=== PATIENT | female | born 2000 | race Caucasian/White ===

== ENCOUNTER 2023-06-09 21:09 | Emergency (ER) | payer BC, SELFPAY ==
[2023-06-09 21:28] VITALS: BP 153/84; PULSE 101; RESP 18; TEMP 36.6; O2SAT 96; BMI 38.4
--- NOTE | 2023-06-09 21:36 | ED_ITS ---
HPI - Psych General Time Seen by Provider: 21:21 Date Seen: 06/09/23 Chief Complaint: Psychiatric Problem/Disorder Stated Complaint: self harm, lacerations on arms and legs Time Seen by Provider: 06/09/23 21:21 Source: patient and RN notes reviewed Mode of arrival: ambulatory Limitations: no limitations History of Present Illness HPI Narrative: This 23-year-old female is coming in voluntarily to the ER with self inflicted cuts which are superficial to her left arm and right thigh. She states she has a long-term history of anxiety and depression, has done some self cutting before but never this bad. She is a bit unsure as to why the cutting happen tonight. She states it is a bit out of the blue. She has a [employer] student, her parents are driving up from [place] where home is. She admits to drinking a couple shots of alcohol tonight. Denies other drug use. She states she has never been hospitalized for her mental health before, no prior suicide attempts. She states there is a lot of stress, she is feeling numb, depressed, worthless and anxious. She does not have an identifiable plan for suicide nor any definite ideation tonight. She has a history of ADHD, PTSD, depression and anxiety. She has a psychiatrist that she sees monthly at [facility]. She does [address] dynamic therapy weekly. She does tell me that she did take an extra sertraline today, took 150 mg instead of 100 mg. Denies other ingestion. complaint: feels depressed Related Data Home Medications Medication Instructions Recorded Confirmed sertraline 50 mg tablet 50 mg PO DAILY 06/09/23 06/09/23 Allergies Allergy/AdvReac Type Severity Reaction Status Date / Time Penicillins AdvReac Verified 06/09/23 21:33 Review of Systems Status of ROS: Reports: 6 or more systems reviewed and unremarkable except as noted in History and below [facility] Medical History PTSD (post-traumatic stress disorder) ?F43.10 - Post-traumatic stress disorder, unspecified (ICD-10) Depression ?F32.A - Depression, unspecified (ICD-10) Anxiety ?F41.9 - Anxiety disorder, unspecified (ICD-10) Social History Smoking Status: Never smoker Do you use any of these nicotine containing products: None How often do you have a drink containing alcohol: never AUDIT-C Alcohol total score: 0 Non-prescribed substance use: denies use Exam Const: Vital Signs, click to edit/add: Vital Signs - 24 hr 06/09/23 21:28 06/09/23 21:39 Temperature 97.9 F Pulse Rate [Pulse Oximeter] 101 H Respiratory Rate 18 Blood Pressure [Ri ght Upper Arm] 153/84 H Pulse Oximetry 96 98 Oxygen Delivery Me thod Room Air This 23-year-old female is alert, interactive, no apparent distress. She is cooperative with me. She does have good eye contact. Speech is normal, not pressured, seems to have good insight EM on and normal thought content. I would say she does seem slightly flat in mood is depressed. Sclera clear, conjugate gaze, no nystagmus. Symmetrical atraumatic facial function. Neck supple, no masses, no thyromegaly masses or nodules. Lungs are clear, good air entry, no wheezing or crackles. CV regular rate and rhythm, no murmur, normal S1-S2. She has superficial cut steele on her left arm and her right thigh. None require any suturing. These are all very superficial but she has multiple sites. Will have nursing staff clean them, apply little bacitracin. These are over larger areas in it will be difficult to bandage. Documenting provider has reviewed patient's vital signs: yes Course Course ED Course: Will obtain EKG and do the full laboratory evaluation. Patient does agree to telehealth. Nursing staff will clean her wounds. Will ensure her tetanus is up-to-date. Consultations Consultation #1: Have given Heidi from [employer] back on information as I have learned it. She will consult with this patient shortly. She will contact me back when she is ready with her opinion. 11:30 p.m.: Heidi called back. She does not feel that this patient is holdable. She has far too much insight in no active plan. She cut to feel something, overall this patient is quite oriented to her feelings and symptoms. She did talk to Heidi about having vivid images of dying, taking pills to harm herself but that she would not do it. She just has no intent to end her life or harm herself. She has increased her therapy to twice a week on account of some of these feelings. Heidi spoke with patient's parents as well. They have come up with plans that the parents are going to come to the ER when they arrive here, they will take care of her. They will not leave her unattended in certainly not leave her with anything that could potentially be harmful. They will follow-up with further care. It is likely that they will go back down to [place]. Time: 21:48 Vital Signs Vital signs: Initial Vital Signs Temperature 97.9 F 06/09/23 21:28 Temperature Source Temporal Artery Scan 06/09/23 21:28 Pulse Rate 101 H 06/09/23 21:28 Pulse Rhythm Regular 06/09/23 21:28 Respiratory Rate 18 06/09/23 21:28 Blood Pressure 153/84 H 06/09/23 21:28 Blood Pressure Mean 107 H 06/09/23 21:28 Blood Pressure Position Sitting 06/09/23 21:28 Pulse Oximetry 96 06/09/23 21:28 Oxygen Delivery Method Room Air 06/09/23 21:28 Vital Signs Temperature 97.9 F 06/09/23 21:28 Pulse Rate 101 H 06/09/23 21:28 Respiratory Rate 18 06/09/23 21:28 Blood Pressure 153/84 H 06/09/23 21:28 Pulse Oximetry 96 06/09/23 21:28 Oxygen Delivery Method Room Air 06/09/23 21:28 Temperature 98.4 F 06/10/23 03:00 Pulse Rate 68 06/10/23 03:00 Respiratory Rate 16 06/10/23 03:00 Blood Pressure 136/74 06/10/23 03:00 Pulse Oximetry 98 06/10/23 03:00 Oxygen Delivery Method Room Air 06/10/23 03:00 MDM - Psych Lab Data Attestation: I reviewed the patient's lab results. Labs: Lab Results 06/09/23 06/09/23 06/09/23 Range/Units 21:43 21:51 21:55 WBC 9.25 (4.50-11.00) K/uL RBC 4.71 (4.00-5.20) m/uL Hgb 13.5 (12.0-16.0) gm/dL Hct 40.8 (33.0-51.0) % MCV 87 (80-100) fL MCH 29 (26-34) pg MCHC 33 (32-36) gm/dL RDW Coeff of [place] 12.9 (11.5-15.5) % Plt Count 374 (140-440) K/uL Neut % (Auto) 71.4 (42.0-72.0) % Lymph % (Auto) 21.5 (20-44) % [place]ois % (Auto) 5.2 (0.0-11.0) % Eos % (Auto) 1.6 (0.0-7.0) % Baso % (Auto) 0.2 (0.0-3.0) % Neut # (Auto) 6.60 (1.7-7.0) K/uL Lymph # (Auto) 1.99 (0.90-2.90) K/uL [place]ois # (Auto) 0.50 (0.00-0.90) K/UL Eos # (Auto) 0.15 (0.00-0.50) K/uL Baso # (Auto) 0.02 (0.00-0.30) K/uL Abs Immat Gran (auto) 0.01 (0.00-0.30) K/uL Imm/Tot Granulo (auto) 0.1 % Sodium 140 (135-149) mmol/L Potassium 3.5 L (3.6-5.1) mmol/L Chloride 109 (96-114) mmol/L Carbon Dioxide 19 L (20-32) mmol/L Anion Gap 12 (7-15) mEq/L BUN 8 (5-24) mg/dL Creatinine 0.8 (0.5-1.5) mg/dL Estimated Creat Clear 87.98 Estimated GFR 107 ml/min Glucose 126 H (60-115) mg/dL Calcium 9.3 (8.4-10.6) mg/dL Total Bilirubin 0.3 (0.1-1.5) mg/dL AST 30 (12-35) U/L ALT 32 (4-35) U/L Alkaline Phosphatase 72 (40-150) U/L Total Protein 7.8 (6.0-8.3) g/dL Albumin 4.6 (3.3-5.0) g/dL TSH 2.970 (0.270-4.200) uIU/mL Urine HCG, Qual Negative (Negative) Salicylates < 1.0 L (1.0-10) mg/dL Urine Opiates Screen Negative (Negative) Ur Oxycodone Screen Negative (Negative) Urine Methadone Screen Negative (Negative) Acetaminophen < 10.0 L (10.0-30.0) ug/mL Ur Barbiturates Screen Negative (Negative) U Tricyclic Antidepress Negative (Negative) Ur Phencyclidine Scrn Negative (Negative) Ur Amphetamines Screen Negative (Negative) U Methamphetamines Scrn Negative (Negative) U Benzodiazepines Scrn Negative (Negative) Urine Cocaine Screen Negative (Negative) U Marijuana (THC) Screen Negative (Negative) Ur Drug Screen Comment See Note Ethyl Alcohol 0.01 (0.01-0.03) % SARS-CoV-2 (PCR) Negative SARS-CoV-2 (Negative) ECG Data Attestation: I personally reviewed and interpreted this ECG as follows: (Normal sinus rhythm with sinus arrhythmia, 85 beats per minute. QT corrected 440 milliseconds. No concerning change.) ECG interpretation date: 06/09/23 ECG interpretation time: 22:56 Discharge Plan Discharge Clinical Impression: Deliberate self-cutting Depression Qualifiers: Depression Type: unspecified Qualified Code(s): F32.A - Depression, unspecified Patient Disposition: Home w/ Parent or Adult Condition: Stable Instructions: Depression (ED), Suicide Prevention (ED) Additional Instructions: Your to follow the safety plan that you agreed upon with Heidi from telehealth. If at any point you have increasing worry about her depression or underlying mood, are becoming suicidal, please seek emergent psychiatric care. Activity Level: Activity as Tolerated Discharge Diet: Regular Prescriptions: No Action sertraline 50 mg tablet 50 mg PO DAILY Stand Alone Forms: [employer] Info Instructions
[2023-06-09 21:39] VITALS: O2SAT 98
[2023-06-09 21:51] LABS: Basophils Absolute Auto 0.02 K/uL (0.00-0.30); Basophils Percent Auto 0.2 % (0.0-3.0); Eosinophils Absolute Auto 0.15 K/uL (0.00-0.50); Eosinophils Percent Auto 1.6 % (0.0-7.0); Hematocrit 40.8 % (33.0-51.0); Hemoglobin* 13.5 gm/dL (12.0-16.0); Immature Granulocytes Abs Auto 0.01 K/uL (0.00-0.30); Immature Granulocytes Pct Auto 0.1 %; Lymphocytes Absolute Auto 1.99 K/uL (0.90-2.90); Lymphocytes Percent Auto 21.5 % (20-44); Mean Corpuscular HGB Conc 33 gm/dL (32-36); Mean Corpuscular Hemoglobin 29 pg (26-34); Mean Corpuscular Volume 87 fL (80-100); Monocytes Percent Auto 5.2 % (0.0-11.0); Neutrophils Percent Auto 71.4 % (42.0-72.0); Platelet Count* 374 K/uL (140-440); RDW Coefficient of Variation % 12.9 % (11.5-15.5); Red Blood Count 4.71 m/uL (4.00-5.20); White Blood Count* 9.25 K/uL (4.50-11.00)
[2023-06-09 21:53] LABS: Slide Review Reflex No
[2023-06-09 22:04] LABS: Ur HCG Qualitative* Negative (Negative)
[2023-06-09 22:07] LABS: Albumin* 4.6 g/dL (3.3-5.0); Chloride* 109 mmol/L (96-114)
[2023-06-09 22:08] LABS: Potassium* 3.5 mmol/L (3.6-5.1); Sodium* 140 mmol/L (135-149)
[2023-06-09 22:10] LABS: Amphetamine Screen Urine Negative (Negative); Barbiturate Screen Urine Negative (Negative); Benzodiazepines Screen Urine Negative (Negative); Cannabinoid Screen Urine Negative (Negative); Cocaine Screen Urine Negative (Negative); Methadone Screen Urine Negative (Negative); Methamphetamines Screen Urine Negative (Negative); Opiate Screen Urine Negative (Negative); Oxycodone Screen Urine Negative (Negative); Phencyclidine Screen Urine Negative (Negative); Tricyclic Antidepressant Urine Negative (Negative)
[2023-06-09 22:10] LABS: Alanine Aminotransferase* 32 U/L (4-35); Alkaline Phosphatase* 72 U/L (40-150); Anion Gap 12 mEq/L (7-15); Aspartate Amino Transferase* 30 U/L (12-35); Bilirubin Total* 0.3 mg/dL (0.1-1.5); Blood Urea Nitrogen* 8 mg/dL (5-24); Carbon Dioxide* 19 mmol/L (20-32); Creatinine* 0.8 mg/dL (0.5-1.5); Est. Creatinine Clearance* 87.98; Estimated Glomerular Filt Rate 107 ml/min; Glucose* 126 mg/dL (60-115); Total Protein* 7.8 g/dL (6.0-8.3)
[2023-06-09 22:11] LABS: Calcium* 9.3 mg/dL (8.4-10.6); Ethanol* 0.01 % (0.01-0.03)
[2023-06-09 22:12] LABS: Acetaminophen* < 10.0 ug/mL (10.0-30.0)
[2023-06-09 22:13] LABS: Salicylate* < 1.0 mg/dL (1.0-10)
[2023-06-09 23:16] LABS: SARS PCR* Negative SARS-CoV-2 (Negative)
[2023-06-10 03:00] VITALS: BP 136/74; PULSE 68; RESP 16; TEMP 36.9; O2SAT 98
== END 2023-06-10 03:05 | disposition home or self-care (01) ==
PROVIDERS: Family Medicine; Emergency Provider Student in an Organized Health Care Education/Training Program
DX: R45.88 Nonsuicidal self-harm (principal); F32.A Depression, unspecified
CPT/HCPCS: 36415; 80053; 80143; 80179; 80306; 81025; 82077; 84443; 85025; 87426; 87631; 87635; 93005; 94761; 99284; 99285

== ENCOUNTER 2023-09-24 19:01 | Outpatient (CLI) | payer BC, SELFPAY ==
--- OUTSIDE RECORDS SUMMARY | 2023-09-26 11:41 | XMS_ITS | Clinical Summary ---
Author Organization [facility] Address [place], [place] [address] Care Team Providers Care Air Tester Name Role Phone Pcp, No Primary Care Provider Unavailabl e Allergies Active Allergy Reactions Criticality Noted Date Comments Alpha-Gal (Srxgndnzv-Jjlcf-4,3-Galactose) Anaphylaxis High 11/08/2022 Gluten GI Upset 11/08/2022 Sulfamethoxazole Rash 04/12/2022 Medications No known medications Active Problems Problem Noted Date Diagnosed Date Allergic rhinitis due to pollen 04/10/2022 Immunizations Name Administration Dates Next Due COVID-19 vaccine (Moderna 50 mcg/0.5mL) 12YO+ BIVALENT PFFIDENCIO 02/20/2022 Social History Tobacco Use Types Packs/Day Years Used Date Smoking Tobacco: Never Smokeless Tobacco: Never Tobacco Cessation:Counseling Given: Yes Alcohol Use Standard Drinks/Week Comments Never 0 (1 standard drink = 0.6 oz pur e alcohol) PHQ-2 Answer Date Recorded PHQ-2 TOTAL SCORE 1 04/10/2022 Social Connections Answer Date Recorded Frequency of Communication with Friends and Fami ly Not on file 07/09/2023 Financial Resource Strain Answer Date R ecorded Difficulty of Paying Living Expenses 3 06/26/2022 Difficulty of Paying Living Expenses Not on file 06/26/2022 Food Insecurity Answer Date Recorded Worried About Running Out of Food in the Last Ye ar 1 06/26/2022 Transportation Needs Answer Date Record ed Lack of Transportation (Medical) 1 06/26/2022 Housing Stability Answer Date Recorded Unable to Pay for Housing in the Last Year 1 06/26/2022 Sex and Gender Information Value Date Recorded Sex Assigned at Not on file Gender Identity Not on file Sexual Orientation Not on file Obstetrics History Last Filed Vital Signs Vital Sign Reading Time Taken Comments Blood Pressure 107/73 01/25/2023 1:37 PM CDT Pulse 88 01/25/2023 1:37 PM CDT Temperature 36.9 ??C (98.4 ??F) 06/26/2022 1:26 PM CD T Respiratory Rate - - Oxygen Saturation 97% 01/25/2023 1:37 PM CDT Inhaled Oxygen Concentration - - Weight 100.3 kg (221 lb 3.2 oz) 01/25/2023 1:37 PM CDT Height 158.3 cm (5' 2.32) 04/10/2022 7:40 AM CS T Body Mass Index - - Plan of Treatment Health Maintenance Due Date Last Done Comments Tdap 2013 HIV for age 15-65 2017 HPV series for age 9-26 (1 - 3-dose series) 2017 Chlamydia for age 16-24 2018 Hepatitis C screening for age 18-79 2020 Tetanus booster 2022 COVID-19 vaccine series (2022- season) 2022 02/20/2022 BMI (ht and wt on same day) for age 18+ 04/10/2023 04/10/2022 Depression screening for age 12+ 04/13/2023 04/13/2022, 04/12/2022, 04/12/2022, Additional history exists Pap test for age 21-65 06/03/2023 Influenza for age 9-49 11/24/2023 Meningococcal series for age 11-21 Aged Out No longer eligible based on patient's age to complete this topic Pneumococcal series for age 6-64 Aged Out No longer eligible based on patient's age to complete this topic Care Teams Air Tester Relationship Specialty Start Date End Date Pcp, No . PCP - General 04/10/22
--- OUTSIDE RECORDS SUMMARY | 2023-09-26 11:41 | XMS_ITS | Continuity of Care Document ---
[facility] Name [facility] Address [address] [place] [address] Organization [facility] hospital Care Team Providers Care Senior Systems Programmer Name Role Phone [facility] Unavailable Problems Problem Status Onset Date Problem Type Date of Resolution Comme nts Source Problem Condition
--- OUTSIDE RECORDS SUMMARY | 2023-09-26 11:42 | XMS_ITS ---
Care Plan - [facility] Created on: September 26, 2023 Betty Cha : 2000 Sex: Female Author Organization [facility] Address [address] [place] [address] Phone Care Team Providers Care Gasket Former Name Role Phone Jeanie Trevino Primary Care Provider [phone] Goals Includes: Active Goals The patient will continue to perform her usual exercise routine including yoga, stretching and walking. She was shown new stretching exercises for her upper thoracic region and was given a handout illustrating these stretches. She was shown a pelvic rocking isometric exercise that uses upward pelvic motion, lower abdominal contraction, and lumbar flattening to help with her chronic low back pain. She will continue to hydrate well. She will continue with her cognitive behavior therapist, and will return to the [facility] clinic as needed. Initiated on 03/15/2023 by provider Alexis Ko ; [facility]
--- OUTSIDE RECORDS SUMMARY | 2023-09-26 11:42 | XMS_ITS | Clinical Summary ---
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 Osteopathic manipulative treatment was recommended to be performed to address those somatic dysfunctions found today. Patient would like to proceed with OMT today - Last Documented On 04/23/2023 7:56AM ; [facility] - Follow-up visit in 2-3 weeks for reevaluation or as needed - Last Documented On 04/23/2023 7:56AM ; [facility] Assessments Includes: Assessments from this encounter Findings - Spinal enthesopathy of sacral and sacrococcygeal region [M46.08 - Spinal enthesopathy, sacral and sacrococcygeal region] - Last Documented On 04/23/2023 7:56AM ; [facility] - Myofascial pain syndrome of neck [M79.18 - Myalgia, other site] - Last Documented On 04/23/2023 7:56AM ; [facility] - Moderate depression [F32.1 - Major depressive disorder, single episode, moderate] - Last Documented On 04/23/2023 7:56AM ; [facility] - Somatic dysfunction of the head region [M99.00 - Segmental and somatic dysfunction of head region] - Last Documented On 04/23/2023 7:56AM ; [facility] - Somatic dysfunction of rib cage [M99.08 - Segmental and somatic dysfunction of rib cage] - Last Documented On 04/23/2023 7:56AM ; [facility] - Somatic dysfunction of cervical region [M99.01 - Segmental and somatic dysfunction of cervical region] - Last Documented On 04/23/2023 7:56AM ; [facility] - Somatic dysfunction of thoracic region [M99.02 - Segmental and somatic dysfunction of thoracic region] - Last Documented On 04/23/2023 7:56AM ; [facility] - Somatic dysfunction of lumbar region [M99.03 - Segmental and somatic dysfunction of lumbar region] - Last Documented On 04/23/2023 7:56AM ; [facility] - Somatic dysfunction of sacrum [M99.04 - Segmental and somatic dysfunction of sacral region] - Last Documented On 04/23/2023 7:56AM ; [facility] - Somatic dysfunction of pelvic region [M99.05 - Segmental and somatic dysfunction of pelvic region] - Last Documented On 04/23/2023 7:56AM ; [facility] Medical Equipment - Implanted Devices Includes: Current Devices No Medical Equipment Recorded Medications Includes: Medications discussed during this encounter and other current Medications Current Medications (continue as prescribed) Methylphenidate HCl ER 18 MG Oral Tablet Extended Release 24 Hour 06/20/2023 Provider: Diagnosis: Last Documented On 4 3:42PM By Betty Isid[facility] Mima-D Allergy & Congesti on 60-120 MG Oral Tablet Extended Release 12 Hour 06/20/2023 Provider: Diagnosis: Last Documented On 4 3:43PM By Betty Is[facility] FLUoxetine HCl 20 MG Oral Capsule 03/31/2021 Provide r: Diagnosis: Last Documented On 3 2:06PM By Barb Lee CCS ; [facility] Medications Administered Includes: Administered Medications from this encounter No Administered Medications Recorded Vital Signs Includes: Vital Signs from this encounter Vital Name 04/17/2023 08:07A Blood Pressure Sitting L 120/60 BP Cuff Size Large Pulse Rate-Sitting (bpm) 96 Pulse Rhythm Regular Respiration Rate (breaths/min) 16 Oxygen Saturation (%) 97 Flow Rate (l/min) (None (Room Air)) FiO2 (%) 21 Last Documented: On 04/17/2023 8:08AM ; Dwaine Colón [facility] Results Includes: Results discussed during this encounter No Results Recorded For Specified Dates History of Present Illness Includes: History of Present Illness from this encounter JIMENEZ Cha is a 22 year old female. 1) Low back pain - This pain is chronic. It has gotten much better after the last two treatments but still continues. It occurs in the low back bilaterally and radiates into the left hip. There is no new associated symptom or injury. She has been performing the stretches we prescribed regularly. 2) Depression - This problem has been aggrevated in the last few weeks. She returned home from school in hopes that it would help alleviate her symptoms. It seems to have continued. She has difficulty finding quinton in activities she typically enjoys, has low energy, and overall sad mood. - Stabbing pain - Feels like tightness or stiffness - Pain is constant (100% of the time) - Pain is dull, aching - Pain is shooting - Pain is sharp - Pain is relieved by movement and stretching - Pain is worse with sitting/standing, laying for long periods - Current pain level 3 (0-10) Social History Description Last Updated Right Handed 03/31/2021 Last Documented On 4 8:07AM ; Dwaine Colón [facility] 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/2021 Last Documented On 4 8:07AM ; Dwaine oClón [facility] Daily coffee consumption was one cups pe r day 03/31/2021 Last Documented On 4 8:07AM ; Dwaine Colón [facility] Never drank alcohol 03/31/2021 Last Documented On 4 8:07AM ; Dwaine Colón [facility] Non-smoker 03/31/2021 Last Documented On 4 8:07AM ; Dwaine Colón [facility] Not using drugs 03/31/2021 Last Documented On 4 8:07AM ; [facility] Single 03/31/2021 Last Documented On 4 8:07AM ; [facility] Smoking Status Unknown Procedures and Surgical History Includes: Procedures from this encounter Procedures Code Diagnosis Performing Provider Service Location Service Date OSTEOPATHIC MANIP 7-8 AREAS 12813 Segmental and somatic dysfunction of cervical region, Segmental and somatic dysfunction of sacral region, Segmental and somatic dysfunction of lumbar region, Segmental and somatic dysfunction of head region Ananda Sinan DO OMM 04/17/2023 Last Documented On 4 7:09PM ; [facility] osteopathic manipulative jarvis atment (OMT) involving seven to eight body regions [id number] Last Documented On 4 9:50AM ; [facility] general outcomes - OMT was well tolerate d Last Documented On 4 9:50AM ; [facility] general outcomes - Symptoms improved aft er OMT Last Documented On 4 9:50AM ; [facility] Articular Technique head region Last Documented On 4 9:50AM ; [facility] Osteopathic cranial manipulative medicin e head region Last Documented On 4 9:55AM ; [facility] Indirect balanced ligamentous tension he ad region Last Documented On 4 9:50AM ; [facility] Myofascial release head region Last Documented On 4 9:50AM ; [facility] OMT response head region: somatic dysfun ction was improved Last Documented On 4 9:50AM ; [facility] Articular technique cervical region Last Documented On 4 9:50AM ; [facility] Indirect balanced ligamentous tension ce rvical region Last Documented On 4 9:50AM ; [facility] Myofascial release cervical region Last Documented On 4 9:50AM ; [facility] Soft tissue technique cervical region Last Documented On 4 9:50AM ; [facility] OMT response cervical region: somatic dy sfunction was improved Last Documented On 4 9:50AM ; [facility] Articular Technique lumbar region Last Documented On 4 9:50AM ; [facility] Muscle energy lumbar region Last Documented On 4 9:50AM ; [facility] Myofascial release lumbar region Last Documented On 4 9:50AM ; [facility] Soft tissue technique lumbar region Last Documented On 4 9:50AM ; [facility] OMT response lumbar region: somatic dysf unction was improved Last Documented On 4 9:50AM ; [facility] Articular technique thoracic region Last Documented On 4 9:50AM ; [facility] Myofascial release thoracic region Last Documented On 4 9:50AM ; [facility] Soft tissue technique thoracic region Last Documented On 4 9:50AM ; [facility] OMT response thoracic region: somatic dy sfunction was improved Last Documented On 4 9:50AM ; [facility] OMT response pelvic region: somatic dysf unction was improved Last Documented On 4 9:50AM ; [facility] Articular Technique pelvic region Last Documented On 4 9:50AM ; [facility] Muscle energy pelvic region Last Documented On 4 9:50AM ; [facility] OMT response sacral region: somatic dysf unction was improved Last Documented On 4 9:50AM ; [facility] Muscle energy rib chest region Last Documented On 4 9:55AM ; [facility] Myofascial release rib chest region Last Documented On 4 9:50AM ; [facility] Soft tissue technique rib chest region Last Documented On 4 9:50AM ; [facility] OMT response rib/chest region: somatic d ysfunction was improved Last Documented On 4 9:50AM ; [facility] OMT was performed based on jeromy granger's physical examination - Regions treated include those listed in the assessment portion of today's Evaluation & Management note Last Documented On 4 9:50AM ; [facility] Low velocity, moderate amplitude techniq ue sacral region Last Documented On 4 9:50AM ; [facility] Surgical History Last Updated No prior surgery or no significant histo ry 03/31/2021 Last Documented On 4 8:07AM ; [facility] History of treatment of foot fracture - Boot (2016) 03/31/2021 Last Documented On 4 8:07AM ; [facility] Medical History Includes: Medical History addressed during this encounter Description Last Updated Past medical history reviewed - Previous encounter reviewed 03/31/2021 Last Documented On 4 8:07AM ; [facility] Dissociative Disorder ~ Environmental Al lergies 03/31/2021 Last Documented On 4 8:07AM ; [facility] Allergy symptoms occur seasonally 2021 Last Documented On 4 8:07AM ; [facility] An allergy to certain foods 03/31/2021 Last Documented On 4 8:07AM ; [facility] History of anxiety disorder NOS 03/31/19 22 Last Documented On 4 8:07AM ; [facility] History of depression 03/31/2021 Last Documented On 4 8:07AM ; [facility] Family History Includes: Family History addressed during this encounter Description Last Updated ADHD (dad) 03/31/2021 Last Documented On 4 8:07AM ; [facility] Family history of type 1 diabetes mellit us (sister) 03/31/2021 Last Documented On 4 8:07AM ; [facility] Review of Systems Includes: Review of Systems from this encounter Systemic: No fever, no chills, and no night sweats. Head: No headache. Sinus pain. Neck: Neck pain. Cardiovascular: No cardiovascular symptoms - ankle edema and no chest pain or discomfort. Gastrointestinal: Gastrointestinal pain. No diarrhea and no constipation. Musculoskeletal: Back symptoms. Neurological: No tingling and no numbness. Psychological: Anxiety and depression. Mental Status Includes: Mental Status from this encounter Description Oriented to time, place, and person Anxiety Moderate depression Functional Status Includes: Functional Status from this encounter No Functional Status Recorded Physical Exam Includes: Physical Exam from this encounter Allergies Includes: Active Allergies Substance Type Reaction Onset Date Resolved Date Statu s Penicillins Allergy Skin Rashes / Eruption of skin 022 Active Last Documented On 4 2:00PM ; [facility] Encounters Encounter Provider Location Date Check-In Time Check-Out Time Diagnosis [facility] Established patient Ananda Menon DO [facility] 04/17/19 24 8:00AM 9:02AM Somatic Dysfunction of Head,Somatic Dysfunction of Rib Cage,Somatic Dysfunction of Cervical Region,Somatic Dysfunction of Thoracic Region,Somatic Dysfunction of Lumbar Region,Somatic Dysfunction of Sacrum,Somatic Dysfunction of Pelvic Region,Myofascial Pain Syndrome Neck,Spinal Enthesopathy of Sacral and Sacrococcygeal Region,Depression Moderate Insurance Includes: Active Insurance Policies Plan Name Member ID Group # Subscriber Relationship Effect mica Dates 1 - Clever [place] Access Payer [id number] Starla II, Girma A Child Clinical Notes Includes: Clinical Notes from this encounter * Progress note Date Encounter Last Documented by 04/17/2023 [facility] Established patient Last doc umented on 04/23/2023; 7:56 AM, Ananda Sinan ; [facility] Chief Complaint - Back symptoms - Psychological symptoms History of Present Illness Betty Cha is a 22 year old female. 1) Low back pain - This pain is chronic. It has gotten much better after the last two treatments but still continues. It occurs in the low back bilaterally and radiates into the left hip. There is no new associated symptom or injury. She has been performing the stretches we prescribed regularly. 2) Depression - This problem has been aggrevated in the last few weeks. She returned home from school in hopes that it would help alleviate her symptoms. It seems to have continued. She has difficulty finding quinton in activities she typically enjoys, has low energy, and overall sad mood. - Stabbing pain - Feels like tightness or stiffness - Pain is constant (100% of the time) - Pain is dull, aching - Pain is shooting - Pain is sharp - Pain is relieved by movement and stretching - Pain is worse with sitting/standing, laying for long periods - Current pain level 3 (0-10) Review Of Systems Systemic: No fever, no chills, and no night sweats. Head: No headache. Sinus pain. Neck: Neck pain. Cardiovascular: No cardiovascular symptoms - ankle edema and no chest pain or discomfort. Gastrointestinal: Gastrointestinal pain. No diarrhea and no constipation. Musculoskeletal: Back symptoms. Neurological: No tingling and no numbness. Psychological: Anxiety and depression. Past Medical/Surgical History Other: Past medical history reviewed - Previous encounter reviewed Reported: Medical: An allergy to certain foods and allergy symptoms occur seasonally. Surgical / Procedural: No prior surgery or no significant history. Diagnoses: Depression Anxiety disorder NOS Dissociative Disorder Environmental Allergies. Procedural: - Treatment of foot fracture - Boot (2016) Allergies - Penicillins Reaction: Skin Rashes / Eruption of skin (Mild to Moderate) Social History Caffeine use: Daily coffee consumption was one cups per day. Tobacco use: Non-smoker. Alcohol: Never drank alcohol. Drug Use: Not using drugs. Education: 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 school [employer]. Marital: Single. Right Handed. Family History ADHD (dad) Type 1 diabetes mellitus (sister) Current Medication - FLUoxetine HCl 20 MG Oral Capsule 1 tab or cap daily 0 days, 0 refills - ZyrTEC Allergy 10 MG Oral Tablet as needed 0 days, 0 refills Physical Findings - Vitals taken 04/17/2023 08:07 am BP-Sitting L 120/60 mmHg BP Cuff Size Large Pulse Rate-Sitting 96 bpm Pulse Rhythm Regular Respiration Rate 16 per min Oxygen Saturation 97 % O2 Device None (Room Air) FiO2 21 % General Appearance: - General appearance: normally developed, no deformities. Musculoskeletal System: Cervical Spine (Motion): General/bilateral: - Cervical spine motion was abnormal - impaired or altered range of motion present in the cervical spine. - Cervical spine showed no instability. - Spurlings test negative for numbness and tingling. Thoracic Spine: General/bilateral: - Thoracic spine exhibited abnormal rib motion. Thoracolumbar Spine (Motion): General/bilateral: - Thoracolumbar spine motion was abnormal - Impaired or altered range of motion in the thoracic or thoracolumbar spinal regions. Lumbar / Lumbosacral Spine (Motion): General/bilateral: - Lumbosacral spine motion was abnormal - Impaired or altered range of motion in the lumbar or lumbosacral spinal regions. - Sacroiliac joint motion was abnormal. - A straight-leg raising test was negative. - A contralateral straight-leg raising test was negative. Neurological: - Level of consciousness was normal. - Oriented to time, place, and person. Motor (Strength): - Strength of flexion of the right hip 5/5. - Strength of flexion of the left hip 5/5. - Strength of abduction of the right hip 5/5. - Strength of abduction of the left hip 5/5. - Strength of adduction of the right hip 5/5. - Strength of adduction of the left hip 5/5. - Strength of flexion of the right knee 5/5. - Strength of flexion of the left knee 5/5. - Strength of extension of the right knee 5/5. - Strength of extension of the left knee 5/5. - Dorsiflexion strength of the right ankle 5/5. - Dorsiflexion strength of the left ankle 5/5. - Plantar flexion strength of the right ankle 5/5. - Plantar flexion strength of the left ankle 5/5. - Inversion strength of the right ankle 5/5. - Inversion strength of the left ankle 5/5. - Eversion strength of the right ankle 5/5. - Eversion strength of the left ankle 5/5. - Flexion strength of the right first toe 5/5. - Flexion strength of the left first toe 5/5. Reflexes: - Right knee jerk reflex 2/4. - Left knee jerk reflex 2/4. - Right ankle jerk reflex 2/4. - Left ankle jerk reflex 2/4. Psychiatric: Appearance: - Grooming was normal. Mood: - Euthymic. Affect: - Normal. User Defined 4 Occipitoatlantal joint extended, sidebent right and rotated left, Right frontal bone internally rotated, and Overall severity of the head region is moderate. User Defined 6 C3 flexed, sidebent right and rotated right, C5 flexed, sidebent left and rotated left, C6 flexed, sidebent left and rotated left, and Overall severity of the cervical region is moderate. User Defined 7 T7 neutral, sidebent right and rotated left, T8 neutral, sidebent right and rotated left, T9 neutral, sidebent right and rotated left, T10 neutral, sidebent right and rotated left, and Overall severity of the thoracic region is moderate. User Defined 9 Left rib 9 anterior, Left rib 10 exhaled, Left rib 10 anterior, Left rib 11 exhaled, Left rib 11 anterior, Left rib 12 exhaled, Left rib 12 anterior, and Left rib 12 stiffness. User Defined 10 L1 neutral, sidebent left and rotated right, L2 neutral, sidebent left and rotated right, L3 neutral, sidebent left and rotated right, L4 extended, sidebent left and rotated left, L5 extended, sidebent left and rotated left, and Overall severity of the lumbar region is moderate. User Defined 11 Left anteriorly rotated innominate and Overall severity of the pelvic region is moderate. User Defined 12 Right unilateral sacral flexion, Right midpole sacroiliac tender point, and Overall severity of the sacral region is moderate. Assessment - Spinal enthesopathy of sacral and sacrococcygeal region [M46.08 - Spinal enthesopathy, sacral and sacrococcygeal region] - Myofascial pain syndrome of neck [M79.18 - Myalgia, other site] - Moderate depression [F32.1 - Major depressive disorder, single episode, moderate] - Somatic dysfunction of the head region [M99.00 - Segmental and somatic dysfunction of head region] - Somatic dysfunction of rib cage [M99.08 - Segmental and somatic dysfunction of rib cage] - Somatic dysfunction of cervical region [M99.01 - Segmental and somatic dysfunction of cervical region] - Somatic dysfunction of thoracic region [M99.02 - Segmental and somatic dysfunction of thoracic region] - Somatic dysfunction of lumbar region [M99.03 - Segmental and somatic dysfunction of lumbar region] - Somatic dysfunction of sacrum [M99.04 - Segmental and somatic dysfunction of sacral region] - Somatic dysfunction of pelvic region [M99.05 - Segmental and somatic dysfunction of pelvic region] Plan - Osteopathic manipulative treatment (OMT) - Somatic dysfunction was found on today's physical examination which was likely contributing to the patient's complaints. Osteopathic manipulative treatment was recommended to be performed to address those somatic dysfunctions found today. Patient would like to proceed with OMT today - Follow-up visit in 2-3 weeks for reevaluation or as needed Discussed The patient admitted to feeling much more depressed the last few weeks. She returned to [place] in hopes of alleviating her depression but this has been unsuccessful. She is currently seeing a provider on her campus for this issue and has plans to restart antidepressants. We suggested that a short course of anti depressants could be very useful for her situation. It was suggested that she attempt to find things that bring her quinton and where she has fun and engage in those activities. It was also suggested that she spend more time outdoors and generally take care of her own well being and stability. For stretches it was suggested that she find the specific muscle groups that feel tight and spend her limited time focusing on those areas. Counseling/Education - Education: activity/exercise education prescribed - Continue current home stretching and exercise program - Education: patient education about a proper diet - Anti-inflammatory diet discussed and handout given User Defined 5 OMT was performed based on today's physical examination - Regions treated include those listed in the assessment portion of today's Evaluation & Management note. Articular Technique head region; Osteopathic cranial manipulative medicine head region; Indirect balanced ligamentous tension head region; Myofascial release head region. OMT response head region: somatic dysfunction was improved. Articular technique cervical region; Indirect balanced ligamentous tension cervical region; Myofascial release cervical region; Soft tissue technique cervical region. OMT response cervical region: somatic dysfunction was improved. Articular technique thoracic region; Myofascial release thoracic region; Soft tissue technique thoracic region. OMT response thoracic region: somatic dysfunction was improved. Muscle energy rib chest region; Myofascial release rib chest region; Soft tissue technique rib chest region. OMT response rib/chest region: somatic dysfunction was improved. Articular Technique lumbar region; Muscle energy lumbar region; Myofascial release lumbar region; Soft tissue technique lumbar region. OMT response lumbar region: somatic dysfunction was improved. Articular Technique pelvic region; Muscle energy pelvic region. OMT response pelvic region: somatic dysfunction was improved. Low velocity, moderate amplitude technique sacral region. OMT response sacral region: somatic dysfunction was improved. Osteopathic manipulative treatment (OMT) involving seven to eight body regions. General outcomes - OMT was well tolerated. General outcomes - Symptoms improved after OMT. Care Team - Jeanie Trevino Practice Management Estab outpatient expanded h&p - low complexity decisions [id number] - The E&M code was based on Medical Decision Making associated with at least 2 of the following 3 elements 1) 2 minor or self-limiting problems or 1 stable chronic problem or 1 acute uncomplicated injury; 2) limited record/data reviewed or ordered; 3) Low management risk such as OMT.
--- OUTSIDE RECORDS SUMMARY | 2023-09-26 11:42 | XMS_ITS | Clinical Summary ---
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 Osteopathic manipulative treatment was recommended to be performed to address those somatic dysfunctions found today. Patient would like to proceed with OMT today - Last Documented On 07/19/2023 5:27PM ; [facility] - Follow-up visit in 4-6 weeks for reevaluation or as needed - Last Documented On 07/19/2023 5:27PM ; [facility] Assessments Includes: Assessments from this encounter Findings - Vertebrogenic low back pain [M54.51 - Vertebrogenic low back pain] - Last Documented On 07/19/2023 5:27PM ; [facility] - Cervicalgia [M54.2 - Cervicalgia] - Last Documented On 07/19/2023 5:27PM ; [facility] - Somatic dysfunction of the head region [M99.00 - Segmental and somatic dysfunction of head region] - Last Documented On 07/19/2023 5:27PM ; [facility] - Somatic dysfunction of rib cage [M99.08 - Segmental and somatic dysfunction of rib cage] - Last Documented On 07/19/2023 5:27PM ; [facility] - Somatic dysfunction of cervical region [M99.01 - Segmental and somatic dysfunction of cervical region] - Last Documented On 07/19/2023 5:27PM ; [facility] - Somatic dysfunction of thoracic region [M99.02 - Segmental and somatic dysfunction of thoracic region] - Last Documented On 07/19/2023 5:27PM ; [facility] - Somatic dysfunction of lumbar region [M99.03 - Segmental and somatic dysfunction of lumbar region] - Last Documented On 07/19/2023 5:27PM ; [facility] Medical Equipment - Implanted Devices Includes: Current Devices No Medical Equipment Recorded Medications Includes: Medications discussed during this encounter and other current Medications Current Medications (continue as prescribed) Methylphenidate HCl ER 18 MG Oral Tablet Extended Release 24 Hour 06/20/2023 Provider: Diagnosis: Last Documented On 4 3:42PM By Betty Mahan ; [facility] Mima-D Allergy & Congesti on 60-120 MG Oral Tablet Extended Release 12 Hour 06/20/2023 Provider: Diagnosis: Last Documented On 4 3:43PM By Betty Mahan ; [facility] FLUoxetine HCl 20 MG Oral Capsule 03/31/2021 Provide r: Diagnosis: Last Documented On 3 2:06PM By Barb Lee CCS ; [facility] Medications Administered Includes: Administered Medications from this encounter No Administered Medications Recorded Vital Signs Includes: Vital Signs from this encounter Vital Name 07/19/2023 04:01P Blood Pressure Sitting L 120/70 BP Cuff Size Large Pulse Rate-Sitting (bpm) 106 Pulse Rhythm Regular Respiration Rate (breaths/min) 18 Oxygen Saturation (%) 98 Flow Rate (l/min) (None (Room Air)) FiO2 (%) 21 Last Documented: On 07/19/2023 4:02PM ; [facility] Results Includes: Results discussed during this encounter No Results Recorded For Specified Dates History of Present Illness Includes: History of Present Illness from this encounter JIMENEZ Cha is a 23 year old female. 1) Neck pain - This has been going on since her accident last month. The treatment immediately following the accident helped a lot but she still struggles with neck stiffness and pain. There is no new associated injury or symptom. 2) Back pain - This pain is chronic. It occurs in the low back bilaterally and radiates into the hips. There is no new associated injury. Notably, the patient explained that she had an episode of self harm during this last semester and had to be hospitalized for a day. She then decided to move back to her parents house. She is working with a psychiatrist and therapist. She expressed that she has not had any more thoughts of self harm. - Stabbing pain - Feels like tightness or stiffness - Pain is constant (100% of the time) - Pain is dull, aching - Pain is relieved by walking and stretching - Pain is worse with sitting, standing, laying down - Current pain level 3 (0-10) Social History Description Last Updated Right Handed 03/31/2021 Last Documented On 4 4:01PM ; [facility] 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/2021 Last Documented On 4 4:01PM ; [facility] Daily coffee consumption was one cups pe r day 03/31/2021 Last Documented On 4 4:01PM ; [facility] Never drank alcohol 03/31/2021 Last Documented On 4 4:01PM ; [facility] Non-smoker 03/31/2021 Last Documented On 4 4:01PM ; [facility] Not using drugs 03/31/2021 Last Documented On 4 4:01PM ; [facility] Single 03/31/2021 Last Documented On 4 4:01PM ; [facility] Smoking Status Unknown Procedures and Surgical History Includes: Procedures from this encounter Procedures Code Diagnosis Performing Provider Service Location Service Date OSTEOPATHIC MANIP 5-6 AREAS 08441 Segmental and somatic dysfunction of cervical region, Segmental and somatic dysfunction of rib cage, Segmental and somatic dysfunction of thoracic region, Segmental and somatic dysfunction of lumbar region Ananda Menon DO, OMM 07/19/2023 Last Documented On 4 7:02AM ; [facility] osteopathic manipulative treatment (OMT) involving five to six body regions [id number] Last Documented On 4 5:23PM ; [facility] general outcomes - OMT was well tolerate d Last Documented On 4 5:23PM ; [facility] general outcomes - Symptoms improved aft er OMT Last Documented On 4 5:23PM ; [facility]omy. [facility] Muscle energy head region Last Documented On 4 5:23PM ; [facility] Myofascial release head region Last Documented On 4 5:23PM ; [facility] Soft tissue technique head region Last Documented On 4 5:23PM ; [facility] OMT response head region: somatic dysfun ction was improved Last Documented On 4 5:23PM ; [facility] Articular technique cervical region Last Documented On 4 5:23PM ; [facility] Facilitated positional release cervical region Last Documented On 4 5:23PM ; [facility] Indirect balanced ligamentous tension ce rvical region Last Documented On 4 5:23PM ; [facility] Muscle energy cervical region Last Documented On 4 5:23PM ; [facility] Myofascial release cervical region Last Documented On 4 5:23PM ; [facility] OMT response cervical region: somatic dy sfunction was improved Last Documented On 4 5:23PM ; [facility] Articular Technique lumbar region Last Documented On 4 5:24PM ; [facility] Muscle energy lumbar region Last Documented On 4 5:24PM ; [facility] OMT response lumbar region: somatic dysf unction was improved Last Documented On 4 5:24PM ; [facility] Articular technique thoracic region Last Documented On 4 5:24PM ; [facility] Muscle energy thoracic region Last Documented On 4 5:24PM ; [facility] Myofascial release thoracic region Last Documented On 4 5:24PM ; [facility] OMT response thoracic region: somatic dy sfunction was improved Last Documented On 4 5:24PM ; [facility] Still technique rib chest region Last Documented On 4 5:24PM ; [facility] OMT response rib/chest region: somatic d ysfunction was improved Last Documented On 4 5:24PM ; [facility] OMT was performed based on jeromy granger's physical examination - Regions treated include those listed in the assessment portion of today's Evaluation & Management note Last Documented On 4 5:23PM ; [facility] Surgical History Last Updated No prior surgery or no significant histo ry 03/31/2021 Last Documented On 4 4:01PM ; [facility] History of treatment of foot fracture - Boot (2016) 03/31/2021 Last Documented On 4 4:01PM ; [facility] Medical History Includes: Medical History addressed during this encounter Description Last Updated Past medical history reviewed - Previous encounter reviewed 03/31/2021 Last Documented On 4 4:01PM ; [facility] Dissociative Disorder ~ Environmental Al lergies 03/31/2021 Last Documented On 4 4:01PM ; [facility] Allergy symptoms occur seasonally 2021 Last Documented On 4 4:01PM ; [facility] An allergy to certain foods 03/31/2021 Last Documented On 4 4:01PM ; [facility] History of anxiety disorder NOS 03/31/19 Last Documented On 4 4:01PM ; [facility] History of depression 03/31/2021 Last Documented On 4 4:01PM ; [facility] Family History Includes: Family History addressed during this encounter Description Last Updated ADHD (dad) 03/31/2021 Last Documented On 4 4:01PM ; [facility] Family history of type 1 diabetes jeovanny redd (sister) 03/31/2021 Last Documented On 4 4:01PM ; [facility] Review of Systems Includes: Review of Systems from this encounter Head: Headache. Neck: Neck pain. Gastrointestinal: Gastrointestinal pain. Musculoskeletal: Back symptoms and localized joint stiffness worse in the morning. Mental Status Includes: Mental Status from this encounter Description Oriented to time, place, and person Functional Status Includes: Functional Status from this encounter No Functional Status Recorded Physical Exam Includes: Physical Exam from this encounter Allergies Includes: Active Allergies Substance Type Reaction Onset Date Resolved Date Statu s Penicillins Allergy Skin Rashes / Eruption of skin 022 Active Last Documented On 4 2:00PM ; [facility] Encounters Encounter Provider Location Date Check-In Time Check-Out Time Diagnosis OM Established patient Ananda Sinan [facility] 07/19/19 24 3:58PM 4:53PM Dorsopathy Low Back Pain Vertebrogenic,S omatic Dysfunction of Head,Somatic Dysfunction of Rib Cage,Somatic Dysfunction of Cervical Region,Somatic Dysfunction of Thoracic Region,Somatic Dysfunction of Lumbar Region,Cervical maxime Insurance Includes: Active Insurance Policies Plan Name Member ID Group # Subscriber Relationship Effect mica Dates 1 - [place] [employer] Payer [id number] Starla II, Girma A Child Clinical Notes Includes: Clinical Notes from this encounter * Progress note Date Encounter Last Documented by 07/19/2023 [facility] Established patient Last doc umented on 07/19/2023; 5:27 PM, Ananda Menon DO; [facility] Chief Complaint - Neck symptoms - Back symptoms History of Present Illness Betty Cha is a 23 year old female. 1) Neck pain - This has been going on since her accident last month. The treatment immediately following the accident helped a lot but she still struggles with neck stiffness and pain. There is no new associated injury or symptom. 2) Back pain - This pain is chronic. It occurs in the low back bilaterally and radiates into the hips. There is no new associated injury. Notably, the patient explained that she had an episode of self harm during this last semester and had to be hospitalized for a day. She then decided to move back to her parents house. She is working with a psychiatrist and therapist. She expressed that she has not had any more thoughts of self harm. - Stabbing pain - Feels like tightness or stiffness - Pain is constant (100% of the time) - Pain is dull, aching - Pain is relieved by walking and stretching - Pain is worse with sitting, standing, laying down - Current pain level 3 (0-10) Review Of Systems Head: Headache. Neck: Neck pain. Gastrointestinal: Gastrointestinal pain. Musculoskeletal: Back symptoms and localized joint stiffness worse in the morning. Past Medical/Surgical History Other: Past medical history reviewed - Previous encounter reviewed Reported: Medical: An allergy to certain foods and allergy symptoms occur seasonally. Surgical / Procedural: No prior surgery or no significant history. Diagnoses: Depression Anxiety disorder NOS Dissociative Disorder Environmental Allergies. Procedural: - Treatment of foot fracture - Jessica (2016) Allergies - Penicillins Reaction: Skin Rashes / Eruption of skin (Mild to Moderate) Social History Caffeine use: Daily coffee consumption was one cups per day. Tobacco use: Non-smoker. Alcohol: Never drank alcohol. Drug Use: Not using drugs. Education: 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 school [employer]. Marital: Single. Right Handed. Family History ADHD (dad) Type 1 diabetes mellitus (sister) Current Medication - Mima-D Allergy & Congestion 60-120 MG Oral Tablet Extended Release 12 Hour as needed 0 days, 0 refills - FLUoxetine HCl 20 MG Oral Capsule 1 tab or cap daily 0 days, 0 refills - Methylphenidate HCl ER 18 MG Oral Tablet Extended Release 24 Hour 1 tab or cap daily 0 days, 0 refills Physical Findings - Vitals taken 07/19/2023 04:01 pm BP-Sitting L 120/70 mmHg BP Cuff Size Large Pulse Rate-Sitting 106 bpm Pulse Rhythm Regular Respiration Rate 18 per min Oxygen Saturation 98 % O2 Device None (Room Air) FiO2 21 % General Appearance: - General appearance: normally developed, no deformities. Musculoskeletal System: Cervical Spine (Motion): General/bilateral: - Cervical spine motion was abnormal - impaired or altered range of motion present in the cervical spine. - Cervical spine showed no instability. - Spurlings test negative for numbness and tingling. Thoracolumbar Spine (Motion): General/bilateral: - Thoracolumbar spine motion was abnormal - Impaired or altered range of motion in the thoracic or thoracolumbar spinal regions. Lumbar / Lumbosacral Spine (Motion): General/bilateral: - Lumbosacral spine motion was abnormal - Impaired or altered range of motion in the lumbar or lumbosacral spinal regions. Neurological: - Level of consciousness was normal. - Oriented to time, place, and person. Psychiatric: Appearance: - Grooming was normal. Mood: - Dysthymic. Affect: - Abnormal. - Sad. User Defined 4 Occipitoatlantal joint flexed, sidebent left and rotated right, Right suboccipital muscular tension, and Overall severity of the head region is moderate. User Defined 6 C3 flexed, sidebent left and rotated left, C6 flexed, sidebent left and rotated left, and Overall severity of the cervical region is moderate. User Defined 7 T2 neutral, sidebent right and rotated left, T3 neutral, sidebent right and rotated left, T4 neutral, sidebent right and rotated left, and Overall severity of the thoracic region is moderate. User Defined 9 Left rib1 inhaled and Overall severity of the rib/chest region is moderate. User Defined 10 L2 neutral, sidebent right and rotated left, L3 neutral, sidebent right and rotated left, L4 neutral, sidebent right and rotated left, and Overall severity of the lumbar region is moderate. Assessment - Vertebrogenic low back pain [M54.51 - Vertebrogenic low back pain] - Cervicalgia [M54.2 - Cervicalgia] - Somatic dysfunction of the head region [...] Segmental and somatic dysfunction of lumbar region] Plan - Osteopathic manipulative treatment (OMT) - Somatic dysfunction was found on today's physical examination which was likely contributing to the patient's complaints. Osteopathic manipulative treatment was recommended to be performed to address those somatic dysfunctions found today. Patient would like to proceed with OMT today - Follow-up visit in 4-6 weeks for reevaluation or as needed Discussed It was discussed that if she has any more thoughts of self harm she needs to seek help immediately. It was also recommended to keep spending time in nature with her dog (which she enjoys) and to continue making decisions to support her mental health. Counseling/Education - Education: activity/exercise education prescribed - Continue current home stretching and exercise program User Defined 5 OMT was performed based on today's physical examination - Regions treated include those listed in the assessment portion of today's Evaluation & Management note. Muscle energy head region; Myofascial release head region; Soft tissue technique head region. OMT response head region: somatic dysfunction was improved. Articular technique cervical region; Facilitated positional release cervical region; Indirect balanced ligamentous tension cervical region; Muscle energy cervical region; Myofascial release cervical region. OMT response cervical region: somatic dysfunction was improved. Articular technique thoracic region; Muscle energy thoracic region; Myofascial release thoracic region. OMT response thoracic region: somatic dysfunction was improved. Still technique rib chest region. OMT response rib/chest region: somatic dysfunction was improved. Articular Technique lumbar region; Muscle energy lumbar region. OMT response lumbar region: somatic dysfunction was improved. Osteopathic manipulative treatment (OMT) involving five to six body regions. General outcomes - OMT was well tolerated. General outcomes - Symptoms improved after OMT. Care Team - Jeanie Trevino Practice Management Estab outpatient expanded h&p - low complexity decisions [id number] - The E&M code was based on Medical Decision Making associated with at least 2 of the following 3 elements 1) 2 minor or self-limiting problems or 1 stable chronic problem or 1 acute uncomplicated injury; 2) limited record/data reviewed or ordered; 3) Low management risk such as OMT.
--- OUTSIDE RECORDS SUMMARY | 2023-09-26 11:42 | XMS_ITS ---
Author Organization [facility]ly [facility] Address [address] [place] [address] Phone Care Team Providers Care Anesthesia Technician Name Role Phone Jeanie Trevino Primary Care Provider [phone] Plan of Treatment Findings Encounter Date Ordered follow-up visit in 4 -6 weeks for reevaluation or as needed OM Established patient with Ananda Menon DO 07/19/2023 Last Documented On 4 5:27PM ; [facility] Requested osteopathic manipu lative treatment (OMT) - Somatic dysfunction was found on today's physical examination which was likely contributing to the patient's complaints. Osteopathic manipulative treatment was recommended to be performed to address those somatic dysfunctions found today. Patient would like to proceed with OMT today OM Established patient with Ananda Menon DO 07/19/2023 Last Documented On 4 5:27PM ; [facility] Ordered follow-up visit in 1 -2 weeks for reevaluation or as needed OMM Established patient with Uvaldo Jauregui DO 06/20/2023 Last Documented On 4 2:45PM ; [facility] Requested osteopathic manipu lative treatment (OMT) - Somatic dysfunction was found on today's physical examination which was likely contributing to the patient's complaints. Osteopathic manipulative treatment was recommended to be performed to address those somatic dysfunctions found today. Patient would like to proceed with OMT today OM Established patient with Uvaldo Jauregui DO 06/20/2023 Last Documented On 4 2:45PM ; [facility] Ordered follow-up visit in 2 -3 weeks for reevaluation or as needed OM Established patient with Ananda Sinan DO 04/17/2023 Last Documented On 4 7:56AM ; [facility] Requested osteopathic manipu lative treatment (OMT) - Somatic dysfunction was found on today's physical examination which was likely contributing to the patient's complaints. Osteopathic manipulative treatment was recommended to be performed to address those somatic dysfunctions found today. Patient would like to proceed with OMT today OM Established patient with Ananda Sinan DO 04/17/2023 Last Documented On 4 7:56AM ; [facility] Ordered follow-up visit in 2 -3 weeks for reevaluation or as needed OM Established patient with Ananda Sinan DO 04/04/2023 Last Documented On 4 12:48PM ; [facility] Requested osteopathic manipu lative treatment (OMT) - Somatic dysfunction was found on today's physical examination which was likely contributing to the patient's complaints. Osteopathic manipulative treatment was recommended to be performed to address those somatic dysfunctions found today. Patient would like to proceed with OMT today OM Established patient with Ananda Sinan DO 04/04/2023 Last Documented On 4 12:48PM ; [facility] Ordered follow-up visit in 2 -3 weeks for reevaluation or as needed OM Established patient with Ananda Sinan DO 03/22/2023 Last Documented On 3 4:00PM ; [facility] Requested osteopathic manipu lative treatment (OMT) - Somatic dysfunction was found on today's physical examination which was likely contributing to the patient's complaints. Osteopathic manipulative treatment was recommended to be performed to address those somatic dysfunctions found today. Patient would like to proceed with OMT today OM Established patient with Ananda Sinan DO 03/22/2023 Last Documented On 3 4:00PM ; [facility] The patient was educated on using a pelvic rocking technique that she will perform supine, rolling her hips upward as she contracts her lower abdominal muscles and flattens her lumbar spine; this will help her with her posture and strengthen core muscles. She was given an exercise handout that illustrated stretches for her upper thoracic and shoulder regions; these will help her with her posture OMM Established patient with Alexis Ko DO 03/14/2023 Last Documented On 3 11:27AM ; Dwaine [facility] Ordered follow-up visit in 3 -4 weeks for reevaluation or as needed OMM Established patient with Alexis Ko DO 03/14/2023 Last Documented On 3 11:27AM ; [facility] Ordered return to the clinic if condition worsens or new symptoms arise OMM Established patient with Alexis Ko DO 03/14/2023 Last Documented On 3 11:27AM ; [facility] Requested counter strain therapy OMM Est ablished patient with Alexis Ko DO 03/14/2023 Last Documented On 3 11:27AM ; [facility] Requested muscle energy therapy OMM Esta blished patient with Alexis Ko DO 03/14/2023 Last Documented On 3 11:27AM ; Dwaine [facility] Requested osteopathic manipu lative treatment (OMT) - Somatic dysfunction was found on today's physical examination which was likely contributing to the patient's complaints. Osteopathic manipulative treatment was recommended to be performed to address those somatic dysfunctions found today. Patient would like to proceed with OMT today OMM Established patient with Alexis Ko DO 03/14/2023 Last Documented On 3 11:27AM ; Dw[facility] Requested osteopathic manipu lative treatment (OMT) involving three to four body regions OMM Established patient with Alexis Ko DO 03/14/2023 Last Documented On 3 11:27AM ; [facility] Ordered return to the clinic if condition worsens or new symptoms arise OMM Established patient with Ananda Menon DO 11/12/2022 Last Documented On 3 5:01PM ; [facility] Requested osteopathic manipu lative treatment (OMT) - Somatic dysfunction was found on today's physical examination which was likely contributing to the patient's complaints. Osteopathic manipulative treatment was recommended to be performed to address those somatic dysfunctions found today. Patient would like to proceed with OMT today OMM Established patient with Ananda Menon DO 11/12/2022 Last Documented On 3 5:01PM ; Rigoberto.TSolomon [facility] Ordered follow-up visit in 3 -4 weeks for reevaluation or as needed OMM Established patient with Ananda Menon DO 10/29/2022 Last Documented On 3 5:10PM ; A[facility]omon [facility] Requested osteopathic manipu lative treatment (OMT) - Somatic dysfunction was found on today's physical examination which was likely contributing to the patient's complaints. Osteopathic manipulative treatment was recommended to be performed to address those somatic dysfunctions found today. Patient would like to proceed with OMT today OM Established patient with Ananda Menon DO 10/29/2022 Last Documented On 3 5:10PM ; Rigoberto.TSolomon [facility] Ordered follow-up visit in 3 -4 weeks for reevaluation or as needed OM Established patient with Ananda Menon DO 08/30/2022 Last Documented On 3 4:50PM ; Rigoberto.TSolomon [facility] Requested osteopathic manipu lative treatment (OMT) - Somatic dysfunction was found on today's physical examination which was likely contributing to the patient's complaints. Osteopathic manipulative treatment was recommended to be performed to address those somatic dysfunctions found today. Patient would like to proceed with OMT today OM Established patient with Ananda Menon DO 08/30/2022 Last Documented On 3 4:50PM ; [facility] General outcomes - Symptoms improved after OMT OM Established patient with Yu Michelle DO 04/14/2021 Last Documented On 2 12:05PM ; Rigoberto.TSolomon [facility] Ordered follow-up visit in 4 -6 weeks or as needed OM Established patient with Yu Michelle DO 04/14/2021 Last Documented On 2 12:05PM ; Rigoberto.Suhail [facility] Requested osteopathic manipu lative treatment (OMT) - Somatic dysfunction was found on today's physical examination which was likely contributing to the patient's complaints. Osteopathic manipulative treatment was performed to address those somatic dysfunctions found today OMM Established patient with Yu Michelle DO 04/14/2021 Last Documented On 2 12:05PM ; Dwanie [facility] General outcomes - Symptoms improved after OMT OMM Established patient with Yu Michelle DO 03/31/2021 Last Documented On 2 3:20PM ; [facility] Ordered follow-up visit in 2 -3 weeks or as needed OMM Established patient with Yu Michelle DO 03/31/2021 Last Documented On 2 3:20PM ; Dw[facility] Requested osteopathic manipu lative treatment (OMT) - Somatic dysfunction was found on today's physical examination which was likely contributing to the patient's complaints. Osteopathic manipulative treatment was performed to address those somatic dysfunctions found today [facility] Established patient with Yu Michelle DO 03/31/2021 Last Documented On 2 3:20PM ; Dw[facility] Education and Decision Aids were provided during visit for: Hot showers and rest. No hea vy lifting or excercize for 24-48 hours. Discussed that this type of trauma takes a toll on the whole body and musckuloskeletal system Last Documented On 4 2:42PM ; Dwaine [facility] Assessments Includes: Assessments for all patient encounters Findings Encounter Date Cervicalgia OMM Established patient with Tri vicky Sinan DO 07/19/2023 Last Documented On 4 5:27PM ; [facility] Somatic dysfunction of cervi nixon region OMM Established patient with Ananda Sinan DO 07/19/2023 Last Documented On 4 5:27PM ; [facility] Somatic dysfunction of lumbar region OMM Established patient with Ananda Sinan DO 07/19/2023 Last Documented On 4 5:27PM ; [facility] Somatic dysfunction of rib cage OMM Esta blished patient with Ananda Sinan DO 07/19/2023 Last Documented On 4 5:27PM ; [facility] Somatic dysfunction of the h ead region OMM Established patient with Ananda Sinan DO 07/19/2023 Last Documented On 4 5:27PM ; [facility] Somatic dysfunction of thora cic region OMM Established patient with Ananda Sinan DO 07/19/2023 Last Documented On 4 5:27PM ; Rigoberto.Lucio. [facility] Vertebrogenic low back pain OMM Established pushpa ent with Ananda Isnan DO 07/19/2023 Last Documented On 4 5:27PM ; A[facility]TS[facility]omon [facility] Cervicalgia OMM Established patient with Leo rene Shania DO 06/20/2023 Last Documented On 4 2:45PM ; Rigoberto.Suhail [facility] Pain in thoracic spine OMM Established patient w ith Uvaldo Shania DO 06/20/2023 Last Documented On 4 2:45PM ; A.TS[facility]omon [facility] Somatic dysfunction of cervi nixon region OMM Established patient with Uvaldo Shania DO 06/20/2023 Last Documented On 4 2:45PM ; A[facility]omon [facility] Somatic dysfunction of lumbar region OMM Established patient with Uvaldo Shania DO 06/20/2023 Last Documented On 4 2:45PM ; A.TS[facility]omon [facility] Somatic dysfunction of pelvic region OMM Established patient with Uvaldo Shania DO 06/20/2023 Last Documented On 4 2:45PM ; A.TS[facility]omon [facility] Somatic dysfunction of rib cage OMM Esta blished patient with Uvaldo Shania DO 06/20/2023 Last Documented On 4 2:45PM ; [facility] Somatic dysfunction of the h ead region OMM Established patient with Uvaldo Shania DO 06/20/2023 Last Documented On 4 2:45PM ; A.TS[facility]omon [facility] Somatic dysfunction of thora cic region OMM Established patient with Uvaldo Shania DO 06/20/2023 Last Documented On 4 2:45PM ; [facility] Somatic dysfunction of upper extremities OMM Established patient with Uvaldo Shania DO 06/20/2023 Last Documented On 4 2:45PM ; Dwaine [facility] Vertebrogenic low back pain OMM Establis hed patient with Uvaldo Shania DO 06/20/2023 Last Documented On 4 2:45PM ; Dwaine [facility] Moderate depression OMM Established patient with Ananda Sinan DO 04/17/2023 Last Documented On 4 7:56AM ; Dwaine [facility] Myofascial pain syndrome of neck OMM Est ablished patient with Ananda Sinan DO 04/17/2023 Last Documented On 4 7:56AM ; [facility] Somatic dysfunction of cervi nixon region OMM Established patient with Ananda Sinan DO 04/17/2023 Last Documented On 4 7:56AM ; Rigoberto.Suhail [facility] Somatic dysfunction of lumbar region OMM Established patient with Ananda Sinan DO 04/17/2023 Last Documented On 4 7:56AM ; Rigoberto.Suhail [facility] Somatic dysfunction of pelvic region OMM Established patient with Ananda Sinan DO 04/17/2023 Last Documented On 4 7:56AM ; Rigoberto.TSolomon [facility] Somatic dysfunction of rib cage OMM Esta blished patient with Ananda Sinan DO 04/17/2023 Last Documented On 4 7:56AM ; Rigoberto.Suhail [facility] Somatic dysfunction of sacrum OMM Establ ished patient with Ananda Sinan DO 04/17/2023 Last Documented On 4 7:56AM ; A[facility]T. [facility] Somatic dysfunction of the h ead region OMM Established patient with Ananda Sinan DO 04/17/2023 Last Documented On 4 7:56AM ; A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 Established patient with Ananda Sinan DO 04/17/2023 Last Documented On 4 7:56AM ; Dwaine [facility] Arthralgia of the right pelvis/hip/femur OMM Established patient with Ananda Sinan DO 04/04/2023 Last Documented On 4 12:48PM ; Dwaine [facility] Myofascial pain syndrome of neck OMM Est ablished patient with Ananda Sinan DO 04/04/2023 Last Documented On 4 12:48PM ; Dw[facility] Somatic dysfunction of cervi nixon region OMM Established patient with Ananda Sinan DO 04/04/2023 Last Documented On 4 12:48PM ; Dw[facility] Somatic dysfunction of lumbar region OMM Established patient with Ananda Sinan DO 04/04/2023 Last Documented On 4 12:48PM ; Dw[facility] Somatic dysfunction of pelvic region OMM Established patient with Ananda Sinan DO 04/04/2023 Last Documented On 4 12:48PM ; [facility] Somatic dysfunction of rib cage OMM Esta blished patient with Ananda Sinan DO 04/04/2023 Last Documented On 4 12:48PM ; Rigoberto.Suhail [facility] Somatic dysfunction of sacrum OMM Establ ished patient with Ananda Sinan DO 04/04/2023 Last Documented On 4 12:48PM ; [facility] Somatic dysfunction of the h ead region OMM Established patient with Ananda Sinan DO 04/04/2023 Last Documented On 4 12:48PM ; Rigoberto.Suhail [facility] Somatic dysfunction of thora cic region OMM Established patient with Ananda Sinan DO 04/04/2023 Last Documented On 4 12:48PM ; Dw[facility] Vertebrogenic low back pain OMM Established pushpa ent with Ananda Sinan DO 04/04/2023 Last Documented On 4 12:48PM ; [facility] Arthralgia of the right pelvis/hip/femur OMM Established patient with Ananda Sinan DO 03/22/2023 Last Documented On 3 4:00PM ; Rigoberto.Lucio. [facility] Myofascial pain syndrome of lower back OMM Established patient with Ananda Sinan DO 03/22/2023 Last Documented On 3 4:00PM ; Rigoberto.Lucio. [facility] Somatic dysfunction of cervi nixon region OMM Established patient with Ananda Sinan DO 03/22/2023 Last Documented On 3 4:00PM ; A[facility]T. [facility] Somatic dysfunction of lumbar region OMM Established patient with Ananda Sinan DO 03/22/2023 Last Documented On 3 4:00PM ; Rigoberto.Lucio. [facility] Somatic dysfunction of pelvic region OMM Established patient with Ananda Sinan DO 03/22/2023 Last Documented On 3 4:00PM ; Rigoberto.Lucio. [facility] Somatic dysfunction of rib cage OMM Esta blished patient with Ananda Sinan DO 03/22/2023 Last Documented On 3 4:00PM ; Rigoberto.Lucio. [facility] Somatic dysfunction of sacrum OMM Establ ished patient with Ananda Sinan DO 03/22/2023 Last Documented On 3 4:00PM ; Rigoberto.T. [facility] Somatic dysfunction of the h ead region OMM Established patient with Ananda Sinan DO 03/22/2023 Last Documented On 3 4:00PM ; Rigoberto.T. [facility] Somatic dysfunction of thora cic region OMM Established patient with Ananda Sinan DO 03/22/2023 Last Documented On 3 4:00PM ; Rigoberto.Lucio. [facility] Arthralgia of right sacroiliac joint OMM Established patient with Alexis Boruch DO 03/14/2023 Last Documented On 3 11:27AM ; Rigoberto.Suhail [facility] Pain in thoracic spine OMM Established patient w ith Alexis Boruch DO 03/14/2023 Last Documented On 3 11:27AM ; Rigoberto.Suhail [facility] Somatic dysfunction of lumbar region OMM Established patient with Alexis Boruch DO 03/14/2023 Last Documented On 3 11:27AM ; Dwaine [facility] Somatic dysfunction of pelvic region OMM Established patient with Alexis Boruch DO 03/14/2023 Last Documented On 3 11:27AM ; Dwaine [facility] Somatic dysfunction of sacrum OMM Established pa tient with Alexis Boruch DO 03/14/2023 Last Documented On 3 11:27AM ; Dwaine [facility] Somatic dysfunction of thora cic region OMM Established patient with Alexis Boruch DO 03/14/2023 Last Documented On 3 11:27AM ; Dw[facility] Vertebrogenic low back pain OMM Established pushpa ent with Alexis Boruch DO 03/14/2023 Last Documented On 3 11:27AM ; Dwaine [facility] Arthralgia of both sacroiliac joints OMM Established patient with Ananda Sinan DO 11/12/2022 Last Documented On 3 5:01PM ; [facility] Lumbar strain OMM Established patient with Tri vicky Sinan DO 11/12/2022 Last Documented On 3 5:01PM ; Dw[facility] Myofascial pain syndrome of lower back OMM Established patient with Ananda Sinan DO 11/12/2022 Last Documented On 3 5:01PM ; Rigoberto.Suhail [facility] Somatic dysfunction of cervi nixon region OMM Established patient with Ananda Sinan DO 11/12/2022 Last Documented On 3 5:01PM ; Rigoberto.TSolomon [facility] Somatic dysfunction of lumbar region OMM Established patient with Ananda Sinan DO 11/12/2022 Last Documented On 3 5:01PM ; Rigoberto.TSolomon [facility] Somatic dysfunction of pelvic region OMM Established patient with Ananda Sinan DO 11/12/2022 Last Documented On 3 5:01PM ; Rigoberto.TSolomon [facility] Somatic dysfunction of rib cage OMM Esta blished patient with Ananda Sinan DO 11/12/2022 Last Documented On 3 5:01PM ; Rigoberto.TSolomon [facility] Somatic dysfunction of sacrum OMM Establ ished patient with Ananda Sinan DO 11/12/2022 Last Documented On 3 5:01PM ; Dwaine [facility] Somatic dysfunction of the h ead region OMM Established patient with Ananda Sinan DO 11/12/2022 Last Documented On 3 5:01PM ; [facility] Somatic dysfunction of thora cic region OMM Established patient with Ananda Sinan DO 11/12/2022 Last Documented On 3 5:01PM ; [facility] Vertebrogenic low back pain OMM Established pushpa ent with Ananda Sinan DO 11/12/2022 Last Documented On 3 5:01PM ; [facility] Arthralgia of the left pelvis/hip/femur OMM Established patient with Ananda Sinan DO 10/29/2022 Last Documented On 3 5:10PM ; [facility] Arthralgia of the right pelvis/hip/femur OMM Established patient with Ananda Sinan DO 10/29/2022 Last Documented On 3 5:10PM ; Dw[facility] Intercostal pain OMM Established patient with Tr istan Sinan DO 10/29/2022 Last Documented On 3 5:10PM ; [facility] Myofascial pain syndrome of lumbar spine OMM Established patient with Ananda Sinan DO 10/29/2022 Last Documented On 3 5:10PM ; Dw[facility] Somatic dysfunction of cervi nixon region OMM Established patient with Ananda Sinan DO 10/29/2022 Last Documented On 3 5:10PM ; [facility] Somatic dysfunction of lumbar region OMM Established patient with Ananda Sinan DO 10/29/2022 Last Documented On 3 5:10PM ; Dw[facility] Somatic dysfunction of pelvic region OMM Established patient with Ananda Sinan DO 10/29/2022 Last Documented On 3 5:10PM ; Dw[facility] Somatic dysfunction of rib cage OMM Esta blished patient with Ananda Sinan DO 10/29/2022 Last Documented On 3 5:10PM ; Dw[facility] Somatic dysfunction of sacrum OMM Establ ished patient with Ananda Sinan DO 10/29/2022 Last Documented On 3 5:10PM ; Rigoberto.Lucio. [facility] Somatic dysfunction of the h ead region OMM Established patient with Ananda Sinan DO 10/29/2022 Last Documented On 3 5:10PM ; Dwaine [facility] Somatic dysfunction of thora cic region OMM Established patient with Ananda Sinan DO 10/29/2022 Last Documented On 3 5:10PM ; Dw[facility] Vertebrogenic low back pain OMM Established pushpa ent with Ananda Sinan DO 10/29/2022 Last Documented On 3 5:10PM ; Dw[facility] Arthralgia of the left pelvis/hip/femur OMM Established patient with Ananda Sinan DO 10/10/2022 Last Documented On 3 9:28AM ; Rigoberto.Lucio. [facility] Arthralgia of the right pelvis/hip/femur OMM Established patient with Ananda Sinan DO 10/10/2022 Last Documented On 3 9:28AM ; Rigoberto.Suhail [facility] Myofascial pain syndrome of lower back OMM Established patient with Ananda Sinan DO 10/10/2022 Last Documented On 3 9:28AM ; Rigoberto.Suhail [facility] Somatic dysfunction of cervi nixon region OMM Established patient with Ananda Sinan DO 10/10/2022 Last Documented On 3 9:28AM ; Rigoberto.Lucio. [facility] Somatic dysfunction of lumbar region OMM Established patient with Ananda Sinan DO 10/10/2022 Last Documented On 3 9:28AM ; Rigoberto.T. [facility] Somatic dysfunction of pelvic region OMM Established patient with Ananda Sinan DO 10/10/2022 Last Documented On 3 9:28AM ; Rigoberto.Lucio. [facility] Somatic dysfunction of rib cage OMM Esta blished patient with Ananda Sinan DO 10/10/2022 Last Documented On 3 9:28AM ; Rigoberto.T. [facility] Somatic dysfunction of rib cage OMM Esta blished patient with Ananda Sinan DO 10/10/2022 Last Documented On 3 9:28AM ; A.T. [facility] Somatic dysfunction of sacrum OMM Establ ished patient with Ananda Sinan DO 10/10/2022 Last Documented On 3 9:28AM ; A.T. [facility] Somatic dysfunction of the h ead region OMM Established patient with Ananda Sinan DO 10/10/2022 Last Documented On 3 9:28AM ; A.T. [facility] Somatic dysfunction of thora cic region OMM Established patient with Ananda Sinan DO 10/10/2022 Last Documented On 3 9:28AM ; Rigoberto.Suhail [facility] Vertebrogenic low back pain OMM Established puspha ent with Ananda Sinan DO 10/10/2022 Last Documented On 3 9:28AM ; A.T. [facility] Cervicalgia OMM Established patient with Tri vicky Sinan DO 08/30/2022 Last Documented On 3 4:50PM ; A.T. [facility] Somatic dysfunction of cervi nixon region OMM Established patient with Ananda Sinan DO 08/30/2022 Last Documented On 3 4:50PM ; A.T. [facility] Somatic dysfunction of lumbar region OMM Established patient with Ananda Sinan DO 08/30/2022 Last Documented On 3 4:50PM ; A.T. [facility] Somatic dysfunction of pelvic region OMM Established patient with Ananda Sinan DO 08/30/2022 Last Documented On 3 4:50PM ; A.T. [facility] Somatic dysfunction of rib cage OMM Esta blished patient with Ananda Sinan DO 08/30/2022 Last Documented On 3 4:50PM ; A.T. [facility] Somatic dysfunction of sacrum OMM Establ ished patient with Ananda Sinan DO 08/30/2022 Last Documented On 3 4:50PM ; A.T. [facility] Somatic dysfunction of the h ead region OMM Established patient with Ananda Sinan DO 08/30/2022 Last Documented On 3 4:50PM ; Dwaine [facility] Somatic dysfunction of thora cic region OMM Established patient with Ananda Sinan DO 08/30/2022 Last Documented On 3 4:50PM ; Dwaine Colón [facility] Vertebrogenic low back pain OMM Established pushpa ent with Ananda Sinan DO 08/30/2022 Last Documented On 3 4:50PM ; Dwaine [facility] Cervicalgia OMM Established patient with Farhana crystal DiNizio DO 04/14/2021 Last Documented On 2 12:05PM ; Dwaine Colón [facility] Congenital shortening of lower limb OMM Established patient with Yu DiNizio DO 04/14/2021 Last Documented On 2 12:05PM ; Dwaine Colón [facility] Low back pain OMM Established patient with Farhana crystal DiNizio DO 04/14/2021 Last Documented On 2 12:05PM ; Dwaine [facility] Somatic dysfunction of cervi nixon region OMM Established patient with Yu DiNizio DO 04/14/2021 Last Documented On 2 12:05PM ; Dwaine [facility] Somatic dysfunction of lower extremities OMM Established patient with Yu DiNizio DO 04/14/2021 Last Documented On 2 12:05PM ; Dwaine [facility] Somatic dysfunction of lumbar region OMM Established patient with Yu DiNizio DO 04/14/2021 Last Documented On 2 12:05PM ; Dwaine [facility] Somatic dysfunction of pelvic region OMM Established patient with Yu DiNizio DO 04/14/2021 Last Documented On 2 12:05PM ; Dwaine [facility] Somatic dysfunction of sacrum OMM Establ ished patient with Yu DiNizio DO 04/14/2021 Last Documented On 2 12:05PM ; Dwaine [facility] Somatic dysfunction of the h ead region OMM Established patient with Yu DiNizio DO 04/14/2021 Last Documented On 2 12:05PM ; Dwaine [facility] Somatic dysfunction of thora cic region OMM Established patient with Yu DiNizio DO 04/14/2021 Last Documented On 2 12:05PM ; Dwaine [facility] Somatic dysfunction of upper extremities OMM Established patient with Yu DiNnatalieio DO 04/14/2021 Last Documented On 2 12:05PM ; Dwaine [facility] Congenital shortening of lower limb OMM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 tolerated. Discussed that the patient may experience soreness after the OMT. Increased hydration recommended for today. They may take oral analgesics if desired. Avoid heavy lifting today. . The OMT provided during this encounter was a separately identifiable procedure prompted by the identification of somatic dysfunction during the physical examination portion of the evaluation and management procedure. Somatic dysfunction is defined by the presence of one or more of the following: tenderness, structural asymmetry, tissue texture abnormalities such as muscular hypertonicity, or localized joint or regional restricted range of motion. One or more of these findings was identified today. The OMT provided today was specific to the physical findings of today's physical examination. The OMT provided during this encounter was a separately identifiable procedure prompted by the identification of somatic dysfunction during the physical examination portion of the evaluation and management procedure. Somatic dysfunction is defined by the presence of one or more of the following: tenderness, structural asymmetry, tissue texture abnormalities such as muscular hypertonicity, or localized joint or regional restricted range of motion. One or more of these findings was identified today. The OMT provided today was specific to the physical findings of today's physical examination. Care Team - Jeanie Trevino Practice Management Estab outpatient expanded h&p - low complexity decisions [id number] - The E&M code was based on Medical Decision Making associated with at least 2 of the following 3 elements 1) 2 minor or self-limiting problems or 1 stable chronic problem or 1 acute uncomplicated injury; 2) limited record/data reviewed or ordered; 3) Low management risk such as OMT. * Progress note Date Encounter Last Documented by 04/17/2023 OMM Established patient Last doc umented on 04/23/2023; 7:56 AM, Ananda Sinan DO; [facility] Chief Complaint - Back symptoms - Psychological [...] the last few weeks. She returned to [place] in hopes of alleviating her depression but [...] outpatient expanded h&p - low complexity decisions [id number] - The E&M code was based on Medical Decision Making associated with at least 2 of the following 3 elements 1) 2 minor or self-limiting problems or 1 stable chronic problem or 1 acute uncomplicated injury; 2) limited record/data reviewed or ordered; 3) Low management risk such as OMT. * Progress note Date Encounter Last Documented by 04/04/2023 [facility] Established patient Last doc umented on 04/25/2023; 12:48 PM, [facility]; [facility] Chief Complaint - Back symptoms History of Present Illness Betty Cha is a 22 year old female. 1) Low back pain - This pain got better with the last treatment but still remains. It occurs in the low back bilaterally and sometimes radiates down the left leg. There is no new associated injury or symptoms. 2) Neck pain - This has been going on for approximately 2 weeks. She attributes it to stress. It occurs at the base of her neck and radiates into the head. It is worse at the end of the day. There are no associated symptoms or injury. - Allergy list reviewed - Medication list reviewed - Stabbing pain - Feels like tightness or stiffness - Pain is constant (100% of the time) - Pain is dull, aching - Pain is shooting - Pain is cramping - Pain is relieved by ibuprofin - Pain is worse with movement - Current pain level 4 (0-10) Review Of Systems Systemic: No fever, [...] 0 refills Physical Findings - Vitals taken 04/04/2023 01:59 pm BP-Sitting L 134/88 mmHg BP Cuff Size Large Pulse Rate-Sitting 87 bpm Pulse Rhythm Regular Respiration Rate 14 per min Oxygen Saturation 98 % O2 [...] Occipitoatlantal joint extended, sidebent right and rotated left and Overall severity of the head region is moderate. User Defined 6 C3 flexed, sidebent right and rotated right, C6 flexed, sidebent left and rotated left, C7 flexed, sidebent left and rotated left, and Overall severity of the cervical region is moderate. User Defined 7 T5 neutral, sidebent right and rotated left, T6 neutral, sidebent right and rotated left, T7 neutral, sidebent right and rotated left, T8 neutral, sidebent right and rotated left, and Overall severity of the thoracic region is moderate. User Defined 9 Left rib 12 stiffness. User Defined 10 L1 neutral, sidebent left and rotated right, L2 neutral, sidebent left and rotated right, L3 neutral, sidebent left and rotated right, L4 extended, sidebent left and rotated left, L5 extended, sidebent left and rotated left, and Overall severity of the lumbar region is moderate. User Defined 11 Right anteriorly rotated innominate and Left and right piriformis tender points. User Defined 12 Left sacral rotation on a left oblique axis, Right midpole sacroiliac tender point, and Overall severity of the sacral region is moderate. Assessment - Arthralgia of the right pelvis/hip/femur [M25.551 - Pain in right hip] - Vertebrogenic low back pain [M54.51 - Vertebrogenic low back pain] - Myofascial pain syndrome of neck [M79.18 - Myalgia, other site] - Somatic dysfunction of the head region [...] and somatic dysfunction of pelvic region] Plan StartCited - Vertebrogenic low back pain RAD/X-Ray: Postural Study B EndCited - Osteopathic manipulative treatment (OMT) - Somatic dysfunction was found on today's physical examination which was likely contributing to the patient's complaints. Osteopathic manipulative treatment was recommended to be performed to address those somatic dysfunctions found today. Patient would like to proceed with OMT today - Follow-up visit in 2-3 weeks for reevaluation or as needed Counseling/Education - Education: activity/exercise education prescribed - Continue current home stretching and exercise program User Defined 5 OMT was performed based on today's physical examination - Regions treated include those listed in the assessment portion of today's Evaluation & Management note. Articular Technique head region; Indirect balanced ligamentous tension head [...] response thoracic region: somatic dysfunction was improved. Myofascial release rib chest region; Soft tissue technique rib chest region. OMT response rib/chest region: somatic dysfunction was improved. Articular Technique lumbar region; Muscle energy lumbar region; Myofascial release lumbar region; Soft tissue technique lumbar region. OMT response lumbar region: somatic dysfunction was improved. Articular Technique pelvic region; Counterstrain pelvic region; Muscle energy pelvic region. OMT response pelvic region: somatic dysfunction was improved. Counterstrain sacral region; Functional technique sacral region; Low velocity, moderate amplitude technique sacral region. OMT response sacral region: somatic dysfunction was improved. Osteopathic manipulative treatment (OMT) involving seven to eight body regions. General outcomes - OMT was well tolerated. General outcomes - Symptoms improved after OMT. Care Team - Jeanie Trevino Practice Management Estab outpatient expanded h&p - low complexity decisions [id number] - The E&M code was based on Medical Decision Making associated with at least 2 of the following 3 elements 1) 2 minor or self-limiting problems or 1 stable chronic problem or 1 acute uncomplicated injury; 2) limited record/data reviewed or ordered; 3) Low management risk such as OMT. * Progress note Date Encounter Last Documented by 03/22/2023 OMM Established patient Last doc umented on 03/22/2023; 4:00 PM, [facility]; [facility] Chief Complaint - Back symptoms History of Present Illness Betty Cha is a 22 year old female. 1) Low back pain - The patient stated that in the last two days she has had debilitating low back pain. She could not identify any particular injury associated with this pain. It occurs in the low back bilaterally but mostly on the right and radiates down her right hip. There is some associated numbness with the pain. - Allergy list reviewed - Medication list reviewed - Stabbing pain - Feels like tightness or stiffness - Pain is constant (100% of the time) - Pain is dull, aching - Pain is shooting - Pain is cramping - Pain is relieved by ibuprofin - Pain is worse with movement - Current pain level 7 (0-10) Review Of Systems Systemic: No fever, [...] Procedural: - Treatment of foot fracture - [facility] (2016) Allergies - Penicillins Reaction: Skin Rashes [...] 0 refills Physical Findings - Vitals taken 03/22/2023 10:14 am BP-Sitting L 98/62 mmHg BP Cuff Size Large Pulse Rate-Sitting 60 bpm Pulse Rhythm Regular Respiration Rate 16 per min Pain Level 7 General Appearance: - General appearance: normally developed, [...] Occipitoatlantal joint extended, sidebent right and rotated left and Overall severity of the head region is moderate. User Defined 6 C3 flexed, sidebent right and rotated right, C6 flexed, sidebent left and rotated left, C7 flexed, sidebent left and rotated left, and Overall severity of the cervical region is moderate. User Defined 7 T7 neutral, sidebent left and rotated right, T8 neutral, sidebent left and rotated right, T9 neutral, sidebent left and rotated right, T10 neutral, sidebent left and rotated right, and Overall severity of the thoracic region is moderate. User Defined 9 Right rib 8 inhaled, Right rib 9 inhaled, Right rib 10 inhaled, Right rib 11 inhaled, and Right rib 12 inhaled. User Defined 10 L1 neutral, sidebent left and rotated right, L2 neutral, sidebent left and rotated right, L3 neutral, sidebent left and rotated right, L4 extended, sidebent left and rotated left, L5 extended, sidebent left and rotated left, and Overall severity of the lumbar region is moderate. User Defined 11 Right anteriorly rotated innominate and Left and right piriformis tender points. User Defined 12 Left sacral rotation on a right oblique axis, Right midpole sacroiliac tender point, and Overall severity of the sacral region is moderate. Assessment - Arthralgia of the right pelvis/hip/femur [M25.551 - Pain in right hip] - Myofascial pain syndrome of lower back [M79.18 - Myalgia, other site] - Somatic dysfunction of the head region [...] 2-3 weeks for reevaluation or as needed Counseling/Education - Education: activity/exercise education prescribed - Continue current home stretching and exercise program User Defined 5 OMT was performed based on today's physical examination - Regions treated include those listed in the assessment portion of today's Evaluation & Management note. Articular Technique head region; Indirect balanced ligamentous tension head region; Myofascial release head region. OMT response head region: somatic dysfunction was improved. Articular technique cervical region; Indirect balanced ligamentous tension cervical region; Muscle energy cervical region; Myofascial release cervical region; Soft [...] dysfunction was improved. Articular Technique lumbar region; HVLA lumbar region; Muscle energy lumbar region; Myofascial release lumbar region; Soft tissue technique lumbar region. OMT response lumbar region: somatic dysfunction was improved. Articular Technique pelvic region; Counterstrain pelvic region; Muscle energy pelvic region. OMT response pelvic region: somatic dysfunction was improved. Counterstrain sacral region; Functional technique sacral region. OMT response sacral region: somatic dysfunction was improved. Osteopathic manipulative treatment (OMT) involving seven to eight body regions. General outcomes - OMT was well tolerated. General outcomes - Symptoms improved after OMT. Care Team - Jeanie Trevino Practice Management Estab outpatient expanded h&p - low complexity decisions [id number] - The E&M code was based on Medical Decision Making associated with at least 2 of the following 3 elements 1) 2 minor or self-limiting problems or 1 stable chronic problem or 1 acute uncomplicated injury; 2) limited record/data reviewed or ordered; 3) Low management risk such as OMT. * Progress note Date Encounter Last Documented by 03/14/2023 OMM Established patient Last doc umented on 04/18/2023; 8:34 AM, Alexis Ko DO; [facility] Chief Complaint - Back symptoms History of Present Illness Betty Cha is a 22 year old female. The patient's chief complaint is back pain in the thoracic and lumbar spine that she has had for 3 years. She has continuous pain including morning stiffness, fatigue, difficulty sitting and lying down. She denies paresthesia into her UE or LE bilaterally. She states that yoga, stretching, walking and OMT (with Dr. Menon) make her pain better while extended sitting and lying down make her pain worse. 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 - Patient has new or worsening medical problems over the last month. - Chronic pain - Stabbing - Feels like tightness or stiffness - Pain is constant (100% of the time) - Pain is dull, aching - Pain is shooting - Pain is sharp - Musculoskeletal symptoms - Exercise Patient compliant with recommended exercises - Current pain level 4 (0-10) Review Of Systems Musculoskeletal: Back symptoms, muscle aches, and localized joint stiffness worse in the morning. Psychological: Anxiety and depression. Past Medical/Surgical History [...] 0 refills Physical Findings - Vitals taken 03/14/2023 03:11 pm BP-Sitting L 140/70 mmHg BP Cuff Size Large Pulse Rate-Sitting 94 bpm Pulse Rhythm Regular Respiration Rate 16 per min Oxygen Saturation 98 % O2 Device None (Room Air) FiO2 21 % Standard Measurements: - Patient was not observed to be obese. General Appearance: - General appearance: normally developed, no deformities. Musculoskeletal System: Thoracic Spine: General/bilateral: - Thoracic spine exhibited tenderness on palpation. - Thoracic spine exhibited tenderness on palpation. - Thoracic spine exhibited a spasm of the paraspinal muscles. - Right side of the thoracic spine exhibited a spasm of the paraspinal muscles. - Left side of the thoracic spine exhibited a spasm of the paraspinal muscles. Thoracolumbar Spine (Motion): General/bilateral: - Thoracolumbar spine motion was abnormal - Impaired or altered range of motion in the thoracic or thoracolumbar spinal regions. - Thoracolumbar spine motion was abnormal. - Thoracolumbar spine pain was elicited by motion. Lumbar / Lumbosacral Spine: General/bilateral: - Lumbosacral spine exhibited tenderness on palpation. - Lumbosacral spine exhibited tenderness on palpation. Pelvis: General/bilateral: - Tenderness on palpation of the pelvic girdle. - Right sacroiliac joint showed tenderness on palpation. Neurological: - Level of consciousness was normal. - Oriented to time, place, and person. Psychiatric: Appearance: - Grooming was normal. Mood: - Euthymic. Affect: - Normal. User Defined 7 T2 flexed, sidebent left and rotated left, T3 flexed, sidebent left and rotated left, T9 flexed, sidebent left and rotated left, T2 right posterior tender point, T2 right acute tissue texture abnormalities, T3 right posterior tender point, T3 right chronic tissue texture abnormalities, T9 right posterior tender point, T9 right acute tissue texture abnormalities, Right thoracic paraspinal muscle tension and/or spasm, Left thoracic paraspinal muscle tension and/or spasm, Decreased right sidebending thoracic gross range of motion, Decreased right rotation thoracic gross range of motion, Decreased extension thoracic gross range of motion, Increased thoracic kyphosis, and Overall severity of the thoracic region is moderate. User Defined 10 L4 flexed, sidebent left and rotated left, L5 flexed, sidebent left and rotated left, Bilateral paraspinal muscle tension and/or spasm, Decreased right sidebending lumbar gross range of motion, Decreased right rotation lumbar gross range of motion, and Overall severity of the lumbar region is moderate. User Defined 11 Right anteriorly rotated innominate and Left iliopsoas tender point. User Defined 12 Right sacral rotation on a left oblique axis, Right upper pole sacroiliac joint restriction, Chronic tissue texture abnormalities found over the sacrum, and Overall severity of the sacral region is moderate. Assessment - Arthralgia of right sacroiliac joint [M25.50 - Pain in unspecified joint] - Pain in thoracic spine [M54.6 - Pain in thoracic spine] - Vertebrogenic low back pain [M54.51 - Vertebrogenic low back pain] - Somatic dysfunction of thoracic region [M99.02 - Segmental and somatic dysfunction of thoracic region] - Somatic dysfunction of lumbar region [M99.03 - Segmental and somatic dysfunction of lumbar region] - Somatic dysfunction of sacrum [M99.04 - Segmental and somatic dysfunction of sacral region] - Somatic dysfunction of pelvic region [M99.05 - Segmental and somatic dysfunction of pelvic region] Plan - Return to the clinic if condition worsens or new symptoms arise - Osteopathic manipulative treatment (OMT) - Somatic dysfunction was found on today's physical examination which was likely contributing to the patient's complaints. Osteopathic manipulative treatment was recommended to be performed to address those somatic dysfunctions found today. Patient would like to proceed with OMT today - Osteopathic manipulative treatment (OMT) involving three to four body regions - Muscle energy therapy - Counter strain therapy - Follow-up visit in 3-4 weeks for reevaluation or as needed The patient was educated on using a pelvic rocking technique that she will perform supine, rolling her hips upward as she contracts her lower abdominal muscles and flattens her lumbar spine; this will help her with her posture and strengthen core muscles. She was given an exercise handout that illustrated stretches for her upper thoracic and shoulder regions; these will help her with her posture. Counseling/Education - Education: activity/exercise education prescribed - Encouraged patient to begin a home exercise program appropriate for their current fitness level - Education: activity/exercise education prescribed - Continue current home stretching and exercise program - Education: pain management by thermal techniques - Apply Ice or heat to painful area as needed User Defined 5 OMT was performed based on today's physical examination - Regions treated include those listed in the assessment portion of today's Evaluation & Management note. Counterstrain thoracic region; Muscle energy thoracic region; Percussion hammer thoracic region. OMT response thoracic region: somatic dysfunction was improved. Muscle energy lumbar region. OMT response lumbar region: somatic dysfunction was improved. Counterstrain pelvic region; Muscle energy pelvic region. OMT response pelvic region: somatic dysfunction was improved. Muscle energy sacral region. OMT response sacral region: somatic dysfunction was improved. Osteopathic manipulative treatment (OMT) involving three to four body regions. General outcomes - OMT was well tolerated. General outcomes - Symptoms improved after OMT. . The OMT provided during this encounter was a separately identifiable procedure prompted by the identification of somatic dysfunction during the physical examination portion of the evaluation and management procedure. Somatic dysfunction is defined by the presence of one or more of the following: tenderness, structural asymmetry, tissue texture abnormalities such as muscular hypertonicity, or localized joint or regional restricted range of motion. One or more of these findings was identified today. The OMT provided today was specific to the physical findings of today's physical examination. Care Team - Jeanie Trevino Practice Management Estab outpatient focused h&p - straightforward decisions [id number] - The E&M code was based on Medical Decision Making associated with at least 2 of the following 3 elements 1) 1 minor or self-limiting problem; 2) minimal record/data reviewed; 3) minimal management risk such as x-rays. * Progress note Date Encounter Last Documented by 11/12/2022 OMM Established patient Last doc umented on 11/23/2022; 2:06 PM, [facility]; [facility] History of Present Illness Betty Cha is a 22 year old female. 1) Low back pain - This pain is chronic. It was exacerbated in the last two weeks because she has started running 2 miles a day. The pain is bilateral and does not radiate. There are no associated symptoms. 2) Hip pain - This pain is also chronic. It got better with tretament but has returned. It occurs in both hips on the posterior region. There are no associated symptoms or radiation. The pain is worse with running. - Allergy list reviewed. - Stabbing pain - Feels like tightness or stiffness - Pain is constant (100% of the time) - Pain is throbbing - Pain is dull, aching - Pain is shooting - Pain is sharp - Pain is relieved by movement - Pain is worse with stillness - Current pain level 7 (0-10) Review Of Systems Systemic: Not feeling tired. No fever. Chills. No night sweats. Cardiovascular: No cardiovascular symptoms - ankle edema and no chest pain or discomfort. Pulmonary: No dyspnea and no cough. Gastrointestinal: No gastrointestinal pain, no diarrhea, and no constipation. Genitourinary: No urinary loss of control and no dysuria. Musculoskeletal: Back symptoms and hip symptoms. Neurological: No limb weakness, no tingling, and no numbness. Past Medical/Surgical History Other: Past medical history reviewed - Previous encounter reviewed Reported: Medical: An allergy to certain foods and allergy symptoms occur seasonally. Surgical / Procedural: No prior surgery or no significant history. Diagnoses: Depression Anxiety disorder NOS Dissociative Disorder Environmental Allergies. Procedural: - Treatment of foot fracture - [place]ot (2016) Allergies - Penicillins Reaction: Skin Rashes [...] 0 refills Physical Findings - Vitals taken 11/12/2022 04:15 pm BP-Sitting L 112/62 mmHg BP Cuff Size Large Pulse Rate-Sitting 76 bpm Pulse Rhythm Regular Respiration Rate 16 per min Pain Level 7 General Appearance: - General appearance: normally developed, [...] A contralateral straight-leg raising test was negative. - A Burke-Fabere test was negative. Neurological: - Level of consciousness was normal. - Oriented to time, place, and person. Psychiatric: Appearance: - Grooming was normal. Mood: - Euthymic. Affect: - Normal. User Defined 4 Occipitoatlantal joint extended, sidebent right and rotated left, Right suboccipital muscular tension, and Overall severity of the head region is moderate. User Defined 6 C4 extended, sidebent left and rotated left, C5 extended, sidebent right and rotated right, Bilateral paraspinal muscle tension and/or spasm, and Overall severity of the cervical region is moderate. User Defined 7 T12 extended, sidebent right and rotated right and Overall severity of the thoracic region is moderate. User Defined 9 Left and right rib 12 stiffness and Overall severity of the rib/chest region is moderate. User Defined 11 Right posteriorly rotated innominate and Overall severity of the pelvic region is moderate. User Defined 12 Left and right upper pole sacroiliac joint restrictions and Overall severity of the sacral region is moderate. Assessment - Arthralgia of both sacroiliac joints [M25.50 - Pain in unspecified joint] - Lumbar strain [S39.012A - Strain of muscle, fascia and tendon of lower back, initial encounter] - Vertebrogenic low back pain [M54.51 - Vertebrogenic low back pain] - Myofascial pain syndrome of lower back [M79.18 - Myalgia, other site] - Somatic dysfunction of the head region [...] somatic dysfunction of pelvic region] Plan - Return to the clinic if condition worsens or new symptoms arise - Osteopathic manipulative treatment (OMT) - Somatic dysfunction was found on today's physical examination which was likely contributing to the patient's complaints. Osteopathic manipulative treatment was recommended to be performed to address those somatic dysfunctions found today. Patient would like to proceed with OMT today Counseling/Education - Education: activity/exercise education prescribed - Computer Stretches handout given - Education: activity/exercise education prescribed - Continue current home

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
--- OUTSIDE RECORDS SUMMARY | 2023-09-26 11:43 | XMS_ITS | Clinical Summary ---
Author Organization [facility] Address [address] [place] [address] Phone Care Team Providers Care Student Development Advisor Name Role Phone WagnerFrieda domínguezana Primary Care Provider [phone] Reason for Visit and Chief Complaint OMM Established patient Plan of Treatment - Osteopathic manipulative treatment (OMT) - Somatic dysfunction was found on today's physical examination which was likely contributing to the patient's complaints. Osteopathic manipulative treatment was recommended to be performed to address those somatic dysfunctions found today. Patient would like to proceed with OMT today - Last Documented On 03/22/2023 4:00PM ; [facility]Sol[facility] - Follow-up visit in 2-3 weeks for reevaluation or as needed - Last Documented On 03/22/2023 4:00PM ; [facility] Assessments Includes: Assessments from this encounter Findings - Arthralgia of the right pelvis/hip/femur [M25.551 - Pain in right hip] - Last Documented On 03/22/2023 4:00PM ; [facility]Solomon [facility] - Myofascial pain syndrome of lower back [M79.18 - Myalgia, other site] - Last Documented On 03/22/2023 4:00PM ; SolomonSolomon [facility] - Somatic dysfunction of the head region [M99.00 - Segmental and somatic dysfunction of head region] - Last Documented On 03/22/2023 4:00PM ; [facility] - Somatic dysfunction of rib cage [M99.08 - Segmental and somatic dysfunction of rib cage] - Last Documented On 03/22/2023 4:00PM ; [facility] - Somatic dysfunction of cervical region [M99.01 - Segmental and somatic dysfunction of cervical region] - Last Documented On 03/22/2023 4:00PM ; [facility] - Somatic dysfunction of thoracic region [M99.02 - Segmental and somatic dysfunction of thoracic region] - Last Documented On 03/22/2023 4:00PM ; [facility] - Somatic dysfunction of lumbar region [M99.03 - Segmental and somatic dysfunction of lumbar region] - Last Documented On 03/22/2023 4:00PM ; [facility] - Somatic dysfunction of sacrum [M99.04 - Segmental and somatic dysfunction of sacral region] - Last Documented On 03/22/2023 4:00PM ; [facility] - Somatic dysfunction of pelvic region [M99.05 - Segmental and somatic dysfunction of pelvic region] - Last Documented On 03/22/2023 4:00PM ; [facility] Medical Equipment - Implanted Devices Includes: Current Devices No Medical Equipment Recorded Medications Includes: Medications discussed during this encounter and other current Medications Current Medications (continue as prescribed) Methylphenidate HCl ER 18 MG Oral Tablet Extended Release 24 Hour 06/20/2023 Provider: Diagnosis: Last Documented On 4 3:42PM By Betty KeeSolomon [facility] Mima-D Allergy & Congesti on 60-120 MG Oral Tablet Extended Release 12 Hour 06/20/2023 Provider: Diagnosis: Last Documented On 4 3:43PM By Betty KeeSolomon [facility] FLUoxetine HCl 20 MG Oral Capsule 03/31/2021 Provide r: Diagnosis: Last Documented On 3 2:06PM By Barb Lee CCS ; [facility] Medications Administered Includes: Administered Medications from this encounter No Administered Medications Recorded Vital Signs Includes: Vital Signs from this encounter Vital Name 03/22/2023 10:14A Blood Pressure Sitting L 98/62 BP Cuff Size Large Pulse Rate-Sitting (bpm) 60 Pulse Rhythm Regular Respiration Rate (breaths/min) 16 Pain Level 7 Last Documented: On 03/22/2023 10:15A M ; [facility] Results Includes: Results discussed during this encounter No Results Recorded For Specified Dates History of Present Illness Includes: History of Present Illness from this encounter HPI Betty Cha is a 22 year old [...] movement - Current pain level 7 (0-10) Social History Description Last Updated Right Handed 03/31/2021 Last Documented On 3 10:14AM ; [facility] 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/2021 Last Documented On 3 10:14AM ; [facility] Daily coffee consumption was one cups pe r day 03/31/2021 Last Documented On 3 10:14AM ; [facility] Never drank alcohol 03/31/2021 Last Documented On 3 10:14AM ; [facility] Non-smoker 03/31/2021 Last Documented On 3 10:14AM ; [facility] Not using drugs 03/31/2021 Last Documented On 3 10:14AM ; [facility] Single 03/31/2021 Last Documented On 3 10:14AM ; [facility] Smoking Status Unknown Procedures and Surgical History Includes: Procedures from this encounter Procedures Code Diagnosis Performing Provider Service Location Service Date OSTEOPATHIC MANIP 7-8 AREAS [id number] Segmental and somatic dysfunction of sacral region, Segmental and somatic dysfunction of lumbar region, Segmental and somatic dysfunction of pelvic region, Segmental and somatic dysfunction of thoracic region Ananda Menon DO OMM 03/22/2023 Last Documented On 3 8:33AM ; Rigoberto.Jeromy. [facility] osteopathic manipulative jarvis atment (OMT) involving seven to eight body regions [id number] Last Documented On 3 11:05AM ; Rigoberto.Jeromy. [facility] general outcomes - OMT was well tolerate d Last Documented On 3 11:05AM ; Rigoberto.Jeromy. [facility] general outcomes - Symptoms improved aft er OMT Last Documented On 3 11:05AM ; Rigoberto.Jeromy. [facility] Articular Technique head region Last Documented On 3 11:07AM ; Rigoberto.T. [facility] Indirect balanced ligamentous tension he ad region Last Documented On 3 11:07AM ; Rigoberto.Jeromy. [facility] Myofascial release head region Last Documented On 3 11:07AM ; Rigoberto.T. [facility] OMT response head region: somatic dysfun ction was improved Last Documented On 3 11:07AM ; Rigoberto.Jeormy. [facility] Articular technique cervical region Last Documented On 3 11:07AM ; Rigoberto.T. [facility] Indirect balanced ligamentous tension ce rvical region Last Documented On 3 11:07AM ; Rigoberto.T. [facility] Muscle energy cervical region Last Documented On 3 11:07AM ; Rigoberto.T. [facility] Myofascial release cervical region Last Documented On 3 11:07AM ; Rigoberto.T. [facility] Soft tissue technique cervical region Last Documented On 3 11:07AM ; A.T. [facility] OMT response cervical region: somatic dy sfunction was improved Last Documented On 3 11:07AM ; Rigoberto.T. [facility] Articular Technique lumbar region Last Documented On 3 11:08AM ; Rigoberto.T. [facility] HVLA lumbar region Last Documented On 3 11:13AM ; Rigoberto.T. [facility] Muscle energy lumbar region Last Documented On 3 11:08AM ; A.T. [facility] Myofascial release lumbar region Last Documented On 3 11:08AM ; [facility] Soft tissue technique lumbar region Last Documented On 3 11:08AM ; [facility] OMT response lumbar region: somatic dysf unction was improved Last Documented On 3 11:08AM ; A.T. [facility] Articular technique thoracic region Last Documented On 3 11:07AM ; A.T. [facility] Myofascial release thoracic region Last Documented On 3 11:07AM ; A.T. [facility] Soft tissue technique thoracic region Last Documented On 3 11:07AM ; [facility] OMT response thoracic region: somatic dy sfunction was improved Last Documented On 3 11:07AM ; A.T. [facility] OMT response pelvic region: somatic dysf unction was improved Last Documented On 3 11:09AM ; A.T. [facility] Articular Technique pelvic region Last Documented On 3 11:09AM ; A.T. [facility] Counterstrain pelvic region Last Documented On 3 11:09AM ; A.T. [facility] Muscle energy pelvic region Last Documented On 3 11:09AM ; A.T. [facility] Counterstrain sacral region Last Documented On 3 11:09AM ; A.T. [facility] Functional technique sacral region Last Documented On 3 11:09AM ; [facility] OMT response sacral region: somatic dysf unction was improved Last Documented On 3 11:09AM ; A.T. [facility] Muscle energy rib chest region Last Documented On 3 11:08AM ; A.T. [facility] Myofascial release rib chest region Last Documented On 3 11:08AM ; A.T. [facility] Soft tissue technique rib chest region Last Documented On 3 11:08AM ; A.T. [facility] OMT response rib/chest region: somatic d ysfunction was improved Last Documented On 3 11:08AM ; A.T. [facility] OMT was performed based on jeromy granger's physical examination - Regions treated include those listed in the assessment portion of today's Evaluation & Management note Last Documented On 3 11:05AM ; [facility] Surgical History Last Updated No prior surgery or no significant histo ry 03/31/2021 Last Documented On 3 10:14AM ; Dwaine [facility] History of treatment of foot fracture - Boot (2016) 03/31/2021 Last Documented On 3 10:14AM ; Dwaine [facility] Medical History Includes: Medical History addressed during this encounter Description Last Updated Past medical history reviewed - Previous encounter reviewed 03/31/2021 Last Documented On 3 10:14AM ; Dwaine [facility] Dissociative Disorder ~ Environmental Al lergies 03/31/2021 Last Documented On 3 10:14AM ; Dwaine [facility] Allergy symptoms occur seasonally 2021 Last Documented On 3 10:14AM ; [facility] An allergy to certain foods 03/31/2021 Last Documented On 3 10:14AM ; [facility] History of anxiety disorder NOS 03/31/19 22 Last Documented On 3 10:14AM ; [facility] History of depression 03/31/2021 Last Documented On 3 10:14AM ; Dw[facility] Family History Includes: Family History addressed during this encounter Description Last Updated ADHD (dad) 03/31/2021 Last Documented On 3 10:14AM ; [facility] Family history of type 1 diabetes mellit us (sister) 03/31/2021 Last Documented On 3 10:14AM ; [facility] Review of Systems Includes: Review of Systems [...] Last Documented On 4 2:00PM ; A.T. [facility] Encounters Encounter Provider Location Date Check-In Time Check-Out Time Diagnosis [facility] Established patient Ananda Menon DO [facility] 03/22/20 23 10:00AM 11:02AM Myofascial Pain Syndrome Lower Back,Somatic Dysfunction of Head,Somatic Dysfunction of Rib Cage,Somatic Dysfunction of Cervical Region,Somatic Dysfunction of Thoracic Region,Somatic Dysfunction of Lumbar Region,Somatic Dysfunction of Sacrum,Somatic Dysfunction of Pelvic Region,Arthralg ia - Pelvis / Hip / Femur Right Insurance Includes: Active Insurance Policies Plan Name Member ID Group # Subscriber Relationship Effect mica Dates 1 - [place] Access Payer [id number] Starla II, Girma Franklin Child Clinical Notes Includes: Clinical Notes from this encounter * Progress note Date Encounter Last Documented by 03/22/2023 [facility] Established patient Last doc umented on 03/22/2023; [facility] Chief Complaint - Back symptoms History of [...] outpatient expanded h&p - low complexity decisions [id number] - The E&M code was based on Medical Decision Making associated with at least 2 of the following 3 elements 1) 2 minor or self-limiting problems or 1 stable chronic problem or 1 acute uncomplicated injury; 2) limited record/data reviewed or ordered; 3) Low management risk such as OMT.
--- OUTSIDE RECORDS SUMMARY | 2023-09-26 11:43 | XMS_ITS | Clinical Summary ---
Author Organization [facility] Address [address] [place] [address] Phone Care Team Providers Care Remote Sensing Surveyor Name Role Phone WagnerFrieda domínguezana Primary Care Provider [phone] Reason for Visit and Chief Complaint OM Established patient Plan of Treatment - Osteopathic manipulative treatment (OMT) - Somatic dysfunction was found on today's physical examination which was likely contributing to the patient's complaints. Osteopathic manipulative treatment was recommended to be performed to address those somatic dysfunctions found today. Patient would like to proceed with OMT today - Last Documented On 04/25/2023 12:48PM ; SolomonSolomon [facility] - Follow-up visit in 2-3 weeks for reevaluation or as needed - Last Documented On 04/25/2023 12:48PM ; ChilangoSolomon [facility] Pending Tests Order Diagnosis Results Due Ordering P darrius RAD - X-Ray Postural Study B Vertebrogenic l ow back pain 04/18/23 Ananda Menon DO Last Documented On 3:10PM ; ChilangoSolomon [facility] Assessments Includes: Assessments from this encounter Findings - Arthralgia of the right pelvis/hip/femur [M25.551 - Pain in right hip] - Last Documented On 04/25/2023 12:48PM ; ChilangoSolomon [facility] - Vertebrogenic low back pain [M54.51 - Vertebrogenic low back pain] - Last Documented On 04/25/2023 12:48PM ; Dwaine [facility] - Myofascial pain syndrome of neck [M79.18 - Myalgia, other site] - Last Documented On 04/25/2023 12:48PM ; Dwaine [facility] - Somatic dysfunction of the head region [M99.00 - Segmental and somatic dysfunction of head region] - Last Documented On 04/25/2023 12:48PM ; Dwaine [facility] - Somatic dysfunction of rib cage [M99.08 - Segmental and somatic dysfunction of rib cage] - Last Documented On 04/25/2023 12:48PM ; Dwaine [facility] - Somatic dysfunction of cervical region [M99.01 - Segmental and somatic dysfunction of cervical region] - Last Documented On 04/25/2023 12:48PM ; ChilangoSolomon [facility] - Somatic dysfunction of thoracic region [M99.02 - Segmental and somatic dysfunction of thoracic region] - Last Documented On 04/25/2023 12:48PM ; Dwaine [facility] - Somatic dysfunction of lumbar region [M99.03 - Segmental and somatic dysfunction of lumbar region] - Last Documented On 04/25/2023 12:48PM ; Dwaine [facility] - Somatic dysfunction of sacrum [M99.04 - Segmental and somatic dysfunction of sacral region] - Last Documented On 04/25/2023 12:48PM ; ChilangoSolomon [facility] - Somatic dysfunction of pelvic region [M99.05 - Segmental and somatic dysfunction of pelvic region] - Last Documented On 04/25/2023 12:48PM ; ChilangoSolomon [facility] Medical Equipment - Implanted Devices Includes: Current Devices No Medical Equipment Recorded Medications Includes: Medications discussed during this encounter and other current Medications Current Medications (continue as prescribed) Methylphenidate HCl ER 18 MG Oral Tablet Extended Release 24 Hour 06/20/2023 Provider: Diagnosis: Last Documented On 4 3:42PM By Betty Isidro [facility] Mima-D Allergy & Congesti on 60-120 MG Oral Tablet Extended Release 12 Hour 06/20/2023 Provider: Diagnosis: Last Documented On 4 3:43PM By Betty Isidro [facility] FLUoxetine HCl 20 MG Oral Capsule 03/31/2021 Provide r: Diagnosis: Last Documented On 3 2:06PM By Barb Lee [facility] ; Dwaine [facility] Medications Administered Includes: Administered Medications from this encounter No Administered Medications Recorded Vital Signs Includes: Vital Signs from this encounter Vital Name 04/04/2023 01:59P Blood Pressure Sitting L 134/88 BP Cuff Size Large Pulse Rate-Sitting (bpm) 87 Pulse Rhythm Regular Respiration Rate (breaths/min) 14 Oxygen Saturation (%) 98 Flow Rate (l/min) (None (Room Air)) FiO2 (%) 21 Last Documented: On 04/04/2023 2:02PM ; Dwaine [facility] Results Includes: Results discussed during this encounter [...] movement - Current pain level 4 (0-10) Social History Description Last Updated Right Handed 03/31/2021 Last Documented On 4 1:59PM ; Dwaine Colón 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 Daily coffee consumption was one cups pe r day 03/31/2021 Last Documented On 4 1:59PM ; Dwaine [facility] Never drank alcohol 03/31/2021 Last Documented On 4 1:59PM ; Dwaine [facility] Non-smoker 03/31/2021 Last Documented On 4 1:59PM ; Dwaine [facility] Not using drugs 03/31/2021 Last Documented On 4 1:59PM ; Dwaine [facility] Single 03/31/2021 Last Documented On 4 1:59PM ; ChilangoSolomon [facility] Smoking Status Unknown Procedures and Surgical History Includes: Procedures from this encounter Procedures Code Diagnosis Performing Provider Service Location Service Date OSTEOPATHIC MANIP 7-8 AREAS [address] Segmental and somatic dysfunction of head region, Segmental and somatic dysfunction of lumbar region, Segmental and somatic dysfunction of sacral region, Segmental and somatic dysfunction of pelvic region Ananda Sinan DO OMM 04/04/2023 Last Documented On 4 6:21AM ; Dw[facility] osteopathic manipulative jarvis atment (OMT) involving seven to eight body regions [id number] Last Documented On 4 2:50PM ; Dwaine [facility] general outcomes - OMT was well tolerate d Last Documented On 4 2:50PM ; Dwaine [facility] general outcomes - Symptoms improved aft er OMT Last Documented On 4 2:50PM ; Rigoberto.TSolomon [facility] Articular Technique head region Last Documented On 4 2:50PM ; Rigoberto.TSolomon [facility] Indirect balanced ligamentous tension he ad region Last Documented On 4 2:50PM ; Rigoberto.Suhail [facility] Myofascial release head region Last Documented On 4 2:50PM ; Rigoberto.Suhail [facility] OMT response head region: somatic dysfun ction was improved Last Documented On 4 2:50PM ; Rigoberto.TSolomon [facility] Articular technique cervical region Last Documented On 4 2:50PM ; Rigoberto.TSolomon [facility] Indirect balanced ligamentous tension ce rvical region Last Documented On 4 2:50PM ; A.TSolomon [facility] Myofascial release cervical region Last Documented On 4 2:50PM ; Rigoberto.TSolomon [facility] Soft tissue technique cervical region Last Documented On 4 2:50PM ; Rigoberto.Suhail [facility] OMT response cervical region: somatic dy sfunction was improved Last Documented On 4 2:50PM ; A.T. Still [facility] Articular Technique lumbar region Last Documented On 4 2:50PM ; A[facility]. Still [facility] Muscle energy lumbar region Last Documented On 4 2:50PM ; [facility] Myofascial release lumbar region Last Documented On 4 2:50PM ; [facility] Soft tissue technique lumbar region Last Documented On 4 2:50PM ; A[facility]. [facility] OMT response lumbar region: somatic dysf unction was improved Last Documented On 4 2:50PM ; [facility] Articular technique thoracic region Last Documented On 4 2:50PM ; [facility] Myofascial release thoracic region Last Documented On 4 2:50PM ; [facility] Soft tissue technique thoracic region Last Documented On 4 2:50PM ; A[facility] OMT response thoracic region: somatic dy sfunction was improved Last Documented On 4 2:50PM ; A[facility] Still [facility] OMT response pelvic region: somatic dysf unction was improved Last Documented On 4 2:50PM ; [facility] Articular Technique pelvic region Last Documented On 4 2:50PM ; [facility] Counterstrain pelvic region Last Documented On 4 2:50PM ; [facility] Muscle energy pelvic region Last Documented On 4 2:50PM ; [facility] Counterstrain sacral region Last Documented On 4 2:50PM ; [facility] Functional technique sacral region Last Documented On 4 2:50PM ; [facility] OMT response sacral region: somatic dysf unction was improved Last Documented On 4 2:50PM ; [facility] Myofascial release rib chest region Last Documented On 4 2:50PM ; [facility] Soft tissue technique rib chest region Last Documented On 4 2:50PM ; Dwaine [facility] OMT response rib/chest region: somatic d ysfunction was improved Last Documented On 4 2:50PM ; wDaine [facility] OMT was performed based on jeromy granger's physical examination - Regions treated include those listed in the assessment portion of today's Evaluation & Management note Last Documented On 4 2:50PM ; Dwaine [facility] Low velocity, moderate amplitude techniq ue sacral region Last Documented On 4 4:04PM ; Dwaine [facility] Surgical History Last Updated No prior surgery or no significant histo ry 03/31/2021 Last Documented On 4 1:59PM ; Dwaine [facility] History of treatment of foot fracture - Boot (2016) 03/31/2021 Last Documented On 4 1:59PM ; Dwaine [facility] Medical History Includes: Medical History addressed during this encounter Description Last Updated Past medical history reviewed - Previous encounter reviewed 03/31/2021 Last Documented On 4 1:59PM ; Dwaine [facility] Dissociative Disorder ~ Environmental Al lergies 03/31/2021 Last Documented On 4 1:59PM ; Dwaine [facility] Allergy symptoms occur seasonally 2021 Last Documented On 4 1:59PM ; Dwaine [facility] An allergy to certain foods 03/31/2021 Last Documented On 4 1:59PM ; Dwaine [facility] History of anxiety disorder NOS 03/31/19 22 Last Documented On 4 1:59PM ; Dwaine [facility] History of depression 03/31/2021 Last Documented On 4 1:59PM ; Dwaine [facility] Family History Includes: Family History addressed during this encounter Description Last Updated ADHD (dad) 03/31/2021 Last Documented On 4 1:59PM ; Dwaine [facility] Family history of type 1 diabetes mellit us (sister) 03/31/2021 Last Documented On 4 1:59PM ; [facility] Review of Systems Includes: Review of Systems [...] Last Documented On 4 2:00PM ; [facility] Encounters Encounter Provider Location Date Check-In Time Check-Out Time Diagnosis [facility] Established patient Ananda Menon [facility] 04/04/19 24 1:56PM 3:03PM Somatic Dysfunction of Head,Somatic Dysfunction of Rib Cage,Somatic Dysfunction of Cervical Region,Somatic Dysfunction of Thoracic Region,Somatic Dysfunction of Lumbar Region,Somatic Dysfunction of Sacrum,Somatic Dysfunction of Pelvic Region,Arthralg ia - Pelvis / Hip / Femur Right,Dorsopath y Low Back Pain Vertebrogenic,M yofascial Pain Syndrome Neck Insurance Includes: Active Insurance Policies Plan Name Member ID Group # Subscriber Relationship Effect mica Dates 1 - [place] [employer] Payer [id number] Starla Girma IZAGUIRRE Child Clinical Notes Includes: Clinical Notes from this encounter * Progress note Date Encounter Last Documented by 04/04/2023 [facility] Established patient Last doc umented on 04/25/2023; 12:48 PM, Anandaazam Menon DO; [facility] Chief Complaint - Back symptoms History of [...] outpatient expanded h&p - low complexity decisions 53829 - The E&M code was based on Medical Decision Making associated with at least 2 of the following 3 elements 1) 2 minor or self-limiting problems or 1 stable chronic problem or 1 acute uncomplicated injury; 2) limited record/data reviewed or ordered; 3) Low management risk such as OMT.
--- OUTSIDE RECORDS SUMMARY | 2023-09-26 11:43 | XMS_ITS | Continuity of Care Document ---
Author Organization [facility] Address [address] [place] [address] Phone Care Team Providers Care Announcer Name Role Phone Lana Cruz Unavailable Unavailable Allergies, Adverse Reactions, Alerts Substance Reaction Status Criticality trimethoprim Active No Information sulfamethoxazole Active No Informat ion Penicillins Active No Information Problems Condition Type Effective Dates (start - stop) Clini nixon Status Comments No Known Problems Procedures Procedure Date OFFICE/OUTPATIENT VISIT, EST STREP A ASSAY W/OPTIC OFFICE/OUTPATIENT VISIT, EST No Charge OFFICE/OUTPATIENT VISIT, EST MED SERV, URGENT CARE OFFICE/OUTPATIENT VISIT, EST URINALYSIS, AUTO, W/O SCOPE URINE CULTURE/COLONY COUNT OFFICE/OUTPATIENT VISIT, NEW MED SERV, URGENT CARE MARI/WKEND/HOLIDAY Results Test Name Date and Time Measure Units Reference Range Abnormal Flag Status Comments Panel Description: Strep A Screen Final Strep A Screen 15:37:00 negative negative Final Panel Description: Molecular COVID-19 Final Molecular COVID-19 21 17:19:00 Negative Negative Final COV2=ID NOW us es isothermal nucleic acid amplification of SARS-CoV-2 RNA. Negative results should be treated as presumptive and, if inconsistent with clinical signs/symptoms or necessary for patient management, re-tested by another authorized COVID-19 assay Molecular COVID-19 Procedural Control 17:19:00 Valid Valid Final Advance Directives Directive Yes / No Effective Date File Name No Information Encounters Encounter Description Practice Location Reason(s) For Visit Diagnoses Date Provider Providers Copied on Encounter OFFICE/OUTPA TIENT VISIT, EST [facility], [address] [place] [address], [id number], [place] tel:[phone] [facility] testing (chief complaint) Contact w and exposure to oth viral communicable diseasesSore throat Mehreen Schwartz. [address] [place] [address], [id number], [place]. tel:[phone] Referring Provider: Lana Verde, [address] [place] [address], [id number] . tel:[phone] OFFICE/OUTPA TIENT VISIT, EST [facility], [address] [place] [address], [id number], [place] tel:[phone] [facility] Concerns (chief complaint) Contact w and exposure to oth viral communicable diseases 0 Juan Lugo. [address] [place] [address], [id number], [place]. tel:[phone] Referring Provider: Brittney Adams, [address] [place] [address], [id number]. tel:[phone] [facility], [address] [place] [address], [id number], [place] tel:[phone] [facility] injury (chief complaint) Pain in left footPain in left wrist 6 An Espino. [address] [place] [address], [id number], [place]. tel:[phone] Referring Provider: Srinivas Pederson, [address] [place] [address], [id number] . tel:[phone] OFFICE/OUTPA TIENT VISIT, EST [facility], [address] [place] [address], [id number], [place] tel:[phone] [facility] rash (chief complaint) Rash 4 Phi Aldridge. [address] [place] [address], [id number], [place]. tel:[phone] Referring Provider: Srinivas Pederson, [address] [place] [address], [id number] . tel:[phone] OFFICE/OUTPA TIENT VISIT, EST [facility], [address] [place] [address], [id number], [place] tel:[phone] [facility] dysuria (chief complaint) DysuriaUrinary tract infection 4 No Information Referring Provider: Srinivas Pederson, [address] [place] [address], [id number] . tel:[phone] [facility], [address] [place] [address], [id number], [place] tel:[phone] [facility] No Information 3 Lamdebbi Emmanuella. [address] [place] [address], [id number], [place]. tel:[phone] OFFICE/OUTPA TIENT VISIT, NEW [facility], [address] [place] [address], [id number], [place] tel:[phone] [facility] injury, cut and facial pain (chief complaint) Open wound of face, unspecified site, uncomplicated 3 No Information Referring Provider: Srinivas Pederson, [address] [place] [address], [id number] . tel:[phone] Family History Family Member Type Diagnosis Age At Onset Sister Problem (finding) diabetes mellitus type 1 Immunizations Vaccine Date Status Comments Influenza virus vaccine, intranasal admin istered Source: Public Agency Influenza virus vaccine, intranasal admin istered Source: Public Agency Influenza virus vaccine, intranasal admin istered Source: Public Agency flu (split) (3 yrs or older) administered Source: Public Agency MMRV administered Source: Public Agency MMR administered Source: Public Agency polio, inactivated (IPV) administered Dulce rce: Public Agency DTaP administered Source: Public Agency flu (split) (3 yrs or older) administered Source: Public Agency flu (split) (6-35 mos) administered Sourc e: Public Agency hep A (ped/adol, 2 dose) administered Dulce rce: Public Agency hep A (ped/adol, 2 dose) administered Dulce rce: Public Agency DTaP administered Source: Public Agency varicella administered Source: Public Agency MMR administered Source: Public Agency Hib-Hep B administered Source: Public Agency pneumo (under 5) (PCV7) administered Sour ce: Public Agency polio, inactivated (IPV) administered Dulec rce: Public Agency DTaP administered Source: Public Agency pneumo (under 5) (PCV7) administered Sour ce: Public Agency Hib-Hep B administered Source: Public Agency polio, inactivated (IPV) administered Dulce rce: Public Agency DTaP administered Source: Public Agency pneumo (under 5) (PCV7) administered Sour ce: Public Agency Hib-Hep B administered Source: Public Agency polio, inactivated (IPV) administered Dulce rce: Public Agency DTaP administered Source: Public Agency Payers Payer name Insurance type Covered republican ID Authoriza tion(s) [facility] [id number] Social History Type Description Quantity Date Captured Comments Alcohol Use Details No Caffeine Use Details Tobacco Use Status No Information Smoking Status Never smoker Sex Female Vital Signs Date / Time: Height Weight BMI Pulse Rate Blood Pressure Temperature Respiratory Rate Body Surface Area Head Circumference Head Circ. Percentile Wt./Mitchell. Percentile BMI percentile Pulse Ox Inhaled Ox 2:05 PM 62.00 in 86.183 kg (190.00 lbs) 34.7 5 kg/m eter (2) 97 Chief Complaint And Reason For Visit From encounter dated '11/23/2020 13:15'. COVID testing (chief complaint). Description: The symptoms began 1 day ago and generally lasts 1 Day. 20yo female c/o ST, GALVAN, myalgias, and abd discomfort for 2 days, also has chronic NC. Pt reports direct exposure to +COVID on 11/21 but has had the COVID vaccine. Reason For Referral Reason For Referral No Information Plan Of Treatment Date Type Action Status Referral Ordered: X-RAY EXAM OF LOWER LEG 2 VIEWS Left ankle ordered Future Order: Lab Order [facility] aka [facility] SARS-CoV-2, RT-PCR ([id number]), Sent on: Sent History Of Present Illness Encounter Date Complaint History Of Prese nt Illness COVID testing The symptoms beg an 1 day ago and generally lasts 1 Day. 20yo female c/o ST, GALVAN, myalgias, and abd discomfort for 2 days, also has chronic NC. Pt reports direct exposure to +COVID on 11/21 but has had the COVID vaccine. Covid Concerns The symptoms beg an 2 days ago and generally lasts 2 Days. The symptoms are reported as being moderate. The symptoms occur constantly. She states the symptoms are acute. Mother calls to have telephone visit with concerns of her daughter having covid symptoms of sore throat, body aches and congestion. She was in direct contact with her best friend that tested positive. injury The injury occur red 2 hours ago. Symptoms related to the injury have worsened. The injury is aggravated by local pressure, movement, standing and walking. Interventions the patient has tried have not provided any relief. The patient's mother denies any associated symptoms. rash The patient pres ents for rash. This episode began 1 day ago. The symptom(s) are described as mild, improving and occurs only with exposure to irritating agent. Affected area(s) are scattered on the body. The patient describes the affected area(s) as itchy and red. The symptoms are associated with recent medicines. Denies aggravating factors. Denies relieving factors. Associated symptoms include erythema (skin) and pruritus. Additional information: Pt was prescribed bactrim DS last night for a UTI, pt broke out in a rash today. Father states that they stopped administering the bactrim after one dose and the rash has improved. dysuria Onset: 1 day ago . Date of initial symptoms: 11/21/2013. The patient describes it as burning and cloudy. It occurs constantly. The problem is with no change. Denies aggravating factors. Denies relieving factors. Additional information: Pts mother states that pt had a UTI in August and pt states symptoms feel the same as they did in August.. injury, cut and facial pain The symptoms began 2 hours ago and generally lasts 2 Hours. The symptoms are reported as being see HPI. The symptoms occur see HPI. The location is face. Aggravating factors include see HPI. Relieving factors include see HPI. She states the symptoms are unchanged. Patient was playing tennis, was hit in the face with a tennis racket at 7 pm tonight which caused a small cut on the bridge of her nose. She has had some pain around the right eye and bridge of the nose. She has been applying ice to the area which has helped with pain and swelling. Mother is concerned about scarring. She denies any difficulty seeing or moving her eyes. She did not take anything for pain and doesn't feel she needs it. She is accompanied by mother and father. Functional Status Date Functional Assessmen t No Information Instructions Date Instruction Additional Infor tania --Strep POC, will call with resu lts Related to Sore throat --Molecular COVID te sting SatNov 23 2020 @1500. Pt educated on quarantine until test results have returned. --Motrin/tylenol PRN--Increase fluids/rest--RTC or go to ER if symptoms persist or worsen Related to Contact w and exposure to oth viral communicable diseases Self treatment discu ssed including Tylenol or Ibuprofen for fever, pain or myalgia. Cough and cold medication for symptoms. Patient to check temperature daily. Monitor for s/s of respiratory distress and if worsens and patient needs emergent care to notify EMS or ED or our office that he may have COVID to allow for proper PPE.1. Patient to come at 11 am Saturday for Rapid and PCR Related to Contact w and exposure to oth viral communicable diseases Pt presented with le ft foot pain after inverting her foot/ankle and landing on it with her body weight. Pt's vitals were taken and are stable. Pt examined and referred to hospital for X-rays of her lower left leg (distal tib/fib, ankle, and foot). Pt also recommended to get x-ray of wrist but family refused and said it wasn't as bad as her ankle and they didn't want any unnecessary radiation exposure. Pt instructed to follow up after the x-ray results are back with the hospital if it is broken or come back here if not. Pt understands and asked that the visit today be cancelled due to being referred to ER where they were originally going to go. Related to Pain in left wrist Pt presented with le ft foot pain after inverting her foot/ankle and landing on it with her body weight. Pt's vitals were taken and are stable. Pt examined and referred to hospital for X-rays of her lower left leg (distal tib/fib, ankle, and foot). Pt also recommended to get x-ray of wrist but family refused and said it wasn't as bad as her ankle and they didn't want any unnecessary radiation exposure. Pt instructed to follow up after the x-ray results are back with the hospital if it is broken or come back here if not. Pt understands and asked that the visit today be cancelled due to being referred to ER where they were originally going to go. Related to Pain in left foot After physical exam pt and father were informed that pt likely has an allergy to the Bactrim that she was put on last night for her UTI. Bactrim was added to pts medication list along with penicillin. Pt was instructed to stop taking the Bactrim and was prescribed cefdinir 300mg to take BID x 7 days. Script was erx'd to pharmacy. Pt is to take this medication as prescribed and follow up if symptoms persist or worsen. Father and pt stated understanding and had no further questions at this time. Related to Rash UA was performed and was positive for blood and leukocytes. Culture was ordered and pts mother will be notified after results are available. Pt was prescribed Bactrim DS to take 1 tablet by oral route daily x 10 days. #20 tablets were dispensed from [facility] inventory. Pt is to take this medication as prescribed and follow up if symptoms worsen or persist despite treatment. Related to Urinary tract infection UA was performed and was positive for blood and leukocytes. Culture was ordered and pts mother will be notified after results are available. Pt was prescribed Bactrim DS to take 1 tablet by oral route daily x 10 days. #20 tablets were dispensed from [facility] inventory. Pt is to take this medication as prescribed and follow up if symptoms worsen or persist despite treatment. Related to Dysuria Assessments Type Assessment Date assessment Contact w and exposure to oth vi ral communicable diseases impression This visit was compl eted via telephone due to the restrictions of the COVID-19 pandemic. All issues as below were discussed and addressed but no physical exam was performed. The patient verbally consented to visit.Visit began at 1345 and ended at 1349. 20yo female c/o ST, GALVAN, myalgias, and abd discomfort for 2 days, also has chronic NC. Pt reports direct exposure to +COVID on 11/21 but has had the COVID vaccine. assessment Sore throat Mental Status Date Cognitive Assessment Orientation - [place]sh[place] ed to time, place, person, situation. Patient Care Teams Name Effective Dates (start - stop) Status Members No Information
--- OUTSIDE RECORDS SUMMARY | 2023-09-26 11:43 | XMS_ITS | Patient Health Record ---
Author Organization [facility] Address [address] [place] [address] [place] [id number] Care Team Providers Care Kiln Placer Name Role Phone Indio Salinas DO Unavailable Allergies Allergen (clinical drug ingredient) Drug/Non Drug Allergy documented on EMR Reaction Allergy Type Onset Date Status PCN (mom states it i s just a sensitivity) (uncoded) rash Allergy Active sulfa (uncoded) rash Allergy Acti ve Results Component Value Reference Range Notes IgE-QUEST Reviewed date:03/15/2023 08:32:47 AM Interpretation: Performing Lab:[place], [facility], [address] [place], [address] Tiffany Montoya MD Notes/Report: IMMUNOGLOBULIN E 863 <ZA=229 kU/L HLA TYPING FOR CELIAC DISEAS E-QUEST Reviewed date:10/22/2022 09:59:23 AM Interpretation: Performing Lab:[facility], [address], [place], [address] Burke Jacinto M.D.,PhD Notes/Report: INTERPRETATION see note The patient does not have the HLA-DQ variants associated with celiac disease. More than 97% of celiac patients carry either HLA-DQ2(DQA1*05/DQB1*02) or HLA-DQ8(DQA1*03/DQB1*0302) or both. Genetic counseling as needed. HLA DQ2 Negative HLA DQ8 Negative HLA VARIANTS DETECTED: HLA DQA1* 01 HLA DQA1* 01 HLA DQB1* 0503 HLA DQB1* 0603 RESULTS REVIEWED BY: see note Mehrdad Dejesus M.D. # Ph.D., [facility] Director Game, Cytogenetics and Genomics Typing performed by PCR and hybridization with sequence specific oligonucleotide probes (SSO) using the FDA-cleared LABType(R) SSO Kit. Tryptase Reviewed date:10/08/2022 08:47:25 AM Interpretation: Performing Lab:[facility], [address], [place], [address] Burke Jacinto M.D.,PhD Notes/Report: TRYPTASE 4.7 <11.0 mcg/L The Tryptase test, fluorescent enzyme immunoassay (FEIA), measures both the Alpha and Beta forms of Tryptase. Measuring both forms of Tryptase increases sensitivity for the diagnosis of mastocytosis, and mast cell degranulation as a cause of anaphylaxis. COMPLEMENT COMPONENT Y2M-ORJ ST Reviewed date:10/08/2022 08:47:25 AM Interpretation: Performing Lab:[facility], [facility], [address] [place], [address] Tiffany Montoya MD Notes/Report: COMPLEMENT COMPONENT C4C 35 15-57 mg/dL MICHELLE WITH REFLEXES-QUEST Reviewed date:10/22/2022 09:59:23 AM Interpretation: Performing Lab:[facility] [facility],, [address] [place], [address] Judie Richards MD,PhD,ADIEL Notes/Report: ANACHOICE(R) SCREEN NEGATIVE NEGATIVE A negative ANAchoice(TM) indicates the absence of detectable antibodies to component analytes consisting of dsDNA, Chromatin, IMPORT EXPORT MANAGER, Sm/IMPORT EXPORT MANAGER, Sm, SSA, SSB, Zainab-1, Centromere B, Scl-70 and Ribosomal P. A negative ANAchoice(TM) should be interpreted in the context of the clinical and laboratory findings, and does not rule out autoimmune disease characterized by other autoantibody specificities including autoimmune hepatitis and primary biliary cirrhosis. For additional information, please refer to [email or web address] (This link is being provided for information/educational purposes only.) RHEUMATOID FACTOR <14 <14 IU/mL DNA AB (DS) CRITHIDIA,IFA NEGATIVE NEGATIVE SM ANTIBODY <1.0 NEG <1.0 NEGATIVE AI SM/IMPORT EXPORT MANAGER ANTIBODY <1.0 NEG <1.0 NEGATIVE AI SJOGREN'S ANTIBODY (SS-A) <1.0 NEG <1.0 NEGATIVE A I SJOGREN'S ANTIBODY (SS-B) <1.0 NEG <1.0 NEGATIVE A I SCL-70 ANTIBODY <1.0 NEG <1.0 NEGATIVE AI QT. SERUM IMMUNOGLOBULIN-[facility] Reviewed date:10/08/2022 08:47:25 AM Interpretation: Performing Lab:[facility] [address], [place], [address] Tiffany Montoya MD Notes/Report: IMMUNOGLOBULIN A 127 47-310 mg/dL IMMUNOGLOBULIN G 5496 531-4482 mg/dL IMMUNOGLOBULIN M 171 50-300 mg/dL C-REACTIVE PROTEIN Reviewed date:10/08/2022 08:47:25 AM Interpretation: Performing Lab:[facility] [address], [place], [address] Tiffany Montoya MD Notes/Report: C-REACTIVE PROTEIN 19.4 <8.0 mg/L IgE-DANNY Reviewed date:10/08/2022 08:47:25 AM Interpretation: Performing Lab:[facility] [address], [place], [address] Tiffany Montoya MD Notes/Report: IMMUNOGLOBULIN E 795 <CR=557 kU/L CBC (INCLUDES DIFF/PLT) Reviewed date:10/08/2022 08:47:25 AM Interpretation: Performing Lab:[facility] [address], [place], [address] Tiffany Montoya MD Notes/Report: WHITE BLOOD CELL COUNT 9.5 3.8-10.8 Thousand/ uL RED BLOOD CELL COUNT 4.91 3.80-5.10 Million/uL HEMOGLOBIN 14.0 11.7-15.5 g/dL HEMATOCRIT 42.4 35.0-45.0 % MCV 86.4 80.0-100.0 fL MCH 28.5 27.0-33.0 pg MCHC 33.0 32.0-36.0 g/dL RDW 14.0 11.0-15.0 % PLATELET COUNT 393 140-400 Thousand/uL MPV 9.3 7.5-12.5 fL ABSOLUTE NEUTROPHILS 6783 2406-3686 cells/uL ABSOLUTE LYMPHOCYTES 5704 197-1299 cells/uL ABSOLUTE MONOCYTES 637 200-950 cells/uL ABSOLUTE EOSINOPHILS 276 15-500 cells/uL ABSOLUTE BASOPHILS 38 0-200 cells/uL NEUTROPHILS 71.4 LYMPHOCYTES 18.6 MONOCYTES 6.7 EOSINOPHILS 2.9 BASOPHILS 0.4 ENDOMYSIAL ANTIBODY SCR (IGA ) W/REFL TO TITER Reviewed date:10/08/2022 08:47:25 AM Interpretation: Performing Lab:[place], [facility], [facility] [place], [address] Sukhi Campos Notes/Report: ENDOMYSIAL ANTIBODY SCR (IGA) W/REFL TO TITER NEGATIVE NEGATIVE TISSUE TRANSGLUTAMINASE ANTI BODY, IGG,IGA Reviewed date:10/08/2022 08:47:25 AM Interpretation: Performing Lab:[facility] [place], [facility] [place], [address] Sukhi Campos Notes/Report: TISSUE TRANSGLUTAMINASE AB, IGG <1.0 Value Interpretation ----- <15.0 Antibody not detected > or = 15.0 Antibody detected TISSUE TRANSGLUTAMINASE AB, IGA <1.0 Value Interpretation ----- <15.0 Antibody not detected > or = 15.0 Antibody detected GLIADIN (DEAMIDATED) AB (IGG ) Reviewed date:10/08/2022 08:47:25 AM Interpretation: Performing Lab:[place], [facility], [address] [place], [address] Sukhi Campos Notes/Report: GLIADIN (DEAMIDATED) AB (IGG) <1.0 Value Interpretation ----- <15.0 Antibody not detected > or = 15.0 Antibody detected GLIADIN (DEAMIDATED) AB (IGA ) Reviewed date:10/08/2022 08:47:25 AM Interpretation: Performing Lab:[facility], [facility], [address] [place], [address] Sukhi Campos Notes/Report: GLIADIN (DEAMIDATED) AB (IGA) <1.0 Value Interpretation ----- <15.0 Antibody not detected > or = 15.0 Antibody detected GALACTOSE ALPHA 1,3 GALACTOS E IGE Reviewed date:10/22/2022 09:59:23 AM Interpretation: Performing Lab:[facility] [place], [address] [place], [address] Andres Giang M.D. Notes/Report: GALACTOSE ALPHA 1,3 GALACTOSE IGE 15.3 <0.10 kU/L Results above 0.1 kU/L indicate an allergen-specific IgE sensitization to glikwgdhx-p-0,3-galactose, and such patients are at risk for delayed allergic reactions following beef, pork, or marcelino consumption. Circulating IgE antibodies may remain undetectable despite a convincing clinical history because these antibodies may be directed towards allergens revealed or altered during industrial processing, cooking, or digestion and therefore do not exist in the original food for which the patient is tested. Sometimes individuals diagnosed with chronic urticaria may develop IgE antibodies directed against human thyroglobulin. Such antibodies may cross-react with the bovine thyroglobulin used in ImmunoCAP(R) Allergen o215, alpha-Gal, leading to a false-positive test result. A definitive diagnosis should be based on the evaluation of both clinical and laboratory findings and not on any single diagnostic method. Additional information can be found at [email or web address] GALACTOSE ALPHA 1,3 GALACTOS E IGE Reviewed date:03/20/2023 02:20:28 PM Interpretation: Performing Lab:[facility], [facility] [place], [address] [place], [address] Andres Giang M.D. Notes/Report: GALACTOSE ALPHA 1,3 GALACTOSE IGE 34.1 <0.10 kU/L Results above 0.1 kU/L indicate an allergen-specific IgE sensitization to eotgcrwqq-g-8,3-galactose, and such patients are at risk for delayed allergic reactions following beef, pork, or marcelino consumption. Circulating IgE antibodies may remain undetectable despite a convincing clinical history because these antibodies may be directed towards allergens revealed or altered during industrial processing, cooking, or digestion and therefore do not exist in the original food for which the patient is tested. Sometimes individuals diagnosed with chronic urticaria may develop IgE antibodies directed against human thyroglobulin. Such antibodies may cross-react with the bovine thyroglobulin used in ImmunoCAP(R) Allergen o215, alpha-Gal, leading to a false-positive test result. A definitive diagnosis should be based on the evaluation of both clinical and laboratory findings and not on any single diagnostic method. Additional information can be found at [email or web address] Reason For Referral No Information Medications Medication SIG (Take, Route, Frequency, Duration) Notes Start Date End Date Status Mima-D 12 Hour 60 mg-120 mg 1 tab(s) orally prn Active Hydroxyzine hydrochloride 25 mg 1 tab(s) orally 4 times a day prn Active Singulair 10 mg 1 tab(s) orally QPM for 30 day(s) 03/28/2020 Not-Taking Multivitamin daily Not-Fabian ing sertraline 50 mg 1 tab(s) orally once a day Not-Taking Immunotherapy as prescribed No t-Taking EpiPen 2-Miles 0.3 mg as directed intramuscularly once 10/31/2022 Active FLUoxetine 20 mg 1 cap(s) orally once a day 50mg Active ZyrTEC 10 mg 1 tab(s) orally once a day PRN prn Active Immunizations Vaccine Route Administration Date Status Comme nts Influenza IM Intramuscular 10/03/2022 Administered Pneumococcal Unknown 10/03/2022 Refused Social History Tobacco Use: Social History Observation Description Date Details (start date - stop date) Never Smoker NA - NA Smoking: Question Answer Notes Are you a: never smoker Problems Problem Type SNOMED Code ICD Code Onset Dates Problem Status W/U Status Risk Notes Problem Allergic rhinitis due to pollen (56214725) Allergic rhinitis due to pollen (J30.1) Active confirmed Problem Seasonal allergic rhinitis (485988020) Other seasonal allergic rhinitis (J30.2) Active confirmed Problem Allergic rhinitis caused by animal hair and dander (065664577964757 ) Allergic rhinitis due to animal (cat) (dog) hair and dander (J30.81) Active confirmed Problem Allergic rhinitis (98433240) Other allergic rhinitis (J30.89) Active confirmed Problem Eruption of skin (593654492) Rash and other nonspecific skin eruption (R21) Active confirmed Problem Allergy to penicillin (85870156) Allergy status to penicillin (Z88.0) Active confirmed Problem Allergy to sulfonamides (75625477) Allergy status to sulfonamides status (Z88.2) Active confirmed Problem Cough (finding) (00100715) Cough, unspecified (R05.9) Active confirmed Problem 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) Active confirmed Vital Signs Heart Rate 79 /min 04/10/2023 Respiratory Rate 18 /min 04/10/2023 Blood pressure diastolic 78 mm Hg 04/10/2023 Height 62.0 in 04/10/2023 Blood pressure systolic 108 mm Hg 04/10/2023 Weight 225.0 lbs 04/10/2023 BMI 41.15 kg/m2 04/10/2023 Encounters Encounter Location Date Provider Diagnosis [facility] Salinas [address] [place] [id number] 03/13/2023 [facility] Salinas Allergic rhinitis due to pollen J30.1 ; Other seasonal allergic rhinitis J30.2 ; Allergic rhinitis due to animal (cat) (dog) hair and dander J30.81 ; Allergy status to penicillin Z88.0 ; Allergy status to sulfonamides status Z88.2 ; Rash and other nonspecific skin eruption R21 ; Other allergic rhinitis J30.89 ; Cough, unspecified R05.9 and Allergy to mammalian meats Z91.014 [facility] [address] [place] [address] [id number] 04/10/2023 Indio Salinas Allergic rhinitis due to pollen J30.1 ; Other seasonal allergic rhinitis J30.2 ; Allergic rhinitis due to animal (cat) (dog) hair and dander J30.81 ; Allergy status to penicillin Z88.0 ; Allergy status to sulfonamides status Z88.2 ; Rash and other nonspecific skin eruption R21 ; Other allergic rhinitis J30.89 ; Cough, unspecified R05.9 and Allergy to mammalian meats Z91.014 [facility] [address] [place] [address] [id number] 10/03/2022 Indio Salinas Allergic rhinitis due to pollen J30.1 ; Other seasonal allergic rhinitis J30.2 ; Allergic rhinitis due to animal (cat) (dog) hair and dander J30.81 ; Allergy status to penicillin Z88.0 ; Allergy status to sulfonamides status Z88.2 ; Rash and other nonspecific skin eruption R21 ; Other allergic rhinitis J30.89 ; Cough, unspecified R05.9 and Other allergic and dietetic gastroenteritis and colitis K52.[address] [facility]io Salinas [address] [place] [address] [id number] 10/31/2022 Indio Salinas Allergic rhinitis due to pollen J30.1 ; Other seasonal allergic rhinitis J30.2 ; Allergic rhinitis due to animal (cat) (dog) hair and dander J30.81 ; Allergy status to penicillin Z88.0 ; Allergy status to sulfonamides status Z88.2 ; Rash and other nonspecific skin eruption R21 ; Other allergic rhinitis J30.89 ; Cough, unspecified R05.9 and Allergy to mammalian meats Z91.[address] [facility] Salians [address] [place] [address] [id number] 11/01/2022 Indio Salinas [address] [place] [address] [id number] 04/01/[address]23 Indio Salinas [address] [place] [address] [id number] 04/12/2023 [facility] [address] [place] [address] [id number] 06/14/2023 Indio Salinas Assessments Encounter Date Diagnosis (ICD Code) Assessment Notes Treatment Notes Treatment Clinical Notes 03/13/2023 Allergic rhinitis due to pollen (ICD-10 - J30.1) 03/13/2023 Other seasonal allergic rhinitis (ICD-10 - J30.2) 04/10/2023 Allergic rhinitis due to pollen (ICD-10 - J30.1) 04/10/2023 Other seasonal allergic rhinitis (ICD-10 - J30.2) 10/03/2022 Allergic rhinitis due to pollen (ICD-10 - J30.1) 10/03/2022 Other seasonal allergic rhinitis (ICD-10 - J30.2) 10/31/2022 Allergic rhinitis due to pollen (ICD-10 - J30.1) 10/31/2022 Other seasonal allergic rhinitis (ICD-10 - J30.2) 03/13/2023 Allergic rhinitis due to animal (cat) (dog) hair and dander (ICD-10 - J30.81) 04/10/2023 Allergic rhinitis due to animal (cat) (dog) hair and dander (ICD-10 - J30.81) 10/03/2022 Allergic rhinitis due to animal (cat) (dog) hair and dander (ICD-10 - J30.81) 10/31/2022 Allergic rhinitis due to animal (cat) (dog) hair and dander (ICD-10 - J30.81) 03/13/2023 Allergy status to penicillin (ICD-10 - Z88.0) 04/10/2023 Allergy status to penicillin (ICD-10 - Z88.0) 10/03/2022 Allergy status to penicillin (ICD-10 - Z88.0) 10/31/2022 Allergy status to penicillin (ICD-10 - Z88.0) 03/13/2023 Allergy status to sulfonamides status (ICD-10 - Z88.2) 04/10/2023 Allergy status to sulfonamides status (ICD-10 - Z88.2) 10/03/2022 Allergy status to sulfonamides status (ICD-10 - Z88.2) 10/31/2022 Allergy status to sulfonamides status (ICD-10 - Z88.2) 03/13/2023 Rash and other nonspecific skin eruption (ICD-10 - R21) 04/10/2023 Rash and other nonspecific skin eruption (ICD-10 - R21) 10/03/2022 Rash and other nonspecific skin eruption (ICD-10 - R21) She does have occasional rashes and is avoiding the chemicals that seem to cause this. 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 Some of her symptoms mimic acid reflux. Skin testing was done to foods per her request as she considers there may be a food allergy. She did have 3 positive reactions and I recommend avoiding wheat, milk and hops. I will also do some lab work looking for alpha gal and other causes of her discomfort. I will review these with her at the next visit. 10/31/2022 Allergy to mammalian meats (ICD-10 - Z91.014) I reviewed her lab with her which shows she has a positive alpha gal. We had a lengthy discussion regarding avoidance of red meat. She has been avoiding wheat and milk since the last visit and states that she feels much better avoiding these. Plan Of Treatment Pending Test Test Name Order Date TTG(IgA)-QUEST 10/03/2022 ENDOMYSIAL ANTIBODY SCR-QUEST 10/03/2022 IGA SERUM-QUEST 10/03/2022 GALACTOSE ALPHA 1,3 GALACTOSE IGE 2022 GALACTOSE ALPHA 1,3 GALACTOSE IGE 2022 Insurance Providers Payer Name Payer Address Payer Phone Subscriber Number Group Number Insured Name Patient Relationship to Insured Coverage Start Date Coverage End Date [facility] [address] [address] [place] [address] [id number] ChaTana Child - Insured has Financial Responsibility 1 Medical (General) History Medical History History ICD Code Allergic Rhinitis due to pollen 477.0 Cough (resolved 10/2014) 786.2 insulin resistance Surgical History Surgery Date(Month/Year) wisdom teeth removed
--- OUTSIDE RECORDS SUMMARY | 2023-09-26 11:43 | XMS_ITS | Continuity of Care Document ---
Author Organization [facility] Address [address] [place] [address] Phone Care Team Providers Care [place] Polisher Name Role Phone Kasandra Bartholomew Unavailable Unavailable Allergies, Adverse Reactions, Alerts Substance Reaction Status Criticality wheat Active No Information Alpha-Gal (Ubfnktckq-Vfjnm-5,3-Galactose) Active No Information hops Active No Information gluten Active No Information Sulfa (Sulfonamide Antibiotics) rash Active No Information Penicillins Active No Information WARNIN allergy(ies) could not be collected because the type is not supported. Please contact the source practice for further details. Medications Medication Instructions Dosage Effective Dates (start - stop) Status Comments FLUOXETINE 20MG CAPSULES TAKE 1 CAPSULE BY MOUTH EVERY DAY IN THE MORNING - Active ATOMOXETINE 40MG CAPSULES TAKE 1 CAPSULE BY MOUTH EVERY DAY IN THE MORNING - Active Mima-D 24 Hour 180 mg-240 mg tablet,extended release take 1 tablet by oral route every day on an empty stomach with glass of water as needed 1.00 tablet - Active FLUOXETINE 20MG CAPSULES TAKE 1 CAPSULE BY MOUTH EVERY DAY IN THE MORNING - No Longer Active Problems Condition Type Effective Dates (start - stop) Clini nixon Status Comments No Known Problems Procedures Procedure Date OFFICE O/P EST LOW OFFICE O/P EST LOW Alcohol/drug service 15 min OFFICE O/P EST LOW No Charge Nurse Visit PSYTX W PT 30 MINUTES Alcohol/drug service 15 min OFFICE O/P EST MOD 30-39 MIN OFFICE O/P EST LOW 20-29 MIN OFFICE O/P EST LOW 20-29 MIN MED NUTRITION INDIV SUBSEQ VV-OFFICE/OUTPATIENT VISIT EST MED NUTRITION INDIV SUBSEQ MED NUTRITION INDIV SUBSEQ PSYTX W PT 30 MINUTES MEDICAL NUTRITION INDIV IN OFFICE O/P EST MOD 30-39 MIN PSYCH DIAGNOSTIC EVALUATION OFFICE O/P EST LOW 20-29 MIN PSYTX PT&/FAMILY 30 MINUTES PSYCH DIAGNOSTIC EVALUATION VV-PSYTX PT&/FAMILY 30 MINUTES FAMILY PSYTX W/PATIENT PSYTX PT&/FAMILY 45 MINUTES PSYTX PT&/FAMILY 30 MINUTES VV-PSYTX PT&/FAMILY 30 MINUTES VV-PSYTX PT&/FAMILY 30 MINUTES VV-PSYTX PT&/FAMILY 45 MINUTES PREV VISIT, EST, AGE 18-39 VV-PSYTX PT&/FAMILY 30 MINUTES 21 VV-PSYCH DIAGNOSTIC EVALUATION OFFICE/OUTPATIENT VISIT, EST VV-PSYTX PT&/FAMILY 30 MINUTES VV-PSYTX PT&/FAMILY 30 MINUTES 21 VV-PSYTX PT&/FAMILY 45 MINUTES 21 VV-PSYTX PT&/FAMILY 30 MINUTES 21 VV-PSYTX PT&/FAMILY 30 MINUTES 21 VV-PSYTX PT&/FAMILY 30 MINUTES 20 VV-PSYTX PT&/FAMILY 30 MINUTES 20 VV-PSYTX PT&/FAMILY 30 MINUTES 20 VV-PSYTX PT&/FAMILY 30 MINUTES 20 VV-PSYTX PT&/FAMILY 30 MINUTES 20 OFFICE/OUTPATIENT VISIT, EST VV-PSYTX PT&/FAMILY 30 MINUTES 20 IMMUNIZATION ADMIN MENB RP W/OMV VACCINE IM No Charge Nurse Visit VV-PSYTX PT&/FAMILY 30 MINUTES 20 VV-PSYTX PT&/FAMILY 30 MINUTES 20 OFFICE/OUTPATIENT VISIT, EST Alcohol/drug service 15 min IMMUNIZATION ADMIN MENINGOCOCCAL VACCINE, IM IMMUNIZATION ADMIN, EACH ADD MENB RP W/OMV VACCINE IM PREV VISIT, EST, AGE 12-17 VV-PSYTX PT&/FAMILY 30 MINUTES 20 VV-PSYTX PT&/FAMILY 30 MINUTES 20 VV-PSYTX PT&/FAMILY 45 MINUTES 20 VV-PSYTX PT&/FAMILY 45 MINUTES 20 VV-PSYTX PT&/FAMILY 30 MINUTES 20 VV-PSYCH DIAGNOSTIC EVALUATION 20 OFFICE/OUTPATIENT VISIT, EST PREV VISIT, EST, AGE 12-17 PREV VISIT, EST, AGE 12-17 STREP A DNA AMP PROBE INFLUENZA ASSAY W/OPTIC OFFICE/OUTPATIENT VISIT, EST OFFICE/OUTPATIENT VISIT, EST STREP A ASSAY W/OPTIC OFFICE/OUTPATIENT VISIT, EST PREV VISIT, EST, AGE 12-17 OFFICE/OUTPATIENT VISIT, EST STREP A ASSAY W/OPTIC INFLUENZA ASSAY W/OPTIC IMMUNIZATION ADMIN H PAPILLOMA VACC 3 DOSE IM No Charge Nurse Visit No Charge Nurse Visit URINALYSIS, AUTO, W/O SCOPE OFFICE/OUTPATIENT VISIT, EST URINALYSIS, AUTO, W/O SCOPE No Charge Nurse Visit URINALYSIS, AUTO, W/O SCOPE No Charge Nurse Visit OFFICE/OUTPATIENT VISIT, EST INFLUENZA ASSAY W/OPTIC URINALYSIS, AUTO, W/O SCOPE URINALYSIS, AUTO, W/O SCOPE No Charge Nurse Visit URINALYSIS, AUTO, W/O SCOPE OFFICE/OUTPATIENT VISIT, EST H PAPILLOMA VACC 3 DOSE IM IMMUNIZATION ADMIN No Charge Nurse Visit H PAPILLOMA VACC 3 DOSE IM IMMUNIZATION ADMIN TDAP VACCINE >7 IM MENINGOCOCCAL VACCINE, IM PREV VISIT, EST, AGE 5-11 PREV VISIT, EST, AGE 5-11 OFFICE/OUTPATIENT VISIT, EST STREP A ASSAY W/OPTIC OFFICE/OUTPATIENT VISIT, EST OFFICE/OUTPATIENT VISIT, EST MEDICAL SERVICES AFTER HRS INFLUENZA ASSAY W/OPTIC STREP A ASSAY W/OPTIC FLU VACCINE NO PRESERV 6-35M IMMUNIZATION ADMIN OFFICE/OUTPATIENT VISIT, EST STREP A ASSAY W/OPTIC OFFICE/OUTPATIENT VISIT, EST VISUAL ACUITY SCREEN PREV VISIT, EST, AGE 5-11 STREP A ASSAY W/OPTIC OFFICE/OUTPATIENT VISIT, EST STREP A ASSAY W/OPTIC PREV VISIT, EST, AGE 5-11 OFFICE/OUTPATIENT VISIT, EST PREV VISIT, EST, AGE 5-11 Voided Encounter OFFICE/OUTPATIENT VISIT, EST OFFICE/OUTPATIENT VISIT, EST URINALYSIS, AUTO, W/O SCOPE Advance Directives Directive Yes / No Effective Date File Name No Information Encounters Encounter Description Practice Location Reason(s) For Visit Diagnoses Date Provider Providers Copied on Encounter [facility], [address] [place] [address], [id number], tel:[phone] [facility] No Information 4 Aiden Slaughter. [address], [place], [place], [id number], [place]. tel:[phone] [facility], [address] [place] [address], [id number], [place] tel:[phone] [facility] No Information 4 Aiden Slaughter. [address], [place], [place], [id number], [place]. tel:[phone] [facility], [address] [place] [address], [id number], tel:[phone] [facility] No Information 4 Aiden Slaughter. [address], [place], [place], [id number], [place]. tel:[phone] OFFICE O/P EST LOW [facility], [address] [place] [address], [id number], [place] tel:[phone] [facility] PMDD follow up (chief complaint)u rinary symptoms (chief complaint) Body mass index (BMI) 40.0-44.9, adultDysuriaIns ulin resistance 4 Benny Emmanuella. [address], [place], [place], [id number], [place]. tel:[phone] Referring Provider: Bambi Jefferson, [address], [place], [address] . tel:[phone] OFFICE O/P EST [facility], [address] [place] [address], [id number], [place] tel:[phone] [facility] chronic conditions (chief complaint) Attention deficit disorder w/ hyperactivity predominantly inattentive typeBody mass index (BMI) 40.0-44.9, adult May- 0-202 4 Aiden Slaughter. [address], [place], [place], [id number], [place]. tel:[phone] Referring Provider: Kasandra Danielle, [address], [place], [address] . tel:[phone] OFFICE O/P EST [facility], [address] [place] [address], [id number], [place] tel:[phone] [facility] chronic conditions (chief complaint) Generalized Anxiety DisorderMDD (major depressive disorder), severeAttention deficit disorder w/ hyperactivity predominantly inattentive typeBody mass index (BMI) 40.0-44.9, adult Apr-2 4-202 4 Aiden Slaughter. [address], [place], [place], [id number], [place]. tel:[phone] Referring Provider: Kasandra Danielle, [address], [place], [address] . tel:[phone] No Charge Nurse Visit [facility], [address] [place] [address], [id number], [place] tel:[phone] [facility] No Information Apr-0 8-202 4 Aiden Slaughter. [address], [place], [place], [id number], [place]. tel:[phone] Referring Provider: Kasandra Danielle, [address], [place], [address] . tel:[phone] PSYTX W PT 30 MINUTES [facility], [address] [place] [address], [id number], [place] tel:[phone] [facility] [place] Generalized Anxiety DisorderMajor depressive disorder, recurrent, mildAttention deficit disorder w/ hyperactivity predominantly inattentive type May- 4 Ron Agosto. [address] [place], [address], [place]. tel:[phone] OFFICE O/P EST MOD 30-39 MIN [facility], [address] [place] [address], [id number], [place] tel:[phone] [facility] depression (chief complaint)e stablish care (chief complaint) BMI pediatric, greater than or equal to 95% for ageGeneralized Anxiety DisorderMDD (major depressive disorder), severeAttention deficit disorder w/ hyperactivity predominantly inattentive typeEncounter to establish care 4 Aiden Slaughter. [facility] , [place], [place], [id number], [place]. tel:[phone] Referring Provider: Kasandra Danielle, [address] , [place], [address] . tel:[phone] OFFICE O/P EST LOW 20-29 MIN [facility], [address] [place] [address], [id number], [place] tel:[phone] [facility] Discuss meds (chief complaint) Body mass index (BMI) 40.0-44.9, adultDisassocia tion disorderThought s of self-harmAttent ion deficit disorder w/ hyperactivity predominantly inattentive typeGeneralized Anxiety DisorderPMDD (premenstrual dysphoric disorder) 4 Benny Lacy. [address], [place], [id number], [place]. tel:[phone] Referring Provider: Bambi Jefferson, [address] [place], [address] . tel:[phone] OFFICE O/P EST LOW 20-29 MIN [facility], [address] [place] [address], [id number], [place] tel:[phone] [facility] Medication follow up (chief complaint) Body mass index (BMI) 40.0-44.9, adultInsulin resistancePMDD (premenstrual dysphoric disorder)[place] enorrhea, unspecified type 4 Benny Lacy. [address], [place], [id number], [place]. tel:[phone] Referring Provider: Bambi Jefferson, [address] [place], [address] . tel:[phone] [facility], [address] [place] [address], [id number], [place] tel:[phone] [facility] Dietary counseling and surveillanceBod y mass index (BMI) 40.0-44.9, adult 4 Kike Dinh. [address] [place] [address], [id number], [place]. Referring Provider: Allegra Alvarez, [address] [place] [address], [id number] . [facility], [address] [place] [address], [id number], [place] tel:[phone] [facility] PMDD (chief complaint)P eriod follow up (chief complaint) PMDD (premenstrual dysphoric disorder)[place]ligom enorrhea, unspecified type 3 Benny Lacy. [address], [place], [id number], [place]. tel:[phone] [facility], [address] [place] [address], [id number], [place] tel:[phone] [facility] Dietary counseling and surveillanceBod y mass index (BMI) 40.0-44.9, adult 3 Kike Dinh. [address] [place] [address], [id number], [place]. Referring Provider: Allegra Alvarez, [address] [place] [address], [id number] . [facility], [address] [place] [address], [id number], [place] tel:[phone] [facility] Dietary counseling and surveillanceBod y mass index (BMI) 40.0-44.9, adult Aug- 3 Kike Dinh. [address] [place] [address], [id number], [place]. Referring Provider: Allegra Alvarez, [address] [place] [address], [id number] . PSYTX W PT 30 MINUTES [facility], [address] [place] [address], [id number], [place] tel:[phone] [facility] [place] Generalized Anxiety DisorderMajor depressive disorder, recurrent, mildAttention deficit disorder w/ hyperactivity predominantly inattentive type Oct- 3 Ron Agosto. [address] [place], [address], [place]. tel:[phone] [facility], [address] [place] [address], [id number], [place] tel:[phone] [facility] Dietary counseling and surveillanceBod y mass index (BMI) 40.0-44.9, adult Aug- 3 Kike Dinh. [address] [place] [address], [id number], [place]. Referring Provider: Allegra Alvarez, [address] [place] [address], [id number] . [facility], [address] [place] [address], [id number], [place] tel:[phone] [facility] Body mass index (BMI) 40.0-44.9, adult Aug-0 3 Benny Lacy. [address], [place], [id number], [place]. tel:[phone] OFFICE O/P EST MOD 30-39 MIN [facility], [address] [place] [address], [id number], [place] tel:[phone] [facility] Discuss results (chief complaint) Body mass index (BMI) 40.0-44.9, adultInsulin resistancePMDD (premenstrual dysphoric disorder) 3 Benny Lacy. [address], [place], [id number], [place]. tel:[phone] Referring Provider: Bambi Jefferson, [address] [place], [address] . tel:[phone] PSYCH DIAGNOSTIC EVALUATION [facility], [address] [place] [address], [id number], [place] tel:[phone] [facility] [place] Generalized Anxiety DisorderMajor depressive disorder, recurrent, mildAttention deficit disorder w/ hyperactivity predominantly inattentive type 3 Ron Agosto. [address] [place], [address], [place]. tel:[phone] OFFICE O/P EST LOW 20-29 MIN [facility], [address] [place] [address], [id number], [place] tel:[phone] [facility] Irregular periods (chief complaint) Body mass index (BMI) 40.0-44.9, adultOligomenor kentrell, unspecified type 3 Benny Lacy. [address], [place], [id number], [place]. tel:[phone] Referring Provider: Bambi Jefferson, [address] [place], [address] . tel:[phone] PSYTX PT&/FAMILY 30 MINUTES [facility], [address] [place] [address], [id number], [place] tel:[phone] [facility] [place] Generalized Anxiety DisorderMajor depressive disorder, recurrent, mildAttention deficit disorder w/ hyperactivity predominantly inattentive type 2 Ron Agosto. [address] [place], [address], [place]. tel:[phone] PSYCH DIAGNOSTIC EVALUATION [facility], [address] [place] [address], [id number], [place] tel:[phone] [facility] [place] Generalized Anxiety DisorderMajor depressive disorder, recurrent, mildAttention deficit disorder w/ hyperactivity predominantly inattentive type Sep- 3- 2 Elviramitjacoby RolonTriny. [address] [place], [address], [place]. tel:[phone] [facility], [address] [place] [address], [id number], [place] tel:[phone] [facility] [place] Generalized Anxiety DisorderPanic attackMajor depressive disorder, recurrent, mild Aug- 2 Ron Agosto. [address] [place], [address], [place]. tel:[phone] FAMILY PSYTX W/PATIENT [facility], [address] [place] [address], [id number], [place] tel:[phone] [facility] [place] Generalized Anxiety DisorderPanic attackMajor depressive disorder, recurrent, mild Ellis-0 8-202 2 Ron Agosto. [address] [place], [address], [place]. tel:[phone] PSYTX PT&/FAMILY 45 MINUTES [facility], [address] [place] [address], [id number], [place] tel:[phone] [facility] [place] Generalized Anxiety DisorderPanic attackMajor depressive disorder, recurrent, mild July- 2 Ron Agosto. [address] [place], [address], [place]. tel:[phone] PSYTX PT&/FAMILY 30 MINUTES [facility], [address] [place] [address], [id number], [place] tel:[phone] [facility] [place] Generalized Anxiety DisorderPanic attackMajor depressive disorder, recurrent, mild May-3 0-202 2 Blacksmitjacoby RolonTriny. [address] [place], [address], [place]. tel:[phone] [facility], [address] [place] [address], [id number], [place] tel:[phone] [facility] [place] Generalized Anxiety DisorderPanic attackMajor depressive disorder, recurrent, mild Jan- 1 Ron Agotso. [address] [place], [address], [place]. tel:[phone] [facility], [address] [place] [address], [id number], [place] tel:[phone] [facility] [place] Generalized Anxiety DisorderPanic attackMajor depressive disorder, recurrent, mild Oct-2 1 Ron Agosto. [address] [place], [address], [place]. tel:[phone] [facility], [address] [place] [address], [id number], [place] tel:[phone] [facility] [place] Generalized Anxiety DisorderPanic attackMajor depressive disorder, recurrent, mild Oct-2 0 1 Ron Agosto. [address] [place], [address], [place]. tel:[phone] PREV VISIT, EST, AGE 18-39 [facility], [address] [place] [address], [id number], [place] tel:[phone] Pediatrics Well child (chief complaint) Encounter for general adult medical examination without abnormal findingsGeneral ized Anxiety DisorderBody mass index (BMI) 36.0-36.9, adult Oct-0 1 Uriel Jeanie. [address], [place], [id number]. tel:[phone] [facility], [address] [place] [address], [id number], [place] tel:[phone] [facility] [place] Generalized Anxiety DisorderPanic attackMajor depressive disorder, recurrent, mild Sep-0 1 Ron Agosto. [address] [place], [address], [place]. tel:[phone] [facility], [address] [place] [address], [id number], [place] tel:[phone] [facility] [place] Generalized Anxiety DisorderPanic attackMajor depressive disorder, recurrent, mild Ellis-2 5-202 1 Ron Agosto. [address] [place], [address], [place]. tel:[phone] OFFICE/OUTPA TIENT VISIT, EST [facility], [address] [place] [address], [id number], [place] tel:[phone] Pediatrics Follow Up of anxiety (chief complaint)F ollow Up of depression (chief complaint) Generalized Anxiety DisorderMajor depressive disorder, recurrent, mildBody mass index (BMI) 37.0-37.9, adult Ellis-03 25- 1 Uriel Ware. [address] [place], [place], [id number]. tel:[phone] [facility], [address] [place] [address], [id number], [place] tel:[phone] [facility] Generalized Anxiety DisorderPanic attackMajor depressive disorder, recurrent, mild May-1 0-202 1 Ron Agosto. [address] [place], [address], [place]. tel:[phone] [facility], [address] [place] [address], [id number], [place] tel:[phone] [facility] [place] Generalized Anxiety DisorderPanic attackMajor depressive disorder, recurrent, mild Apr-2 1-202 1 Ron Agosto. [address] [place], [address], [place]. tel:[phone] [facility], [address] [place] [address], [id number], [place] tel:[phone] [facility] [place] Generalized Anxiety DisorderPanic attackMajor depressive disorder, recurrent, mild Mar-2 4-202 1 Ron Agosto. [address] [place], [address], [place]. tel:[phone] [facility], [address] [place] [address], [id number], [place] tel:[phone] [facility] Generalized Anxiety DisorderPanic attackMajor depressive disorder, recurrent, mild Boom-1 8-202 1 Blacksmith Triny. [address] [place], [address], [place]. tel:[phone] [facility], [address] [place] [address], [id number], [place] tel:[phone] [facility] [place] Generalized Anxiety DisorderPanic attackMajor depressive disorder, recurrent, mild Boom-0 8-202 1 Blacksmith Triny. [address] [place], [address], [place]. tel:[phone] [facility], [address] [place] [address], [id number], [place] tel:[phone] [facility] Generalized Anxiety DisorderPanic attackMajor depressive disorder, recurrent, mild Dec-1 4-202 0 Blacksmith Triny. [address] [place], [address], [place]. tel:[phone] [facility], [address] [place] [address], [id number], [place] tel:[phone] [facility] [place] Generalized Anxiety DisorderPanic attackMajor depressive disorder, recurrent, mild Nov-2 4-202 0 Blacksmith Triny. [address] [place], [address], [place]. tel:[phone] [facility], [address] [place] [address], [id number], [place] tel:[phone] [facility] Generalized Anxiety DisorderPanic attackMajor depressive disorder, recurrent, mild Nov-1 0-202 0 Blacksmith Triny. [address] [place], [address], [place]. tel:[phone] [facility], [address] [place] [address], [id number], [place] tel:[phone] [facility] BMI pediatric, greater than or equal to 95% for age Oct-0 6-202 0 Ionas Jeanie. [address], [place], [id number]. tel:[phone] [facility], [address] [place] [address], [id number], [place] tel:[phone] [facility] [place] Generalized Anxiety DisorderPanic attackMajor depressive disorder, recurrent, mild Sep-2 0 Ron Agosto. [address] [place], [address], [place]. tel:[phone] [facility], [address] [place] [address], [id number], [place] tel:[phone] [facility] Generalized Anxiety DisorderPanic attackMajor depressive disorder, recurrent, mild Sep-2 0 Ron Agosto. [address] [place], [address], [place]. tel:[phone] OFFICE/OUTPA TIENT VISIT, EST [facility], [address] [place] [address], [id number], [place] tel:[phone] Pediatrics Anxiety (chief complaint) Generalized Anxiety DisorderMajor depressive disorder, recurrent, mildBMI pediatric, greater than or equal to 95% for age Sep-1 1-202 0 Ionas Jeanie. [address], [place], [id number]. tel:[phone] [facility], [address] [place] [address], [id number], [place] tel:[phone] [facility] Generalized Anxiety DisorderPanic attackMajor depressive disorder, recurrent, mild Aug-3 0 Ron Agosto. [address] [place], [address], [place]. tel:[phone] No Charge Nurse Visit [facility], [address] [place] [address], [id number], [place] tel:[phone] Pediatrics Encounter for immunization Aug-2 0 Ionas Jeanie. [address], [place], [id number]. tel:[phone] [facility], [address] [place] [address], [id number], [place] tel:[phone] [facility] [place] Generalized Anxiety DisorderPanic attackMajor depressive disorder, recurrent, mild 0 Ron Agosto. [address] [place], [address], [place]. tel:[phone] [facility], [address] [place] [address], [id number], [place] tel:[phone] [facility] [place] Generalized Anxiety DisorderPanic attackMajor depressive disorder, recurrent, mild 0 Ron Agosto. [address] [place], [address], [place]. tel:[phone] OFFICE/OUTPA TIENT VISIT, EST [facility], [address] [place] [address], [id number], [place] tel:[phone] Pediatrics Anxiety (chief complaint) Generalized Anxiety DisorderMajor depressive disorder, recurrent, mildBMI pediatric, greater than or equal to 95% for age 0 Ionas Jeanie. [address], [place], [id number]. tel:[phone] PREV VISIT, EST, AGE 12-17 [facility], [address] [place] [address], [id number], [place] tel:[phone] Pediatrics Well child (chief complaint) Encounter for WCC (well child check) with abnormal findingsGeneral ized Anxiety DisorderMajor depressive disorder, recurrent, mildBMI pediatric, greater than or equal to 95% for age 0 Ionas Jeanie. [address], [place], [id number]. tel:[phone] [facility], [address] [place] [address], [id number], [place] tel:[phone] [facility] [place] Generalized Anxiety DisorderPanic attackMajor depressive disorder, recurrent, mild Ashwin-2 4-202 0 Blacksmith Triny. [address] [place], [address], [place]. tel:[phone] [facility], [address] [place] [address], [id number], [place] tel:[phone] [facility] [place] Generalized Anxiety DisorderPanic attackMajor depressive disorder, recurrent, mild Ashwin-1 7-202 0 Blacksmith Triny. [address] [place], [address], [place]. tel:[phone] [facility], [address] [place] [address], [id number], [place] tel:[phone] [facility] [place] Generalized Anxiety DisorderPanic attackMajor depressive disorder, recurrent, mild Ashwin-0 7-202 0 Blacksmith Triny. [address] [place], [address], [place]. tel:[phone] [facility], [address] [place] [address], [id number], [place] tel:[phone] [facility] [place] Generalized Anxiety DisorderPanic attackMajor depressive disorder, recurrent, mild Ellis-3 0-202 0 Blacksmith Triny. [address] [place], [address], [place]. tel:[phone] [facility], [address] [place] [address], [id number], [place] tel:[phone] [facility] Generalized Anxiety DisorderPanic attackMajor depressive disorder, recurrent, mild Ellis-2 6-202 0 Blacksmith Triny. [address] [place], [address], [place]. tel:[phone] [facility], [address] [place] [address], [id number], [place] tel:[phone] [facility] Generalized Anxiety DisorderPanic attack Ellis-1 9-202 0 Blacksmith Triny. [address] [place], [address], [place]. tel:[phone] OFFICE/OUTPA TIENT VISIT, EST [facility], [address] [place] [address], [id number], [place] tel:[phone] [facility] irregular bleeding (chief complaint)v aginal discharge/i tching (chief complaint) Body mass index (BMI) 35.0-35.9, adultAmenorrhea Vulvar itchingVaginal odorScreening for thyroid disorderScreeni ng for diabetes mellitus 0 Stocks Cherri. [address], [place], [id number], [place]. tel:[phone] PREV VISIT, EST, AGE 12-17 [facility], [address] [place] [address], [id number], [place] tel:[phone] Pediatrics Well child (chief complaint) Encntr for routine child health exam w/o abnormal findingsAllergi c rhinitis, unspecifiedBMI pediatric, 5th percentile to less than 85% for age Ellis-1 9-201 9 Ionas Jeanie. [address], [place], [id number]. tel:[phone] PREV VISIT, EST, AGE 12-17 [facility], [address] [place] [address], [id number], [place] tel:[phone] Pediatrics Well child (chief complaint) Encntr for routine child health exam w/o abnormal findingsBMI pediatric, greater than or equal to 95% for age Ellis-0 4-201 8 Ionas Jeanie. [address], [place], [id number]. tel:[phone] OFFICE/OUTPA TIENT VISIT, EST [facility], [address] [place] [address], [id number], [place] tel:[phone] Pediatrics sore throat (chief complaint)f ever (chief complaint) Acute pharyngitis, unspecifiedInfl uenza A 3-201 8 Faye June. [address], [place], [id number], [place]. tel:[phone] OFFICE/OUTPA TIENT VISIT, EST [facility], [address] [place] [address], [id number], [place] tel:[phone] Pediatrics abdominal pain (chief complaint) Generalized abdominal painDiarrhea in pediatric patient Nov-0 3-201 7 Uriel Jeanie. [address], [place], [id number]. tel:[phone] OFFICE/OUTPA TIENT VISIT, EST [facility], [address] [place] [address], [id number], [place] tel:[phone] Pediatrics sore throat (chief complaint) Pain in throatDietary counseling and surveillance Jun- 7 Jer Iglesias. [address], [place], [id number], [place]. tel:[phone] PREV VISIT, EST, AGE 12-17 [facility], [address] [place] [address], [id number], [place] tel:[phone] Pediatrics Well Child (chief complaint) Encntr for routine child health exam w/o abnormal findingsAbdomin al painDietary counseling and surveillance May- 7 Jer Iglesias. [address], [place], [id number], [place]. tel:[phone] OFFICE/OUTPA TIENT VISIT, EST [facility], [address] [place] [address], [id number], [place] tel:[phone] Pediatrics fever (chief complaint) FeverAcute upper respiratory infection, unspecified Jan-2 9-201 6 Enrique Bright. [address], [place], [id number], [place]. tel:[phone] [facility], [address] [place] [address], [id number], [place] tel:[phone] Pediatrics Dietary counseling and surveillance Jun-0 5-201 6 Jer Iglesias. [address], [place], [id number], [place]. tel:[phone] No Charge Nurse Visit [facility], [address] [place] [address], [id number], [place] tel:[phone] Pediatrics Other Vaccines For Viral Diseses Aug-0 5-201 5 Randle Harris. [address], [place], [id number], [place]. tel:[phone] No Charge Nurse Visit [facility], [address] [place] [address], [id number], [place] tel:[phone] Pediatrics UTI Ellis-0 9-201 5 Randle Harris. [address], [place], [id number], [place]. tel:[phone] OFFICE/OUTPA TIENT VISIT, [facility], [address] [place] [address], [id number], [place] tel:[phone] Pediatrics Follow Up of UTI (chief complaint) Dietary surveillance and counselingUTI Ellis-0 8-201 5 Randle Harris. [address], [place], [id number], [place]. tel:[phone] No Charge Nurse Visit [facility], [address] [place] [address], [id number], [place] tel:[phone] Pediatrics Painful Urination May-2 2-201 5 Enrique Bright. [address], [place], [id number], [place]. tel:[phone] No Charge Nurse Visit [facility], [address] [place] [address], [id number], [place] tel:[phone] Pediatrics Painful Urination Apr-0 8-201 5 Enrique Bright. [address], [place], [id number], [place]. tel:[phone] OFFICE/OUTPA TIENT VISIT, [facility], [address] [place] [address], [id number], [place] tel:[phone] Pediatrics uti (chief complaint) Painful Urination Apr-0 2-201 5 Enrique Bright. [address], [place], [id number], [place]. tel:[phone] No Charge Nurse Visit [facility], [address] [place] [address], [id number], [place] tel:[phone] Pediatrics repeat UA (chief complaint) Painful Urination Feb- 4 Enrique Bright. [address], [place], [id number], [place]. tel:[phone] [facility], [address] [place] [address], [id number], [place] tel:[phone] Pediatrics UTI 4 Enrique Bright. [address], [place], [id number], [place]. tel:[phone] OFFICE/OUTPA TIENT VISIT, EST [facility], [address] [place] [address], [id number], [place] tel:[phone] Pediatrics Urinary symptoms (peds) (chief complaint) Painful Urination 4 Enrique Bright. [address], [place], [id number], [place]. tel:[phone] No Charge Nurse Visit [facility], [address] [place] [address], [id number], [place] tel:[phone] Pediatrics nv injection (chief complaint) No Information 4 Jer Iglesias. [address], [place], [id number], [place]. tel:[phone] PREV VISIT, EST, AGE 5-11 [facility], [address] [place] [address], [id number], [place] tel:[phone] Pediatrics Well Child (chief complaint) Well ChildOther Vaccines For Viral DisesesDTP DTaP VacinneNeed for prophylactic vaccination and inoculation against other specified single bacterial diseaseWell Child 4 Jer Iglesias. [address], [place], [id number], [place]. tel:[phone] PREV VISIT, EST, AGE 5-11 [facility], [address] [place] [address], [id number], [place] tel:[phone] Pediatrics Well child - 10 Years (chief complaint) Well ChildAllergic rhinitis, cause unspecifiedWell Child Sep-1 1-201 3 Jer Iglesias. [address], [place], [id number], [place]. tel:[phone] OFFICE/OUTPA TIENT VISIT, [facility], [address] [place] [address], [id number], [place] tel:[phone] Pediatrics back pain (chief complaint) Low Back Pain Apr-0 2-201 3 Jer Iglesias. [address], [place], [id number], [place]. tel:[phone] OFFICE/OUTPA TIENT VISIT, [facility], [address] [place] [address], [id number], [place] tel:[phone] Pediatrics sore throat (chief complaint) Pharyngitis Dec-1 0-201 2 Enrique Bright. [address], [place], [id number], [place]. tel:[phone] OFFICE/OUTPA TIENT VISIT, [facility], [address] [place] [address], [id number], [place] tel:[phone] Pediatrics fever (chief complaint) Fever Apr-2 9201 2 Jer Iglesias. [address], [place], [id number], [place]. tel:[phone] OFFICE/OUTPA TIENT VISIT, [facility], [address] [place] [address], [id number], [place] tel:[phone] Pediatrics short of breath (chief complaint) Influenza VaccineOther symptoms involving respiratory system and chest Nov-0 3-201 1 Elvira Lara. [address], [place], [id number], [place]. tel:[phone] OFFICE/OUTPA TIENT VISIT, [facility], [address] [place] [address], [id number], [place] tel:[phone] Pediatrics sore throat (chief complaint) Strep ThroatFever 0-201 1 Alison Fajardo. [address], [place], [id number]. tel:[phone] PREV VISIT, EST, AGE 5-11 [facility], [address] [place] [address], [id number], [place] tel:[phone] Pediatrics HCY (chief complaint) PharyngitisWell Child Mar-3 0-201 1 Lobb Marco. [address], [place], [id number], [place]. tel:[phone] OFFICE/OUTPA TIENT VISIT, EST [facility], [address] [place] [address], [id number], [place] tel:[phone] Pediatrics sore throat (chief complaint) Otitis Media UnspecifiedSore Throat 1-201 1 Lobb Marco. [address], [place], [id number], [place]. tel:[phone] PREV VISIT, EST, AGE 5-11 [facility], [address] [place] [address], [id number], [place] tel:[phone] Pediatrics well visit (chief complaint) Routine infant or child health check July-0 3-201 0 Lobb Marco. [address], [place], [id number], [place]. tel:[phone] [facility], [address] [place] [address], [id number], [place] tel:[phone] Pediatrics No Information 9-201 0 Lobb Marco. [address], [place], [id number], [place]. tel:[phone] [facility], [address] [place] [address], [id number], [place] tel:[phone] Pediatrics vomiting (chief complaint)f ever (chief complaint)d iarrhea (chief complaint) No Information Feb-1 2-201 0 Alison Fajardo. [address], [place], [id number]. tel:[phone] OFFICE/OUTPA TIENT VISIT, [facility], [address] [place] [address], [id number], [place] tel:[phone] Pediatrics No Information Sep-0 8-200 9 Rosas Tana. [address], [place], [id number]. tel:[phone] PREV VISIT, [facility], AGE 5-11 [facility], [address] [place] [address], [id number], [place] tel:[phone] Pediatrics No Information Apr-2 4-200 9 Lobb Marco. [address], [place], [id number], [place]. tel:[phone] [facility], [address] [place] [address], [id number], [place] tel:[phone] Pediatrics No Information Apr-0 1-200 9 Ionas Jeanie. [address], [place], [id number]. tel:[phone] OFFICE/OUTPA TIENT VISIT, [facility], [address] [place] [address], [id number], [place] tel:[phone] Pediatrics No Information Mar-1 2-200 9 Lobb Marco. [address], [place], [id number], [place]. tel:[phone] OFFICE/OUTPA TIENT VISIT, [facility], [address] [place] [address], [id number], [place] tel:[phone] Pediatrics No Information Mar-0 2-200 9 Lobb Marco. [address], [place], [id number], [place]. tel:[phone] Family History Family Member Type Diagnosis Age At Onset Sister Problem Obsessive compulsive disorde rs Maternal grandmother Problem (finding) Grave's disease Cousin Problem (finding) Diabetes mellitus Problem (finding) Family history of Thyro id disease Problem (finding) Family history of Cance r, unknown Paternal uncle Problem (finding) Diabetes mellitus Grandmother Problem (finding) hypertension Problem (finding) Family history of Heart disease Father Problem (finding) Hearing loss Maternal grandfather Problem (finding) Diabetes mellit us Maternal grandmother Problem (finding) Diabetes mellit us Mother Problem anxiety state Maternal uncle Problem (finding) Ishaan's disease Mother Problem (finding) Gestational diabetes Sister Problem anxiety state Sister Problem (finding) Diabetes mellitus Mother Problem (finding) Endometriosis Problem (finding) Family history of Heari ng loss Immunizations Vaccine Date Status Comments COVID-19 mRNA (MOD) administered Source: Other Registry InfluenzaQuad Inj P 6+MOS administered So urce: Other Registry COVID-19 mRNA (MOD) administered Source: Other Registry COVID-19 mRNA (MOD) administered Source: Other Registry InfluenzaQuad Inj P 6+MOS administered So urce: Other Registry Meningococcal B, 2 dose administered Sour ce: New Immunization Record Menactra Meningococcal administered Sourc e: New Immunization Record Meningococcal B, 2 dose administered Sour ce: New Immunization Record HPV administered Source: New Imm unization Record HPV (quadrivalent) administered Source: N ew Immunization Record MCV4 (Menactra) administered Source: Othe r Registry HPV (quadrivalent) administered Source: N ew Immunization Record Tdap (Adacel r) administered Source: New Immunization Record Menactra MCV4 (11-55 yrs) administered So urce: New Immunization Record flu (split) preservative dennis e, 6-35 mos administered Source: New Immuniza tion Record Influenza-LAIV Nasal administered Source: Other Registry Influenza virus vaccine, intranasal administered Source: Source Unspe cified Influenza, UF administered Source: Other Registry MMRV administered Source: Source Unspecified polio, inactivated (IPV) administered Dulce rce: Source Unspecified DTaP administered Source: Source Unspecified flu (split) (6-35 mos) preservative free administered Source: Source Unspe cified flu (split) (6-35 mos) preservative free administered Source: Source Unspe cified flu (split) (6-35 mos) preservative free administered Source: Source Unspe cified hep A (ped/adol, 2 dose) administered Dulce rce: Source Unspecified hep A (ped/adol, 2 dose) administered Dulce rce: Source Unspecified DTaP administered Source: Source Unspecified varicella administered Source: Source Unspecified MMR administered Source: Source Unspecified Hib-Hep B administered Source: Source Unspecified pneumo (under 5) (PCV7) administered Sour ce: Source Unspecified polio, inactivated (IPV) administered Dulce rce: Source Unspecified DTaP administered Source: Source Unspecified pneumo (under 5) (PCV7) administered Sour ce: Source Unspecified polio, inactivated (IPV) administered Dulce rce: Source Unspecified DTaP administered Source: Source Unspecified Hib-Hep B administered Source: Source Unspecified Hib-Hep B administered Source: Source Unspecified Hib-Hep B (Comvax) administered Source: O ther Registry pneumo (under 5) (PCV7) administered Sour ce: Source Unspecified polio, inactivated (IPV) administered Dulce rce: Source Unspecified DTaP administered Source: Source Unspecified Payers Payer name Insurance type Covered republican ID Authoriza tion(s) [facility] BL [id number] Cigna CI [id number] Cigna CI [id number] [employer] PPO CI [id number] Social History Type Description Quantity Date Captured Comments Alcohol Use Details Unknown Caffeine Use Details Unknown Tobacco Use Status No Information Smoking Status No Information Sex Female Sexual Orientation Straight or heterosexual Gender Identity Female Chief Complaint And Reason For Visit No Information Reason For Referral Reason For Referral No Information Plan Of Treatment Date Type Action Status Goal Lifestyle education regardin g diet completed Goal Lifestyle education regardin g diet completed Goal Lifestyle education regardin g diet completed Goal Lifestyle education regardin g diet completed Goal Lifestyle education regardin g diet completed Goal Lifestyle education regardin g diet completed Goal Lifestyle education regardin g diet completed Goal Lifestyle education regardin g diet completed Goal Lifestyle education regardin g diet completed Goal Lifestyle education regardin g diet completed Goal Lifestyle education regardin g diet completed Goal Lifestyle education regardin g diet completed Goal Lifestyle education regardin g diet completed Referral Referred To: [facility] Ordered: Referrals: [facility]. Assume care Appointment date/timeframe: 06/17/2023 ordered Referral Referred To: Enrique Ybarra RD [address] [place] [address], [id number] Ordered: Referrals: [employer]. Enrique Ybarra RD. Evaluate and treat ordered Referral Ordered: US Kidney/Bladder Bilateral ordered Appointment Betty Cha BOOKED Future Order: Lab Order Influenz a A & B ([id number]), Appointment on: Ordered Future Order: Lab Order CULTURE, THROAT ([id number]), Appointment on: , Sent on: Sent Nutrition Recommendation Nutrition educat ion completed Nutrition Recommendation Nutrition educat ion completed Nutrition Recommendation Nutrition educat ion completed Nutrition Recommendation Nutrition educat ion completed Nutrition Recommendation Nutrition educat ion completed Nutrition Recommendation Nutrition educat ion completed History Of Present Illness Encounter Date Complaint History Of Prese nt Illness PMDD follow up Did not begin OC P as discussed. She desires to track her periods for a while longer. She does report improvement in PMDD with the change in medication for ADHD. Doing well with Kasandra managing meds and counseling with Ron. urinary symptoms For the past we ek has been having urination s/sx. Hx of frequent UTIs as a child. This feels like a UTI but not as intense. chronic conditions *See Chronic Conditions HPI chronic conditions *See Chronic Conditions HPI Chronic Conditions *See Chronic Conditions Template establish care Patient [facility] care with Kasandra today. Student at [employer] in [place]. History of anxiety/depression/ADHD. depression This is an initi al visit. Additional information: Pt. reports she has tried sertraline and Fluoxetine. Pt. reports the sertraline did not work well for her but the fluoxetine did and she would like to discuss restarting this medication. Discuss meds Betty is here t [place] seeking help with mental health medication management. She attends school out of state and sees a psychiatrist and counselor at school. They have recommended she see a PCP for med management at home. I have been helping with PMDD. Has not started the OCP yet because she was anxious/didn't feel comfortable doing it. Fluoxetine is managed at her school. Reports she had a dissociative episode with self harm activity and went to the ER (at school). Was not hospitalized. Has been out 4 days. Admits to intrusive thoughts but not acting on them. It's been an interesting 4 days. She has an appointment with Triny Velasquez next week. Discussed could not manage those medications here but will refer to [facility] as soon as possible. She returns to college next week. Medication follow up Picked up Y az OCP but did not start it d/t she didn't start a period in January. She did have periods in February and March. Still has PMDD with SI but is able to recognize it and deals with it. Seeing a Psychiatrist and counselor at school. Goes back early APR. They will be starting her on ADHD medication and she is not sure if she should start the OCP. Hasn't restarted Prozac. PMDD virtual visit af ter confirming consent. Pt is in college in [place] and provider in office. Follow up on PMDD. Has not been taking Prozac since the summer and she has started thinking she needs to possibly restart it. Been pretty low 3 days prior to bleeding the past couple of months. Has intrusive thoughts. Working with Psychiatrist and counselor on campus. We had discussed beginning oral contraception to see if it helps with PMDD. She would like to proceed. Period follow up Her periods hav e been regular the last several months. Her LMP was about a week late but had just been dx with Covid. Periods are regular lasting a few days. LMP 12/26-. Discuss results Here today to shirlene mosqueda recent lab results which are showing insulin resistance. She has been recently dx with lactose intolerance and glutin sensitivity. Been eating clean for the past 30 days and feels so much better. Exercising with walking and resistance training. She has had periods each month the past 3 months. Starting on different days but have improved. Irregular periods Frequency: wally gomenorrhea. The problem is chronic. Context: pre-menopausal. Denies aggravating factors. Relieving factors include Provera. Pertinent negatives include abdominal pain, back pain, bloating, bruising, constipation, cramps, diarrhea, dizziness, dyspnea, fatigue, headache, nausea, pallor, pelvic pain and swelling. Additional information: Periods have always been irregular. Usually skips a couple of months. Has had a period past 2 months. Previous workup was wnl. Been 3 yrs since blood work. No US. Well child doing well; no c oncerns; anxious about the college start; takes sertraline 25 mg po qday -it is helping; Follow Up of anxiety This is a f ollow up visit. There is improvement of initial symptoms. The patient reports functioning as somewhat difficult. The patient presents with anxious/fearful thoughts and excessive worry but denies decreased need for sleep, depressed mood, difficulty concentrating, difficulty falling asleep, fatigue, loss of appetite, paranoia, poor judgment, racing thoughts or restlessness. Additional information: takes 25 mg of sertraline daily; doing ok; stressed because college start; is in therapies with dr Velasquez and things are goign well; no concerns; sleeping well; is also active. Follow Up of depression The court rity of the problem is mild. The problem is improving. Associated symptoms include anxiety. Pertinent negatives include difficulty concentrating, fatigue or restlessness. Additional information: takes 25 mg of sertraline daily; doing well;. Anxiety This is a follow up visit. There is improvement of initial symptoms. The patient reports functioning as somewhat difficult. The patient presents with compulsive thoughts, diminished interest or pleasure and fatigue. Additional information: takes 50 mg sertraline po qday; anxiety is a little better; more depressed lately since school started; slight overwhelmed; sleeping well, good po intake; is physical active -tries to be daily; is in therapies with dr Velasquez. Anxiety This is a follow up visit. There is improvement of initial symptoms. The client reports functioning as somewhat difficult. The client presents with depressed mood and diminished interest or pleasure but denies decreased need for sleep, easily startled or excessive worry. Additional information: started 25 mg of sertraline -tolerating well; feels that anxiety is less; but had one week of not wanting to do anything, didn't even take a shower; doing better now; does c/o of heart palpitations- short and without any other symptoms; sleeping well; no abd pain; is in therapies with dr Velasquez. Well child here for well ch ild check and also to discuss treatment for anxiety/depression; is seen dr Velasquez -psychologist for therapies and there seem no improvements; might need medication; has a current diagnosis of GISSELLE and depressionfeels anxious and overwhelmed; does have panic attacks; is depressedacademically she is outstanding, will be senior in high school - applying for collegesleeping ok, good appetite- did start daily physical activity at the [facility] vaginal discharge/itching Her sy mptoms began 2 Months ago. She states the problem has worsened. The symptoms are reported as being moderate. Presently the patient is experiencing vaginal itching, vaginal odor and vaginal discharge. The patient is premenopausal. Last menstrual period was 03/08/2019. patient denies recent antibiotics. Her symptoms are not relieved by over the counter medication. Her symptoms are associated with vulvar itching but she denies dysuria, urinary frequency or genital rash. Additional information: Has a little urination with activities since middle school. Does not wake her up at night. Has scratched herself until she has bled. Shower and bath. Prefers pads. Not wearing liners. Not using bubble baths or scents. Only using water on vulva. irregular bleeding The symptoms began 3 months ago. Periods had been regular over the last 2 years. 5 day periods once a month. She lost weight in Mar and then gained 10 pounds back. Is in track. Marylin has hyperthyroidism. It was normal 3 years ago. No changes in hair growth. No acne. She has started track. Well child doing well overa ll; no concerns; had a free physical done at school and was not cleared for track until seen by PCP due to short of breath; denies cough at night or with physical activity;does feel a pressure at times, no trouble breathing -[place] Well child doing well; no c ocnerns; doing well in school; sleeping well; good output; abd pain improved; fever Onset: 2 days ag o. Maximum temperature is 102.70 F. Context includes concurrent URI symptoms and sick contacts at school. Context does not include recent changes in behavior, recent exposure to animals, recent foreign travel, recent immunizations, recent ingestion of raw or undercooked foods, recent introduction of new medicine, sick contacts at daycare or sick contacts at home. Relieving factors include acetaminophen and ibuprofen. Associated symptoms include cough (cough is loose and occurs occasionally) and otalgia. Pertinent negatives include abdominal pain, arthralgias, back pain, conjunctivitis, decreased appetite, decreased fluid intake, decreased urine output, diarrhea, dyspnea, dysuria, erythema of hands/feet, headache, lip irritation/cracking, lymphadenopathy, nasal drainage, nausea, neck stiffness, pharyngitis, rash, reddened tongue, seizures, sinus pressure, slow weight gain, vomiting and weight loss. sore throat Onset: 4 days ag o. The problem has worsened. The describes the pain as sharp. Symptoms are associated with current URI, exposure to strep, sick contacts at home and sick contacts at school. Symptoms are not associated with exposure to EBV, no sick contacts, seasonal allergies, sick contacts at daycare and throat trauma. Symptoms relieved by analgesics. Associated symptoms include chills, cough (cough is loose and occurs occasionally), fever (maximum temperature is 102.70 F), nasal congestion and otalgia. Pertinent negatives include abdominal pain, conjunctivitis, decreased appetite, decreased fluid intake, decreased urine output, diarrhea, difficulty breathing, difficulty swallowing saliva, halitosis, headache, hoarseness, joint pain, malaise, mouth ulcers, muffled voice, post-nasal drainage, rash, trismus and vomiting. Additional information: had tylenol and motrin at 0630 this morning. abdominal pain (comments) Betty is here with her father. She complaines of epigastric abdominal pain with diarrhea and nausea that occurs twice weekly. Symptoms have been going on for many months. Certain foods seem to cause issues such as grapes, milk, wheat, and sugery foods. She states that symptoms start about 20-30 minutes after eating and she then will have diarrhea with abdominal discomfort. Pain located below her umbilicus. She reports increased stress in her life being a freshman in high school. She complains of some nasal congestion. She states that she has periodic episodes of acid taste in her throat but this is rare. Patient states that acid reflux runs in her family. abdominal pain The severity of the problem is moderate. The location is hypogastric. Aggravating factors include anxiety. Symptoms are not aggravated by constipation. Associated symptoms include diarrhea and nausea. Pertinent negatives include bloating, blood in stool and vomiting. sore throat Onset: 2 Days ag o. The severity of the problem is mild and has not changed. Associated symptoms include cough, fever and nasal congestion. Additional information: Has become a little worse during the day. Having some body aches as well. Mild GALVAN. No belly pains. sore throat (comments) No sick c ontacts that Betty is aware of. Appetite is down, no stomach pains. Well Child Belly pain for a few months. Has been having some belly pain with certain foods (Sol[place] Islander, Kittitian, certain cereals). No straining with stooling, hard stools or pain. No sore throat in the am. No acid brash. Pain is around belly button. This happens once a week, lasts for an hour. Will wake her up at night. No vomiting. Having some loose stool with belly pain. Tried a digestive enzyme.In 8th grade, doing well.No hearing or vision concerns.Stooling and voiding well.Sleeping well. fever (comments) 13 1/2 year old previously healthy girl here for concerns about sore throat and fever. She has had cough, runny nose for the past 2-3 days. Fever, tmax of 100.8 today. No N/V/D. No ear pain. sore throat for the past few days. She had yellow drainage on both eyes and it resolved now. She has history of allergy and takes zyrtec and allergy shots. no sick contacts. eating well, normal uo and bm.unsure about amoxicillin allergy. Travelling to [place] tomorrow. fever Follow Up of UTI Additional info rmation: Had been having burning with urination. [place] the need to go a lot. Had a fever with previous UTI's and but not with this last one. Has had 4 UTI's in past year. US done before 2 UTI's and was normal. uti (comments) 14 year old prev iously healthy girl here for concerns about uti. She has had 1 day hx of urinary symptoms , pain with urination and increased urinary frequency. no fever. She also complains of abdominal pain. She also states that she has sore throat, body aches and headache. no fever. no cough, runny nose. Friend was recently diagnosed with flu. She tried pyridium for pain and it helped but turned her urine orange. Appetite down, but drinking fluids and normal uo (except for pain and frequency). BM normal and soft. She has had 3 UTI's in the past year. Last UTI was feb, 2014. Kidney/bladder US done in Mar was normal. States she wipes front to back. no constipation. no hx of anybody touching inappropriately. Has not had periods yet. uti repeat UA Urinary symptoms (peds) Urinary symptoms (pe ds) (comments) Betty is a 13 1/2 yr previously healthy girl here for concerns for UTI. She has had 2 UTI in the past 6 months. She has had watery stools and vomiting last week and it has resolved. However, she started getting increased urination frequency and pain with urination today. no fever. tmax of 99.9. No belly pain or back pain. no blood in urine. eating well, normal BM since her recent illness. Sick contacts at home. No bubble baths. She states that she wipes front to back. nv injection Well Child Functional Status Date Functional Assessmen t No Information Instructions Date Instruction Additional Infor tania Continue to track pe riods. May call and start OCP if she desires. Will follow up here as needed Related to Insulin resistance Sending urine for cu lture. She prefers to wait for culture results before starting treatment. 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 Lifestyle education regarding di et Related to Body mass index [BMI] 40.0-44.9, adult Continue fluoxetine 20mg dailyFollow up in 4 months once you have completed your internshipContact clinic with any concerns Related to MDD (major depressive disorder), severe Continue fluoxetine 20mg dailyFollow up in 4 months once you have completed your internshipContact clinic with any concerns Related to Generalized Anxiety Disorder Continue methylpheni date 18mg daily - will have sent to NessaFollow up in 4 months after you have 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 If nausea is consistent, notify the officeExercise, following a nutritious diet, and getting plenty of sleep is also encouraged and beneficial Continue counseling Follow up in 4 - 6 weeks Related to MDD (major depressive disorder), severe Lifestyle education regarding di et Related to Body mass index [BMI] pediatric, greater than or equal to 95th percentile for age Giving encouragement to exercise Related to Body mass index [BMI] pediatric, greater than or equal to 95th percentile for age No thoughts at prese nt but does have intrusive thoughts. Went to ER at school 4 days ago Related to Thoughts of self-harm May begin OCP when less overwhel med Related to PMDD (premenstrual dysphoric disorder) Has appointment with [facility] next week. Has psychiatrist and counselor at school. Needs referral to PCP DEONTE for mediation management. Did not do well on Sertraline. Has not been taking Fluoxetine. The Methyphenidate is working well. Will refer to [facility] for med management. Keep appointment with [facility] as scheduled. 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 Recommend beginning the Norma control for irregular periods and PMDD. Consider NuvaRing if any problems. Can skip periods with either control. 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 Related to Oligomenorrhea, unspecified type Begin Norma OCP today and take one pill every day at the same time. Continue counseling on Celina and recommend restarting Prozac. Will follow up in office on winter. Related to PMDD (premenstrual dysphoric disorder) Giving encouragement to exercise Related to Body mass index [BMI] 40.0-44.9, adult Lifestyle education regarding di et Related to Body mass index [BMI] 40.0-44.9, adult Drink a minimum of 6 4 oz of water and track in habit tracker. Complete a minimum of 30 minutes of moderate physical activity by doing something she enjoys.Follow-up in 2 weeks. Related to Dietary counseling and surveillance Prescribed activity/exercise edu cation Related to Body mass index [BMI] 40.0-44.9, adult Lifestyle education regarding di et Related to Body mass index [BMI] 40.0-44.9, adult Discussed options. S he prefers to begin with diet and exercise modifications. Will follow up in 3 months either in person or virtually. Recheck labs when she is home on break. Consider Metformin if needed. Related to Insulin resistance She may call and ask for control at any time and we can send it in for her. Related to PMDD (premenstrual dysphoric disorder) Lifestyle education regarding di et Related to Body mass index [BMI] 40.0-44.9, adult Giving encouragement to exercise Related to Body mass index [BMI] 40.0-44.9, adult Will begin with yani harris work and follow up in 2 weeks to discuss. She really doesn't want to start a control. Consider cyclic provera or use to ensure cycle at least every 3 months for uterine protection. Related to Oligomenorrhea, unspecified type Giving encouragement to exercise Related to Body mass index [BMI] 40.0-44.9, adult Lifestyle education regarding di et Related to Body mass index [BMI] 40.0-44.9, adult doing well; no concerns Related to Encounter for general adult medical examination without abnormal findings increase sertraline to 50 mg po qday -2x25mg tabs per day since the current stress with college start Related to Generalized Anxiety Disorder Giving encouragement to exercise Related to Body mass index [BMI] 36.0-36.9, adult Lifestyle education regarding di et Related to Body mass index [BMI] 36.0-36.9, adult Age appropriate anti cipatory guidance discussed (18 Years) Related to Encounter for general adult medical examination without abnormal findings see above Related to Major depressive disorder, recurrent, mild doing well continue 25 mg of sertraline dailycontinue therapeis with dr Velasquez and then transition to counselor on campusmight need to transfer to a local physicianwe will help from here a much as it is needed until comfortabel seeing local physician; call with any questions or concernscontinue daily physical activity, outdoor activities, good healthy nutrition, good night sleep Related to Generalized Anxiety Disorder Giving encouragement to exercise Related to Body mass index [BMI] 37.0-37.9, adult Lifestyle education regarding di et Related to Body mass index [BMI] 37.0-37.9, adult will increase sertra line to 75 mg po qdaycall us in 2 weeks with an updatewould like to see Betty back in the clinic in one monthcontinue therapies with dr Velasquez Related to Major depressive disorder, recurrent, mild Reassuring about exercise Relate d to Body mass index (BMI) pediatric, greater than or equal to 95th percentile for age will increase sertra line to 50 mg po qdaycall us in couple of weeks with an updateencourage daily physical activity, good healthy nutrition, good night sleep, outdoor activitiescontinue therapies with dr Kim f/u in 1-2 months or sooner if neededcall with any questions or concerns Related to Generalized Anxiety Disorder Reassuring about exercise Relate d to Body mass index (BMI) pediatric, greater than or equal to 95th percentile for age see above Related to Major depressive disorder, recurrent, mild will start sertralin e 25 mg po qdayrtc in 2 weeks for f/u or sooner if neededcall with any questions or concernscontinue therapies with dr Hartley physical activity, outdoor activities, good night sleep, good healthy nutrition Related to Generalized Anxiety Disorder developing well, no concernsrtc yearly for well child check and as needed Related to Encounter for WCC (well child check) with abnormal findings Age appropriate anti cipatory guidance discussed (- years) Related to Encntr for routine child health exam w/o abnormal findings Age appropriate diet discussed (- years) Related to Encntr for routine child health exam w/o abnormal findings Age appropriate safe ty discussed (- years) Related to Encntr for routine child health exam w/o abnormal findings Oral Health Discussed ( yea rs) Related to Encntr for routine child health exam w/o abnormal findings Reassuring about exercise Relate d to Body mass index (BMI) pediatric, greater than or equal to 95th percentile for age May have been the we ight change that caused the periods to stop. Will check labs. Will do provera to start cycle back. Will also check affirm for BV or yeast. Recommend hydrocortisone 1% three times a day on the itching area. Related to Amenorrhea Exercises education, guidance, and counseling Related to Body mass index (BMI) 35.0-35.9, adult oral antihistaminesa line nasal spray use it several times per dayplease let us know if breathing issue continue- let us know of any cough at night or with physical activitycall with any questions or concerns Related to Allergic rhinitis, unspecified developing well, no concerns; call with any questions or concernscleared for sportsrtc yearly for well child check and as needed Related to Encntr for routine child health exam w/o abnormal findings Age appropriate anti cipatory guidance discussed (15-21 years) Related to Encntr for routine child health exam w/o abnormal findings Age appropriate diet discussed (15-21 years) Related to Encntr for routine child health exam w/o abnormal findings Age appropriate safe ty discussed (- years) Related to Encntr for routine child health exam w/o abnormal findings Oral Health Discussed ( yea rs) Related to Encntr for routine child health exam w/o abnormal findings Reassuring about exercise Relate d to Body mass index (BMI) pediatric, 5th percentile to less than 85th percentile for age developing well, no concerns; call with any questions or concernsrtc yearly for well child check and as needed Related to Encntr for routine child health exam w/o abnormal findings Age appropriate anti cipatory guidance discussed (15-21 years) Related to Encntr for routine child health exam w/o abnormal findings Age appropriate diet discussed (15-21 years) Related to Encntr for routine child health exam w/o abnormal findings Age appropriate safe ty discussed (15-21 years) Related to Encntr for routine child health exam w/o abnormal findings Oral Health Discussed (15- yea rs) Related to Encntr for routine child health exam w/o abnormal findings Reassuring about exercise Relate d to Body mass index (BMI) pediatric, greater than or equal to 95th percentile for age May take tylenol and motrin as needed for fever and throat painGargle with salt waterUse throat lozengesNew toothbrush in 5 days Related to Acute pharyngitis, unspecified Take Tamiflu as pres cribedFollow up in 3-5 days if symptoms worsen or do not improve Related to Influenza A noninfectioussuspect lactose or fructose malabsorptionconsider to check reducing substances in stool sample Related to Diarrhea in pediatric patient keep track of food i ntake -might be able to see exactly the triggers;try to avoid the foods that so far are triggering the abd pain/loose stoolsstart probiotics dailyalso an antiacid +antigasrtc in one monthrtc sooner if symptoms worsen or don't improvecall with any questions or concerns Related to Generalized abdominal pain This looks viral. Co ntinue symptomatic treatment, pushing fluids. This should start to improve after a few days. Call if you feels that this becoms worse. Related to Pain in throat Physical activity assessment Rel ated to Dietary counseling and surveillance Nutrition surveillance Related t o Dietary counseling and surveillance Keep a food diary to see if there are any certain foods causing problems. Take Zantac 150mg morning and night for a month and I would like to see her back to see if how she is doing. Call if this becomes worse. Related to Abdominal pain I am glad that Neri alvarez is doing well in school. Her next checkup will be in 1 year. Call with any questions or concerns. Related to Encntr for routine child health exam w/o abnormal findings We will check labs t [place] for thyroid, cholesterol and liver function. Related to Dietary counseling and surveillance Nutrition surveillance Related t o Dietary counseling and surveillance Age appropriate diet discussed (11-14 years) Related to Encntr for routine child health exam w/o abnormal findings Age appropriate safe ty discussed (11-14 years) Related to Encntr for routine child health exam w/o abnormal findings Oral Health Discussed (11-14 yea rs) Related to Encntr for routine child health exam w/o abnormal findings Physical activity assessment Rel ated to Dietary counseling and surveillance Age appropriate anti cipatory guidance discussed (11-14 years) Related to Encntr for routine child health exam w/o abnormal findings Based on exam, proba radha viral URI. No signs of ear infection, or pneumonia.Continue symptomatic care. Enourage fluid intake. Keep head of bed elevated.If temp >100.4, decreased oral intake, decreased urine output, respiratory distress or any concerns please go to ER or Follow up earlier. Related to Acute upper respiratory infection, unspecified Soft diet for few da ys. Rapid strep faintly positive. Await culture results. since she is going to [place] , we will start keflex and if her cultures are negative we can stop antibiotic. Tylenol or motrin with food for fever of throat discomfort. For children > 8 yrs may gargle with warm salt water (1/4 tsp of salt per glass)Children > 4 yrs can suck on hard candy or lollipop as necessary.Children > 1 yr can sip on warm chicken borth or warm apple juice. Related to Fever Push fluids and if s he has another UTI, I would suggest that she get a VCUG to check for reflux. Call with any questions or concerns. Related to UTI Physical activity assessment Rel ated to Dietary surveillance and counseling Nutrition surveillance Related t o Dietary surveillance and counseling possible UTI. urine dipstcik showed glu, protein and nitrite. Will treat with cephalexin since allergic to bactrim and amoxicillin.Send for UA and culture. If results negative, will stop antibiotic. FU next week for repeat Urine check.FU earlier if fever, decreased appetite, back pain, or any concerns. Related to Painful Urination possible UTI. Will t reat with cephalexin since allergic to bactrim and amoxicillin.Send for UA and culture. If results negative, will stop antibiotic.If positive, will consider kidney/Bladder US since 3 UTI within the last 6 months. FU next week for repeat Urine check. Related to Painful Urination Age appropriate anti cipatory guidance discussed () Related to routine /child health checkup Age appropriate diet discussed (02-05 years) Related to routine /child health checkup Age appropriate safe ty discussed () Related to routine /child health checkup Oral Health Discussed (02-05 yea rs) Related to routine infant/child health checkup Age appropriate safety discussed Related to routine infant/child health checkup Age approriate antic ipatory guidance discussed Related to routine infant/child health checkup Encourage playing outside Assessments Type Assessment Date No Information Patient Care Teams Name Effective Dates (start - stop) Status Members No Information
== END 2023-09-24 19:02 | disposition home or self-care (01) ==
LOC: NFLDREF 09-26 11:40
PROVIDERS: Visit Provider Nurse Practitioner Family
DX: R35.0 Frequency of micturition (principal)
CPT/HCPCS: 87086

== ENCOUNTER 2024-06-29 03:22 | Emergency (ER) | payer BC, SELFPAY ==
--- OUTSIDE RECORDS SUMMARY | 2024-06-29 03:24 | XMS_ITS ---
Author Organization [facility] Address [address] [place] [address] [place], [place] [id number] Care Team Providers Care Motor Analyst Name Role Phone [facility] Salinas DO Unavailable Reenasony Teresa Unavailable [phone] Allergies Allergen (clinical drug ingredient) Drug/Non Drug Allergy documented on EMR Reaction Allergy Type Onset Date Status PCN (mom states it i s just a sensitivity) (uncoded) rash Allergy Active sulfa (uncoded) rash Allergy Acti ve Results Component Value Reference Range Notes IgE-QUEST Reviewed date:03/24/2024 10:50:42 AM Interpretation: Performing Lab:[place], [facility], [address] [address] [place], [phone] Tiffany Montoya MD Notes/Report: NON-FASTING IMMUNOGLOBULIN E 568 <II=555 kU/L GALACTOSE ALPHA 1,3 GALACTOS E IGE Reviewed date:03/24/2024 10:50:42 AM Interpretation: Performing Lab:[place] [facility],, [address] [place], [phone] Judie Richards MD,PhD,ADIEL Notes/Report: NON-FASTING GALACTOSE ALPHA 1,3 GALACTOS E IGE 2.92 <0.10 kU/L Results above 0.1 kU/L indicate an allergen-specific IgE sensitization to azlyhhage-x-1,3-galactose, and such patients are at risk for [...] method. Additional information can be found at [email or web address] REASON FOR VISIT AC- pt here for a 6 mo Follow up and a Alpha Gal Lab Draw. pt states a few days ago she had a bad flare up. pt states her face got really red, stomach hurt and felt hot. pt is avoiding red meat, pork, dairy, gelatin. pt states she was at her grandmothers house when this happened and she believes there was some cross contamination. Medications Medication SIG (Take, Route, Frequency, Duration) Notes Start Date End Date Status EpiPen 2-Miles 0.3 mg as directed intramus cularly once 10/31/2022 Active Mima-D 12 Hour 60 mg-120 mg 1 tab(s) orally prn Active atomoxetine 40 mg 1 cap(s) orally once a day (in the morning) Active hydrOXYzine hydrochloride 25 mg 1 tab(s) orally 4 times a day prn Active FLUoxetine 20 mg 1 cap(s) orally once a day 40mg Active Social History Tobacco Use: Social History Observation Description Date Details (start date - stop date) Never Smoker NA - NA Smoking: Question Answer Notes Are you a: never smoker Vital Signs Respiratory Rate 18 /min 03/20/2024 Heart Rate 103 /min 03/20/2024 Blood pressure systolic 120 mm Hg 03/20/20 24 Blood pressure diastolic 60 mm Hg 024 Height 62.0 in 03/20/2024 Weight 215.0 lbs 03/20/2024 BMI 39.32 kg/m2 03/20/2024 Encounters Encounter Location Date Provider Diagnosis [facility] [address] [place], [place] [id number] 03/20/2024 Gemadria Salinas Allergic rhinitis due to pollen J30.1 ; Allergy to mammalian meats Z91.014 ; Other seasonal allergic rhinitis J30.2 ; Allergic rhinitis due to animal (cat) (dog) hair and dander J30.81 and Other allergic rhinitis J30.89 Assessments Encounter Date Diagnosis (ICD Code) Assessment Notes Treatment Notes Treatment Clinical Notes Section Notes 03/20/2024 Allergic rhinitis due to pollen (ICD-10 - J30.1) 03/20/2024 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 Even though she has avoided meats and gelatin she had a crosscontamination reaction where she had swollen red face and felt like it was hard to breath and resolved on its own. Pt interested on starting Xolair, paperwork started, we discuss pros and cons, side effects and insert info. Pt will call if she has not heard of level in the next 3 weeks. She will also check on Xolair approval status. Pt has a significantly elevated IgE 03/20/2024 Other seasonal allergic rhinitis (ICD-10 - J30.2) 03/20/2024 Allergic rhinitis due to animal (cat) (dog) hair and dander (ICD-10 - J30.81) Pt having more sx due to temporary exposure to cats, but not ready for IT. Using AH. Avoidance and AH recommneded, if worsened or daily exposure consider IT. Pt will need retesting as she was last tested in [address]2003/20/2024 Other allergic rhinitis (ICD-10 - J30.89) Plan Of Treatment Treatment Notes Assessment Notes Allergy to mammalian meats Cont avoidance. Even though she has avoided meats and gelatin she had a crosscontamination reaction where she had swollen red face and felt like it was hard to breath and resolved on its own. Pt interested on starting Xolair, paperwork started, we discuss pros and cons, side effects and insert info. Pt will call if she has not heard of level in the next 3 weeks. She will also check on Xolair approval status. Pt has a significantly elevated IgE Allergic rhinitis due to ani mal (cat) (dog) hair and dander Pt having more sx due to temporary expos ure to cats, but not ready for IT. Using AH. Avoidance and AH recommneded, if worsened or daily exposure consider IT. Pt will need retesting as she was last tested in 2020 Next Appt Details Follow Up: 3 Months,prn, Lovell son: Discuss Xolair and meat intake Progress Notes * Betyt KAY LDOB: [birth year] (24 yo F)Acc No.[id number]:03/20/2024 Patient: Betty BURNHAM Provider: Laura Salinas DO :2000 A ge:23 Y S ex:Female Date:03/20/2024 Phone: Address:[address] [place] [address] [facility] Subjective: * Chief Complaints: * 1 . AC- pt here for a 6 mo Follow up and a Alpha Gal Lab Draw. pt states a few days ago she had a bad flare up. pt states her face got really red, stomach hurt and felt hot. pt is avoiding red meat, pork, dairy, gelatin. pt states she was at her grandmothers house when this happened and she believes there was some cross contamination.. * HPI: R hinitis: Denies : Immunotherapy. Rhinitis T he patient has allergic rhinitis., Complains of occasional, sneezing, runny nose. M edication T hey are using the antihistamine Mima D prn. It is helping., No changes in the environment since last visit.. N onallergic symptoms T here is a complaint of sneezing, headache, drainage and congestion. . E nvironmental T here are no new pets or other environmental changes since last visit. . O ther problems since last visit. H as had no changes in health status since last visit. . O ther allergic comorbidities?Has not had skin rashes, cough, wheeze, tight chest, food allergy concerns. . V accine status P atient has been vaccinated and is up-to-date with: influenza. Patient has NOT been vaccinated to: pneumococcal. Patient has been vaccinated and is up-to-date with:. COVID19. Moderna. Patient has had COVID19.. D ermatitis: Denies : Dermatitis T here is a history of rash., The rash is better than last visit.. C ough: Denies : Cough. D enies : fever. D enies : SOB. F ood allergy: Foods the patient is allergic to T he patient has a history of allergy to cows milk, wheat, hops. Has alpha-gal and is allergic to mammalian red meat. . S ramses last visit D ue to mcqad-fyh-vhq been avoiding mammalian red meat. ,, has been able to successfully avoid the foods they are allergic to. patient states she was at her grandmothers house a few days ago and came into contact with some red meat and had a red, hot face and her stomach hurt..?IgE gal-alpha-1,3 gal T his patient does have a positive result to kmcjxrkhc-tihet-8,3 galactose IgE., The ramifications of this positive result was explained in detail., The patient was told to completely avoid beef, pork and marcelino., Avoiding gelatin?, yes. e pi pen usage H as not used epi pen since last visit.. * ROS: A LLERGY: Post nasal drainage y es. I tchy eyes no. s neezing y es. r unny nose y es. n o s cratchy throat. n o i tchy eyes.?no e ar fullness. n o s inus congestion. E NT: no e pistaxis. n o c hange in voice. n o s ore throat. n o r inging in ears. n o s inus pain. R ESPIRATORY: no s hortness of breath. n o c hest congestion.?no c ough. w heezing no. c hest tightness no. C ARDIOLOGY: no c hest pain. n o l eg edema. n o d izziness. G ASTROENTEROLOGY: no h eartburn. a bdominal pain y es. n o d iarrhea. n o c onstipation. D ERMATOLOGY: rash y es. n o d ry or sensitive skin. n o h rory. N EUROLOGY: no h eadache. M USCULOSKELETAL: no j oint pain. P SYCHOLOGY: no h igh stress level. * Medical History: A llergic Rhinitis due to pollen, Cough (resolved 10/2014) , Insulin resistance. * Surgical History: w isdom teeth removed . * Hospitalization/Major Diagno stic Procedure: D enies Past Hospitalization. * Family History: F ather: alive, seasonal allergies. M other: alive, allergies. S iblings: alive, DM Type 1. 1 sister(s) - healthy. . 1 sis. * Social History: S moking A re you a: n ever smoker. M arital status: single. Dwelling: Home, laminate, carpeting. heat/AC: Gas Heat, Electric Heat. Basement: dry. Pets: 1 cat, 2 dogs-indoors. Pets and exposure: pets occasionally sleep in bed with pt. 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 * Medications: T aking atomoxetine 40 mg capsule 1 cap(s) orally once a day (in the morning) , Taking FLUoxetine 20 mg capsule 1 cap(s) orally once a day , Notes to Pharmacist: 40mg, Taking hydrOXYzine hydrochloride 25 mg tablet 1 tab(s) orally 4 times a day , Notes to Pharmacist: prn, Taking Mima-D 12 Hour 60 mg-120 mg tablet, extended release 1 tab(s) orally prn , Taking EpiPen 2-Miles 0.3 mg kit as directed intramuscularly once , Medication List reviewed and reconciled with the patient * Allergies: s ulfa: rash - Allergy, PCN (mom states it is just a sensitivity): rash - Allergy. Objective: * Vitals: R R: 18, HR: 103, BP:120/60, Ht: 62.0, Wt: 215.0, BMI:39.32. * Examination: G eneral examination: General appearance: w ell nourished and hydrated. Neck, thyroid : supple. Heart: R RR, no murmurs. Lungs: c lear to auscultation bilaterally, no wheezes or crackles. Abdomen: ND. Neurologic exam: n o focal signs. Skin: n ormal, no rash. Extremities: no edema. Assessment: * Assessment: 1. A llergy to mammalian meats - Z91.014 (Primary) 2 . A llergic rhinitis due to pollen - J30.1 3 . O ther seasonal allergic rhinitis - J30.2 ?4. A llergic rhinitis due to animal (cat) (dog) hair and dander - J30.81 5 . Other allergic rhinitis - J30.89 Plan: * Treatment: Value Reference Range I MMUNOGLOBULIN E 568 H <FE=728 - kU/L ?LAB: GALACTOSE ALPHA 1,3 GALACTOSE IGE (Collection Date & Time - 03/20/2024 11:17 AM)* Value Reference Range G ALACTOSE ALPHA 1,3 GALACTOSE IGE 2.92 H <0.10 - kU/L Notes: Cont avoidance. Even though she has avoided meats and gelatin she had a crosscontamination reaction where she had swollen red face and felt like it was hard to breath and resolved on its own. Pt interested on starting Xolair, paperwork started, we discuss pros and cons, side effects and insert info. Pt will call if she has not heard of level in the next 3 weeks. She will also check on Xolair approval status. Pt has a significantly elevated IgE??2.?Allergic rhinitis due to animal (cat) (dog) hair and dander? Notes: Pt having more sx due to temporary exposure to cats, but not ready for IT. Using AH. Avoidance and AH recommneded, if worsened or daily exposure consider IT. Pt will need retesting as she was last tested in 2020?? * Preventive Medicine: Patient was seen today in both pjwy-dw-hhju and nnd-wstr-zc-face time personally by me in the following activities: -preparation to see the patient, including review of lab, skin testing, lung studies and other tests -performing medically appropriate examination and/or evaluation -ordering and interpreting various allergy testing procedures and pulmonary testing -counseling and educating the patient/family/caregiver -ordering medication, tests or procudures -documenting clinical information in the electronic or other health records Note: /// Voice recognition software was used in the preparation of this report. Occasional wrong word or sound substitutions may occur due to the inherent limitations of voice recognition software. Please read chart carefully and recognize context where substitutions have occurred. * Follow Up: 3 Months,prn (Reason: Discuss Xolair and meat intake) * Billing Information: * Visit Code: 72890 Office Visit, Est Pt., Level 3. * Procedure Codes: * Electronic signature of Angel Salinas D.O. on 06/29/2024 at 03:24 AM CDT Sign off status: Pending * Provider: Laura Salinas, DO Date: 05/21/2023 Generated for Chris dumas/Jefferson/Christinaitting on: 0 06/29/2024 03:24 AM CDT History and Physical Notes * HPI (History of Present Illness) Category Sub-Category Detail Notes Category Not es Rhinitis Rhinitis The patient has allergic rhinitis., Complains of occasional, sneezing, runny nose Immunotherapy Medication They are using the a ntihistamine Mima D prn. It is helping., No changes in the environment since last visit. Nonallergic symptoms There is a complain t of sneezing, headache, drainage and congestion. Environmental There are no new pet s or other environmental changes since last visit. Other problems since last visit. Has had no changes in health status since last visit. Other allergic comorbidities Has not had skin rashes, cough, wheeze, tight chest, food allergy concerns. Vaccine status Patient has been vac cinated and is up-to-date with: influenza. Patient has NOT been vaccinated to: pneumococcal. Patient has been vaccinated and is up-to-date with:. COVID19. Moderna. Patient has had COVID19. Food allergy Foods the patient is allergic to The patient has a history of allergy to cows milk, wheat, hops. Has alpha-gal and is allergic to mammalian red meat. Since last visit Due to debpz-lkn-utv been avoiding mammalian red meat. ,, has been able to successfully avoid the foods they are allergic to. patient states she was at her grandmothers house a few days ago and came into contact with some red meat and had a red, hot face and her stomach hurt. IgE gal-alpha-1,3 gal This patient does have a positive result to osdhyahqm-uyjbi-7,3 galactose IgE., The ramifications of this positive result was explained in detail., The patient was told to completely avoid beef, pork and marcelino., Avoiding gelatin?, yes epi pen usage Has not used epi pen since last visit. Dermatitis Dermatitis There is a histo ry of rash., The rash is better than last visit. Cough Cough fever Examination Category Sub-Category Detail Notes Category Not es General examination Neck, thyroid : supple Heart: RRR, no murmurs Lungs: clear to auscultatio n bilaterally, no wheezes or crackles Abdomen: ND Extremities: no edema General appearance: well nourished and h ydrated Skin: normal, no rash Neurologic exam: no focal signs
--- OUTSIDE RECORDS SUMMARY | 2024-06-29 03:24 | XMS_ITS | Clinical Summary ---
Author Organization [facility] Address [address] [place] [address] Phone Care Team Providers Care Answering Service Telephone Operator Name Role Phone WagnerFrieda domínguezana Primary Care Provider [phone] Reason for Visit and Chief Complaint OMM [...] Last Documented On 03/22/2023 4:00PM ; [facility] - Follow-up visit in 2-3 weeks for reevaluation or as needed - Last Documented On 03/22/2023 4:00PM ; [facility] Assessments Includes: Assessments from this encounter Findings - Arthralgia of the right pelvis/hip/femur [M25.551 - Pain in right hip] - Last Documented On 03/22/2023 4:00PM ; SolomonSolomon [facility] - Myofascial pain syndrome of lower back [M79.18 - Myalgia, other site] - Last Documented On 03/22/2023 4:00PM ; SolomonSolomon [facility] - Somatic dysfunction of the head region [M99.00 - Segmental and somatic dysfunction of head region] - Last Documented On 03/22/2023 4:00PM ; [facility] - Somatic dysfunction of rib cage [M99.08 - Segmental and somatic dysfunction of rib cage] - Last Documented On 03/22/2023 4:00PM ; [facility] - Somatic dysfunction of cervical region [M99.01 - Segmental and somatic dysfunction of cervical region] - Last Documented On 03/22/2023 4:00PM ; [facility] - Somatic dysfunction of thoracic region [M99.02 - Segmental and somatic dysfunction of thoracic region] - Last Documented On 03/22/2023 4:00PM ; [facility] - Somatic dysfunction of lumbar region [M99.03 - Segmental and somatic dysfunction of lumbar region] - Last Documented On 03/22/2023 4:00PM ; [facility] - Somatic dysfunction of sacrum [M99.04 - Segmental and somatic dysfunction of sacral region] - Last Documented On 03/22/2023 4:00PM ; [facility] - Somatic dysfunction of pelvic region [M99.05 - Segmental and somatic dysfunction of pelvic region] - Last Documented On 03/22/2023 4:00PM ; [facility] Medical Equipment - Implanted Devices Includes: Current Devices No Medical Equipment Recorded Medications Includes: Medications discussed during this encounter and other current Medications Current Medications (continue as prescribed) Methylphenidate HCl ER 18 MG Oral Tablet Extended Release 24 Hour 06/20/2023 Provider: Diagnosis: Last Documented On 4 3:42PM By Betty KeeSolomon [facility] Mima-D Allergy & Congesti on 60-120 MG Oral Tablet Extended Release 12 Hour 06/20/2023 Provider: Diagnosis: Last Documented On 4 3:43PM By Betty KeeSolomon [facility] FLUoxetine HCl 20 MG Oral Capsule 03/31/2021 Provide r: Diagnosis: Last Documented On 3 2:06PM By Barb Lee CCS ; SolomonSolomon [facility] Medications Administered Includes: Administered Medications from this encounter No Administered Medications Recorded Vital Signs Includes: Vital Signs from this encounter Vital Name 03/22/2023 10:14A Blood Pressure Sitting L 98/62 BP Cuff Size Large Pulse Rate-Sitting (bpm) 60 Pulse Rhythm Regular Respiration Rate (breaths/min) 16 Pain Level 7 Last Documented: On 03/22/2023 10:15A M ; Dwaine [facility] Results Includes: Results discussed during this encounter [...] Last Documented On 3 10:14AM ; Dw[facility] 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/2021 Last Documented On 3 10:14AM ; Dw[facility] Daily coffee consumption was one cups pe r day 03/31/2021 Last Documented On 3 10:14AM ; ChilangoSolomon [facility] Never drank alcohol 03/31/2021 Last Documented On 3 10:14AM ; [facility] Non-smoker 03/31/2021 Last Documented On 3 10:14AM ; [facility] Not using drugs 03/31/2021 Last Documented On 3 10:14AM ; [facility]Sol[facility] Single 03/31/2021 Last Documented On 3 10:14AM ; [facility] Smoking Status Unknown Procedures and Surgical History Includes: Procedures from this encounter Procedures Code Diagnosis Performing Provider Service L ocation Service Date osteopathic manipulative treatment (OMT) involving seven to eight body regions 81874 Last Documented On 3 11:05AM ; Dwaine [facility] general outcomes - OMT was well tolerate d Last Documented On 3 11:05AM ; [facility] general outcomes - Symptoms improved aft er OMT Last Documented On 3 11:05AM ; [facility] Articular Technique head region Last Documented On 3 11:07AM ; [facility] Indirect balanced ligamentous tension he ad region Last Documented On 3 11:07AM ; [facility] Myofascial release head region Last Documented On 3 11:07AM ; [facility] OMT response head region: somatic dysfun ction was improved Last Documented On 3 11:07AM ; [facility] Articular technique cervical region Last Documented On 3 11:07AM ; [facility] Indirect balanced ligamentous tension ce rvical region Last Documented On 3 11:07AM ; [facility] Muscle energy cervical region Last Documented On 3 11:07AM ; [facility] Myofascial release cervical region Last Documented On 3 11:07AM ; [facility] Soft tissue technique cervical region Last Documented On 3 11:07AM ; [facility] OMT response cervical region: somatic dy sfunction was improved Last Documented On 3 11:07AM ; [facility] Articular Technique lumbar region Last Documented On 3 11:08AM ; [facility] HVLA lumbar region Last Documented On 3 11:13AM ; [facility] Muscle energy lumbar region Last Documented On 3 11:08AM ; [facility] Myofascial release lumbar region Last Documented On 3 11:08AM ; [facility] Soft tissue technique lumbar region Last Documented On 3 11:08AM ; [facility] OMT response lumbar region: somatic dysf unction was improved Last Documented On 3 11:08AM ; [facility] Articular technique thoracic region Last Documented On 3 11:07AM ; [facility] Myofascial release thoracic region Last Documented On 3 11:07AM ; [facility] Soft tissue technique thoracic region Last Documented On 3 11:07AM ; [facility] OMT response thoracic region: somatic dy sfunction was improved Last Documented On 3 11:07AM ; [facility] OMT response pelvic region: somatic dysf unction was improved Last Documented On 3 11:09AM ; [facility] Articular Technique pelvic region Last Documented On 3 11:09AM ; [facility] Counterstrain pelvic region Last Documented On 3 11:09AM ; [facility] Muscle energy pelvic region Last Documented On 3 11:09AM ; [facility] Counterstrain sacral region Last Documented On 3 11:09AM ; [facility] Functional technique sacral region Last Documented On 3 11:09AM ; [facility] OMT response sacral region: somatic dysf unction was improved Last Documented On 3 11:09AM ; [facility] Muscle energy rib chest region Last Documented On 3 11:08AM ; [facility] Myofascial release rib chest region Last Documented On 3 11:08AM ; [facility] Soft tissue technique rib chest region Last Documented On 3 11:08AM ; [facility] OMT response rib/chest region: somatic d ysfunction was improved Last Documented On 3 11:08AM ; [facility] OMT was performed based on jeromy granger's physical examination - Regions treated include those listed in the assessment portion of today's Evaluation & Management note Last Documented On 3 11:05AM ; [facility] Surgical History Last Updated No prior surgery or no significant histo ry 03/31/2021 Last Documented On 3 10:14AM ; Dw[facility] History of treatment of foot fracture - Boot (2016) 03/31/2021 Last Documented On 3 10:14AM ; Dwaine [facility] Medical History Includes: Medical History addressed during this encounter Description Last Updated Past medical history reviewed - Previous encounter reviewed 03/31/2021 Last Documented On 3 10:14AM ; Dw[facility] Dissociative Disorder ~ Environmental Al lergies 03/31/2021 Last Documented On 3 10:14AM ; Dw[facility] Allergy symptoms occur seasonally 2021 Last Documented On 3 10:14AM ; Dw[facility] An allergy to certain foods 03/31/2021 Last Documented On 3 10:14AM ; [facility] History of anxiety disorder NOS 03/31/19 22 Last Documented On 3 10:14AM ; Dw[facility] History of depression 03/31/2021 Last Documented On 3 10:14AM ; Dw[facility] Family History Includes: Family History addressed during this encounter Description Last Updated ADHD (dad) 03/31/2021 Last Documented On 3 10:14AM ; Dw[facility] Family history of type 1 diabetes mellit us (sister) 03/31/2021 Last Documented On 3 10:14AM ; Dwaine [facility] Review of Systems Includes: Review of Systems [...] Last Documented On 4 2:00PM ; [facility] Encounters Encounter Provider Location Date Check-In Time Check-Out Time Diagnosis [facility] Established patient Ananda Menon DO [facility] 03/22/20 23 10:00AM 11:02AM Myofascial Pain Syndrome Lower Back,Somatic Dysfunction of Head,Somatic Dysfunction of Rib Cage,Somatic Dysfunction of Cervical Region,Somatic Dysfunction of Thoracic Region,Somatic Dysfunction of Lumbar Region,Somatic Dysfunction of Sacrum,Somatic Dysfunction of Pelvic Region,Arthralg ia - Pelvis / Hip / Femur Right Insurance Includes: Active Insurance Policies Plan Name Member ID Group # Subscriber Relationship Effect mica Dates 1 - [place] Blue Access Payer [id number] Starla IZAGUIRRE, Girma Franklin Child Clinical Notes Includes: Clinical Notes from this encounter * Progress note Date Encounter Last Documented by 03/22/2023 [facility] Established patient Last doc umented on 03/22/2023; 4:00 PM, Ananda Menon DO; [facility] Chief Complaint - Back symptoms History of [...] outpatient expanded h&p - low complexity decisions 40514 - The E&M code was based on Medical Decision Making associated with at least 2 of the following 3 elements 1) 2 minor or self-limiting problems or 1 stable chronic problem or 1 acute uncomplicated injury; 2) limited record/data reviewed or ordered; 3) Low management risk such as OMT.
--- OUTSIDE RECORDS SUMMARY | 2024-06-29 03:25 | XMS_ITS ---
Care Plan - [facility] Created on: June 29, 2024 Betty Cha : 2000 Sex: Female Author Organization [facility] Address [address] [place] [address] Phone Care Team Providers Care Test Carrier Name Role Phone Jeanie Trevino Primary Care Provider [phone] Goals Includes: Active Goals The patient will [...] and will return to the [facility] clinic as needed. Initiated on 03/15/2023 by provider Alexis Ko ; SolomonSolomon [facility]
--- OUTSIDE RECORDS SUMMARY | 2024-06-29 03:25 | XMS_ITS | Clinical Summary ---
Author Organization [facility] Address [address] [place] [address] Care Team Providers Care Aircraft Metalsmith Name Role Phone Pcp, No Primary Care Provider Unavailabl e Allergies Active Allergy Reactions Criticality Noted Date Comments Alpha-Gal (Binlzosbv-Wdaqq-0,3-Galactose) Anaphylaxis High 11/08/2022 Gluten GI Upset 11/08/2022 Sulfamethoxazole Rash 04/12/2022 Medications FLUoxetine (PROZAC) 40 mg capsule Take 40 mg by mouth once daily. 01/08/2024 Active atomoxetine (STRATTERA) 40 mg capsule Take 40 mg by mouth once daily. 01/09/2024 Active fexofenadine-pse udoephedrine, 180-240 MG, (Mima-D 24 Hour) 180-240 mg per tablet Take 1 Tablet by mouth. As needed. Active Active Problems Problem Noted Date Diagnosed Date Allergic rhinitis due to pollen 04/10/2022 Immunizations Immunization Administration Dates Next Due COVID-19 vaccine (Moderna 50 mcg/0.5mL) 12YO+ BIVALENT PF, MDV 02/20/2022 Social History Tobacco Use Types Packs/Day Years Used Date Smoking Tobacco: Never Smokeless Tobacco: Never Tobacco Cessation:Counseling Given: No Alcohol Use Standard Drinks/Week Comments Yes 0 (1 standard drink = 0.6 oz pur e alcohol) rarely PHQ-2 Answer Date Recorded PHQ-2 TOTAL SCORE 1 04/10/2022 Social Connections Answer Date Recorded Do you often feel lonely or isolated from those around you? 0 01/15/2024 Financial Resource Strain Answer Date R ecorded Difficulty of Paying Living Expenses 3 01/15/2024 Difficulty of Paying Living Expenses Not on file 01/15/2024 Food Insecurity Answer Date Recorded Do you worry your food will run out before you are able to buy more? 1 01/15/2024 Transportation Needs Answer Date Record ed Does lack of transportation keep you from medica l appointments? 1 01/15/2024 Does lack of transportation keep you from work, meetings or getting things that you need? 1 01/15/2024 Housing Stability Answer Date Recorded What is your housing situation today? 1 01/15/2024 Utilities Answer Date Recorded Do you have trouble paying f or utilities (for example, heat, electricity, water, phone)? 1 01/15/2024 Comments No Sex and Gender Information Value Date Recorded Sex Assigned at Not on file Legal Sex Female 10:03 AM CDT Gender Identity Not on file Sexual Orientation Not on file Obstetrics History Last Filed Vital Signs Vital Sign Reading Time Taken Comments Blood Pressure 111/80 01/15/2024 1:28 PM CDT Pulse 91 01/15/2024 1:28 PM CDT Temperature 36.9 C (98.4 F) 06/26/2022 1:26 PM CDT Respiratory Rate - - Oxygen Saturation 97% 01/15/2024 1:28 PM CDT Inhaled Oxygen Concentration - - Weight 99.2 kg (218 lb 12.8 oz) 01/15/2024 1:28 PM CDT Height 158.3 cm (5' 2.32) 04/10/2022 7:40 AM CS T Body Mass Index - - Plan of Treatment Health Maintenance Due Date Last Done Comments Tdap 2013 HIV for age 15-65 2017 HPV series for age 9-26 (1 - 3-dose series) 2017 Chlamydia for age 16-24 2018 Hepatitis C screening for age 18-79 2020 Tetanus booster 2022 BMI (ht and wt on same day) for age 18+ 04/10/2023 04/10/2022 Depression screening for age 12+ 04/13/2023 04/13/2022, 04/12/2022, 04/12/2022, Additional history exists Pap test for age 21-65 06/03/2023 COVID-19 vaccine series ( season) 2023 02/20/2022, 03/14/2021 Influenza Vaccine (Season Ended) 2024 Pneumococcal series for age 6-49 Aged Out No longer eligible based on patient's age to complete this topic Insurance [facility] [place] [address] Care Teams Aircraft Metalsmith Relationship Specialty Start Date End Date Pcp, No . PCP - General 04/10/22
--- OUTSIDE RECORDS SUMMARY | 2024-06-29 03:25 | XMS_ITS ---
Author Organization [facility] Address [address] [place] [phone] Care Team Providers Care Machine Rough Rounder Name Role Phone [facility] DO Unavailable Medications Medication SIG (Take, Route, Frequency, Duration) Notes Start Date End Date Status Xolair Autoinjector 300 mg/2 mL as directed subcutaneously every 2 weeks for 30 days 600 mg 04/10/2024 04/05/2025 Active Encounters Encounter Location Date Provider Diagnosis [facility] [address] [place] [phone] 04/10/2024 [facility] Plan Of Treatment Medication Medication Name Sig Start Date Stop Date Notes Xolair Autoinjector 300 mg/2 mL as directed subcutaneously every 2 weeks for 30 days 04/10/2024 04/05/2025 Progress Notes * Betty KAY LDOB: [birth year] (23 yo F)Acc No.[id number]:04/10/2024 Patient: Lanny Betty GOMEZ :2000 A ge:23 Y S ex:Female Phone: Address:[address] [place] [address] [place], [address] * Refills Start Xolair Autoinjector solution, 300 mg/2 mL, subcutaneously, 4, as directed, every 2 weeks, 30 days, Refills=11 * true * Date: Generated for Printi ng/Faxing/eTransmitting on: 0 06/29/2024 03:25 AM CDT
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
--- OUTSIDE RECORDS SUMMARY | 2024-06-29 03:25 | XMS_ITS | Clinical Summary ---
Author Organization [facility] Address [address] [place] [address] Phone Care Team Providers Care Cleat Blanker Name Role Phone WagnerFrieda domínguezana Primary Care Provider [phone] Reason for Visit and Chief Complaint OMM [...] - Last Documented On 07/19/2023 5:27PM ; [facility] - Follow-up visit in 4-6 weeks for reevaluation or as needed - Last Documented On 07/19/2023 5:27PM ; [facility] Assessments Includes: Assessments from this encounter Findings - Vertebrogenic low back pain [M54.51 - Vertebrogenic low back pain] - Last Documented On 07/19/2023 5:27PM ; [facility] - Cervicalgia [M54.2 - Cervicalgia] - Last Documented On 07/19/2023 5:27PM ; [facility] - Somatic dysfunction of the head region [M99.00 - Segmental and somatic dysfunction of head region] - Last Documented On 07/19/2023 5:27PM ; [facility] - Somatic dysfunction of rib cage [M99.08 - Segmental and somatic dysfunction of rib cage] - Last Documented On 07/19/2023 5:27PM ; SolomonSolomon [facility] - Somatic dysfunction of cervical region [M99.01 - Segmental and somatic dysfunction of cervical region] - Last Documented On 07/19/2023 5:27PM ; [facility] - Somatic dysfunction of thoracic region [M99.02 - Segmental and somatic dysfunction of thoracic region] - Last Documented On 07/19/2023 5:27PM ; [facility] - Somatic dysfunction of lumbar region [M99.03 - Segmental and somatic dysfunction of lumbar region] - Last Documented On 07/19/2023 5:27PM ; [facility] Medical Equipment - Implanted Devices Includes: Current Devices No Medical Equipment Recorded Medications Includes: Medications discussed during this encounter and other current Medications Current Medications (continue as prescribed) Methylphenidate HCl ER 18 MG Oral Tablet Extended Release 24 Hour 06/20/2023 Provider: Diagnosis: Last Documented On 4 3:42PM By Betty Mahan ; [facility]angoSolomon [facility] Mima-D Allergy & Congesti on 60-120 MG Oral Tablet Extended Release 12 Hour 06/20/2023 Provider: Diagnosis: Last Documented On 4 3:43PM By Betty Mahan ; [facility]omon [facility] FLUoxetine HCl 20 MG Oral Capsule 03/31/2021 Provide r: Diagnosis: Last Documented On 3 2:06PM By Barb Lee CCS ; [facility] Medications Administered Includes: Administered Medications from [...] Documented: On 07/19/2023 4:02PM ; SolomonSolomon [facility] Results Includes: Results discussed during this [...] 03/31/2021 Last Documented On 4 4:01PM ; [facility] 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/2021 Last Documented On 4 4:01PM ; [facility] Daily coffee consumption was one cups pe r day 03/31/2021 Last Documented On 4 4:01PM ; [facility] Never drank alcohol 03/31/2021 Last Documented On 4 4:01PM ; [facility] Non-smoker 03/31/2021 Last Documented On 4 4:01PM ; [facility] Not using drugs 03/31/2021 Last Documented On 4 4:01PM ; [facility] Single 03/31/2021 Last Documented On 4 4:01PM ; [facility] Smoking Status Unknown Procedures and Surgical History Includes: Procedures from this encounter Procedures Code Diagnosis Performing Provider Service Location Service Date OSTEOPATHIC MANIP 5-6 AREAS 17214 Segmental and somatic dysfunction of cervical region, Segmental and somatic dysfunction of rib cage, Segmental and somatic dysfunction of thoracic region, Segmental and somatic dysfunction of lumbar region Ananda Menon DO, OMM 07/19/2023 Last Documented On 4 7:02AM ; SolomonSuhail [facility] osteopathic manipulative treatment (OMT) involving five to six body regions 07664 Last Documented On 4 5:23PM ; Rigoberto.Suhail [facility] general outcomes - OMT was well tolerate d Last Documented On 4 5:23PM ; Rigoberto.TSolomon [facility] general outcomes - Symptoms improved aft er OMT Last Documented On 4 5:23PM ; Rigoberto.Jeromy. [facility] Muscle energy head region Last Documented On 4 5:23PM ; A.T. [facility] Myofascial release head region Last Documented On 4 5:23PM ; Rigoberto.T. [facility] Soft tissue technique head region Last Documented On 4 5:23PM ; Rigoberto.TSolomon [facility] OMT response head region: somatic dysfun ction was improved Last Documented On 4 5:23PM ; Rigoberto.TSolomon [facility] Articular technique cervical region Last Documented On 4 5:23PM ; Rigoberto.TSolomon [facility] Facilitated positional release cervical region Last Documented On 4 5:23PM ; Rigoberto.TSolomon [facility] Indirect balanced ligamentous tension ce rvical region Last Documented On 4 5:23PM ; Rigoberto.T. [facility] Muscle energy cervical region Last Documented On 4 5:23PM ; A.T. [facility] Myofascial release cervical region Last Documented On 4 5:23PM ; Rigoberto.T. [facility] OMT response cervical region: somatic dy sfunction was improved Last Documented On 4 5:23PM ; Rigoberto.T. [facility] Articular Technique lumbar region Last Documented On 4 5:24PM ; A.T. [facility] Muscle energy lumbar region Last Documented On 4 5:24PM ; A.T. [facility] OMT response lumbar region: somatic dysf unction was improved Last Documented On 4 5:24PM ; Rigoberto.T. [facility] Articular technique thoracic region Last Documented On 4 5:24PM ; A.T. [facility] Muscle energy thoracic region Last Documented On 4 5:24PM ; Dwaine [facility] Myofascial release thoracic region Last Documented On 4 5:24PM ; Dwaine [facility] OMT response thoracic region: somatic dy sfunction was improved Last Documented On 4 5:24PM ; Dwaine [facility] Still technique rib chest region Last Documented On 4 5:24PM ; Dwaine [facility] OMT response rib/chest region: somatic d ysfunction was improved Last Documented On 4 5:24PM ; Dwaine [facility] OMT was performed based on jeromy granger's physical examination - Regions treated include those listed in the assessment portion of today's Evaluation & Management note Last Documented On 4 5:23PM ; Dwaine [facility] Surgical History Last Updated No prior surgery or no significant histo ry 03/31/2021 Last Documented On 4 4:01PM ; Dwaine [facility] History of treatment of foot fracture - Boot (2016) 03/31/2021 Last Documented On 4 4:01PM ; Dwaine [facility] Medical History Includes: Medical History addressed during this encounter Description Last Updated Past medical history reviewed - Previous encounter reviewed 03/31/2021 Last Documented On 4 4:01PM ; Ch[facility]angoSolomon [facility] Dissociative Disorder ~ Environmental Al lergies 03/31/2021 Last Documented On 4 4:01PM ; Dwaine [facility] Allergy symptoms occur seasonally 2021 Last Documented On 4 4:01PM ; Ch[facility]Solomon [facility] An allergy to certain foods 03/31/2021 Last Documented On 4 4:01PM ; Ch[facility]angoSolomon [facility] History of anxiety disorder NOS 03/31/19 Last Documented On 4 4:01PM ; [facility]Solomon [facility] History of depression 03/31/2021 Last Documented On 4 4:01PM ; Dwaine [facility] Family History Includes: Family History addressed during this encounter Description Last Updated ADHD (dad) 03/31/2021 Last Documented On 4 4:01PM ; SolomonSolomon [facility] Family history of type 1 diabetes jeovanny redd (sister) 03/31/2021 Last Documented On 4 4:01PM ; [facility] Review of Systems Includes: Review of [...] Documented On 4 2:00PM ; .Solomon [facility] Encounters Encounter Provider Location Date Check-In Time Check-Out Time Diagnosis OM Established patient Ananda Sinan [facility] 07/19/19 24 3:58PM 4:53PM Dorsopathy Low Back Pain Vertebrogenic,S omatic Dysfunction of Head,Somatic Dysfunction of Rib Cage,Somatic Dysfunction of Cervical Region,Somatic Dysfunction of Thoracic Region,Somatic Dysfunction of Lumbar Region,Cervical maxime Insurance Includes: Active Insurance Policies Plan Name Member ID Group # Subscriber Relationship Effect mica Dates 1 - [place] [employer] Access Payer [id number] Starla II, Girma A Child Clinical Notes Includes: Clinical Notes from this encounter * Progress note Date Encounter Last Documented by 07/19/2023 [facility] Established patient Last doc umented on 07/19/2023; 5:27 PM, Ananda Menon DO; A.Solomon [facility] Chief Complaint - Neck symptoms - [...] outpatient expanded h&p - low complexity decisions 26321 - The E&M code was based on Medical Decision Making associated with at least 2 of the following 3 elements 1) 2 minor or self-limiting problems or 1 stable chronic problem or 1 acute uncomplicated injury; 2) limited record/data reviewed or ordered; 3) Low management risk such as OMT.
--- OUTSIDE RECORDS SUMMARY | 2024-06-29 03:25 | XMS_ITS | Continuity of Care Document ---
Author Name [facility] Address [address] [place] [address] Organization [facility] Care Team Providers Care Banquet Bartender Name Role Phone [facility] Unavailable Unavailable Problems Problem Status Onset Date Problem Type Date of Resolution Comme nts Source Problem Condition
--- OUTSIDE RECORDS SUMMARY | 2024-06-29 03:25 | XMS_ITS ---
Author Organization [facility] Address [address], [place] [id number] Care Team Providers Care Networking Administrator Name Role Phone [facility] DO Unavailable REASON FOR VISIT 3 mo Follow up - [facility] Encounters Encounter Location Date Provider Diagnosis [facility] [address], [place] [id number] 06/24/2024 [facility] Plan Of Treatment No Information Progress Notes * Betty KAY LDOB: [birth year] (24 yo F)Acc No.[id number]:06/24/2024 Patient: Lanny GOMEZ Betty Alvarez Provider: Kim Salinas DO, FAAAAI, FACOI :2000 A ge:24 Y S ex:Female Date:06/24/2024 Phone: Address:[address] [place] [address] [id number] Subjective: * Chief Complaints: * 1 . 3 mo Follow up - [facility]. * Medical History: Objective: * Vitals: Assessment: Plan: * Treatment: * Billing Information: * Visit Code: * Procedure Codes: * Electronic signature of Tyrone Salinas DO, DO on 06/29/2024 at 03:25 AM CDT Sign off status: Pending * Provider: Kim Salinas DO, FAAAAI, FACOI Date: 06/24/2024 Generated for Printi ng/Faxing/eTransmitting on: 06/29/2024 03:25 AM CDT
--- OUTSIDE RECORDS SUMMARY | 2024-06-29 03:25 | XMS_ITS | Patient Health Record ---
Author Organization [facility] Address [address] [facility] [place] [id number] Care Team Providers Care Change Management Expert Name Role Phone [facility] DO Unavailable Brad Teresa Unavailable [phone] Allergies Allergen (clinical drug ingredient) Drug/Non Drug Allergy documented on EMR Reaction Allergy Type Onset Date Status PCN (mom states it i s just a sensitivity) (uncoded) rash Allergy Active sulfa (uncoded) rash Allergy Acti ve Results Component Value Reference Range Notes IgE-QUEST Reviewed date:03/24/2024 10:50:42 AM Interpretation: Performing Lab:[place], [facility], [address] [place], [address] Tiffany Montoya MD Notes/Report: NON-FASTING IMMUNOGLOBULIN E 568 <ZJ=431 kU/L GALACTOSE ALPHA 1,3 GALACTOS E IGE Reviewed date:03/24/2024 10:50:42 AM Interpretation: Performing Lab:[place] [facility],, [address] [place], [address] Judie Richards MD,PhD,ADIEL Notes/Report: NON-FASTING GALACTOSE ALPHA 1,3 GALACTOS E IGE 2.92 <0.10 kU/L Results above 0.1 kU/L indicate an allergen-specific IgE sensitization to bmcbnevlr-a-8,3-galactose, and such patients are at risk for [...] method. Additional information can be found at [email or web address] Reason For Referral No Information Medications Medication SIG (Take, Route, Frequency, Duration) Notes Start Date End Date Status Xolair Autoinjector 300 mg/2 mL as directed subcutaneously every 2 weeks for 30 days 600 mg 04/10/2024 04/05/2025 Active EpiPen 2-Miles 0.3 mg as directed intramuscularly once 10/31/2022 Active Mima-D 12 Hour 60 mg-120 mg 1 tab(s) orally prn Active atomoxetine 40 mg 1 cap(s) orally once a day (in the morning) Active hydrOXYzine hydrochloride 25 mg 1 tab(s) orally 4 times a day prn Active FLUoxetine 20 mg 1 cap(s) orally once a day 40mg Active Immunizations Vaccine Route Administration Date Status Comme nts Pneumococcal Unknown 10/03/2022 Refused Influenza IM Intramuscular 10/03/2022 Administered Social History Tobacco Use: Social History Observation Description Date Details (start date - stop date) Never Smoker NA - NA Smoking: Question Answer Notes Are you a: never smoker Problems Problem Type SNOMED Code ICD Code Onset Dates Problem Status W/U Status Risk Notes Problem Allergic rhinitis due to pollen (24795146) Allergic rhinitis due to pollen (J30.1) Active confirmed Problem Seasonal allergic rhinitis (163252243) Other seasonal allergic rhinitis (J30.2) Active confirmed Problem Allergic rhinitis caused by animal hair and dander (386012932828821 ) Allergic rhinitis due to animal (cat) (dog) hair and dander (J30.81) Active confirmed Problem Allergic rhinitis (43741059) Other allergic rhinitis (J30.89) Active confirmed Problem Eruption of skin (795191287) Rash and other nonspecific skin eruption (R21) Active confirmed Problem Allergy to penicillin (35317305) Allergy status to penicillin (Z88.0) Active confirmed Problem Allergy to sulfonamides (99927014) Allergy status to sulfonamides status (Z88.2) Active confirmed Problem Cough (finding) (60829201) Cough, unspecified (R05.9) Active confirmed Problem Allergy to meat (finding) (781934871) 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) Active confirmed Vital Signs Heart Rate 103 /min 03/20/2024 Respiratory Rate 18 /min 03/20/2024 Blood pressure diastolic 60 mm Hg 03/20/2024 Height 62.0 in 03/20/2024 Blood pressure systolic 120 mm Hg 03/20/2024 Weight 215.0 lbs 03/20/2024 BMI 39.32 kg/m2 03/20/2024 Encounters Encounter Location Date Provider Diagnosis [facility] [address] [place] [id number] 03/20/2024 Teresa Salinas Allergic rhinitis due to pollen J30.1 ; Allergy to mammalian meats Z91.014 ; Other seasonal allergic rhinitis J30.2 ; Allergic rhinitis due to animal (cat) (dog) hair and dander J30.81 and Other allergic rhinitis J30.89 [facility] [address] [place] [id number] 04/10/2024 [facility] Assessments Encounter Date Diagnosis (ICD [...] rhinitis (ICD-10 - J30.89) Plan Of Treatment Pending Test Test Name Order Date TTG(IgA)-QUEST 10/03/2022 ENDOMYSIAL ANTIBODY SCR-QUEST 10/03/2022 IGA SERUM-QUEST 10/03/2022 GALACTOSE ALPHA 1,3 GALACTOSE IGE 2022 GALACTOSE ALPHA 1,3 GALACTOSE IGE 2022 Insurance Providers Payer Name Payer Address Payer Phone Subscriber Number Group Number Insured Name Patient Relationship to Insured Coverage Start Date Coverage End Date [facility] [address] [address] [place] [address] [id number] [facility] Child - Insured has Financial Responsibility 1 Medical (General) History Medical History History ICD Code Allergic Rhinitis due to pollen 477.0 Cough (resolved 10/2014) 786.2 insulin resistance Surgical History Surgery Date(Month/Year) wisdom teeth removed
--- OUTSIDE RECORDS SUMMARY | 2024-06-29 03:25 | XMS_ITS | Continuity of Care Document ---
Author Organization [facility] Address [address] [place] [address] Phone Care Team Providers Care Kerfer Machine Operator Name Role Phone Lana Cruz Unavailable Unavailable [...] Encounter OFFICE/OUTPA TIENT VISIT, EST [facility], [address] [place] [address], [id number], [place] tel:[phone] [facility] testing (chief complaint) Contact w and exposure to oth viral communicable diseasesSore throat Mehreen Schwartz. [address] [place] [address], [id number], [place]. tel:[phone] Referring Provider: Lana Verde, [address] [place] [address], [id number] . tel:[phone] OFFICE/OUTPA TIENT VISIT, EST [facility], [address] [place] [address], [id number], [place] tel:[phone] [facility] Concerns (chief complaint) Contact w and exposure to oth viral communicable diseases 0 Juan Lugo. [address] [place] [address], [id number], [place]. tel:[phone] Referring Provider: Brittney Adams, [address] [place] [address], [id number]. tel:[phone] [facility], [address] [place] [address], [id number], [place] tel:[phone] [facility] [place] injury (chief complaint) Pain in left footPain in left wrist 6 An Espino. [address] [place] [address], [id number], [place]. tel:[phone] Referring Provider: Srinivas Pederson, [address] [place] [address], [address] . tel:[phone] OFFICE/OUTPA TIENT VISIT, EST [facility], [address] [place] [address], [id number], [place] tel:[phone] [facility] rash (chief complaint) Rash 4 Phi Aldridge. [address] [place] [address], [id number], [place]. tel:[phone] Referring Provider: Srinivas Pederson, [address] [place] [address], [address] . tel:[phone] OFFICE/OUTPA TIENT VISIT, EST [facility], [address] [place] [address], [id number], [place] tel:[phone] [facility] dysuria (chief complaint) DysuriaUrinary tract infection 4 No Information Referring Provider: Srinivas Pederson, [address] [place] [address], [id number] . tel:[phone] [facility], [address] [place] [address], [id number], [place] tel:[phone] [facility] No Information 3 Lamdebbi Emmanuella. [address] [place] [address], [id number], [place]. tel:[phone] OFFICE/OUTPA TIENT VISIT, NEW [facility], [address] [place] [address], [id number], [place] tel:[phone] [facility] injury, cut and facial pain (chief complaint) Open wound of face, unspecified site, uncomplicated 3 No Information Referring Provider: Srinivas Pederson, [address] [place] [address], [address] . tel:[phone] Family History Family Member Type Diagnosis Age [...] ce: Public Agency polio, inactivated (IPV) administered Dulce [...] Agency Payers Payer name Insurance type Covered alliance party ID Authoriza tion(s) [facility] [id number] Social History Type Description Quantity Date Captured [...] Left ankle ordered Future Order: Lab Order [facility] SARS-CoV-2, RT-PCR (77518), Sent on: Sent History Of Present Illness [...] go. Related to Pain in left foot Pt presented with le ft foot pain [...] go. Related to Pain in left wrist After physical exam pt and father were [...] Mental Status Date Cognitive Assessment Orientation - [place] ed to time, place, person, situation. Patient Care Teams Name Effective Dates (start - stop) Status Members No Information
--- OUTSIDE RECORDS SUMMARY | 2024-06-29 03:25 | XMS_ITS | Clinical Summary ---
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 [M46.08 - Spinal enthesopathy, sacral and sacrococcygeal region] - Last Documented On 04/23/2023 7:56AM ; Pending Sale To [facility] - Myofascial pain syndrome of neck [M79.18 - Myalgia, other site] - Last Documented On 04/23/2023 7:56AM ; Pending [facility] To [facility] - Moderate depression [F32.1 - Major depressive disorder, single episode, moderate] - Last Documented On 04/23/2023 7:56AM ; Pending Sale To [facility] - Somatic dysfunction of the head region [M99.00 - Segmental and somatic dysfunction of head region] - Last Documented On 04/23/2023 7:56AM ; [facility] - Somatic dysfunction of rib cage [M99.08 - Segmental and somatic dysfunction of rib cage] - Last Documented On 04/23/2023 7:56AM ; .Solomon [facility] - Somatic dysfunction of cervical region [M99.01 - Segmental and somatic dysfunction of cervical region] - Last Documented On 04/23/2023 7:56AM ; [facility] - Somatic dysfunction of thoracic region [M99.02 - Segmental and somatic dysfunction of thoracic region] - Last Documented On 04/23/2023 7:56AM ; [facility] - Somatic dysfunction of lumbar region [M99.03 - Segmental and somatic dysfunction of lumbar region] - Last Documented On 04/23/2023 7:56AM ; [facility] - Somatic dysfunction of sacrum [M99.04 - Segmental and somatic dysfunction of sacral region] - Last Documented On 04/23/2023 7:56AM ; [facility] - Somatic dysfunction of pelvic region [M99.05 - Segmental and somatic dysfunction of pelvic region] - Last Documented On 04/23/2023 7:56AM ; [facility] Medical Equipment - Implanted Devices Includes: Current Devices No Medical Equipment Recorded Medications Includes: Medications discussed during this encounter and other current Medications Current Medications (continue as prescribed) Methylphenidate HCl ER 18 MG Oral Tablet Extended Release 24 Hour 06/20/2023 Provider: Diagnosis: Last Documented On 4 3:42PM By Betty Isidro [facility] Mima-D Allergy & Congesti on 60-120 MG Oral Tablet Extended Release 12 Hour 06/20/2023 Provider: Diagnosis: Last Documented On 4 3:43PM By Betty Isidro [facility] FLUoxetine HCl 20 MG Oral Capsule 03/31/2021 Provide r: Diagnosis: Last Documented On 3 2:06PM By Barb Lee CCS ; [facility]Solomon [facility] Medications Administered Includes: Administered Medications from this [...] Documented: On 04/17/2023 8:08AM ; Dwaine Colón [facility] Results Includes: Results discussed during this encounter [...] Documented On 4 8:07AM ; Dwaine Colón [facility] 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/2021 Last Documented On 4 8:07AM ; Dwaine Colón [facility] Daily coffee consumption was one cups pe r day 03/31/2021 Last Documented On 4 8:07AM ; Dwaine Colón [facility] Never drank alcohol 03/31/2021 Last Documented On 4 8:07AM ; Dwaine Colón [facility] Non-smoker 03/31/2021 Last Documented On 4 8:07AM ; Dwaine Colón [facility] Not using drugs 03/31/2021 Last Documented On 4 8:07AM ; Dwaine [facility] Single 03/31/2021 Last Documented On 4 8:07AM ; Rigoberto.TSolomon [facility] Smoking Status Unknown Procedures and Surgical History Includes: Procedures from this encounter Procedures Code Diagnosis Performing Provider Service L ocation Service Date osteopathic manipulative treatment (OMT) involving seven to eight body regions 25666 Last Documented On 4 9:50AM ; Rigoberto.Suhail [facility] general outcomes - OMT was well tolerate d Last Documented On 4 9:50AM ; Rigoberto.T. [facility] general outcomes - Symptoms improved aft er OMT Last Documented On 4 9:50AM ; Rigoberto.T. [facility] Articular Technique head region Last Documented On 4 9:50AM ; Rigoberto.T. [facility] Osteopathic cranial manipulative medicin e head region Last Documented On 4 9:55AM ; Rigoberto.TSolomon [facility] Indirect balanced ligamentous tension he ad region Last Documented On 4 9:50AM ; A.T. [facility] Myofascial release head region Last Documented On 4 9:50AM ; A.T. [facility] OMT response head region: somatic dysfun ction was improved Last Documented On 4 9:50AM ; A.T. [facility] Articular technique cervical region Last Documented On 4 9:50AM ; A.T. [facility] Indirect balanced ligamentous tension ce rvical region Last Documented On 4 9:50AM ; A.T. [facility] Myofascial release cervical region Last Documented On 4 9:50AM ; A.T. [facility] Soft tissue technique cervical region Last Documented On 4 9:50AM ; A.T. [facility] OMT response cervical region: somatic dy sfunction was improved Last Documented On 4 9:50AM ; A.T. [facility] Articular Technique lumbar region Last Documented On 4 9:50AM ; A.T. [facility] Muscle energy lumbar region Last Documented On 4 9:50AM ; A.T. [facility] Myofascial release lumbar region Last Documented On 4 9:50AM ; A.T. [facility] Soft tissue technique lumbar region Last Documented On 4 9:50AM ; A.T. [facility] OMT response lumbar region: somatic dysf unction was improved Last Documented On 4 9:50AM ; A.T. [facility] Articular technique thoracic region Last Documented On 4 9:50AM ; A.T. [facility] Myofascial release thoracic region Last Documented On 4 9:50AM ; A.T. [facility] Soft tissue technique thoracic region Last Documented On 4 9:50AM ; A.T. [facility] OMT response thoracic region: somatic dy sfunction was improved Last Documented On 4 9:50AM ; A.T. [facility] OMT response pelvic region: somatic dysf unction was improved Last Documented On 4 9:50AM ; A.T. [facility] Articular Technique pelvic region Last Documented On 4 9:50AM ; A.T. [facility] Muscle energy pelvic region Last Documented On 4 9:50AM ; A.T. Still [facility] OMT response sacral region: somatic dysf unction was improved Last Documented On 4 9:50AM ; A.T. [facility] Muscle energy rib chest region Last Documented On 4 9:55AM ; A.T. [facility] Myofascial release rib chest region Last Documented On 4 9:50AM ; A.T. [facility] Soft tissue technique rib chest region Last Documented On 4 9:50AM ; A.T. [facility] OMT response rib/chest region: somatic d ysfunction was improved Last Documented On 4 9:50AM ; A.T. [facility] OMT was performed based on jeromy granger's physical examination - Regions treated include those listed in the assessment portion of today's Evaluation & Management note Last Documented On 4 9:50AM ; A.T. [facility] Low velocity, moderate amplitude techniq ue sacral region Last Documented On 4 9:50AM ; Dwaine [facility] Surgical History Last Updated No prior surgery or no significant histo ry 03/31/2021 Last Documented On 4 8:07AM ; Dwaine [facility] History of treatment of foot fracture - Boot (2016) 03/31/2021 Last Documented On 4 8:07AM ; Dwaine [facility] Medical History Includes: Medical History addressed during this encounter Description Last Updated Past medical history reviewed - Previous encounter reviewed 03/31/2021 Last Documented On 4 8:07AM ; Dwaine [facility] Dissociative Disorder ~ Environmental Al lergies 03/31/2021 Last Documented On 4 8:07AM ; ChilangoSolomon [facility] Allergy symptoms occur seasonally 2021 Last Documented On 4 8:07AM ; ChilangoSolomon [facility] An allergy to certain foods 03/31/2021 Last Documented On 4 8:07AM ; ChilangoSolomon [facility] History of anxiety disorder NOS 03/31/19 22 Last Documented On 4 8:07AM ; ChilangoSolomon [facility] History of depression 03/31/2021 Last Documented On 4 8:07AM ; ChilangoTSolomon [facility] Family History Includes: Family History addressed during this encounter Description Last Updated ADHD (dad) 03/31/2021 Last Documented On 4 8:07AM ; ChilangoSolomon [facility] Family history of type 1 diabetes mellit us (sister) 03/31/2021 Last Documented On 4 8:07AM ; Rigoberto.TSolomon [facility] Review of Systems Includes: Review of Systems [...] Last Documented On 4 2:00PM ; A.T. [facility] Encounters Encounter Provider Location Date Check-In Time Check-Out Time Diagnosis [facility] Established patient Ananda Menon DO [facility] 04/17/19 24 8:00AM 9:02AM Somatic Dysfunction of Head,Somatic Dysfunction of Rib Cage,Somatic Dysfunction of Cervical Region,Somatic Dysfunction of Thoracic Region,Somatic Dysfunction of Lumbar Region,Somatic Dysfunction of Sacrum,Somatic Dysfunction of Pelvic Region,Myofascial Pain Syndrome Neck,Spinal Enthesopathy of Sacral and Sacrococcygeal Region,Depression Moderate Insurance Includes: Active Insurance Policies Plan Name Member ID Group # Subscriber Relationship Effect mica Dates 1 - [employer] Access Payer [id number] Starla Girma IZAGUIRRE Clinical Notes Includes: Clinical Notes from this encounter * Progress note Date Encounter Last Documented by 04/17/2023 [facility] Established patient Last doc umented on 04/23/2023; 7:56 AM, [facility] ; A.. [facility] Chief Complaint - Back symptoms - Psychological [...] the last few weeks. She returned to [place] in hopes of alleviating her depression but [...] outpatient expanded h&p - low complexity decisions 37430 - The E&M code was based on Medical Decision Making associated with at least 2 of the following 3 elements 1) 2 minor or self-limiting problems or 1 stable chronic problem or 1 acute uncomplicated injury; 2) limited record/data reviewed or ordered; 3) Low management risk such as OMT.
--- OUTSIDE RECORDS SUMMARY | 2024-06-29 03:26 | XMS_ITS | Continuity of Care Document ---
Author Organization [facility] [employer] [facility] Address [address] [place] [address] Phone Care Team Providers Care Rn Ostomy Name Role Phone Kasandra Bartholomew Unavailable Unavailable Allergies, Adverse Reactions, Alerts Substance Reaction Status Criticality wheat Active No Information Alpha-Gal (Tmiukxvuu-Dmqul-9,3-Galactose) Active No Information hops Active No Information [...] water as needed 1.00 tablet - Active ATOMOXETINE 40MG CAPSULES TAKE 1 CAPSULE BY MOUTH EVERY DAY IN THE MORNING - No Longer Active FLUOXETINE 20MG CAPSULES TAKE 1 CAPSULE BY MOUTH EVERY DAY IN THE MORNING - No Longer Active Problems Condition Type Effective Dates (start - stop) Clini nixon Status Comments No Known Problems Procedures Procedure Date OFFICE O/P EST LOW OFFICE O/P EST LOW OFFICE O/P EST [...] EST, AGE 18-39 VV-PSYTX PT&/FAMILY 30 MINUTES Ashwin-09-20 21 VV-PSYCH DIAGNOSTIC EVALUATION 21 OFFICE/OUTPATIENT VISIT, EST VV-PSYTX PT&/FAMILY 30 MINUTES 21 VV-PSYTX PT&/FAMILY [...] EST OFFICE/OUTPATIENT VISIT, EST MEDICAL SERVICES AFTER [facility] INFLUENZA ASSAY W/OPTIC STREP A ASSAY W/OPTIC [...] Diagnoses Date Provider Providers Copied on Encounter [facility], [address] [place] [address], [id number], tel:[phone] [facility] No Information 5 Aiden Kasandra. [address], [place], [place], [id number], [place]. tel:[phone] [facility], [address] [place] [address], [id number], [place] tel:[phone] [facility] No Information 4 Aiden Kasandra. [address], [place], [place], [id number], [place]. tel:[phone] [facility], [address] [place] [address], [id number], [place] tel:[phone] [facility] No Information 4 Pl[place] Kasandra. [address], [place], [place], [id number], [place]. tel:[phone] OFFICE O/P EST LOW [facility], [address] [place] [address], [id number], tel:[phone] [facility] chronic conditions (chief complaint) Body mass index (BMI) 39.0-39.9, adultAttention deficit disorder w/ hyperactivity predominantly inattentive typeGeneralized Anxiety DisorderMDD (major depressive disorder), severe 4 Aiden Slaughter. [address], [place], [place], [id number], [place]. tel:[phone] Referring Provider: Kasandra Danielle, [address], [place], [address] . tel:[phone] OFFICE O/P EST [facility], [address] [place] [address], [id number], [place] tel:[phone] [facility] PMDD follow up (chief complaint)u rinary symptoms (chief complaint) Body mass index (BMI) 40.0-44.9, adultDysuriaIns ulin resistance 4 Benny Lacy. [address], [place], [id number], [place]. tel:[phone] Referring Provider: Bambi Jefferson, [address] [place], [address] . tel:[phone] OFFICE O/P EST [facility], [address] [place] [address], [id number], [place] tel:[phone] [facility] chronic conditions (chief complaint) Attention deficit disorder w/ hyperactivity predominantly inattentive typeBody mass index (BMI) 40.0-44.9, adult 4 Aiden Slaughter. [address] [place], [place], [id number], [place]. tel:[phone] Referring Provider: Kasandra Danielle, [place], [address] . tel:[phone] OFFICE O/P EST [facility], [address] [place] [address], [id number], [place] tel:[phone] [facility] chronic conditions (chief complaint) Generalized Anxiety DisorderMDD (major depressive disorder), severeAttention deficit disorder w/ hyperactivity predominantly inattentive typeBody mass index (BMI) 40.0-44.9, adult Apr-2 4 Aiden Slaughter. [address], [place], [place], [id number], [place]. tel:[phone] Referring Provider: Kasandra Danielle, [address], [place], [address] . tel:[phone] No Charge Nurse Visit [facility], [address] [place] [address], [id number], [place] tel:[phone] [facility] No Information Apr-0 4 Aiden Slaughter. [address], [place], [place], [id number], [place]. tel:[phone] Referring Provider: Kasandra Danielle, [address], [place], [address] . tel:[phone] PSYTX W PT 30 MINUTES [facility], [address] [place] [address], [id number], [place] tel:[phone] [facility] [place] Generalized Anxiety DisorderMajor depressive disorder, recurrent, mildAttention deficit disorder w/ hyperactivity predominantly inattentive type May-2 4 Ron Agosto. [address], [place], [address], [place]. tel:[phone] OFFICE O/P EST MOD 30-39 MIN [facility], [address] [place] [address], [id number], [place] tel:[phone] [facility] depression (chief complaint)e stablish care (chief complaint) BMI pediatric, greater than or equal to 95% for ageGeneralized Anxiety DisorderMDD (major depressive disorder), severeAttention deficit disorder w/ hyperactivity predominantly inattentive typeEncounter to establish care May- 4 Aiden Slaughter. [address], [place], [place], [id number], [place]. tel:[phone] Referring Provider: Kasandra Danielle, [address], [place], [address] . tel:[phone] OFFICE O/P EST LOW 20-29 MIN [facility], [address] [place] [address], [id number], [place] tel:[phone] [facility] Discuss meds (chief complaint) Body mass index (BMI) 40.0-44.9, adultDisassocia tion disorderThought s of self-harmAttent ion deficit disorder w/ hyperactivity predominantly inattentive typeGeneralized Anxiety DisorderPMDD (premenstrual dysphoric disorder) May- 4 Benny Lacy. [address] [place], [place], [id number], [place]. tel:[phone] Referring Provider: Bambi Jefferson, [address] [place], [address] . tel:[phone] OFFICE O/P EST LOW 20-29 MIN [facility], [address] [place] [address], [id number], [place] tel:[phone] [facility] Medication follow up (chief complaint) Body mass index (BMI) 40.0-44.9, adultInsulin resistancePMDD (premenstrual dysphoric disorder)Oligom enorrhea, unspecified type 4 Benny Lacy. [address] [place], [place], [id number], [place]. tel:[phone] Referring Provider: Bambi Jefferson, [address] [place], [address] . tel:[phone] [facility], [address] [place] [address], [id number], [place] tel:[phone] [facility] Dietary counseling and surveillanceBod y mass index (BMI) 40.0-44.9, adult 4 Kike Dinh. [address] [place] [address], [id number], [place]. Referring Provider: Allegra Alvarez, [address] [place] [address], [id number] . [facility], [address] [place] [address], [id number], [place] tel:[phone] [facility] PMDD (chief complaint)P eriod follow up (chief complaint) PMDD (premenstrual dysphoric disorder)Oligom enorrhea, unspecified type 3 Benny Lacy. [address], [place], [id number], [place]. tel:[phone] [facility], [address] [place] [address], [id number], [place] tel:[phone] [facility] Dietary counseling and surveillanceBod y mass index (BMI) 40.0-44.9, adult 3 Kike Dinh. [address] [place] [address], [id number], [place]. Referring Provider: Allegra Alvarez, [address] [place] [address], [id number] . [facility], [address] [place] [address], [id number], [place] tel:[phone] [facility] Dietary counseling and surveillanceBod y mass index (BMI) 40.0-44.9, adult 3 Kike Dinh. [address] [place] [address], [id number], [place]. Referring Provider: Allegra Alvarez, [address] [place] [address], [id number] . PSYTX W PT 30 MINUTES [facility], [address] [place] [address], [id number], [place] tel:[phone] [facility] [place] Generalized Anxiety DisorderMajor depressive disorder, recurrent, mildAttention deficit disorder w/ hyperactivity predominantly inattentive type 3 Ron Agosto. [address] [place], [address], [place]. tel:[phone] [facility], [address] [place] [address], [id number], [place] tel:[phone] [facility] Dietary counseling and surveillanceBod y mass index (BMI) 40.0-44.9, adult Oct- 3 Kike Dinh. [address] [place] [address], [id number], [place]. Referring Provider: Allegra Alvarez, [address] [place] [address], [address] . [facility], [address] [place] [address], [id number], [place] tel:[phone] [facility] Body mass index (BMI) 40.0-44.9, adult Oct- 3 Benny Lacy. [address], [place], [id number], [place]. tel:[phone] OFFICE O/P EST MOD 30-39 MIN [facility], [address] [place] [address], [id number], [place] tel:[phone] [facility] Discuss results (chief complaint) Body mass index (BMI) 40.0-44.9, adultInsulin resistancePMDD (premenstrual dysphoric disorder) 3 Benny Lacy. [address], [place], [id number], [place]. tel:[phone] Referring Provider: Bambi Jefferson, [address] [place], [address] . tel:[phone] PSYCH DIAGNOSTIC EVALUATION [facility], [address] [place] [address], [id number], [place] tel:[phone] [facility] [place] Generalized Anxiety DisorderMajor depressive disorder, recurrent, mildAttention deficit disorder w/ hyperactivity predominantly inattentive type 3 Ron Agosto. [address] [place], [address], [place]. tel:[phone] OFFICE O/P EST LOW 20-29 MIN [facility], [address] [place] [address], [id number], [place] tel:[phone] [facility] Irregular periods (chief complaint) Body mass index (BMI) 40.0-44.9, adultOligomenor kentrell, unspecified type 3 Benny Lacy. [address], [place], [id number], [place]. tel:[phone] Referring Provider: Bambi Jefferson, [address] [place], [address] . tel:[phone] PSYTX PT&/FAMILY 30 MINUTES [facility], [address] [place] [address], [id number], [place] tel:[phone] [facility] [place] Generalized Anxiety DisorderMajor depressive disorder, recurrent, mildAttention deficit disorder w/ hyperactivity predominantly inattentive type 2 Ron Agosto. [address] [place], [address], [place]. tel:[phone] PSYCH DIAGNOSTIC EVALUATION [facility], [address] [place] [address], [id number], [place] tel:[phone] [facility] [place] Generalized Anxiety DisorderMajor depressive disorder, recurrent, mildAttention deficit disorder w/ hyperactivity predominantly inattentive type 2 Ron Agosto. [address] [place], [address], [place]. tel:[phone] [facility], [address] [place] [address], [id number], [place] tel:[phone] [facility] [place] Generalized Anxiety DisorderPanic attackMajor depressive disorder, recurrent, mild 2 Ron Agosto. [address] [place], [address], [place]. tel:[phone] FAMILY PSYTX W/PATIENT [facility], [address] [place] [address], [id number], [place] tel:[phone] [facility] [place] Generalized Anxiety DisorderPanic attackMajor depressive disorder, recurrent, mild Aug- 2 Ron Agosto. [address] [place], [address], [place]. tel:[phone] PSYTX PT&/FAMILY 45 MINUTES [facility], [address] [place] [address], [id number], [place] tel:[phone] [facility] [place] Generalized Anxiety DisorderPanic attackMajor depressive disorder, recurrent, mild May-3 1-202 2 Blacksmith Triny. [address] [place], [address], [place]. tel:[phone] PSYTX PT&/FAMILY 30 MINUTES [facility], [address] [place] [address], [id number], [place] tel:[phone] [facility] [place] Generalized Anxiety DisorderPanic attackMajor depressive disorder, recurrent, mild May-3 0-202 2 Blacksmith Triny. [address] [place], [address], [place]. tel:[phone] [facility], [address] [place] [address], [id number], [place] tel:[phone] [facility] [place] Generalized Anxiety DisorderPanic attackMajor depressive disorder, recurrent, mild Nov-2 3-202 1 Blacksmith Triny. [address] [place], [address], [place]. tel:[phone] [facility], [address] [place] [address], [id number], [place] tel:[phone] [facility] [place] Generalized Anxiety DisorderPanic attackMajor depressive disorder, recurrent, mild Aug-2 3-202 1 Blacksmith Triny. [address] [place], [address], [place]. tel:[phone] [facility], [address] [place] [address], [id number], [place] tel:[phone] [facility] [place] Generalized Anxiety DisorderPanic attackMajor depressive disorder, recurrent, mild Aug-2 0-202 1 Blacksmith Triny. [address] [place], [address], [place]. tel:[phone] PREV VISIT, EST, AGE 18-39 [facility], [address] [place] [address], [id number], [place] tel:[phone] Pediatrics Well child (chief complaint) Encounter for general adult medical examination without abnormal findingsGeneral ized Anxiety DisorderBody mass index (BMI) 36.0-36.9, adult Oct-0 1 Ionas Jeanie. [address], [place], [id number]. tel:[phone] [facility], [address] [place] [address], [id number], [place] tel:[phone] [facility] [place] Generalized Anxiety DisorderPanic attackMajor depressive disorder, recurrent, mild 1 Ron Agosto. [address] [place], [address], [place]. tel:[phone] [facility], [address] [place] [address], [id number], [place] tel:[phone] [facility] [place] Generalized Anxiety DisorderPanic attackMajor depressive disorder, recurrent, mild Aug- 1 Ron Agosto. [address] [place], [address], [place]. tel:[phone] OFFICE/OUTPA TIENT VISIT, EST [facility], [address] [place] [address], [id number], [place] tel:[phone] Pediatrics Follow Up of anxiety (chief complaint)F ollow Up of depression (chief complaint) Generalized Anxiety DisorderMajor depressive disorder, recurrent, mildBody mass index (BMI) 37.0-37.9, adult Ellis- 1 Ionas Jeanie. [address], [place], [id number]. tel:[phone] [facility], [address] [place] [address], [id number], [place] tel:[phone] [facility] Generalized Anxiety DisorderPanic attackMajor depressive disorder, recurrent, mild 1 Ron Agosto. [address] [place], [address], [place]. tel:[phone] [facility], [address] [place] [address], [id number], [place] tel:[phone] [facility] [place] Generalized Anxiety DisorderPanic attackMajor depressive disorder, recurrent, mild Apr-2 1-202 1 Elviramitjacoby Agosto. [address] [place], [address], [place]. tel:[phone] [facility], [address] [place] [address], [id number], [place] tel:[phone] [facility] [place] Generalized Anxiety DisorderPanic attackMajor depressive disorder, recurrent, mild Mar-2 1 Elviramitjacoby RabagoTriny. [address] [place], [address], [place]. tel:[phone] [facility], [address] [place] [address], [id number], [place] tel:[phone] [facility] Generalized Anxiety DisorderPanic attackMajor depressive disorder, recurrent, mild Boom- 1 Ron Agosto. [address] [place], [address], [place]. tel:[phone] [facility], [address] [place] [address], [id number], [place] tel:[phone] [facility] [place] Generalized Anxiety DisorderPanic attackMajor depressive disorder, recurrent, mild Boom-0 8 1 Elviramitjacoby Agosto. [address] [place], [address], [place]. tel:[phone] [facility], [address] [place] [address], [id number], [place] tel:[phone] [facility] Generalized Anxiety DisorderPanic attackMajor depressive disorder, recurrent, mild Dec-1 4-202 0 Blacksmith Triny. [address] [place], [address], [place]. tel:[phone] [facility], [address] [place] [address], [id number], [place] tel:[phone] [facility] [place] Generalized Anxiety DisorderPanic attackMajor depressive disorder, recurrent, mild Nov-2 4-202 0 Ron Agosto. [address] [place], [address], [place]. tel:[phone] [facility], [address] [place] [address], [id number], [place] tel:[phone] [facility] Generalized Anxiety DisorderPanic attackMajor depressive disorder, recurrent, mild Nov-1 0-202 0 Ron Agosto. [address] [place], [address], [place]. tel:[phone] [facility], [address] [place] [address], [id number], [place] tel:[phone] [facility] BMI pediatric, greater than or equal to 95% for age Oct-0 6-202 0 Ionas Jeanie. [address], [place], [id number]. tel:[phone] [facility], [address] [place] [address], [id number], [place] tel:[phone] [facility] [place] Generalized Anxiety DisorderPanic attackMajor depressive disorder, recurrent, mild Sep-2 9-202 0 Ron Agosto. [address] [place], [address], [place]. tel:[phone] [facility], [address] [place] [address], [id number], [place] tel:[phone] [facility] Generalized Anxiety DisorderPanic attackMajor depressive disorder, recurrent, mild Sep-2 1-202 0 Ron Agosto. [address] [place], [address], [place]. tel:[phone] OFFICE/OUTPA TIENT VISIT, EST [facility], [address] [place] [address], [id number], [place] tel:[phone] Pediatrics Anxiety (chief complaint) Generalized Anxiety DisorderMajor depressive disorder, recurrent, mildBMI pediatric, greater than or equal to 95% for age Sep- 0 Ionas Jeanie. [address], [place], [id number]. tel:[phone] [facility], [address] [place] [address], [id number], [place] tel:[phone] [facility] Generalized Anxiety DisorderPanic attackMajor depressive disorder, recurrent, mild Oct-3 0 Ron Agosto. [address] [place], [address], [place]. tel:[phone] No Charge Nurse Visit [facility], [address] [place] [address], [id number], [place] tel:[phone] Pediatrics Encounter for immunization Oct- 0 Ionas Jeanie. [address], [place], [id number]. tel:[phone] [facility], [address] [place] [address], [id number], [place] tel:[phone] [facility] [place] Generalized Anxiety DisorderPanic attackMajor depressive disorder, recurrent, mild Oct- 0 Ron Agosto. [address] [place], [address], [place]. tel:[phone] [facility], [address] [place] [address], [id number], [place] tel:[phone] [facility] [place] Generalized Anxiety DisorderPanic attackMajor depressive disorder, recurrent, mild Oct- 0 Ron Agosto. [address] [place], [address], [place]. tel:[phone] OFFICE/OUTPA TIENT VISIT, EST [facility], [address] [place] [address], [id number], [place] tel:[phone] Pediatrics Anxiety (chief complaint) Generalized Anxiety DisorderMajor depressive disorder, recurrent, mildBMI pediatric, greater than or equal to 95% for age Oct- 3-202 0 Ionas Jeanie. [address], [place], [id number]. tel:[phone] PREV VISIT, EST, AGE 12-17 [facility], [address] [place] [address], [id number], [place] tel:[phone] Pediatrics Well child (chief complaint) Encounter for [facility] (well child check) with abnormal findingsGeneral ized Anxiety DisorderMajor depressive disorder, recurrent, mildBMI pediatric, greater than or equal to 95% for age Ashwin-3 0-202 0 Ionas Jeanie. [address], [place], [id number]. tel:[phone] [facility], [address] [place] [address], [id number], [place] tel:[phone] [facility] [place] Generalized Anxiety DisorderPanic attackMajor depressive disorder, recurrent, mild Sep-2 4-202 0 Ron Agosto. [address] [place], [address], [place]. tel:[phone] [facility], [address] [place] [address], [id number], [place] tel:[phone] [facility] [place] Generalized Anxiety DisorderPanic attackMajor depressive disorder, recurrent, mild Sep- 7- 0 Ron Agosto. [address] [place], [address], [place]. tel:[phone] [facility], [address] [place] [address], [id number], [place] tel:[phone] [facility] [place] Generalized Anxiety DisorderPanic attackMajor depressive disorder, recurrent, mild Sep-0 7-202 0 Ron Agosto. [address] [place], [address], [place]. tel:[phone] [facility], [address] [place] [address], [id number], [place] tel:[phone] [facility] [place] Generalized Anxiety DisorderPanic attackMajor depressive disorder, recurrent, mild Ellis-3 0-202 0 Ron Agosto. [address] [place], [address], [place]. tel:[phone] [facility], [address] [place] [address], [id number], [place] tel:[phone] [facility] [place] Generalized Anxiety DisorderPanic attackMajor depressive disorder, recurrent, mild Aug-2 0 Ron Agosto. [address] [place], [address], [place]. tel:[phone] [facility], [address] [place] [address], [id number], [place] tel:[phone] [facility] [place] Generalized Anxiety DisorderPanic attack 0 Ron Agosto. [address] [place], [address], [place]. tel:[phone] OFFICE/OUTPA TIENT VISIT, EST [facility], [address] [place] [address], [id number], [place] tel:[phone] [facility] irregular bleeding (chief complaint)v aginal discharge/i tching (chief complaint) Body mass index (BMI) 35.0-35.9, adultAmenorrhea Vulvar itchingVaginal odorScreening for thyroid disorderScreeni ng for diabetes mellitus Apr- 0 Carl Harley. [address], [place], [id number], [place]. tel:[phone] PREV VISIT, EST, AGE 12-17 [facility], [address] [place] [address], [id number], [place] tel:[phone] Pediatrics Well child (chief complaint) Encntr for routine child health exam w/o abnormal findingsAllergi c rhinitis, unspecifiedBMI pediatric, 5th percentile to less than 85% for age 201 9 Ionas Jeanie. [address], [place], [id number]. tel:[phone] PREV VISIT, EST, AGE 12-17 [facility], [address] [place] [address], [id number], [place] tel:[phone] Pediatrics Well child (chief complaint) Encntr for routine child health exam w/o abnormal findingsBMI pediatric, greater than or equal to 95% for age Ellis-0 8 Ionas Jeanie. [address], [place], [id number]. tel:[phone] OFFICE/OUTPA TIENT VISIT, EST [facility], [address] [place] [address], [id number], [place] tel:[phone] Pediatrics sore throat (chief complaint)f ever (chief complaint) Acute pharyngitis, unspecifiedInfl uenza A 8 [facility] June. [address], [place], [id number], [place]. tel:[phone] OFFICE/OUTPA TIENT VISIT, EST [facility], [address] [place] [address], [id number], [place] tel:[phone] Pediatrics abdominal pain (chief complaint) Generalized abdominal painDiarrhea in pediatric patient 7 Ionas Jeanie. [address], [place], [address]. tel:[phone] OFFICE/OUTPA TIENT VISIT, EST [facility], [address] [place] [address], [id number], [place] tel:[phone] Pediatrics sore throat (chief complaint) Pain in throatDietary counseling and surveillance 7 Jer Iglesias. [address], [place], [id number], [place]. tel:[phone] PREV VISIT, EST, AGE 12-17 [facility], [address] [place] [address], [id number], [place] tel:[phone] Pediatrics Well Child (chief complaint) Encntr for routine child health exam w/o abnormal findingsAbdomin al painDietary counseling and surveillance 4-201 7 Jer Shertt. [address], [place], [id number], [place]. tel:[phone] OFFICE/OUTPA TIENT VISIT, EST [facility], [address] [place] [address], [id number], [place] tel:[phone] Pediatrics fever (chief complaint) FeverAcute upper respiratory infection, unspecified 9201 6 Enrique Bright. [address], [place], [id number], [place]. tel:[phone] [facility], [address] [place] [address], [id number], [place] tel:[phone] Pediatrics Dietary counseling and surveillance 0 5-201 6 Jer Shertt. [address], [place], [id number], [place]. tel:[phone] No Charge Nurse Visit [facility], [address] [place] [address], [id number], [place] tel:[phone] Pediatrics Other Vaccines For Viral Diseses 0 5-201 5 Randle Harris. [address], [place], [id number], [place]. tel:[phone] No Charge Nurse Visit [facility], [address] [place] [address], [id number], [place] tel:[phone] Pediatrics UTI Ellis-0 9-201 5 Randle Harris. [address], [place], [id number], [place]. tel:[phone] OFFICE/OUTPA TIENT VISIT, EST [facility], [address] [place] [address], [id number], [place] tel:[phone] Pediatrics Follow Up of UTI (chief complaint) Dietary surveillance and counselingUTI 0 8-201 5 Jer Harris. [address], [place], [id number], [place]. tel:[phone] No Charge Nurse Visit [facility], [address] [place] [address], [id number], [place] tel:[phone] Pediatrics Painful Urination May-2 2-201 5 Enrique Bright. [address], [place], [id number], [place]. tel:[phone] No Charge Nurse Visit [facility], [address] [place] [address], [id number], [place] tel:[phone] Pediatrics Painful Urination Apr-0 8-201 5 Enrique Bright. [address], [place], [id number], [place]. tel:[phone] OFFICE/OUTPA TIENT VISIT, EST [facility], [address] [place] [address], [id number], [place] tel:[phone] Pediatrics uti (chief complaint) Painful Urination Apr-0 2-201 5 Enrique Bright. [address], [place], [id number], [place]. tel:[phone] No Charge Nurse Visit [facility], [address] [place] [address], [id number], [place] tel:[phone] Pediatrics repeat UA (chief complaint) Painful Urination Dec-3 1-201 4 Enrique Bright. [address], [place], [id number], [place]. tel:[phone] [facility], [address] [place] [address], [id number], [place] tel:[phone] Pediatrics UTI Dec-2 2-201 4 Enrique Bright. [address], [place], [id number], [place]. tel:[phone] OFFICE/OUTPA TIENT VISIT, EST [facility], [address] [place] [address], [id number], [place] tel:[phone] Pediatrics Urinary symptoms (peds) (chief complaint) Painful Urination Dec-1 8-201 4 Enrique Bright. [address], [place], [id number], [place]. tel:[phone] No Charge Nurse Visit [facility], [address] [place] [address], [id number], [place] tel:[phone] Pediatrics nv injection (chief complaint) No Information 4 Jer Iglesias. [address] [place], [place], [id number], [place]. [phone] PREV VISIT, EST, AGE 5-11 [facility], [address] [place] [address], [id number], [place] tel:[phone] Pediatrics Well Child (chief complaint) Well ChildOther Vaccines For Viral DisesesDTP DTaP VacinneNeed for prophylactic vaccination and inoculation against other specified single bacterial diseaseWell Child Ellis- 4 Jer Iglesias. [address] [place], [place], [id number], [place]. [phone] PREV VISIT, EST, AGE 5-11 [facility], [address] [place] [address], [id number], [place] tel:[phone] Pediatrics Well child - 10 Years (chief complaint) Well ChildAllergic rhinitis, cause unspecifiedWell Child Sep- 3 Jer Iglesias. [address] [place], [place], [id number], [place]. [phone] OFFICE/OUTPA TIENT VISIT, EST [facility], [address] [place] [address], [id number], [place] tel:[phone] Pediatrics back pain (chief complaint) Low Back Pain Apr-0 2-201 3 Jer Iglesias. [address] [place], [place], [id number], [place]. [phone] OFFICE/OUTPA TIENT VISIT, EST [facility], [address] [place] [address], [id number], [place] tel:[phone] Pediatrics sore throat (chief complaint) Pharyngitis Dec- 0-201 2 Enrique Bright. [address], [place], [id number], [place]. tel:[phone] OFFICE/OUTPA TIENT VISIT, EST [facility], [address] [place] [address], [id number], [place] tel:[phone] Pediatrics fever (chief complaint) Fever Apr- 2 Jer Shertt. [address], [place], [id number], [place]. tel:[phone] OFFICE/OUTPA TIENT VISIT, [facility], [address] [place] [address], [id number], [place] tel:[phone] Pediatrics short of breath (chief complaint) Influenza VaccineOther symptoms involving respiratory system and chest 1 Lobb Mraco. [address], [place], [id number], [place]. tel:[phone] OFFICE/OUTPA TIENT VISIT, [facility], [address] [place] [address], [id number], [place] tel:[phone] Pediatrics sore throat (chief complaint) Strep ThroatFever 0 1 Rosaslindsey Freitasissa. [address], [place], [id number]. tel:[phone] PREV VISIT, EST, AGE 5-11 [facility], [address] [place] [address], [id number], [place] tel:[phone] Pediatrics HCY (chief complaint) PharyngitisWell Child May- 0 1 Lobb Marco. [address], [place], [id number], [place]. tel:[phone] OFFICE/OUTPA TIENT VISIT, EST [facility], [address] [place] [address], [id number], [place] tel:[phone] Pediatrics sore throat (chief complaint) Otitis Media UnspecifiedSore Throat - 1 Lobb Marco. [address], [place], [id number], [place]. tel:[phone] PREV VISIT, [facility], AGE 5-11 [facility], [address] [place] [address], [id number], [place] tel:[phone] Pediatrics well visit (chief complaint) Routine infant or child health check May-0 3-201 0 Lobb Marco. [address], [place], [id number], [place]. tel:[phone] [facility], [address] [place] [address], [id number], [place] tel:[phone] Pediatrics No Information Apr-2 9-201 0 Lobb Marco. [address], [place], [id number], [place]. tel:[phone] [facility], [address] [place] [address], [id number], [place] tel:[phone] Pediatrics vomiting (chief complaint)f ever (chief complaint)d iarrhea (chief complaint) No Information Apr- 2-201 0 Alison Fajardo. [address], [place], [id number]. tel:[phone] OFFICE/OUTPA TIENT VISIT, EST [facility], [address] [place] [address], [id number], [place] tel:[phone] Pediatrics No Information Sep-0 8-200 9 Rosas Tana. [address], [place], [id number]. tel:[phone] PREV VISIT, EST, AGE 5-11 [facility], [address] [place] [address], [id number], [place] tel:[phone] Pediatrics No Information Apr-2 4-200 9 Lobb Marco. [address], [place], [id number], [place]. tel:[phone] [facility], [address] [place] [address], [id number], [place] tel:[phone] Pediatrics No Information Apr-0 1-200 9 Ionas Jeanie. [address], [place], [id number]. tel:[phone] OFFICE/OUTPA TIENT VISIT, EST [facility], [address] [place] [address], [id number], [place] tel:[phone] Pediatrics No Information May- 2200 9 Lobb Marco. [address], [place], [id number], [place]. tel:[phone] OFFICE/OUTPA TIENT VISIT, [facility], [address] [place] [address], [id number], [place] tel:[phone] Pediatrics No Information May-0 2-200 9 Lobb Marco. [address] [place], [id number], [place]. tel:[phone] Family History Family Member Type Diagnosis Age [...] Problem anxiety state Maternal uncle Problem (finding) [place]'s disease Mother Problem (finding) Gestational diabetes Sister [...] Unspecified Payers Payer name Insurance type Covered green party ID Authoriza tion(s) [employer] [place] BL [id number] Cigna CI [id number] Cigna CI [id number] Healthlink PPO CI [id number] Social History Type Description Quantity Date Captured Comments Alcohol Use Details Unknown Caffeine Use Details Unknown Tobacco Use Status No Information Smoking Status No Information Sex Female Sexual Orientation Straight or heterosexual Gender Identity Female Chief Complaint And Reason For Visit No Information Reason For Referral Reason For Referral No Information Plan Of Treatment Date Type Action Status Goal BMI Plan. Due on due Goal Fall Risk Plan. Due on due Goal Depression scree teresa. Due on due Goal HPV (2nd) due Goal Pre-Diabetes Scr eener. Due on due Goal Lipid panel. Due on 043 due Goal HPV. Due on due Goal Glucose. Due on due Goal Td vaccine. Due on 25 due Goal Annual Physical Exam. Due on due Goal PPD (TST). Due on due Goal SBIRT. Due on du e Goal Influenza vaccine. Due on due Goal Pap Image Guided , rfx HPV all pth. Due on due Goal PHQ9. Due on due Goal Eye Exam. Due on due Goal Tdap. Due on due Goal HPV (3rd) due Goal Hepatitis C scre ening. Due on due Goal Dental exam. Due on due Goal Chlamydia/GC Amp lification. Due on due Goal HPV (1st) due Goal Annual Physical Exam. Due on due Goal Tdap. Due on due Goal HPV. Due on due Goal Glucose. Due on due Goal Td vaccine. Due on due Goal PPD (TST). Due on due Goal Hepatitis C scre ening. Due on due Goal Dental exam. Due on due Goal HPV (3rd) due Goal HPV (2nd) due Goal Influenza vaccine. Due on due Goal SBIRT. Due on du e Goal Chlamydia/GC Amp lification. Due on due Goal PHQ9. Due on due Goal Pap Image Guided , rfx HPV all pth. Due on due Goal Lipid panel. Due on due Goal Depression scree teresa. Due on due Goal HPV (1st) due Goal Pre-Diabetes Scr eener. Due on due Goal Fall Risk Plan. Due on due Goal Chlamydia/GC Amp lification. Due on due Goal Fall Risk Plan. Due on due Goal HPV (2nd) due Goal Annual Physical Exam. Due on due Goal Pap Image Guided , rfx HPV all pth. Due on due Goal Glucose. Due on due Goal Td vaccine. Due on due Goal Tdap. Due on due Goal PHQ9. Due on due Goal HPV (1st) due Goal HPV (3rd) due Goal Dental exam. Due on due Goal Depression scree teresa. Due on due Goal Lipid panel. Due on due Goal Influenza vaccine. Due on due Goal HPV. Due on due Goal Pre-Diabetes Scr eener. Due on due Goal SBIRT. Due on du e Goal PPD (TST). Due on due Goal Hepatitis C scre ening. Due on due Goal Influenza vaccine. Due on due Goal HPV. Due on due Goal Dental exam. Due on due Goal PHQ9. Due on due Goal Pre-Diabetes Scr eener. Due on due Goal Td vaccine. Due on due Goal Glucose. Due on due Goal Fall Risk Plan. Due on due Goal Lipid panel. Due on due Goal Depression scree teresa. Due on due Goal Pap Image Guided , rfx HPV all pth. Due on due Goal SBIRT. Due on du e Goal PPD (TST). Due on due Goal HPV (1st) due Goal HPV (3rd) due Goal Annual Physical Exam. Due on due Goal Chlamydia/GC Amp lification. Due on due Goal Hepatitis C scre ening. Due on due Goal Tdap. Due on due Goal HPV (2nd) due Goal Lifestyle education regardin g diet completed [...] g diet completed Referral Referred To: [facility] Ordered: Referrals: [facility]. Assume care Appointment date/timeframe: 06/17/2023 ordered Referral Referred To: [address]ra [address], [facility] [place], [place], [id number] Ordered: Referrals: Pit Steward. Enrique Y[address]ra RD. Evaluate and treat ordered Referral Ordered: US Kidney/Bladder Bilateral ordered Future Order: Lab Order Influenz a A & B (29552), Appointment on: Ordered Future Order: Lab Order [...] Date Complaint History Of Prese nt Illness chronic conditions *See Chronic Conditions HPI PMDD follow up Did not begin OC [...] *See Chronic Conditions Template establish care Patient [facility] care with Kasandra today. Student at [employer]. History of anxiety/depression/ADHD. depression This is an [...] medications here but will refer to [facility] as soon as possible. She returns to [...] confirming consent. Pt is in college in [place] and provider in office. Follow up on [...] late but had just been dx with Bryant. Periods are regular lasting a few days. [...] did start daily physical activity at the [facility] vaginal discharge/itching Her sy mptoms began 2 [...] gained 10 pounds back. Is in track. Grandma has hyperthyroidism. It was normal 3 years [...] trouble breathing [place] Well child doing well; no [...] having some belly pain with certain foods (Polish, Upper Sorbian, certain cereals). No straining with stooling, hard [...] and bm.unsure about amoxicillin allergy. Travelling to [place] tomorrow. fever Follow Up of UTI Additional info rmation: Had been having burning with urination. [place] the need to go a lot. 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 Went to ER at school 4 days ago Related to Thoughts of self-harm May begin OCP when less overwhel med Related to PMDD (premenstrual dysphoric disorder) [facility] Has psychiatrist and counselor at school. Needs referral to PCP DEONTE for mediation management. Did not do well on Sertraline. Has not been taking Fluoxetine. The Methyphenidate is working well. Will refer to [facility] for med management. Keep appointment with VEHICLE ASSEMBLY INSPECTOR as scheduled. 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 Recommend beginning the Norma control for irregular periods and PMDD. Consider NuvaRing if any problems. Can skip periods with either control. Will follow up during summer break Related to Insulin resistance Giving encouragement to exercise Related to Body mass index [BMI] 40.0-44.9, adult Lifestyle education regarding di et Related to Body mass index [BMI] 40.0-44.9, adult Lifestyle education regarding di et Related to Body mass index [BMI] 40.0-44.9, adult Giving encouragement to exercise Related to Body mass index [BMI] 40.0-44.9, adult Pt to reach out to f Bannerman director financial services at [employer] to determine ingredients in food safety officer to assist increasing her variety of foods.Contact [facility] dietitian to meet regularly related to disordered [...] at the same time. Continue counseling on [place] and recommend restarting Prozac. Will follow up [...] [BMI] 40.0-44.9, adult Will begin with yani d work and follow up in 2 weeks [...] or equal to 95th percentile for age Age appropriate safe ty discussed (15-21 years) Related to Encntr for routine child health exam w/o abnormal findings Age appropriate diet discussed (15-21 years) Related to Encntr for routine child health exam w/o abnormal findings Age appropriate anti cipatory guidance discussed (15-21 years) Related to Encntr for routine child health exam w/o abnormal findings Oral Health Discussed (15-21 yea rs) Related to Encntr for routine child health exam w/o abnormal findings May take tylenol and motrin as needed [...] function. Related to Dietary counseling and surveillance Age appropriate anti cipatory guidance discussed (11-14 years) Related to Encntr for routine child health exam w/o abnormal findings Age appropriate diet discussed (11-14 years) Related [...] Related t o Dietary counseling and surveillance Based on exam, proba radha viral URI. [...] culture results. since she is going to [place] , we will start keflex and if [...] Urination Age appropriate anti cipatory guidance discussed (- years) Related to routine /child health checkup Age appropriate diet discussed (-) Related to routine /child health checkup Age appropriate safe ty discussed (-) Related to routine /child health checkup Oral Health Discussed (02-05 yea rs) Related to routine infant/child health checkup Age appropriate safety discussed Related to routine infant/child health checkup Age approriate antic ipatory guidance discussed Related to routine /child health checkup Encourage playing outside Assessments Type Assessment Date No Information Patient Care Teams Name Effective Dates (start - stop) Status Members No Information
--- OUTSIDE RECORDS SUMMARY | 2024-06-29 03:26 | XMS_ITS ---
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 Osteopathic manipulative treatment was recommended to be performed to address those somatic dysfunctions found today. Patient would like to proceed with OMT today OMM Established patient with Ananda Menon DO 07/19/2023 Last Documented On 4 5:27PM ; [facility] Ordered follow-up visit in 1 -2 weeks for reevaluation or as needed OMM Established patient with Uvaldo Jauregui DO 06/20/2023 Last Documented On 4 2:45PM ; [facility] Requested osteopathic manipu lative treatment (OMT) - Somatic dysfunction was found on today's physical examination which was likely contributing to the patient's complaints. Osteopathic manipulative treatment was recommended to be performed to address those somatic dysfunctions found today. Patient would like to proceed with OMT today OM Established patient with Uvaldo Jauregui DO 06/20/2023 Last Documented On 4 2:45PM ; [facility] Ordered follow-up visit in 2 -3 weeks for reevaluation or as needed OM Established patient with Ananda Sinan DO 04/17/2023 Last Documented On 4 7:56AM ; [facility] Requested osteopathic manipu lative treatment (OMT) - Somatic dysfunction was found on today's physical examination which was likely contributing to the patient's complaints. Osteopathic manipulative treatment was recommended to be performed to address those somatic dysfunctions found today. Patient would like to proceed with OMT today OM Established patient with Ananda Sinan DO 04/17/2023 Last Documented On 4 7:56AM ; [facility] Ordered follow-up visit in 2 -3 weeks for reevaluation or as needed OM Established patient with Ananda Sinan DO 04/04/2023 Last Documented On 4 12:48PM ; [facility] Requested osteopathic manipu lative treatment (OMT) - Somatic dysfunction was found on today's physical examination which was likely contributing to the patient's complaints. Osteopathic manipulative treatment was recommended to be performed to address those somatic dysfunctions found today. Patient would like to proceed with OMT today OM Established patient with Ananda Sinan DO 04/04/2023 Last Documented On 4 12:48PM ; [facility] Ordered follow-up visit in 2 -3 weeks for reevaluation or as needed OM Established patient with Ananda Sinan DO 03/22/2023 Last Documented On 3 4:00PM ; [facility] Requested osteopathic manipu lative treatment (OMT) - Somatic dysfunction was found on today's physical examination which was likely contributing to the patient's complaints. Osteopathic manipulative treatment was recommended to be performed to address those somatic dysfunctions found today. Patient would like to proceed with OMT today OM Established patient with Ananda Sinan DO 03/22/2023 Last Documented On 3 4:00PM ; [facility] The patient was educated on using a [...] Last Documented On 3 11:27AM ; [facility] Ordered follow-up visit in 3 -4 weeks for reevaluation or as needed OMM Established patient with Alexis Ko DO 03/14/2023 Last Documented On 3 11:27AM ; [facility] Ordered return to the clinic if condition worsens or new symptoms arise OMM Established patient with Alexis Ko DO 03/14/2023 Last Documented On 3 11:27AM ; [facility] Requested counter strain therapy OMM Est ablished patient with Alexis Ko DO 03/14/2023 Last Documented On 3 11:27AM ; [facility] Requested muscle energy therapy OMM Esta blished patient with Alexis Ko DO 03/14/2023 Last Documented On 3 11:27AM ; [facility] Requested osteopathic manipu lative treatment (OMT) - Somatic dysfunction was found on today's physical examination which was likely contributing to the patient's complaints. Osteopathic manipulative treatment was recommended to be performed to address those somatic dysfunctions found today. Patient would like to proceed with OMT today OMM Established patient with Alexis Ko DO 03/14/2023 Last Documented On 3 11:27AM ; [facility] Requested osteopathic manipu lative treatment (OMT) involving three to four body regions OMM Established patient with Alexis Ko DO 03/14/2023 Last Documented On 3 11:27AM ; [facility] Ordered return to the clinic if condition worsens or new symptoms arise OMM Established patient with Ananda Menon DO 11/12/2022 Last Documented On 3 5:01PM ; [facility] Requested osteopathic manipu lative treatment (OMT) - Somatic dysfunction was found on today's physical examination which was likely contributing to the patient's complaints. Osteopathic manipulative treatment was recommended to be performed to address those somatic dysfunctions found today. Patient would like to proceed with OMT today OMM Established patient with Ananda Menon DO 11/12/2022 Last Documented On 3 5:01PM ; [facility] Ordered follow-up visit in 3 -4 weeks for reevaluation or as needed OMM Established patient with Ananda Menon DO 10/29/2022 Last Documented On 3 5:10PM ; [facility] Requested osteopathic manipu lative treatment (OMT) - Somatic dysfunction was found on today's physical examination which was likely contributing to the patient's complaints. Osteopathic manipulative treatment was recommended to be performed to address those somatic dysfunctions found today. Patient would like to proceed with OMT today OM Established patient with Ananda Menon DO 10/29/2022 Last Documented On 3 5:10PM ; [facility] Ordered follow-up visit in 3 -4 weeks for reevaluation or as needed OM Established patient with Ananda Menon DO 08/30/2022 Last Documented On 3 4:50PM ; [facility] Requested osteopathic manipu lative treatment (OMT) - Somatic dysfunction was found on today's physical examination which was likely contributing to the patient's complaints. Osteopathic manipulative treatment was recommended to be performed to address those somatic dysfunctions found today. Patient would like to proceed with OMT today OM Established patient with Ananda Menon DO 08/30/2022 Last Documented On 3 4:50PM ; [facility] General outcomes - Symptoms improved after OMT OM Established patient with Yu Michelle DO 04/14/2021 Last Documented On 2 12:05PM ; [facility] Ordered follow-up visit in 4 -6 weeks or as needed OM Established patient with Yu Michelle DO 04/14/2021 Last Documented On 2 12:05PM ; [facility] Requested osteopathic manipu lative treatment (OMT) - Somatic dysfunction was found on today's physical examination which was likely contributing to the patient's complaints. Osteopathic manipulative treatment was performed to address those somatic dysfunctions found today OMM Established patient with Yu Michelle DO 04/14/2021 Last Documented On 2 12:05PM ; [facility] General outcomes - Symptoms improved after OMT OMM Established patient with Yu Michelle DO 03/31/2021 Last Documented On 2 3:20PM ; [facility] Ordered follow-up visit in 2 -3 weeks or as needed OMM Established patient with Yu Michelle DO 03/31/2021 Last Documented On 2 3:20PM ; [facility] Requested osteopathic manipu lative treatment (OMT) - Somatic dysfunction was found on today's physical examination which was likely contributing to the patient's complaints. Osteopathic manipulative treatment was performed to address those somatic dysfunctions found today [facility] Established patient with Yu Michelle DO 03/31/2021 Last Documented On 2 3:20PM ; [facility] Education and Decision Aids were provided during visit for: Hot showers and rest. No hea vy lifting or excercize for 24-48 hours. Discussed that this type of trauma takes a toll on the whole body and musckuloskeletal system Last Documented On 4 2:42PM ; [facility] Assessments Includes: Assessments for all patient encounters Findings Encounter Date Cervicalgia OMM Established patient with Tri vicky Sinan DO 07/19/2023 Last Documented On 4 5:27PM ; [facility] Somatic dysfunction of cervi nixon region OMM Established patient with Ananda Sinan DO 07/19/2023 Last Documented On 4 5:27PM ; [facility] Somatic dysfunction of lumbar region OMM Established patient with Ananda Sinan DO 07/19/2023 Last Documented On 4 5:27PM ; [facility] Somatic dysfunction of rib cage OMM Esta blished patient with Ananda Sinan DO 07/19/2023 Last Documented On 4 5:27PM ; [facility] Somatic dysfunction of the h ead region OMM Established patient with Ananda Sinan DO 07/19/2023 Last Documented On 4 5:27PM ; [facility] Somatic dysfunction of thora cic region OMM Established patient with Ananda Sinan DO 07/19/2023 Last Documented On 4 5:27PM ; [facility] Vertebrogenic low back pain OMM Established pushpa ent with Ananda Sinan DO 07/19/2023 Last Documented On 4 5:27PM ; [facility] Cervicalgia OMM Established patient with Leo rene Shania DO 06/20/2023 Last Documented On 4 2:45PM ; [facility] Pain in thoracic spine OMM Established patient w ith Uvaldo Shania DO 06/20/2023 Last Documented On 4 2:45PM ; [facility] Somatic dysfunction of cervi nixon region OMM Established patient with Uvaldo Shania DO 06/20/2023 Last Documented On 4 2:45PM ; [facility] Somatic dysfunction of lumbar region OMM Established patient with Uvaldo Shania DO 06/20/2023 Last Documented On 4 2:45PM ; [facility] Somatic dysfunction of pelvic region OMM Established patient with Uvaldo Shania DO 06/20/2023 Last Documented On 4 2:45PM ; [facility] Somatic dysfunction of rib cage OMM Esta blished patient with Uvaldo Shania DO 06/20/2023 Last Documented On 4 2:45PM ; [facility] Somatic dysfunction of the h ead region OMM Established patient with Uvaldo Shania DO 06/20/2023 Last Documented On 4 2:45PM ; [facility] Somatic dysfunction of thora cic region OMM Established patient with Uvaldo Shaina DO 06/20/2023 Last Documented On 4 2:45PM ; [facility] Somatic dysfunction of upper extremities OMM Established patient with Uvaldo Shania DO 06/20/2023 Last Documented On 4 2:45PM ; [facility] Vertebrogenic low back pain OMM Establis hed patient with Uvaldo Shania DO 06/20/2023 Last Documented On 4 2:45PM ; [facility] Moderate depression OMM Established patient with Ananda Sinan DO 04/17/2023 Last Documented On 4 7:56AM ; [facility] Myofascial pain syndrome of neck OMM Est ablished patient with Ananda Sinan DO 04/17/2023 Last Documented On 4 7:56AM ; [facility] Somatic dysfunction of cervi nixon region OMM Established patient with Ananda Sinan DO 04/17/2023 Last Documented On 4 7:56AM ; [facility] Somatic dysfunction of lumbar region OMM Established patient with Ananda Sinan DO 04/17/2023 Last Documented On 4 7:56AM ; [facility] Somatic dysfunction of pelvic region OMM Established patient with Ananda Sinan DO 04/17/2023 Last Documented On 4 7:56AM ; [facility] Somatic dysfunction of rib cage OMM Esta blished patient with Ananda Sinan DO 04/17/2023 Last Documented On 4 7:56AM ; [facility] Somatic dysfunction of sacrum OMM Establ ished patient with Ananda Sinan DO 04/17/2023 Last Documented On 4 7:56AM ; [facility] Somatic dysfunction of the h ead region OMM Established patient with Ananda Sinan DO 04/17/2023 Last Documented On 4 7:56AM ; 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 OMM Established patient with Ananda Sinan DO 04/17/2023 Last Documented On 4 7:56AM ; [facility] Arthralgia of the right pelvis/hip/femur OMM Established patient with Ananda Sinan DO 04/04/2023 Last Documented On 4 12:48PM ; [facility] Myofascial pain syndrome of neck OMM Est ablished patient with Ananda Sinan DO 04/04/2023 Last Documented On 4 12:48PM ; [facility] Somatic dysfunction of cervi nixon region OMM Established patient with Ananda Sinan DO 04/04/2023 Last Documented On 4 12:48PM ; [facility] Somatic dysfunction of lumbar region OMM Established patient with Ananda Sinan DO 04/04/2023 Last Documented On 4 12:48PM ; [facility] Somatic dysfunction of pelvic region OMM Established patient with Ananda Sinan DO 04/04/2023 Last Documented On 4 12:48PM ; [facility] Somatic dysfunction of rib cage OMM Esta blished patient with Ananda Sinan DO 04/04/2023 Last Documented On 4 12:48PM ; [facility] Somatic dysfunction of sacrum OMM Establ ished patient with Ananda Sinan DO 04/04/2023 Last Documented On 4 12:48PM ; [facility] Somatic dysfunction of the h ead region OMM Established patient with Ananda Sinan DO 04/04/2023 Last Documented On 4 12:48PM ; [facility] Somatic dysfunction of thora cic region OMM Established patient with Ananda Sinan DO 04/04/2023 Last Documented On 4 12:48PM ; [facility] Vertebrogenic low back pain OMM Established pushpa ent with Ananda Sinan DO 04/04/2023 Last Documented On 4 12:48PM ; [facility] Arthralgia of the right pelvis/hip/femur OMM Established patient with Ananda Sinan DO 03/22/2023 Last Documented On 3 4:00PM ; [facility] Myofascial pain syndrome of lower back OMM Established patient with Ananda Sinan DO 03/22/2023 Last Documented On 3 4:00PM ; [facility] Somatic dysfunction of cervi nixon region OMM Established patient with Ananda Sinan DO 03/22/2023 Last Documented On 3 4:00PM ; [facility] Somatic dysfunction of lumbar region OMM Established patient with Ananda Sinan DO 03/22/2023 Last Documented On 3 4:00PM ; [facility] Somatic dysfunction of pelvic region OMM Established patient with Ananda Sinan DO 03/22/2023 Last Documented On 3 4:00PM ; [facility] Somatic dysfunction of rib cage OMM Esta blished patient with Ananda Sinan DO 03/22/2023 Last Documented On 3 4:00PM ; [facility] Somatic dysfunction of sacrum OMM Establ ished patient with Ananda Sinan DO 03/22/2023 Last Documented On 3 4:00PM ; [facility] Somatic dysfunction of the h ead region OMM Established patient with Ananda Sinan DO 03/22/2023 Last Documented On 3 4:00PM ; [facility] Somatic dysfunction of thora cic region OMM Established patient with Ananda Sinan DO 03/22/2023 Last Documented On 3 4:00PM ; [facility] Arthralgia of right sacroiliac joint OMM Established patient with Alexis Boruch DO 03/14/2023 Last Documented On 3 11:27AM ; [facility] Pain in thoracic spine OMM Established patient w ith Alexis Boruch DO 03/14/2023 Last Documented On 3 11:27AM ; [facility] Somatic dysfunction of lumbar region OMM Established patient with Alexis Boruch DO 03/14/2023 Last Documented On 3 11:27AM ; [facility] Somatic dysfunction of pelvic region OMM Established patient with Alexis Boruch DO 03/14/2023 Last Documented On 3 11:27AM ; [facility] Somatic dysfunction of sacrum OMM Established pa tient with Alexis Boruch DO 03/14/2023 Last Documented On 3 11:27AM ; [facility] Somatic dysfunction of thora cic region OMM Established patient with Alexis Boruch DO 03/14/2023 Last Documented On 3 11:27AM ; [facility] Vertebrogenic low back pain OMM Established pushpa ent with Alexis Boruch DO 03/14/2023 Last Documented On 3 11:27AM ; [facility] Arthralgia of both sacroiliac joints OMM Established patient with Ananda Sinan DO 11/12/2022 Last Documented On 3 5:01PM ; [facility] Lumbar strain OMM Established patient with Tri vicky Sinan DO 11/12/2022 Last Documented On 3 5:01PM ; [facility] Myofascial pain syndrome of lower back OMM Established patient with Ananda Sinan DO 11/12/2022 Last Documented On 3 5:01PM ; [facility] Somatic dysfunction of cervi nixon region OMM Established patient with Ananda Sinan DO 11/12/2022 Last Documented On 3 5:01PM ; [facility] Somatic dysfunction of lumbar region OMM Established patient with Ananda Sinan DO 11/12/2022 Last Documented On 3 5:01PM ; [facility] Somatic dysfunction of pelvic region OMM Established patient with Ananda Sinan DO 11/12/2022 Last Documented On 3 5:01PM ; [facility] Somatic dysfunction of rib cage OMM Esta blished patient with Ananda Sinan DO 11/12/2022 Last Documented On 3 5:01PM ; [facility] Somatic dysfunction of sacrum OMM Establ ished patient with Ananda Sinan DO 11/12/2022 Last Documented On 3 5:01PM ; [facility] Somatic dysfunction of the h ead region OMM Established patient with Ananda Sinan DO 11/12/2022 Last Documented On 3 5:01PM ; [facility] Somatic dysfunction of thora cic region OMM Established patient with Ananda Sinan DO 11/12/2022 Last Documented On 3 5:01PM ; [facility] Vertebrogenic low back pain OMM Established pushpa ent with Ananda Sinan DO 11/12/2022 Last Documented On 3 5:01PM ; [facility] Arthralgia of the left pelvis/hip/femur OMM Established patient with Ananda Sinan DO 10/29/2022 Last Documented On 3 5:10PM ; [facility] Arthralgia of the right pelvis/hip/femur OMM Established patient with Ananda Sinan DO 10/29/2022 Last Documented On 3 5:10PM ; [facility] Intercostal pain OMM Established patient with Tr istan Sinan DO 10/29/2022 Last Documented On 3 5:10PM ; [facility] Myofascial pain syndrome of lumbar spine OMM Established patient with Ananda Sinan DO 10/29/2022 Last Documented On 3 5:10PM ; [facility] Somatic dysfunction of cervi nixon region OMM Established patient with Ananda Sinan DO 10/29/2022 Last Documented On 3 5:10PM ; [facility] Somatic dysfunction of lumbar region OMM Established patient with Ananda Sinan DO 10/29/2022 Last Documented On 3 5:10PM ; [facility] Somatic dysfunction of pelvic region OMM Established patient with Ananda Sinan DO 10/29/2022 Last Documented On 3 5:10PM ; [facility] Somatic dysfunction of rib cage OMM Esta blished patient with Ananda Sinan DO 10/29/2022 Last Documented On 3 5:10PM ; [facility] Somatic dysfunction of sacrum OMM Establ ished patient with Ananda Sinan DO 10/29/2022 Last Documented On 3 5:10PM ; [facility] Somatic dysfunction of the h ead region OMM Established patient with Ananda Sinan DO 10/29/2022 Last Documented On 3 5:10PM ; [facility] Somatic dysfunction of thora cic region OMM Established patient with Ananda Sinan DO 10/29/2022 Last Documented On 3 5:10PM ; [facility] Vertebrogenic low back pain OMM Established pushpa ent with Ananda Sinan DO 10/29/2022 Last Documented On 3 5:10PM ; [facility] Arthralgia of the left pelvis/hip/femur OMM Established patient with Ananda Sinan DO 10/10/2022 Last Documented On 3 9:28AM ; [facility] Arthralgia of the right pelvis/hip/femur OMM Established patient with Ananda Sinan DO 10/10/2022 Last Documented On 3 9:28AM ; [facility] Myofascial pain syndrome of lower back OMM Established patient with Ananda Sinan DO 10/10/2022 Last Documented On 3 9:28AM ; [facility] Somatic dysfunction of cervi nixon region OMM Established patient with Ananda Sinan DO 10/10/2022 Last Documented On 3 9:28AM ; [facility] Somatic dysfunction of lumbar region OMM Established patient with Ananda Sinan DO 10/10/2022 Last Documented On 3 9:28AM ; [facility] Somatic dysfunction of pelvic region OMM Established patient with Ananda Sinan DO 10/10/2022 Last Documented On 3 9:28AM ; [facility] Somatic dysfunction of rib cage OMM Esta blished patient with Ananda Sinan DO 10/10/2022 Last Documented On 3 9:28AM ; [facility] Somatic dysfunction of rib cage OMM Esta blished patient with Ananda Sinan DO 10/10/2022 Last Documented On 3 9:28AM ; [facility] Somatic dysfunction of sacrum OMM Establ ished patient with Ananda Sinan DO 10/10/2022 Last Documented On 3 9:28AM ; [facility] Somatic dysfunction of the h ead region OMM Established patient with Ananda Sinan DO 10/10/2022 Last Documented On 3 9:28AM ; [facility] Somatic dysfunction of thora cic region OMM Established patient with Ananda Sinan DO 10/10/2022 Last Documented On 3 9:28AM ; [facility] Vertebrogenic low back pain OMM Established pushpa ent with Ananda Sinan DO 10/10/2022 Last Documented On 3 9:28AM ; [facility] Cervicalgia OMM Established patient with Tri vicky Sinan DO 08/30/2022 Last Documented On 3 4:50PM ; [facility] Somatic dysfunction of cervi nixon region OMM Established patient with Ananda Sinan DO 08/30/2022 Last Documented On 3 4:50PM ; [facility] Somatic dysfunction of lumbar region OMM Established patient with Ananda Sinan DO 08/30/2022 Last Documented On 3 4:50PM ; [facility] Somatic dysfunction of pelvic region OMM Established patient with Ananda Sinan DO 08/30/2022 Last Documented On 3 4:50PM ; [facility] Somatic dysfunction of rib cage OMM Esta blished patient with Ananda Sinan DO 08/30/2022 Last Documented On 3 4:50PM ; [facility] Somatic dysfunction of sacrum OMM Establ ished patient with Ananda Sinan DO 08/30/2022 Last Documented On 3 4:50PM ; [facility] Somatic dysfunction of the h ead region OMM Established patient with Ananda Sinan DO 08/30/2022 Last Documented On 3 4:50PM ; [facility] Somatic dysfunction of thora cic region OMM Established patient with Ananda Sinan DO 08/30/2022 Last Documented On 3 4:50PM ; [facility] Vertebrogenic low back pain OMM Established pushpa ent with Ananda Sinan DO 08/30/2022 Last Documented On 3 4:50PM ; [facility] Cervicalgia OMM Established patient with Farhana crystal DiNizio DO 04/14/2021 Last Documented On 2 12:05PM ; [facility] Congenital shortening of lower limb OMM Established patient with Yu DiNizio DO 04/14/2021 Last Documented On 2 12:05PM ; [facility] Low back pain OMM Established patient with Farhana crystal DiNizio DO 04/14/2021 Last Documented On 2 12:05PM ; [facility] Somatic dysfunction of cervi nixon region OMM Established patient with Yu DiNizio DO 04/14/2021 Last Documented On 2 12:05PM ; [facility] Somatic dysfunction of lower extremities OMM Established patient with Yu DiNizio DO 04/14/2021 Last Documented On 2 12:05PM ; [facility] Somatic dysfunction of lumbar region OMM Established patient with Yu DiNizio DO 04/14/2021 Last Documented On 2 12:05PM ; [facility] Somatic dysfunction of pelvic region OMM Established patient with Yu DiNizio DO 04/14/2021 Last Documented On 2 12:05PM ; [facility] Somatic dysfunction of sacrum OMM Establ ished patient with Yu DiNizio DO 04/14/2021 Last Documented On 2 12:05PM ; [facility] Somatic dysfunction of the h ead region OMM Established patient with Yu DiNizio DO 04/14/2021 Last Documented On 2 12:05PM ; [facility] Somatic dysfunction of thora cic region OMM Established patient with Yu DiNizio DO 04/14/2021 Last Documented On 2 12:05PM ; [facility] [facility] Somatic dysfunction of upper extremities OMM Established patient with Yu DiNnatalieio DO 04/14/2021 Last Documented On 2 12:05PM ; [facility] Congenital shortening of lower limb OMM Established patient with Yu DiNizio DO 03/31/2021 Last Documented On 2 3:20PM ; [facility] Somatic dysfunction of lumbar region OMM Established patient with Yu DiNnatalieio DO 03/31/2021 Last Documented On 2 3:20PM ; [facility] Somatic dysfunction of pelvic region OMM Established patient with Yu DiNnatalieio DO 03/31/2021 Last Documented On 2 3:20PM ; [facility] Somatic dysfunction of sacrum OMM Establ ished patient with Yu DiNnatalieio DO 03/31/2021 Last Documented On 2 3:20PM ; [facility] Somatic dysfunction of thora cic region OMM Established patient with Yu DiNnatalieio DO 03/31/2021 Last Documented On 2 3:20PM ; [facility] Instructions Includes: Instructions for all patient encounters Education and Decision Aids were provided during visit for: Hot showers and rest. No hea vy lifting or excercize for 24-48 hours. Discussed that this type of trauma takes a toll on the whole body and musckuloskeletal system Last Documented On 4 2:42PM ; [facility] Medical Equipment - Implanted Devices Includes: Current [...] 4 3:43PM By Betty Mahan ; [facility] FLUoxetine HCl 20 MG Oral Capsule 03/31/2021 Provide r: Diagnosis: Last Documented On 3 2:06PM By Barb Lee CCS ; [facility] Past Medications on file ZyrTEC Allergy 10 MG Oral Tablet 03/31/2021 - 06/20/19 24 Provider: Diagnosis: Last Documented On 4 3:42PM By Betty Mahan ; [facility] Medications Administered Includes: Administered Medications in patient's chart No Administered Medications Recorded Vital Signs Includes: Vital Signs from 06/30/2023 through 06/29/2024 Vital Name 07/19/2023 04:01P Blood Pressure Sitting L 120/70 BP Cuff Size Large Pulse Rate-Sitting (bpm) 106 Pulse Rhythm Regular Respiration Rate (breaths/min) 18 Oxygen Saturation (%) 98 Flow Rate (l/min) (None (Room Air)) FiO2 (%) 21 Last Documented: On 07/19/2023 4:02PM ; [facility] Results Includes: Results from 06/30/2023 through 06/29/2024 No Results Recorded For Specified Dates History of Present Illness History of Present Illness not supported for this document type No History of Present Illness Recorded Social History Description Last Updated Right Handed 03/31/2021 Last Documented On 2 3:20PM ; [facility] 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/2021 Last Documented On 2 3:20PM ; [facility] Daily coffee consumption was one cups pe r day 03/31/2021 Last Documented On 2 3:20PM ; [facility] Never drank alcohol 03/31/2021 Last Documented On 2 3:20PM ; [facility] Non-smoker 03/31/2021 Last Documented On 2 3:20PM ; [facility] Not using drugs 03/31/2021 Last Documented On 2 3:20PM ; [facility] Single 03/31/2021 Last Documented On 2 3:20PM ; [facility] Smoking Status Unknown Procedures and Surgical History Includes: Procedures from 06/30/2023 through 06/29/2024 Procedures Code Diagnosis Performing Provider Service Location Service Date OSTEOPATHIC MANIP 5-6 AREAS [address] Segmental and somatic dysfunction of cervical region, Segmental and somatic dysfunction of rib cage, Segmental and somatic dysfunction of thoracic region, Segmental and somatic dysfunction of lumbar region Ananda Menon DO OMM 07/19/2023 Last Documented On 4 7:02AM ; [facility] Surgical History Last Updated No prior surgery or no significant histo ry 03/31/2021 Last Documented On 2 3:20PM ; [facility] History of treatment of foot fracture - Boot (2016) 03/31/2021 Last Documented On 2 3:20PM ; [facility] Medical History Includes: Medical History in patient's chart Description Last Updated Past medical history reviewed - Previous encounter reviewed 03/31/2021 Last Documented On 2 3:20PM ; [facility] Dissociative Disorder ~ Environmental Al lergies 03/31/2021 Last Documented On 2 3:20PM ; [facility] Allergy symptoms occur seasonally 2021 Last Documented On 2 3:20PM ; [facility] An allergy to certain foods 03/31/2021 Last Documented On 2 3:20PM ; [facility] History of anxiety disorder NOS 03/31/19 22 Last Documented On 2 3:20PM ; [facility] History of depression 03/31/2021 Last Documented On 2 3:20PM ; [facility] Family History Includes: Family History in patient's chart Description Last Updated ADHD (dad) 03/31/2021 Last Documented On 2 3:20PM ; [facility] Family history of type 1 diabetes mellit us (sister) 03/31/2021 Last Documented On 2 3:20PM ; [facility] Review of Systems Review of Systems not [...] Documented On 4 2:00PM ; [facility] Encounters Includes: Encounters from 06/30/2023 through 06/29/2024 Encounter Provider Location Date Check-In Time Check-Out Time Diagnosis [facility] Established patient Ananda Menon DO [facility] 07/19/19 24 3:58PM 4:53PM Dorsopathy Low Back Pain Vertebrogenic,S omatic Dysfunction of Head,Somatic Dysfunction of Rib Cage,Somatic Dysfunction of Cervical Region,Somatic Dysfunction of Thoracic Region,Somatic Dysfunction of Lumbar Region,Cervical maxime Insurance Includes: Active Insurance Policies Plan Name Member ID Group # Subscriber Relationship Effect mica Dates 1 - [place] Blue Access Payer [id number] Girma Cha II Goals Includes: Active Goals The patient will [...] behavior therapist, and will return to the [facility] clinic as needed. Initiated on 03/15/2023 by provider Alexis Ko ; [facility] Clinical Notes Includes: Signed Clinical Notes starting from 03/07/2022 * Progress note Date Encounter Last Documented by 07/19/2023 [facility] Established patient Last doc umented on 07/19/2023; 5:27 PM, Ananda Menon DO; [facility] Chief Complaint - Neck symptoms - Back [...] outpatient expanded h&p - low complexity decisions 21850 - The E&M code was based on Medical Decision Making associated with at least 2 of the following 3 elements 1) 2 minor or self-limiting problems or 1 stable chronic problem or 1 acute uncomplicated injury; 2) limited record/data reviewed or ordered; 3) Low management risk such as OMT.
--- OUTSIDE RECORDS SUMMARY | 2024-06-29 03:26 | XMS_ITS | Clinical Summary ---
Author Organization Formerly [facility] Address [address] [place] [address] Phone Care Team Providers Care Inspector Technician Name Role Phone WagnerFrieda domínguezana Primary Care Provider [phone] Reason for Visit and Chief Complaint OM [...] Last Documented On 04/25/2023 12:48PM ; [facility]Sol[facility] - Follow-up visit in 2-3 weeks for reevaluation or as needed - Last Documented On 04/25/2023 12:48PM ; [facility]Solomon [facility] Pending Tests Order Diagnosis Results Due Ordering P darrius RAD - X-Ray Postural Study B Vertebrogenic l ow back pain 04/18/23 Ananda Menon DO Last Documented On 3:10PM ; [facility] Assessments Includes: Assessments from this encounter Findings - Arthralgia of the right pelvis/hip/femur [M25.551 - Pain in right hip] - Last Documented On 04/25/2023 12:48PM ; [facility] - Vertebrogenic low back pain [M54.51 - Vertebrogenic low back pain] - Last Documented On 04/25/2023 12:48PM ; [facility] - Myofascial pain syndrome of neck [M79.18 - Myalgia, other site] - Last Documented On 04/25/2023 12:48PM ; [facility] - Somatic dysfunction of the head region [M99.00 - Segmental and somatic dysfunction of head region] - Last Documented On 04/25/2023 12:48PM ; [facility] - Somatic dysfunction of rib cage [M99.08 - Segmental and somatic dysfunction of rib cage] - Last Documented On 04/25/2023 12:48PM ; [facility] - Somatic dysfunction of cervical region [M99.01 - Segmental and somatic dysfunction of cervical region] - Last Documented On 04/25/2023 12:48PM ; [facility]Solomon [facility] - Somatic dysfunction of thoracic region [M99.02 - Segmental and somatic dysfunction of thoracic region] - Last Documented On 04/25/2023 12:48PM ; [facility] - Somatic dysfunction of lumbar region [M99.03 - Segmental and somatic dysfunction of lumbar region] - Last Documented On 04/25/2023 12:48PM ; [facility] - Somatic dysfunction of sacrum [M99.04 - Segmental and somatic dysfunction of sacral region] - Last Documented On 04/25/2023 12:48PM ; [facility]Solomon [facility] - Somatic dysfunction of pelvic region [M99.05 - Segmental and somatic dysfunction of pelvic region] - Last Documented On 04/25/2023 12:48PM ; [facility]Solomon [facility] Medical Equipment - Implanted Devices Includes: Current Devices No Medical Equipment Recorded Medications Includes: Medications discussed during this encounter and other current Medications Current Medications (continue as prescribed) Methylphenidate HCl ER 18 MG Oral Tablet Extended Release 24 Hour 06/20/2023 Provider: Diagnosis: Last Documented On 4 3:42PM By Betty Isidro [facility] Mima-D Allergy & Congesti on 60-120 MG Oral Tablet Extended Release 12 Hour 06/20/2023 Provider: Diagnosis: Last Documented On 4 3:43PM By Betty Isidro [facility] FLUoxetine HCl 20 MG Oral Capsule 03/31/2021 Provide r: Diagnosis: Last Documented On 3 2:06PM By Barb Lee [facility] ; [facility] Medications Administered Includes: Administered Medications from this encounter No Administered Medications Recorded Vital Signs Includes: Vital Signs from this encounter Vital Name 04/04/2023 01:59P Blood Pressure Sitting L 134/88 BP Cuff Size Large Pulse Rate-Sitting (bpm) 87 Pulse Rhythm Regular Respiration Rate (breaths/min) 14 Oxygen Saturation (%) 98 Flow Rate (l/min) (None (Room Air)) FiO2 (%) 21 Last Documented: On 04/04/2023 2:02PM ; Dwaien [facility] Results Includes: Results discussed during this encounter [...] Documented On 4 1:59PM ; [facility] 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/2021 Last Documented On 4 1:59PM ; [facility] Daily coffee consumption was one cups pe r day 03/31/2021 Last Documented On 4 1:59PM ; [facility] Never drank alcohol 03/31/2021 Last Documented On 4 1:59PM ; [facility] Non-smoker 03/31/2021 Last Documented On 4 1:59PM ; [facility] Not using drugs 03/31/2021 Last Documented On 4 1:59PM ; [facility] Single 03/31/2021 Last Documented On 4 1:59PM ; [facility] Smoking Status Unknown Procedures and Surgical History Includes: Procedures from this encounter Procedures Code Diagnosis Performing Provider Service L ocation Service Date osteopathic manipulative treatment (OMT) involving seven to eight body regions 35605 Last Documented On 4 2:50PM ; [facility] general outcomes - OMT was well tolerate d Last Documented On 4 2:50PM ; [facility] general outcomes - Symptoms improved aft er OMT Last Documented On 4 2:50PM ; [facility] Articular Technique head region Last Documented On 4 2:50PM ; [facility] Indirect balanced ligamentous tension he ad region Last Documented On 4 2:50PM ; [facility] Myofascial release head region Last Documented On 4 2:50PM ; [facility] OMT response head region: somatic dysfun ction was improved Last Documented On 4 2:50PM ; [facility] Articular technique cervical region Last Documented On 4 2:50PM ; [facility] Indirect balanced ligamentous tension ce rvical region Last Documented On 4 2:50PM ; [facility] Myofascial release cervical region Last Documented On 4 2:50PM ; [facility] Soft tissue technique cervical region Last Documented On 4 2:50PM ; [facility] OMT response cervical region: somatic dy sfunction was improved Last Documented On 4 2:50PM ; [facility] Articular Technique lumbar region Last Documented On 4 2:50PM ; [facility] Muscle energy lumbar region Last Documented On 4 2:50PM ; [facility] Myofascial release lumbar region Last Documented On 4 2:50PM ; [facility] Soft tissue technique lumbar region Last Documented On 4 2:50PM ; [facility] OMT response lumbar region: somatic dysf unction was improved Last Documented On 4 2:50PM ; [facility] Articular technique thoracic region Last Documented On 4 2:50PM ; [facility] Myofascial release thoracic region Last Documented On 4 2:50PM ; [facility] Soft tissue technique thoracic region Last Documented On 4 2:50PM ; [facility] OMT response thoracic region: somatic dy sfunction was improved Last Documented On 4 2:50PM ; [facility] OMT response pelvic region: somatic dysf unction was improved Last Documented On 4 2:50PM ; [facility] Articular Technique pelvic region Last Documented On 4 2:50PM ; [facility] Counterstrain pelvic region Last Documented On 4 2:50PM ; [facility] Muscle energy pelvic region Last Documented On 4 2:50PM ; [facility] Counterstrain sacral region Last Documented On 4 2:50PM ; [facility] Functional technique sacral region Last Documented On 4 2:50PM ; [facility] OMT response sacral region: somatic dysf unction was improved Last Documented On 4 2:50PM ; [facility] Myofascial release rib chest region Last Documented On 4 2:50PM ; [facility] Soft tissue technique rib chest region Last Documented On 4 2:50PM ; [facility] OMT response rib/chest region: somatic d ysfunction was improved Last Documented On 4 2:50PM ; [facility] OMT was performed based on jeromy granger's physical examination - Regions treated include those listed in the assessment portion of today's Evaluation & Management note Last Documented On 4 2:50PM ; [facility] Low velocity, moderate amplitude techniq ue sacral region Last Documented On 4 4:04PM ; [facility] Surgical History Last Updated No prior surgery or no significant histo ry 03/31/2021 Last Documented On 4 1:59PM ; [facility] History of treatment of foot fracture - Boot (2016) 03/31/2021 Last Documented On 4 1:59PM ; [facility] Medical History Includes: Medical History addressed during this encounter Description Last Updated Past medical history reviewed - Previous encounter reviewed 03/31/2021 Last Documented On 4 1:59PM ; [facility] Dissociative Disorder ~ Environmental Al lergies 03/31/2021 Last Documented On 4 1:59PM ; [facility] Allergy symptoms occur seasonally 2021 Last Documented On 4 1:59PM ; [facility] An allergy to certain foods 03/31/2021 Last Documented On 4 1:59PM ; [facility] History of anxiety disorder NOS 03/31/19 22 Last Documented On 4 1:59PM ; [facility] History of depression 03/31/2021 Last Documented On 4 1:59PM ; [facility] Family History Includes: Family History addressed during this encounter Description Last Updated ADHD (dad) 03/31/2021 Last Documented On 4 1:59PM ; [facility] Family history of type 1 diabetes mellit us (sister) 03/31/2021 Last Documented On 4 1:59PM ; [facility] Review of Systems Includes: Review of Systems [...] On 4 2:00PM ; [facility] Encounters Encounter Provider Location Date Check-In Time Check-Out Time Diagnosis [facility] Established patient Ananda Menon DO [facility] 04/04/19 24 1:56PM 3:03PM Somatic Dysfunction of [...] Subscriber Relationship Effect mica Dates 1 - [place] Blue Access Payer [id number] Starla DMITRIY, Girma Franklin Child Clinical Notes Includes: Clinical Notes from this encounter * Progress note Date Encounter Last Documented by 04/04/2023 [facility] Established patient Last doc umented on 04/25/2023; 12:48 PM, [facility]; [facility] Chief Complaint - Back symptoms History of [...] Care Team - Jeanie Trevino Practice Management [facility] outpatient expanded h&p - low complexity decisions 19090 - The E&M code was based on Medical Decision Making associated with at least 2 of the following 3 elements 1) 2 minor or self-limiting problems or 1 stable chronic problem or 1 acute uncomplicated injury; 2) limited record/data reviewed or ordered; 3) Low management risk such as OMT.
[2024-06-29 03:27] VITALS: BP 123/84; PULSE 108; RESP 18; TEMP 36.1; O2SAT 99; BMI 35.4
--- NOTE | 2024-06-29 03:36 | ED.ALLEREA ---
HPI - Allergic Reaction General Chief complaint: Allergic Reaction Stated complaint: possible allergic reation Time Seen by Provider: 06/29/24 03:24 Source: patient, RN notes reviewed and old records reviewed Mode of arrival: ambulatory Limitations: no limitations History of Present Illness HPI narrative: 24-year-old female who presents today with syncopal episode. Patient says she has a history of alpha-gal syndrome, reports eating dairy 2 days ago and tonight got up, got lightheaded and passed out. Denies palpitations, chest pain, shortness of breath with this. Does say she had a runny nose all day and just felt off. Had some nausea abdominal cramping, no vomiting but did have some diarrhea today. Took Mima this evening for symptoms, did not taking the medications. Denies rash, lip or tongue swelling, breathing difficulty. Related Data Home Medications ?Medication ?Instructions ?Recorded ?Confirmed atomoxetine 40 mg capsule 40 mg PO QAM 09/24/23 09/24/23 epinephrine 0.3 mg/0.3 mL IM ONCE 09/24/23 09/24/23 injection, auto-injector (Auvi-Q) fexofenadine 60 mg-pseudoephedrine 1 tab PO Q12H PRN 09/24/23 09/24/23 ER 120 mg tablet,ext.release,12 hr (Mima-D 12 Hour) fluoxetine 20 mg capsule 20 mg PO DAILY 09/24/23 09/24/23 Allergies Allergy/AdvReac Type Severity Reaction Status Date / Time balsam ghazal (From Mammol) Allergy Verified 09/24/23 18:54 bismuth subnitrate (From Allergy Verified 09/24/23 18:54 Mammol) castor oil (From Mammol) Allergy Verified 09/24/23 18:54 lanolin (From Mammol) Allergy Verified 09/24/23 18:54 penicillin G Allergy Rash Verified 09/24/23 18:54 PFSH PFSH Medical History PTSD (post-traumatic stress disorder) ?F43.10 - Post-traumatic stress disorder, unspecified (ICD-10) Depression ?F32.A - Depression, unspecified (ICD-10) Anxiety ?F41.9 - Anxiety disorder, unspecified (ICD-10) Social History Smoking Status: Never smoker Do you use any of these nicotine containing products: None How often do you have a drink containing alcohol: never AUDIT-C Alcohol total score: 0 Non-prescribed substance use: denies use Exam Narrative: Exam Narrative: General: Well-developed and well-nourished, no acute distress Head: Atraumatic and normocephalic Eyes: Pupils are equal reactive, extraocular motions intact, conjunctiva clear ENT: External nose and ears are normal, posterior pharynx without erythema or exudate Neck: No midline cervical tenderness, full spontaneous range of motion the neck, trachea midline, no adenopathy Heart: Regular rate and rhythm no murmurs or thrills Lungs: Clear to auscultation bilaterally without wheezes or crackles Abdomen: Soft, nontender, nondistended with active bowel sounds Musculoskeletal: No tenderness, deformity, or edema Neurologic: Awake, alert, and oriented x3, no gross focal neurologic deficits, cranial nerves intact as tested Psych: Mood and affect are appropriate Skin: No rashes Const: Vital Signs, click to edit/add: Vital Signs - 24 hr 06/29/24 03:27 Temperature 96.9 F L Pulse Rate [Left P ulse Oximeter] 108 H Respiratory Rate 18 Blood Pressure [Ri ght Upper Arm] 123/84 Pulse Oximetry 99 Oxygen Delivery Me thod Room Air Course Course ED Course: Patient seen examined, presents with syncopal episode today. Preceding this, noted some runny nose and not feeling well today. She attributes her episode today to alpha-gal syndrome allergic reaction. Exam here, patient is awake alert, no rash, no lip or tongue swelling, no voice changes, no wheezing on lung exam COVID no abdominal tenderness. Symptoms could be from allergic reaction, patient says she is feeling better now, Benadryl, Pepcid, Zofran ordered. Look to consider other etiology of syncope, patient is tachycardic on initial exam and so D-dimer is ordered given syncopal episode tachycardia, although denies chest pain, shortness of breath, cough. Reevaluation(s) Time of Reevaluation #1: 04:17 Reevaluation #1: Labs independently interpreted by me with mild leukocytosis, chest x-ray ordered. Time of Reevaluation #2: 04:49 Reevaluation #2: Labs and panel interpreted by me with negative D-dimer normal basic panel normal magnesium normal CBC of than mild leukocytosis. Chest x-ray negative for acute findings. Patient is stable for discharge. EKG independently interpreted by me performed at 4:15 a.m. demonstrates sinus rhythm rate 90, no acute ischemic changes, FL 148, QTC 447, no prior for comparison. Vital Signs Vital signs: Initial Vital Signs Temperature 96.9 F L 06/29/24 03:27 Temperature Source Temporal Artery Scan 06/29/24 03:27 Pulse Rate 108 H 06/29/24 03:27 Pulse Rhythm Regular 06/29/24 03:27 Respiratory Rate 18 06/29/24 03:27 Blood Pressure 123/84 06/29/24 03:27 Blood Pressure Mean 97 06/29/24 03:27 Blood Pressure Position Sitting 06/29/24 03:27 Pulse Oximetry 99 06/29/24 03:27 Oxygen Delivery Method Room Air 06/29/24 03:27 Vital Signs Temperature 96.9 F L 06/29/24 03:27 Pulse Rate 108 H 06/29/24 03:27 Respiratory Rate 18 06/29/24 03:27 Blood Pressure 123/84 06/29/24 03:27 Pulse Oximetry 99 06/29/24 03:27 Oxygen Delivery Method Room Air 06/29/24 03:27 Temperature 96.9 F L 06/29/24 03:27 Pulse Rate 108 H 06/29/24 03:27 Respiratory Rate 18 06/29/24 03:27 Blood Pressure 123/84 06/29/24 03:27 Pulse Oximetry 99 06/29/24 03:27 Oxygen Delivery Method Room Air 06/29/24 03:27 Medications Administered Medications: Generic Name Dose Route Start Last Admin Trade Name Freq PRN Reason Stop Dose Admin Sodium Chloride 1,000 mls @ 1,000 mls/hr 06/29/24 04:00 06/29/24 04:16 0.9 % Sodium Chloride 1000 Ml IV 06/29/24 04:59 1,000 mls/hr .Q1H FABIEN Administration Discontinued Medications Generic Name Dose Route Start Last Admin Trade Name Freq PRN Reason Stop Dose Admin Diphenhydramine HCl 50 mg 06/29/24 03:44 06/29/24 04:16 Diphenhydramine 50 Mg/Ml Inj IVP 06/29/24 03:45 50 mg ONCE ONE Administration Famotidine 20 mg 06/29/24 03:44 06/29/24 04:16 Famotidine 10 Mg/Ml Inj IVP 06/29/24 03:45 20 mg ONCE ONE Administration Ondansetron HCl 4 mg 06/29/24 03:44 06/29/24 04:16 Ondansetron 2 Mg/Ml Inj IVP 06/29/24 03:45 4 mg ONCE ONE Administration MDM - Allergic Reaction Lab Data Labs: Lab Results 06/29/24 Range/Units 04:00 WBC 11.57 H (4.50-11.00) K/uL RBC 4.60 (4.00-5.20) m/uL Hgb 13.5 (12.0-16.0) gm/dL Hct 40.7 (33.0-51.0) % MCV 89 (80-100) fL MCH 29 (26-34) pg MCHC 33 (32-36) gm/dL RDW Coeff of Riz[place] 12.4 (11.5-15.5) % Plt Count 323 (140-440) K/uL Neut % (Auto) 75.5 H (42.0-72.0) % Lymph % (Auto) 17.3 L (20-44) % Moca % (Auto) 4.8 (0.0-11.0) % Eos % (Auto) 1.8 (0.0-7.0) % Baso % (Auto) 0.4 (0.0-3.0) % Neut # (Auto) 8.70 H (1.7-7.0) K/uL Lymph # (Auto) 2.00 (0.90-2.90) K/uL Moca # (Auto) 0.60 (0.00-0.90) K/UL Eos # (Auto) 0.20 (0.00-0.50) K/uL Baso # (Auto) 0.00 (0.00-0.30) K/uL Abs Immat Gran (auto) 0.00 (0.00-0.30) K/uL Imm/Tot Granulo (auto) 0.2 % D-Dimer Quant (PE/DVT) 0.23 (0.00-0.50) ug/ml Sodium 137 (135-149) mmol/L Potassium 3.8 (3.6-5.1) mmol/L Chloride 104 (96-114) mmol/L Carbon Dioxide 23 (20-32) mmol/L Anion Gap 10 (7-15) mEq/L BUN 11 (5-24) mg/dL Creatinine 0.8 (0.5-1.5) mg/dL Estimated Creat Clear 91.25 Estimated GFR 107 ml/min Glucose 149 H (60-115) mg/dL Calcium 9.1 (8.4-10.6) mg/dL Magnesium 2.1 (1.5-2.6) mg/dL Discharge Plan Discharge Clinical Impression: Syncope Patient Disposition: Home, Self-Care Condition: Stable Instructions: Syncope (ED) Activity Level: Activity as Tolerated Discharge Diet: Regular Prescriptions: No Action fluoxetine 20 mg capsule 20 mg PO DAILY atomoxetine 40 mg capsule 40 mg PO QAM epinephrine [Auvi-Q] 0.3 mg/0.3 mL auto-injector IM ONCE fexofenadine-pseudoephedrine [Mima-D 12 Hour] 60-120 mg tablet extended release 12 hr 1 tab PO Q12H PRN Follow Up/Referrals: Provider,Not a Local [Primary Care Provider] - Stand Alone Forms: MyHealth Info Instructions
[2024-06-29 04:08] LABS: Basophils Percent Auto 0.4 % (0.0-3.0); Eosinophils Percent Auto 1.8 % (0.0-7.0); Hematocrit 40.7 % (33.0-51.0); Hemoglobin* 13.5 gm/dL (12.0-16.0); Immature Granulocytes Pct Auto 0.2 %; Lymphocytes Percent Auto 17.3 % (20-44); Mean Corpuscular HGB Conc 33 gm/dL (32-36); Mean Corpuscular Hemoglobin 29 pg (26-34); Mean Corpuscular Volume 89 fL (80-100); Monocytes Percent Auto 4.8 % (0.0-11.0); Neutrophils Percent Auto 75.5 % (42.0-72.0); Platelet Count* 323 K/uL (140-440); RDW Coefficient of Variation % 12.4 % (11.5-15.5); White Blood Count* 11.57 K/uL (4.50-11.00)
--- OUTSIDE RECORDS SUMMARY | 2024-06-29 04:12 | XMS_ITS | Clinical Summary ---
Author Organization [facility] Address [address] [place] [address] Phone Care Team Providers Care Crew Dispatcher Name Role Phone WagnerFrieda domínguezana Primary Care Provider [phone] Reason for Visit and Chief Complaint OMM [...] Last Documented On 03/22/2023 4:00PM ; [facility] - Follow-up visit in 2-3 weeks for reevaluation or as needed - Last Documented On 03/22/2023 4:00PM ; [facility] Assessments Includes: Assessments from this encounter Findings - Arthralgia of the right pelvis/hip/femur [M25.551 - Pain in right hip] - Last Documented On 03/22/2023 4:00PM ; [facility] - Myofascial pain syndrome of lower back [M79.18 - Myalgia, other site] - Last Documented On 03/22/2023 4:00PM ; [facility] - Somatic dysfunction of the head region [M99.00 - Segmental and somatic dysfunction of head region] - Last Documented On 03/22/2023 4:00PM ; [facility] - Somatic dysfunction of rib cage [M99.08 - Segmental and somatic dysfunction of rib cage] - Last Documented On 03/22/2023 4:00PM ; [facility] - Somatic dysfunction of cervical region [M99.01 - Segmental and somatic dysfunction of cervical region] - Last Documented On 03/22/2023 4:00PM ; [facility] - Somatic dysfunction of thoracic region [M99.02 - Segmental and somatic dysfunction of thoracic region] - Last Documented On 03/22/2023 4:00PM ; [facility] - Somatic dysfunction of lumbar region [M99.03 - Segmental and somatic dysfunction of lumbar region] - Last Documented On 03/22/2023 4:00PM ; [facility] - Somatic dysfunction of sacrum [M99.04 - Segmental and somatic dysfunction of sacral region] - Last Documented On 03/22/2023 4:00PM ; [facility] - Somatic dysfunction of pelvic region [M99.05 - Segmental and somatic dysfunction of pelvic region] - Last Documented On 03/22/2023 4:00PM ; [facility] Medical Equipment - Implanted Devices Includes: Current Devices No Medical Equipment Recorded Medications Includes: Medications discussed during this encounter and other current Medications Current Medications (continue as prescribed) Methylphenidate HCl ER 18 MG Oral Tablet Extended Release 24 Hour 06/20/2023 Provider: Diagnosis: Last Documented On 4 3:42PM By [facility] Mima-D Allergy & Congesti on 60-120 MG Oral Tablet Extended Release 12 Hour 06/20/2023 Provider: Diagnosis: Last Documented On 4 3:43PM By [facility] FLUoxetine HCl 20 MG Oral Capsule 03/31/2021 Provide r: Diagnosis: Last Documented On 3 2:06PM By Barb Lee CCS ; [facility] Medications Administered Includes: Administered Medications from this encounter No Administered Medications Recorded Vital Signs Includes: Vital Signs from this encounter Vital Name 03/22/2023 10:14A Blood Pressure Sitting L 98/62 BP Cuff Size Large Pulse Rate-Sitting (bpm) 60 Pulse Rhythm Regular Respiration Rate (breaths/min) 16 Pain Level 7 Last Documented: On 03/22/2023 10:15A M ; [facility] Results Includes: Results discussed during [...] Last Documented On 3 10:14AM ; [facility] 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/2021 Last Documented On 3 10:14AM ; [facility] Daily coffee consumption was one cups pe r day 03/31/2021 Last Documented On 3 10:14AM ; [facility] Never drank alcohol 03/31/2021 Last Documented On 3 10:14AM ; [facility] Non-smoker 03/31/2021 Last Documented On 3 10:14AM ; [facility] Not using drugs 03/31/2021 Last Documented On 3 10:14AM ; [facility] Single 03/31/2021 Last Documented On 3 10:14AM ; [facility] Smoking Status Unknown Procedures and Surgical History Includes: Procedures from this encounter Procedures Code Diagnosis Performing Provider Service L ocation Service Date osteopathic manipulative treatment (OMT) involving seven to eight body regions 65524 Last Documented On 3 11:05AM ; [facility] general outcomes - OMT was well tolerate d Last Documented On 3 11:05AM ; [facility] general outcomes - Symptoms improved aft er OMT Last Documented On 3 11:05AM ; [facility] Articular Technique head region Last Documented On 3 11:07AM ; [facility] Indirect balanced ligamentous tension he ad region Last Documented On 3 11:07AM ; [facility] Myofascial release head region Last Documented On 3 11:07AM ; [facility] OMT response head region: somatic dysfun ction was improved Last Documented On 3 11:07AM ; [facility] Articular technique cervical region Last Documented On 3 11:07AM ; [facility] Indirect balanced ligamentous tension ce rvical region Last Documented On 3 11:07AM ; [facility] Muscle energy cervical region Last Documented On 3 11:07AM ; [facility] Myofascial release cervical region Last Documented On 3 11:07AM ; [facility] Soft tissue technique cervical region Last Documented On 3 11:07AM ; [facility] OMT response cervical region: somatic dy sfunction was improved Last Documented On 3 11:07AM ; [facility] Articular Technique lumbar region Last Documented On 3 11:08AM ; [facility] HVLA lumbar region Last Documented On 3 11:13AM ; [facility] Muscle energy lumbar region Last Documented On 3 11:08AM ; [facility] Myofascial release lumbar region Last Documented On 3 11:08AM ; [facility] Soft tissue technique lumbar region Last Documented On 3 11:08AM ; [facility] OMT response lumbar region: somatic dysf unction was improved Last Documented On 3 11:08AM ; [facility] Articular technique thoracic region Last Documented On 3 11:07AM ; [facility] Myofascial release thoracic region Last Documented On 3 11:07AM ; [facility] Soft tissue technique thoracic region Last Documented On 3 11:07AM ; [facility] OMT response thoracic region: somatic dy sfunction was improved Last Documented On 3 11:07AM ; [facility] OMT response pelvic region: somatic dysf unction was improved Last Documented On 3 11:09AM ; [facility] Articular Technique pelvic region Last Documented On 3 11:09AM ; [facility] Counterstrain pelvic region Last Documented On 3 11:09AM ; [facility] Muscle energy pelvic region Last Documented On 3 11:09AM ; [facility] Counterstrain sacral region Last Documented On 3 11:09AM ; [facility] Functional technique sacral region Last Documented On 3 11:09AM ; [facility] OMT response sacral region: somatic dysf unction was improved Last Documented On 3 11:09AM ; [facility] Muscle energy rib chest region Last Documented On 3 11:08AM ; [facility] Myofascial release rib chest region Last Documented On 3 11:08AM ; [facility] Soft tissue technique rib chest region Last Documented On 3 11:08AM ; [facility] OMT response rib/chest region: somatic d ysfunction was improved Last Documented On 3 11:08AM ; [facility] OMT was performed based on jeromy granger's physical examination - Regions treated include those listed in the assessment portion of today's Evaluation & Management note Last Documented On 3 11:05AM ; [facility] Surgical History Last Updated No prior surgery or no significant histo ry 03/31/2021 Last Documented On 3 10:14AM ; [facility] History of treatment of foot fracture - Boot (2016) 03/31/2021 Last Documented On 3 10:14AM ; [facility] Medical History Includes: Medical History addressed during this encounter Description Last Updated Past medical history reviewed - Previous encounter reviewed 03/31/2021 Last Documented On 3 10:14AM ; [facility] Dissociative Disorder ~ Environmental Al lergies 03/31/2021 Last Documented On 3 10:14AM ; [facility] Allergy symptoms occur seasonally 2021 Last Documented On 3 10:14AM ; [facility] An allergy to certain foods 03/31/2021 Last Documented On 3 10:14AM ; [facility] History of anxiety disorder NOS 03/31/19 22 Last Documented On 3 10:14AM ; [facility] History of depression 03/31/2021 Last Documented On 3 10:14AM ; [facility] Family History Includes: Family History addressed during this encounter Description Last Updated ADHD (dad) 03/31/2021 Last Documented On 3 10:14AM ; [facility] Family history of type 1 diabetes mellit us (sister) 03/31/2021 Last Documented On 3 10:14AM ; [facility] Review of Systems Includes: Review [...] Last Documented On 4 2:00PM ; [facility] Encounters Encounter Provider Location Date Check-In Time Check-Out Time Diagnosis [facility] Established patient Ananda Menon DO [facility] 03/22/20 23 10:00AM 11:02AM Myofascial Pain Syndrome Lower Back,Somatic Dysfunction of Head,Somatic Dysfunction of Rib Cage,Somatic Dysfunction of Cervical Region,Somatic Dysfunction of Thoracic Region,Somatic Dysfunction of Lumbar Region,Somatic Dysfunction of Sacrum,Somatic Dysfunction of Pelvic Region,Arthralg ia - Pelvis / Hip / Femur Right Insurance Includes: Active Insurance Policies Plan Name Member ID Group # Subscriber Relationship Effect mica Dates 1 - [employer] Payer [id number] Starla IZAGUIRRE, Girma Franklin Child Clinical Notes Includes: Clinical Notes from this encounter * Progress note Date Encounter Last Documented by 03/22/2023 [facility] Established patient Last doc umented on 03/22/2023; 4:00 PM, Ananda Menon DO; [facility] Chief Complaint - Back symptoms [...] outpatient expanded h&p - low complexity decisions [id number] - The E&M code was based on Medical Decision Making associated with at least 2 of the following 3 elements 1) 2 minor or self-limiting problems or 1 stable chronic problem or 1 acute uncomplicated injury; 2) limited record/data reviewed or ordered; 3) Low management risk such as OMT.
--- OUTSIDE RECORDS SUMMARY | 2024-06-29 04:13 | XMS_ITS | Clinical Summary ---
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 [M46.08 - Spinal enthesopathy, sacral and sacrococcygeal region] - Last Documented On 04/23/2023 7:56AM ; [facility] - Myofascial pain syndrome of neck [M79.18 - Myalgia, other site] - Last Documented On 04/23/2023 7:56AM ; [facility] - Moderate depression [F32.1 - Major depressive disorder, single episode, moderate] - Last Documented On 04/23/2023 7:56AM ; [facility] - Somatic dysfunction of the head region [M99.00 - Segmental and somatic dysfunction of head region] - Last Documented On 04/23/2023 7:56AM ; [facility] - Somatic dysfunction of rib cage [M99.08 - Segmental and somatic dysfunction of rib cage] - Last Documented On 04/23/2023 7:56AM ; [facility] - Somatic dysfunction of cervical region [M99.01 - Segmental and somatic dysfunction of cervical region] - Last Documented On 04/23/2023 7:56AM ; [facility] - Somatic dysfunction of thoracic region [M99.02 - Segmental and somatic dysfunction of thoracic region] - Last Documented On 04/23/2023 7:56AM ; [facility] - Somatic dysfunction of lumbar region [M99.03 - Segmental and somatic dysfunction of lumbar region] - Last Documented On 04/23/2023 7:56AM ; [facility] - Somatic dysfunction of sacrum [M99.04 - Segmental and somatic dysfunction of sacral region] - Last Documented On 04/23/2023 7:56AM ; [facility] - Somatic dysfunction of pelvic region [M99.05 - Segmental and somatic dysfunction of pelvic region] - Last Documented On 04/23/2023 7:56AM ; [facility] Medical Equipment - Implanted Devices Includes: Current Devices No Medical Equipment Recorded Medications Includes: Medications discussed during this encounter and other current Medications Current Medications (continue as prescribed) Methylphenidate HCl ER 18 MG Oral Tablet Extended Release 24 Hour 06/20/2023 Provider: Diagnosis: Last Documented On 4 3:42PM By Betty Isidro [facility] Mima-D Allergy & Congesti on 60-120 MG Oral Tablet Extended Release 12 Hour 06/20/2023 Provider: Diagnosis: Last Documented On 4 3:43PM By Betty Isidro [facility] FLUoxetine HCl 20 MG Oral Capsule 03/31/2021 Provide r: Diagnosis: Last Documented On 3 2:06PM By Barb Lee CCS ; [facility] Medications Administered Includes: Administered Medications from [...] Documented: On 04/17/2023 8:08AM ; [facility] Results Includes: Results discussed during this encounter [...] Documented On 4 8:07AM ; [facility] 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/2021 Last Documented On 4 8:07AM ; [facility] Daily coffee consumption was one cups pe r day 03/31/2021 Last Documented On 4 8:07AM ; [facility] Never drank alcohol 03/31/2021 Last Documented On 4 8:07AM ; [facility] Non-smoker 03/31/2021 Last Documented On 4 8:07AM ; [facility] Not using drugs 03/31/2021 Last Documented On 4 8:07AM ; [facility] Single 03/31/2021 Last Documented On 4 8:07AM ; [facility] Smoking Status Unknown Procedures and Surgical History Includes: Procedures from this encounter Procedures Code Diagnosis Performing Provider Service L ocation Service Date osteopathic manipulative treatment (OMT) involving seven to eight body regions 26594 Last Documented On 4 9:50AM ; [facility]to.Suh[facility] general outcomes - OMT was well tolerate d Last Documented On 4 9:50AM ; [facility] general outcomes - Symptoms improved aft er OMT Last Documented On 4 9:50AM ; [facility] Articular Technique head region Last Documented On 4 9:50AM ; [facility] Osteopathic cranial manipulative medicin e head region Last Documented On 4 9:55AM ; [facility] Indirect balanced ligamentous tension he ad region Last Documented On 4 9:50AM ; [facility] Myofascial release head region Last Documented On 4 9:50AM ; [facility] OMT response head region: somatic dysfun ction was improved Last Documented On 4 9:50AM ; [facility] Articular technique cervical region Last Documented On 4 9:50AM ; [facility] Indirect balanced ligamentous tension ce rvical region Last Documented On 4 9:50AM ; [facility] Myofascial release cervical region Last Documented On 4 9:50AM ; [facility] Soft tissue technique cervical region Last Documented On 4 9:50AM ; [facility] OMT response cervical region: somatic dy sfunction was improved Last Documented On 4 9:50AM ; [facility] Articular Technique lumbar region Last Documented On 4 9:50AM ; [facility] Muscle energy lumbar region Last Documented On 4 9:50AM ; [facility] Myofascial release lumbar region Last Documented On 4 9:50AM ; [facility] Soft tissue technique lumbar region Last Documented On 4 9:50AM ; [facility] OMT response lumbar region: somatic dysf unction was improved Last Documented On 4 9:50AM ; [facility] Articular technique thoracic region Last Documented On 4 9:50AM ; [facility] Myofascial release thoracic region Last Documented On 4 9:50AM ; [facility] Soft tissue technique thoracic region Last Documented On 4 9:50AM ; [facility] OMT response thoracic region: somatic dy sfunction was improved Last Documented On 4 9:50AM ; [facility] OMT response pelvic region: somatic dysf unction was improved Last Documented On 4 9:50AM ; [facility] Articular Technique pelvic region Last Documented On 4 9:50AM ; [facility] Muscle energy pelvic region Last Documented On 4 9:50AM ; [facility] OMT response sacral region: somatic dysf unction was improved Last Documented On 4 9:50AM ; [facility] Muscle energy rib chest region Last Documented On 4 9:55AM ; [facility] Myofascial release rib chest region Last Documented On 4 9:50AM ; [facility] Soft tissue technique rib chest region Last Documented On 4 9:50AM ; [facility] OMT response rib/chest region: somatic d ysfunction was improved Last Documented On 4 9:50AM ; [facility] OMT was performed based on jeromy granger's physical examination - Regions treated include those listed in the assessment portion of today's Evaluation & Management note Last Documented On 4 9:50AM ; [facility] Low velocity, moderate amplitude techniq ue sacral region Last Documented On 4 9:50AM ; [facility] Surgical History Last Updated No prior surgery or no significant histo ry 03/31/2021 Last Documented On 4 8:07AM ; [facility] History of treatment of foot fracture - Boot (2016) 03/31/2021 Last Documented On 4 8:07AM ; [facility] Medical History Includes: Medical History addressed during this encounter Description Last Updated Past medical history reviewed - Previous encounter reviewed 03/31/2021 Last Documented On 4 8:07AM ; [facility] Dissociative Disorder ~ Environmental Al lergies 03/31/2021 Last Documented On 4 8:07AM ; [facility] Allergy symptoms occur seasonally 2021 Last Documented On 4 8:07AM ; [facility] An allergy to certain foods 03/31/2021 Last Documented On 4 8:07AM ; [facility] History of anxiety disorder NOS 03/31/19 22 Last Documented On 4 8:07AM ; [facility] History of depression 03/31/2021 Last Documented On 4 8:07AM ; [facility] Family History Includes: Family History addressed during this encounter Description Last Updated ADHD (dad) 03/31/2021 Last Documented On 4 8:07AM ; [facility] Family history of type 1 diabetes mellit us (sister) 03/31/2021 Last Documented On 4 8:07AM ; [facility] Review of Systems Includes: Review of [...] Last Documented On 4 2:00PM ; [facility] Encounters Encounter Provider Location Date Check-In Time Check-Out Time Diagnosis [facility] Established patient Ananda Menon DO [facility] 04/17/19 24 8:00AM 9:02AM Somatic Dysfunction of Head,Somatic Dysfunction of Rib Cage,Somatic Dysfunction of Cervical Region,Somatic Dysfunction of Thoracic Region,Somatic Dysfunction of Lumbar Region,Somatic Dysfunction of Sacrum,Somatic Dysfunction of Pelvic Region,Myofascial Pain Syndrome Neck,Spinal Enthesopathy of Sacral and Sacrococcygeal Region,Depression Moderate Insurance Includes: Active Insurance Policies Plan Name Member ID Group # Subscriber Relationship Effect mica Dates 1 - [place] Blue Access Payer [id number] Starla Girma IZAGUIRRE Clinical Notes Includes: Clinical Notes from this encounter * Progress note Date Encounter Last Documented by 04/17/2023 [facility] Established patient Last doc umented on 04/23/2023; 7:56 AM[facility] ; [facility] Chief Complaint - Back symptoms - Psychological [...] the last few weeks. She returned to [place] in hopes of alleviating her depression but [...] outpatient expanded h&p - low complexity decisions 32195 - The E&M code was based on Medical Decision Making associated with at least 2 of the following 3 elements 1) 2 minor or self-limiting problems or 1 stable chronic problem or 1 acute uncomplicated injury; 2) limited record/data reviewed or ordered; 3) Low management risk such as OMT.
--- OUTSIDE RECORDS SUMMARY | 2024-06-29 04:13 | XMS_ITS | Continuity of Care Document ---
Author Name [facility] Address [address] [place] [address] Organization [facility] Care Team Providers Care Mica Plate Layer Name Role Phone [facility] Unavailable Problems Problem Status Onset Date Problem Type Date of Resolution Comme nts Source Problem Condition
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
[2024-06-29 04:14] LABS: Slide Review Reflex No
--- OUTSIDE RECORDS SUMMARY | 2024-06-29 04:14 | XMS_ITS | Clinical Summary ---
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 PCP - General 04/10/22
--- OUTSIDE RECORDS SUMMARY | 2024-06-29 04:14 | XMS_ITS ---
Author Organization [facility] Address [address] [place] [address] Phone Care Team Providers Care Computator Name Role Phone Jeanie Trevino Primary Care Provider [phone] Plan of Treatment Findings Encounter Date Ordered follow-up visit in 4 -6 weeks for reevaluation or as needed OM Established patient with Ananda Menon DO 07/19/2023 Last Documented On 4 5:27PM ; [facility] Requested osteopathic manipu lative treatment (OMT) - Somatic dysfunction was found on today's physical examination which was likely contributing to the patient's complaints. Osteopathic manipulative treatment was recommended to be performed to address those somatic dysfunctions found today. Patient would like to proceed with OMT today OMM Established patient with Ananda Menon DO 07/19/2023 Last Documented On 4 5:27PM ; [facility] Ordered follow-up visit in 1 -2 weeks for reevaluation or as needed OMM Established patient with Uvaldo Jauregui DO 06/20/2023 Last Documented On 4 2:45PM ; [facility] Requested osteopathic manipu lative treatment (OMT) - Somatic dysfunction was found on today's physical examination which was likely contributing to the patient's complaints. Osteopathic manipulative treatment was recommended to be performed to address those somatic dysfunctions found today. Patient would like to proceed with OMT today OM Established patient with Uvaldo Jauregui DO 06/20/2023 Last Documented On 4 2:45PM ; [facility] Ordered follow-up visit in 2 -3 weeks for reevaluation or as needed OM Established patient with Ananda Sinan DO 04/17/2023 Last Documented On 4 7:56AM ; [facility] Requested osteopathic manipu lative treatment (OMT) - Somatic dysfunction was found on today's physical examination which was likely contributing to the patient's complaints. Osteopathic manipulative treatment was recommended to be performed to address those somatic dysfunctions found today. Patient would like to proceed with OMT today OM Established patient with Ananda Sinan DO 04/17/2023 Last Documented On 4 7:56AM ; [facility] Ordered follow-up visit in 2 -3 weeks for reevaluation or as needed OM Established patient with Ananda Siann DO 04/04/2023 Last Documented On 4 12:48PM ; [facility] Requested osteopathic manipu lative treatment (OMT) - Somatic dysfunction was found on today's physical examination which was likely contributing to the patient's complaints. Osteopathic manipulative treatment was recommended to be performed to address those somatic dysfunctions found today. Patient would like to proceed with OMT today OM Established patient with Ananda Sinan DO 04/04/2023 Last Documented On 4 12:48PM ; [facility] Ordered follow-up visit in 2 -3 weeks for reevaluation or as needed OM Established patient with Ananda Sinan DO 03/22/2023 Last Documented On 3 4:00PM ; [facility] Requested osteopathic manipu lative treatment (OMT) - Somatic dysfunction was found on today's physical examination which was likely contributing to the patient's complaints. Osteopathic manipulative treatment was recommended to be performed to address those somatic dysfunctions found today. Patient would like to proceed with OMT today OM Established patient with Ananda Sinan DO 03/22/2023 Last Documented On 3 4:00PM ; [facility] The patient was educated on using a [...] Last Documented On 3 11:27AM ; [facility] Ordered follow-up visit in 3 -4 weeks for reevaluation or as needed OMM Established patient with Alexis Ko DO 03/14/2023 Last Documented On 3 11:27AM ; [facility] Ordered return to the clinic if condition worsens or new symptoms arise OMM Established patient with Alexis Ko DO 03/14/2023 Last Documented On 3 11:27AM ; [facility] Requested counter strain therapy OMM Est ablished patient with Alexis Ko DO 03/14/2023 Last Documented On 3 11:27AM ; [facility] Requested muscle energy therapy OMM Esta blished patient with Alexis Ko DO 03/14/2023 Last Documented On 3 11:27AM ; [facility] Requested osteopathic manipu lative treatment (OMT) - Somatic dysfunction was found on today's physical examination which was likely contributing to the patient's complaints. Osteopathic manipulative treatment was recommended to be performed to address those somatic dysfunctions found today. Patient would like to proceed with OMT today OMM Established patient with Alexis Ko DO 03/14/2023 Last Documented On 3 11:27AM ; [facility] Requested osteopathic manipu lative treatment (OMT) involving three to four body regions OMM Established patient with Alexis Ko DO 03/14/2023 Last Documented On 3 11:27AM ; [facility] Ordered return to the clinic if condition worsens or new symptoms arise OMM Established patient with Ananda Menon DO 11/12/2022 Last Documented On 3 5:01PM ; [facility] Requested osteopathic manipu lative treatment (OMT) - Somatic dysfunction was found on today's physical examination which was likely contributing to the patient's complaints. Osteopathic manipulative treatment was recommended to be performed to address those somatic dysfunctions found today. Patient would like to proceed with OMT today OMM Established patient with Ananda Menon DO 11/12/2022 Last Documented On 3 5:01PM ; [facility] Ordered follow-up visit in 3 -4 weeks for reevaluation or as needed OMM Established patient with Ananda Menon DO 10/29/2022 Last Documented On 3 5:10PM ; [facility] Requested osteopathic manipu lative treatment (OMT) - Somatic dysfunction was found on today's physical examination which was likely contributing to the patient's complaints. Osteopathic manipulative treatment was recommended to be performed to address those somatic dysfunctions found today. Patient would like to proceed with OMT today OM Established patient with Ananda Menon DO 10/29/2022 Last Documented On 3 5:10PM ; [facility] Ordered follow-up visit in 3 -4 weeks for reevaluation or as needed OM Established patient with Ananda Menon DO 08/30/2022 Last Documented On 3 4:50PM ; [facility] Requested osteopathic manipu lative treatment (OMT) - Somatic dysfunction was found on today's physical examination which was likely contributing to the patient's complaints. Osteopathic manipulative treatment was recommended to be performed to address those somatic dysfunctions found today. Patient would like to proceed with OMT today OM Established patient with Ananda Menon DO 08/30/2022 Last Documented On 3 4:50PM ; [facility] General outcomes - Symptoms improved after OMT OM Established patient with Yu Michelle DO 04/14/2021 Last Documented On 2 12:05PM ; [facility] Ordered follow-up visit in 4 -6 weeks or as needed OM Established patient with Yu Michelle DO 04/14/2021 Last Documented On 2 12:05PM ; [facility] Requested osteopathic manipu lative treatment (OMT) - Somatic dysfunction was found on today's physical examination which was likely contributing to the patient's complaints. Osteopathic manipulative treatment was performed to address those somatic dysfunctions found today OMM Established patient with Yu Michelle DO 04/14/2021 Last Documented On 2 12:05PM ; [facility] General outcomes - Symptoms improved after OMT OMM Established patient with Yu Michelle DO 03/31/2021 Last Documented On 2 3:20PM ; [facility] Ordered follow-up visit in 2 -3 weeks or as needed OMM Established patient with Yu Michelle DO 03/31/2021 Last Documented On 2 3:20PM ; [facility] Requested osteopathic manipu lative treatment (OMT) - Somatic dysfunction was found on today's physical examination which was likely contributing to the patient's complaints. Osteopathic manipulative treatment was performed to address those somatic dysfunctions found today [facility] Established patient with Yu Michelle DO 03/31/2021 Last Documented On 2 3:20PM ; [facility] Education and Decision Aids were provided during visit for: Hot showers and rest. No hea vy lifting or excercize for 24-48 hours. Discussed that this type of trauma takes a toll on the whole body and musckuloskeletal system Last Documented On 4 2:42PM ; [facility] Assessments Includes: Assessments for all patient encounters Findings Encounter Date Cervicalgia OMM Established patient with Tri vicky Sinan DO 07/19/2023 Last Documented On 4 5:27PM ; [facility] Somatic dysfunction of cervi nixon region OMM Established patient with Ananda Sinan DO 07/19/2023 Last Documented On 4 5:27PM ; [facility] Somatic dysfunction of lumbar region OMM Established patient with Ananda Sinan DO 07/19/2023 Last Documented On 4 5:27PM ; [facility] Somatic dysfunction of rib cage OMM Esta blished patient with Ananda Sinan DO 07/19/2023 Last Documented On 4 5:27PM ; [facility] Somatic dysfunction of the h ead region OMM Established patient with Ananda Sinan DO 07/19/2023 Last Documented On 4 5:27PM ; [facility] Somatic dysfunction of thora cic region OMM Established patient with Ananda Sinan DO 07/19/2023 Last Documented On 4 5:27PM ; [facility] Vertebrogenic low back pain OMM Established pushpa ent with Ananda Sinan DO 07/19/2023 Last Documented On 4 5:27PM ; [facility] Cervicalgia OMM Established patient with Leo rene Shania DO 06/20/2023 Last Documented On 4 2:45PM ; [facility] Pain in thoracic spine OMM Established patient w ith Uvaldo Shania DO 06/20/2023 Last Documented On 4 2:45PM ; [facility] Somatic dysfunction of cervi nixon region OMM Established patient with Uvaldo Shania DO 06/20/2023 Last Documented On 4 2:45PM ; [facility] Somatic dysfunction of lumbar region OMM Established patient with Uvaldo Shania DO 06/20/2023 Last Documented On 4 2:45PM ; [facility] Somatic dysfunction of pelvic region OMM Established patient with Uvaldo Shania DO 06/20/2023 Last Documented On 4 2:45PM ; [facility] Somatic dysfunction of rib cage OMM Esta blished patient with Uvaldo Shania DO 06/20/2023 Last Documented On 4 2:45PM ; [facility] Somatic dysfunction of the h ead region OMM Established patient with Uvaldo Shania DO 06/20/2023 Last Documented On 4 2:45PM ; [facility] Somatic dysfunction of thora cic region OMM Established patient with Uvaldo Shania DO 06/20/2023 Last Documented On 4 2:45PM ; [facility] Somatic dysfunction of upper extremities OMM Established patient with Uvaldo Shania DO 06/20/2023 Last Documented On 4 2:45PM ; [facility] Vertebrogenic low back pain OMM Establis hed patient with Uvaldo Shania DO 06/20/2023 Last Documented On 4 2:45PM ; [facility] Moderate depression OMM Established patient with Ananda Sinan DO 04/17/2023 Last Documented On 4 7:56AM ; [facility] Myofascial pain syndrome of neck OMM Est ablished patient with Ananda Sinan DO 04/17/2023 Last Documented On 4 7:56AM ; [facility] Somatic dysfunction of cervi nixon region OMM Established patient with Ananda Sinan DO 04/17/2023 Last Documented On 4 7:56AM ; [facility] Somatic dysfunction of lumbar region OMM Established patient with Ananda Sinan DO 04/17/2023 Last Documented On 4 7:56AM ; [facility] Somatic dysfunction of pelvic region OMM Established patient with Ananda Sinan DO 04/17/2023 Last Documented On 4 7:56AM ; [facility] Somatic dysfunction of rib cage OMM Esta blished patient with Ananda Sinan DO 04/17/2023 Last Documented On 4 7:56AM ; [facility] Somatic dysfunction of sacrum OMM Establ ished patient with Ananda Sinan DO 04/17/2023 Last Documented On 4 7:56AM ; [facility] Somatic dysfunction of the h ead region OMM Established patient with Ananda Sinan DO 04/17/2023 Last Documented On 4 7:56AM ; 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 OMM Established patient with Ananda Sinan DO 04/17/2023 Last Documented On 4 7:56AM ; [facility] Arthralgia of the right pelvis/hip/femur OMM Established patient with Ananda Sinan DO 04/04/2023 Last Documented On 4 12:48PM ; [facility] Myofascial pain syndrome of neck OMM Est ablished patient with Ananda Sinan DO 04/04/2023 Last Documented On 4 12:48PM ; [facility] Somatic dysfunction of cervi nixon region OMM Established patient with Ananda Sinan DO 04/04/2023 Last Documented On 4 12:48PM ; [facility] Somatic dysfunction of lumbar region OMM Established patient with Ananda Sinan DO 04/04/2023 Last Documented On 4 12:48PM ; [facility] Somatic dysfunction of pelvic region OMM Established patient with Ananda Sinan DO 04/04/2023 Last Documented On 4 12:48PM ; [facility] Somatic dysfunction of rib cage OMM Esta blished patient with Ananda Sinan DO 04/04/2023 Last Documented On 4 12:48PM ; [facility] Somatic dysfunction of sacrum OMM Establ ished patient with Ananda Sinan DO 04/04/2023 Last Documented On 4 12:48PM ; [facility] Somatic dysfunction of the h ead region OMM Established patient with Ananda Sinan DO 04/04/2023 Last Documented On 4 12:48PM ; [facility] Somatic dysfunction of thora cic region OMM Established patient with Ananda Sinan DO 04/04/2023 Last Documented On 4 12:48PM ; [facility] Vertebrogenic low back pain OMM Established pushpa ent with Ananda Sinan DO 04/04/2023 Last Documented On 4 12:48PM ; [facility] Arthralgia of the right pelvis/hip/femur OMM Established patient with Ananda Sinan DO 03/22/2023 Last Documented On 3 4:00PM ; [facility] Myofascial pain syndrome of lower back OMM Established patient with Ananda Sinan DO 03/22/2023 Last Documented On 3 4:00PM ; [facility] Somatic dysfunction of cervi nixon region OMM Established patient with Ananda Sinan DO 03/22/2023 Last Documented On 3 4:00PM ; [facility] Somatic dysfunction of lumbar region OMM Established patient with Ananda Sinan DO 03/22/2023 Last Documented On 3 4:00PM ; [facility] Somatic dysfunction of pelvic region OMM Established patient with Ananda Sinan DO 03/22/2023 Last Documented On 3 4:00PM ; [facility] Somatic dysfunction of rib cage OMM Esta blished patient with Ananda Sinan DO 03/22/2023 Last Documented On 3 4:00PM ; [facility] Somatic dysfunction of sacrum OMM Establ ished patient with Ananda Sinan DO 03/22/2023 Last Documented On 3 4:00PM ; [facility] Somatic dysfunction of the h ead region OMM Established patient with Ananda Sinan DO 03/22/2023 Last Documented On 3 4:00PM ; [facility] Somatic dysfunction of thora cic region OMM Established patient with Ananda Sinan DO 03/22/2023 Last Documented On 3 4:00PM ; [facility] Arthralgia of right sacroiliac joint OMM Established patient with Alexis Boruch DO 03/14/2023 Last Documented On 3 11:27AM ; [facility] Pain in thoracic spine OMM Established patient w ith Alexis Boruch DO 03/14/2023 Last Documented On 3 11:27AM ; [facility] Somatic dysfunction of lumbar region OMM Established patient with Alexis Boruch DO 03/14/2023 Last Documented On 3 11:27AM ; [facility] Somatic dysfunction of pelvic region OMM Established patient with Alexis Boruch DO 03/14/2023 Last Documented On 3 11:27AM ; [facility] Somatic dysfunction of sacrum OMM Established pa tient with Alexis Boruch DO 03/14/2023 Last Documented On 3 11:27AM ; [facility] Somatic dysfunction of thora cic region OMM Established patient with Alexis Boruch DO 03/14/2023 Last Documented On 3 11:27AM ; [facility] Vertebrogenic low back pain OMM Established pushpa ent with Alexis Boruch DO 03/14/2023 Last Documented On 3 11:27AM ; [facility] Arthralgia of both sacroiliac joints OMM Established patient with Ananda Sinan DO 11/12/2022 Last Documented On 3 5:01PM ; [facility] Lumbar strain OMM Established patient with Tri vicky Sinan DO 11/12/2022 Last Documented On 3 5:01PM ; [facility] Myofascial pain syndrome of lower back OMM Established patient with Ananda Sinan DO 11/12/2022 Last Documented On 3 5:01PM ; [facility] Somatic dysfunction of cervi nixon region OMM Established patient with Ananda Sinan DO 11/12/2022 Last Documented On 3 5:01PM ; [facility] Somatic dysfunction of lumbar region OMM Established patient with Ananda Sinan DO 11/12/2022 Last Documented On 3 5:01PM ; [facility] Somatic dysfunction of pelvic region OMM Established patient with Ananda Sinan DO 11/12/2022 Last Documented On 3 5:01PM ; [facility] Somatic dysfunction of rib cage OMM Esta blished patient with Ananda Sinan DO 11/12/2022 Last Documented On 3 5:01PM ; [facility] Somatic dysfunction of sacrum OMM Establ ished patient with Ananda Sinan DO 11/12/2022 Last Documented On 3 5:01PM ; [facility] Somatic dysfunction of the h ead region OMM Established patient with Ananda Sinan DO 11/12/2022 Last Documented On 3 5:01PM ; [facility] Somatic dysfunction of thora cic region OMM Established patient with Ananda Sinan DO 11/12/2022 Last Documented On 3 5:01PM ; [facility] Vertebrogenic low back pain OMM Established pushpa ent with Ananda Sinan DO 11/12/2022 Last Documented On 3 5:01PM ; [facility] Arthralgia of the left pelvis/hip/femur OMM Established patient with Ananda Sinan DO 10/29/2022 Last Documented On 3 5:10PM ; [facility] Arthralgia of the right pelvis/hip/femur OMM Established patient with Ananda Sinan DO 10/29/2022 Last Documented On 3 5:10PM ; [facility] Intercostal pain OMM Established patient with Tr istan Sinan DO 10/29/2022 Last Documented On 3 5:10PM ; [facility] Myofascial pain syndrome of lumbar spine OMM Established patient with Ananda Sinan DO 10/29/2022 Last Documented On 3 5:10PM ; [facility] Somatic dysfunction of cervi nixon region OMM Established patient with Ananda Sinan DO 10/29/2022 Last Documented On 3 5:10PM ; [facility] Somatic dysfunction of lumbar region OMM Established patient with Ananda Sinan DO 10/29/2022 Last Documented On 3 5:10PM ; [facility] Somatic dysfunction of pelvic region OMM Established patient with Ananda Sinan DO 10/29/2022 Last Documented On 3 5:10PM ; [facility] Somatic dysfunction of rib cage OMM Esta blished patient with Ananda Sinan DO 10/29/2022 Last Documented On 3 5:10PM ; [facility] Somatic dysfunction of sacrum OMM Establ ished patient with Ananda Sinan DO 10/29/2022 Last Documented On 3 5:10PM ; [facility] Somatic dysfunction of the h ead region OMM Established patient with Ananda Sinan DO 10/29/2022 Last Documented On 3 5:10PM ; [facility] Somatic dysfunction of thora cic region OMM Established patient with Ananda Sinan DO 10/29/2022 Last Documented On 3 5:10PM ; [facility] Vertebrogenic low back pain OMM Established pushpa ent with Ananda Sinan DO 10/29/2022 Last Documented On 3 5:10PM ; [facility] Arthralgia of the left pelvis/hip/femur OMM Established patient with Ananda Sinan DO 10/10/2022 Last Documented On 3 9:28AM ; [facility] Arthralgia of the right pelvis/hip/femur OMM Established patient with Ananda Sinan DO 10/10/2022 Last Documented On 3 9:28AM ; [facility] Myofascial pain syndrome of lower back OMM Established patient with Ananda Sinan DO 10/10/2022 Last Documented On 3 9:28AM ; [facility] Somatic dysfunction of cervi nixon region OMM Established patient with Ananda Sinan DO 10/10/2022 Last Documented On 3 9:28AM ; [facility] Somatic dysfunction of lumbar region OMM Established patient with Ananda Sinan DO 10/10/2022 Last Documented On 3 9:28AM ; [facility] Somatic dysfunction of pelvic region OMM Established patient with Ananda Sinan DO 10/10/2022 Last Documented On 3 9:28AM ; [facility] Somatic dysfunction of rib cage OMM Esta blished patient with Ananda Sinan DO 10/10/2022 Last Documented On 3 9:28AM ; [facility] Somatic dysfunction of rib cage OMM Esta blished patient with Ananda Sinan DO 10/10/2022 Last Documented On 3 9:28AM ; [facility] Somatic dysfunction of sacrum OMM Establ ished patient with Ananda Sinan DO 10/10/2022 Last Documented On 3 9:28AM ; [facility] Somatic dysfunction of the h ead region OMM Established patient with Ananda Sinan DO 10/10/2022 Last Documented On 3 9:28AM ; [facility] Somatic dysfunction of thora cic region OMM Established patient with Ananda Sinan DO 10/10/2022 Last Documented On 3 9:28AM ; [facility] Vertebrogenic low back pain OMM Established pushpa ent with Ananda Sinan DO 10/10/2022 Last Documented On 3 9:28AM ; [facility] Cervicalgia OMM Established patient with Tri vicky Sinan DO 08/30/2022 Last Documented On 3 4:50PM ; [facility] Somatic dysfunction of cervi nixon region OMM Established patient with Ananda Sinan DO 08/30/2022 Last Documented On 3 4:50PM ; [facility] Somatic dysfunction of lumbar region OMM Established patient with Ananda Sinan DO 08/30/2022 Last Documented On 3 4:50PM ; [facility] Somatic dysfunction of pelvic region OMM Established patient with Ananda Sinan DO 08/30/2022 Last Documented On 3 4:50PM ; [facility] Somatic dysfunction of rib cage OMM Esta blished patient with Ananda Sinan DO 08/30/2022 Last Documented On 3 4:50PM ; [facility] Somatic dysfunction of sacrum OMM Establ ished patient with Ananda Sinan DO 08/30/2022 Last Documented On 3 4:50PM ; [facility] Somatic dysfunction of the h ead region OMM Established patient with Ananda Sinan DO 08/30/2022 Last Documented On 3 4:50PM ; [facility] Somatic dysfunction of thora cic region OMM Established patient with Ananda Sinan DO 08/30/2022 Last Documented On 3 4:50PM ; [facility] Vertebrogenic low back pain OMM Established pushpa ent with Ananda Sinan DO 08/30/2022 Last Documented On 3 4:50PM ; [facility] Cervicalgia OMM Established patient with Farhana crystal DiNizio DO 04/14/2021 Last Documented On 2 12:05PM ; [facility] Congenital shortening of lower limb OMM Established patient with Yu DiNizio DO 04/14/2021 Last Documented On 2 12:05PM ; [facility] Low back pain OMM Established patient with Farhana crystal DiNizio DO 04/14/2021 Last Documented On 2 12:05PM ; [facility] Somatic dysfunction of cervi nixon region OMM Established patient with Yu DiNizio DO 04/14/2021 Last Documented On 2 12:05PM ; [facility] Somatic dysfunction of lower extremities OMM Established patient with Yu DiNizio DO 04/14/2021 Last Documented On 2 12:05PM ; [facility] Somatic dysfunction of lumbar region OMM Established patient with Yu DiNizio DO 04/14/2021 Last Documented On 2 12:05PM ; [facility] Somatic dysfunction of pelvic region OMM Established patient with Yu DiNizio DO 04/14/2021 Last Documented On 2 12:05PM ; [facility] Somatic dysfunction of sacrum OMM Establ ished patient with Yu DiNizio DO 04/14/2021 Last Documented On 2 12:05PM ; [facility] Somatic dysfunction of the h ead region OMM Established patient with Yu DiNizio DO 04/14/2021 Last Documented On 2 12:05PM ; [facility] Somatic dysfunction of thora cic region OMM Established patient with Yu DiNizio DO 04/14/2021 Last Documented On 2 12:05PM ; [facility] Somatic dysfunction of upper extremities OMM Established patient with Yu DiNnatalieio DO 04/14/2021 Last Documented On 2 12:05PM ; [facility] Congenital shortening of lower limb OMM Established patient with Yu DiNizio DO 03/31/2021 Last Documented On 2 3:20PM ; [facility] Somatic dysfunction of lumbar region OMM Established patient with Yu DiNnatalieio DO 03/31/2021 Last Documented On 2 3:20PM ; [facility] Somatic dysfunction of pelvic region OMM Established patient with Yu DiNnatalieio DO 03/31/2021 Last Documented On 2 3:20PM ; [facility] Somatic dysfunction of sacrum OMM Establ ished patient with Yu DiNnatalieio DO 03/31/2021 Last Documented On 2 3:20PM ; [facility] Somatic dysfunction of thora cic region OMM Established patient with Yu DiNnatalieio DO 03/31/2021 Last Documented On 2 3:20PM ; [facility] Instructions Includes: Instructions for all patient encounters Education and Decision Aids were provided during visit for: Hot showers and rest. No hea vy lifting or excercize for 24-48 hours. Discussed that this type of trauma takes a toll on the whole body and musckuloskeletal system Last Documented On 4 2:42PM ; [facility] Medical Equipment - Implanted Devices [...] 4 3:43PM By Betty Mahan ; [facility] FLUoxetine HCl 20 MG Oral Capsule 03/31/2021 Provide r: Diagnosis: Last Documented On 3 2:06PM By Barb Lee CCS ; [facility] Past Medications on file ZyrTEC Allergy 10 MG Oral Tablet 03/31/2021 - 06/20/19 24 Provider: Diagnosis: Last Documented On 4 3:42PM By Betty Mahan ; [facility] Medications Administered Includes: Administered Medications in patient's [...] 21 Last Documented: On 07/19/2023 4:02PM ; [facility] Results Includes: Results from 06/30/2023 through 06/29/2024 No Results Recorded For Specified Dates History of Present Illness History of Present Illness not supported for this document type No History of Present Illness Recorded Social History Description Last Updated Right Handed 03/31/2021 Last Documented On 2 3:20PM ; [facility] 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/2021 Last Documented On 2 3:20PM ; [facility] Daily coffee consumption was one cups pe r day 03/31/2021 Last Documented On 2 3:20PM ; [facility] Never drank alcohol 03/31/2021 Last Documented On 2 3:20PM ; [facility] Non-smoker 03/31/2021 Last Documented On 2 3:20PM ; [facility] Not using drugs 03/31/2021 Last Documented On 2 3:20PM ; [facility] Single 03/31/2021 Last Documented On 2 3:20PM ; [facility] Smoking Status Unknown Procedures and Surgical History Includes: Procedures from 06/30/2023 through 06/29/2024 Procedures Code Diagnosis Performing Provider Service Location Service Date OSTEOPATHIC MANIP 5-6 AREAS [address]2318 Segmental and somatic dysfunction of cervical region, Segmental and somatic dysfunction of rib cage, Segmental and somatic dysfunction of thoracic region, Segmental and somatic dysfunction of lumbar region Ananda Menon DO OMM 07/19/2023 Last Documented On 4 7:02AM ; [facility] Surgical History Last Updated No prior surgery or no significant histo ry 03/31/2021 Last Documented On 2 3:20PM ; [facility] History of treatment of foot fracture - Boot (2016) 03/31/2021 Last Documented On 2 3:20PM ; [facility] Medical History Includes: Medical History in patient's chart Description Last Updated Past medical history reviewed - Previous encounter reviewed 03/31/2021 Last Documented On 2 3:20PM ; [facility] Dissociative Disorder ~ Environmental Al lergies 03/31/2021 Last Documented On 2 3:20PM ; [facility] Allergy symptoms occur seasonally 2021 Last Documented On 2 3:20PM ; [facility] An allergy to certain foods 03/31/2021 Last Documented On 2 3:20PM ; [facility] History of anxiety disorder NOS 03/31/19 22 Last Documented On 2 3:20PM ; [facility] History of depression 03/31/2021 Last Documented On 2 3:20PM ; [facility] Family History Includes: Family History in patient's chart Description Last Updated ADHD (dad) 03/31/2021 Last Documented On 2 3:20PM ; [facility] Family history of type 1 diabetes mellit us (sister) 03/31/2021 Last Documented On 2 3:20PM ; [facility] Review of Systems Review of Systems not [...] Last Documented On 4 2:00PM ; [facility] Encounters Includes: Encounters from 06/30/2023 through 06/29/2024 Encounter Provider Location Date Check-In Time Check-Out Time Diagnosis [facility] Established patient Ananda Menon DO [facility] 07/19/19 24 3:58PM 4:53PM Dorsopathy Low Back Pain Vertebrogenic,S omatic Dysfunction of Head,Somatic Dysfunction of Rib Cage,Somatic Dysfunction of Cervical Region,Somatic Dysfunction of Thoracic Region,Somatic Dysfunction of Lumbar Region,Cervical maxime Insurance Includes: Active Insurance Policies Plan Name Member ID Group # Subscriber Relationship Effect mica Dates 1 - [place] Access Payer [id number] Girma Cha II Goals Includes: Active Goals [...] therapist, and will return to the [facility] clinic as needed. Initiated on 03/15/2023 by provider Alexis Ko ; [facility] Clinical Notes Includes: Signed Clinical Notes starting from 03/07/2022 * Progress note Date Encounter Last Documented by 07/19/2023 [facility] Established patient Last doc umented on 07/19/2023; 5:27 PM, Ananda Menon DO; [facility] Chief Complaint - Neck symptoms - [...] outpatient expanded h&p - low complexity decisions 90356 - The E&M code was based on Medical Decision Making associated with at least 2 of the following 3 elements 1) 2 minor or self-limiting problems or 1 stable chronic problem or 1 acute uncomplicated injury; 2) limited record/data reviewed or ordered; 3) Low management risk such as OMT.
--- OUTSIDE RECORDS SUMMARY | 2024-06-29 04:14 | XMS_ITS | Continuity of Care Document ---
Author Organization [facility] Address [address] [facility] [place] [address] Phone Care Team Providers Care Chemical Cell Changer Name Role Phone Lana Cruz Unavailable Unavailable [...] on Encounter OFFICE/OUTPA TIENT VISIT, EST [facility], [address] [place] [address], [id number], [place] tel:[phone] [facility] testing (chief complaint) Contact w and exposure to oth viral communicable diseasesSore throat Mehreen Schwartz. [address] [place] [address], [id number], [place]. tel:[phone] Referring Provider: Lana Verde, [address] [place] [address], [id number] . tel:[phone] OFFICE/OUTPA TIENT VISIT, EST [facility], [address] [place] [address], [id number], [place] tel:[phone] [facility] Concerns (chief complaint) Contact w and exposure to oth viral communicable diseases 0 Juan Lugo. [address] [place] [address], [id number], [place]. tel:[phone] Referring Provider: Brittney Adams, [address] [place] [address], [id number]. tel:[phone] [facility], [address] [place] [address], [id number], [place] tel:[phone] [facility] [place] [place] injury (chief complaint) Pain in left footPain in left wrist 6 An Espino. [address] [place] [address], [id number], [place]. tel:[phone] Referring Provider: Srinivas Pederson, [address] [place] [address], [id number] . tel:[phone] OFFICE/OUTPA TIENT VISIT, EST [facility], [address] [place] [address], [id number], [place] tel:[phone] [facility] rash (chief complaint) Rash 4 Phi Aldridge. [address] [place] [address], [id number], [place]. tel:[phone] Referring Provider: Srinivas Pederson, [address] [place] [address], [id number] . tel:[phone] OFFICE/OUTPA TIENT VISIT, EST [facility], [address] [place] [address], [id number], [place] tel:[phone] [facility] dysuria (chief complaint) DysuriaUrinary tract infection 4 No Information Referring Provider: Srinivas Pederson, [address] [place] [address], [id number] . tel:[phone] [facility], [address] [place] [address], [id number], [place] tel:[phone] [facility] No Information 3 Lamdebbi Emmanuella. [address] [place] [address], [id number], [place]. tel:[phone] OFFICE/OUTPA TIENT VISIT, NEW [facility], [address] [place] [address], [id number], [place] tel:[phone] [facility] injury, cut and facial pain (chief complaint) Open wound of face, unspecified site, uncomplicated 3 No Information Referring Provider: Srinivas Pederson, [address] [place] [address], [id number] . tel:[phone] Family History Family Member Type Diagnosis Age [...] Agency Payers Payer name Insurance type Covered libertarian ID Authoriza tion(s) [facility] [id number] BL [id number] Social History Type Description Quantity Date Captured [...] Left ankle ordered Future Order: Lab Order [facility] SARS-CoV-2, RT-PCR ([id number]), Sent on: Sent History Of Present Illness [...] Mental Status Date Cognitive Assessment Orientation - [place] ed to time, place, person, situation. Patient Care Teams Name Effective Dates (start - stop) Status Members No Information
--- OUTSIDE RECORDS SUMMARY | 2024-06-29 04:14 | XMS_ITS ---
Care Plan - [facility] Created on: June 29, 2024 Betty Cha : 2000 Sex: Female Author Organization [facility] Address [address] [place] [address] Phone Care Team Providers [facility] Facility Administrator Name Role Phone Jeanie Trevino Primary Care Provider [phone] Goals Includes: Active Goals The patient will [...] behavior therapist, and will return to the [facility] clinic as needed. Initiated on 03/15/2023 by provider Alexis Ko ; [facility]
--- OUTSIDE RECORDS SUMMARY | 2024-06-29 04:14 | XMS_ITS | Continuity of Care Document ---
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 Role Phone Kasandra Bartholomew Unavailable Unavailable Allergies, Adverse Reactions, Alerts Substance Reaction Status Criticality wheat Active No Information Alpha-Gal (Dxqewgbcq-Adcfz-0,3-Galactose) Active No Information hops Active No Information [...] EST OFFICE/OUTPATIENT VISIT, EST [facility]/OPTIC STREP A ASSAY W/OPTIC [...] Diagnoses Date Provider Providers Copied on Encounter [facility], [address] [place] [address], [id number], tel:[phone] [facility] No Information 5 Aiden Kasandra. [address], [place], [place], [id number], [place]. tel:[phone] [facility], [address] [place] [address], [id number], [place] tel:[phone] [facility] No Information 4 Aiden Kasandra. [address], [place], [place], [id number], [place]. tel:[phone] [facility], [address] [place] [address], [id number], [place] tel:[phone] [facility] No Information 4 Josephine Kasandra. [address], [place], [place], [id number], [place]. tel:[phone] OFFICE O/P EST LOW [facility], [address] [place] [address], [id number], tel:[phone] [facility] chronic conditions (chief complaint) Body mass index (BMI) 39.0-39.9, adultAttention deficit disorder w/ hyperactivity predominantly inattentive typeGeneralized Anxiety DisorderMDD (major depressive disorder), severe 4 Aiden Slaughter. [address], [place], [place], [id number], [place]. tel:[phone] Referring Provider: Kasandra Danielle, [address], [place], [address] . tel:[phone] OFFICE O/P EST [facility], [address] [place] [address], [id number], [place] tel:[phone] [facility] PMDD follow up (chief complaint)u rinary symptoms (chief complaint) Body mass index (BMI) 40.0-44.9, adultDysuriaIns ulin resistance 4 Benny Lacy. [address], [place], [id number], [place]. tel:[phone] Referring Provider: Bambi Jeffersno, [address] [place], [address] . tel:[phone] OFFICE O/P EST [facility], [address] [place] [address], [id number], [place] tel:[phone] [facility] chronic conditions (chief complaint) Attention deficit disorder w/ hyperactivity predominantly inattentive typeBody mass index (BMI) 40.0-44.9, adult 4 Aiden Slaughter. [address] [place], [place], [id number], [place]. tel:[phone] Referring Provider: Kasandra Danielle, [place], [address] . tel:[phone] OFFICE O/P EST [facility], [address] [place] [address], [id number], [place] tel:[phone] [facility] chronic conditions (chief complaint) Generalized Anxiety DisorderMDD (major depressive disorder), severeAttention deficit disorder w/ hyperactivity predominantly inattentive typeBody mass index (BMI) 40.0-44.9, adult Apr-2 4 Aiden Slaughter. [address], [place], [place], [id number], [place]. tel:[phone] Referring Provider: Kasandra Danielle, [address], [place], [address] . tel:[phone] No Charge Nurse Visit [facility], [address] [place] [address], [id number], [place] tel:[phone] [facility] No Information Apr-0 4 Aiden Slaughter. [address], [place], [place], [id number], [place]. tel:[phone] Referring Provider: Kasandra Danielle, [address], [place], [address] . tel:[phone] PSYTX W PT 30 MINUTES [facility], [address] [place] [address], [id number], [place] tel:[phone] [facility] [place] Generalized Anxiety DisorderMajor depressive disorder, recurrent, mildAttention deficit disorder w/ hyperactivity predominantly inattentive type May-2 4 Ron Agosto. [address], [place], [address], [place]. tel:[phone] OFFICE O/P EST MOD 30-39 MIN [facility], [address] [place] [address], [id number], [place] tel:[phone] [facility] depression (chief complaint)e stablish care (chief complaint) BMI pediatric, greater than or equal to 95% for ageGeneralized Anxiety DisorderMDD (major depressive disorder), severeAttention deficit disorder w/ hyperactivity predominantly inattentive typeEncounter to establish care May- 4 Aiden Slaughter. [address], [place], [place], [id number], [place]. tel:[phone] Referring Provider: Kasandra Danielle, [address], [place], [address] . tel:[phone] OFFICE O/P EST LOW 20-29 MIN [facility], [address] [place] [address], [id number], [place] tel:[phone] [facility] Discuss meds (chief complaint) Body mass index (BMI) 40.0-44.9, adultDisassocia tion disorderThought s of self-harmAttent ion deficit disorder w/ hyperactivity predominantly inattentive typeGeneralized Anxiety DisorderPMDD (premenstrual dysphoric disorder) May- 4 Benny Lacy. [address] [place], [place], [id number], [place]. tel:[phone] Referring Provider: Bambi Jefferson, [address] [place], [address] . tel:[phone] OFFICE O/P EST LOW 20-29 MIN [facility], [address] [place] [address], [id number], [place] tel:[phone] [facility] Medication follow up (chief complaint) Body mass index (BMI) 40.0-44.9, adultInsulin resistancePMDD (premenstrual dysphoric disorder)Oligom enorrhea, unspecified type 4 Benny Lacy. [address], [place], [id number], [place]. tel:[phone] Referring Provider: Bambi Jefferson, [address] [place], [address] . tel:[phone] [facility], [address] [place] [address], [id number], [place] tel:[phone] [facility] Dietary counseling and surveillanceBod y mass index (BMI) 40.0-44.9, adult 4 Kike Dinh. [address] [place] [address], [id number], [place]. Referring Provider: Allegra Alvarez, [address] [place] [address], [address] . [facility], [address] [place] [address], [id number], [place] tel:[phone] [facility] PMDD (chief complaint)P eriod follow up (chief complaint) PMDD (premenstrual dysphoric disorder)Oligom enorrhea, unspecified type 3 Benny Lacy. [address], [place], [id number], [place]. tel:[phone] [facility], [address] [place] [address], [id number], [place] tel:[phone] [facility] Dietary counseling and surveillanceBod y mass index (BMI) 40.0-44.9, adult 3 Kike Dinh. [address] [place] [address], [id number], [place]. Referring Provider: Allegra Alvarez, [address] [place] [address], [id number] . [facility], [address] [place] [address], [id number], [place] tel:[phone] [facility] Dietary counseling and surveillanceBod y mass index (BMI) 40.0-44.9, adult 3 Kike Dinh. [address] [place] [address], [id number], [place]. Referring Provider: Allegra Alvarez, [address] [place] [address], [address] . PSYTX W PT 30 MINUTES [facility], [address] [place] [address], [id number], [place] tel:[phone] [facility] [place] Generalized Anxiety DisorderMajor depressive disorder, recurrent, mildAttention deficit disorder w/ hyperactivity predominantly inattentive type 3 Ron Agosto. [address] [place], [address], [place]. tel:[phone] [facility], [address] [place] [address], [id number], [place] tel:[phone] [facility] Dietary counseling and surveillanceBod y mass index (BMI) 40.0-44.9, adult Oct- 3 Kike Dinh. [address] [place] [address], [id number], [place]. Referring Provider: Allegra Alvarez, [address] [place] [address], [id number] . [facility], [address] [place] [address], [id number], [place] tel:[phone] [facility] Body mass index (BMI) 40.0-44.9, adult Oct- 3 Benny Lacy. [address], [place], [id number], [place]. tel:[phone] OFFICE O/P EST MOD 30-39 MIN [facility], [address] [place] [address], [id number], [place] tel:[phone] [facility] Discuss results (chief complaint) Body mass index (BMI) 40.0-44.9, adultInsulin resistancePMDD (premenstrual dysphoric disorder) 3 Benny Lacy. [address], [place], [id number], [place]. tel:[phone] Referring Provider: Bambi Jefferson, [address] [place], [address] . tel:[phone] PSYCH DIAGNOSTIC EVALUATION [facility], [address] [place] [address], [id number], [place] tel:[phone] [facility] [place] Generalized Anxiety DisorderMajor depressive disorder, recurrent, mildAttention deficit disorder w/ hyperactivity predominantly inattentive type 3 Ron Agosto. [address] [place], [address], [place]. tel:[phone] OFFICE O/P EST LOW 20-29 MIN [facility], [address] [place] [address], [id number], [place] tel:[phone] [facility] Irregular periods (chief complaint) Body mass index (BMI) 40.0-44.9, adultOligomenor kentrell, unspecified type 3 Benny Lacy. [address], [place], [id number], [place]. tel:[phone] Referring Provider: Bambi Jefferson, [address] [place], [address] . tel:[phone] PSYTX PT&/FAMILY 30 MINUTES [facility], [address] [place] [address], [id number], [place] tel:[phone] [facility] [place] Generalized Anxiety DisorderMajor depressive disorder, recurrent, mildAttention deficit disorder w/ hyperactivity predominantly inattentive type 2 Ron Agosto. [address] [place], [address], [place]. tel:[phone] PSYCH DIAGNOSTIC EVALUATION [facility], [address] [place] [address], [id number], [place] tel:[phone] [facility] [place] Generalized Anxiety DisorderMajor depressive disorder, recurrent, mildAttention deficit disorder w/ hyperactivity predominantly inattentive type 2 Ron Agosto. [address] [place], [address], [place]. tel:[phone] [facility], [address] [place] [address], [id number], [place] tel:[phone] [facility] [place] Generalized Anxiety DisorderPanic attackMajor depressive disorder, recurrent, mild 2 Ron Agosto. [address] [place], [address], [place]. tel:[phone] FAMILY PSYTX W/PATIENT [facility], [address] [place] [address], [id number], [place] tel:[phone] [facility] [place] Generalized Anxiety DisorderPanic attackMajor depressive disorder, recurrent, mild Aug- 2 Ron Agosto. [address] [place], [address], [place]. tel:[phone] PSYTX PT&/FAMILY 45 MINUTES [facility], [address] [place] [address], [id number], [place] tel:[phone] [facility] [place] Generalized Anxiety DisorderPanic attackMajor depressive disorder, recurrent, mild May-3 1-202 2 Blacksmith Triny. [address] [place], [address], [place]. tel:[phone] PSYTX PT&/FAMILY 30 MINUTES [facility], [address] [place] [address], [id number], [place] tel:[phone] [facility] [place] Generalized Anxiety DisorderPanic attackMajor depressive disorder, recurrent, mild May-3 0-202 2 Blacksmith Triny. [address] [place], [address], [place]. tel:[phone] [facility], [address] [place] [address], [id number], [place] tel:[phone] [facility] [place] Generalized Anxiety DisorderPanic attackMajor depressive disorder, recurrent, mild Nov-2 3-202 1 Blacksmith Triny. [address] [place], [address], [place]. tel:[phone] [facility], [address] [place] [address], [id number], [place] tel:[phone] [facility] [place] Generalized Anxiety DisorderPanic attackMajor depressive disorder, recurrent, mild Aug-2 3-202 1 Blacksmith Triny. [address] [place], [address], [place]. tel:[phone] [facility], [address] [place] [address], [id number], [place] tel:[phone] [facility] [place] Generalized Anxiety DisorderPanic attackMajor depressive disorder, recurrent, mild Aug-2 0-202 1 Blacksmith Triny. [address] [place], [address], [place]. tel:[phone] PREV VISIT, EST, AGE 18-39 [facility], [address] [place] [address], [id number], [place] tel:[phone] Pediatrics Well child (chief complaint) Encounter for general adult medical examination without abnormal findingsGeneral ized Anxiety DisorderBody mass index (BMI) 36.0-36.9, adult Oct-0 1 Ionas Jeanie. [address], [place], [id number]. tel:[phone] [facility], [address] [place] [address], [id number], [place] tel:[phone] [facility] [place] Generalized Anxiety DisorderPanic attackMajor depressive disorder, recurrent, mild 1 Ron Agosto. [address] [place], [address], [place]. tel:[phone] [facility], [address] [place] [address], [id number], [place] tel:[phone] [facility] [place] Generalized Anxiety DisorderPanic attackMajor depressive disorder, recurrent, mild Aug- 1 Ron Agosto. [address] [place], [address], [place]. tel:[phone] OFFICE/OUTPA TIENT VISIT, EST [facility], [address] [place] [address], [id number], [place] tel:[phone] Pediatrics Follow Up of anxiety (chief complaint)F ollow Up of depression (chief complaint) Generalized Anxiety DisorderMajor depressive disorder, recurrent, mildBody mass index (BMI) 37.0-37.9, adult Ellis- 1 Ionas Jeanie. [address], [place], [id number]. tel:[phone] [facility], [address] [place] [address], [id number], [place] tel:[phone] [facility] Generalized Anxiety DisorderPanic attackMajor depressive disorder, recurrent, mild 1 Ron Agosto. [address] [place], [address], [place]. tel:[phone] [facility], [address] [place] [address], [id number], [place] tel:[phone] [facility] [place] Generalized Anxiety DisorderPanic attackMajor depressive disorder, recurrent, mild Apr-2 1-202 1 Elviramitjacoby Agosto. [address] [place], [address], [place]. tel:[phone] [facility], [address] [place] [address], [id number], [place] tel:[phone] [facility] [place] Generalized Anxiety DisorderPanic attackMajor depressive disorder, recurrent, mild Mar-2 1 Evliramitjacoby RabagoTriny. [address] [place], [address], [place]. tel:[phone] [facility], [address] [place] [address], [id number], [place] tel:[phone] [facility] Generalized Anxiety DisorderPanic attackMajor depressive disorder, recurrent, mild Boom- 1 Ron Agosto. [address] [place], [address], [place]. tel:[phone] [facility], [address] [place] [address], [id number], [place] tel:[phone] [facility] [place] Generalized Anxiety DisorderPanic attackMajor depressive disorder, recurrent, mild Boom-0 8 1 Elviramitjacoby Agosto. [address] [place], [address], [place]. tel:[phone] [facility], [address] [place] [address], [id number], [place] tel:[phone] [facility] Generalized Anxiety DisorderPanic attackMajor depressive disorder, recurrent, mild Dec-1 4-202 0 Blacksmith Triny. [address] [place], [address], [place]. tel:[phone] [facility], [address] [place] [address], [id number], [place] tel:[phone] [facility] [place] Generalized Anxiety DisorderPanic attackMajor depressive disorder, recurrent, mild Nov-2 4-202 0 Ron Agosto. [address] [place], [address], [place]. tel:[phone] [facility], [address] [place] [address], [id number], [place] tel:[phone] [facility] Generalized Anxiety DisorderPanic attackMajor depressive disorder, recurrent, mild Nov-1 0-202 0 Ron Agosto. [address] [place], [address], [place]. tel:[phone] [facility], [address] [place] [address], [id number], [place] tel:[phone] [facility] BMI pediatric, greater than or equal to 95% for age Oct-0 6-202 0 Ionas Jeanie. [address], [place], [id number]. tel:[phone] [facility], [address] [place] [address], [id number], [place] tel:[phone] [facility] [place] Generalized Anxiety DisorderPanic attackMajor depressive disorder, recurrent, mild Sep-2 9-202 0 Ron Agosto. [address] [place], [address], [place]. tel:[phone] [facility], [address] [place] [address], [id number], [place] tel:[phone] [facility] Generalized Anxiety DisorderPanic attackMajor depressive disorder, recurrent, mild Sep-2 1-202 0 Ron Agosto. [address] [place], [address], [place]. tel:[phone] OFFICE/OUTPA TIENT VISIT, EST [facility], [address] [place] [address], [id number], [place] tel:[phone] Pediatrics Anxiety (chief complaint) Generalized Anxiety DisorderMajor depressive disorder, recurrent, mildBMI pediatric, greater than or equal to 95% for age Sep- 0 Ionas Jeanie. [address], [place], [id number]. tel:[phone] [facility], [address] [place] [address], [id number], [place] tel:[phone] [facility] Generalized Anxiety DisorderPanic attackMajor depressive disorder, recurrent, mild Oct-3 0 Ron Agosto. [address] [place], [address], [place]. tel:[phone] No Charge Nurse Visit [facility], [address] [place] [address], [id number], [place] tel:[phone] Pediatrics Encounter for immunization Oct- 0 Ionas Jeanie. [address], [place], [id number]. tel:[phone] [facility], [address] [place] [address], [id number], [place] tel:[phone] [facility] [place] Generalized Anxiety DisorderPanic attackMajor depressive disorder, recurrent, mild Oct- 0 Ron Agosto. [address] [place], [address], [place]. tel:[phone] [facility], [address] [place] [address], [id number], [place] tel:[phone] [facility] [place] Generalized Anxiety DisorderPanic attackMajor depressive disorder, recurrent, mild Oct- 0 Ron Agosto. [address] [place], [address], [place]. tel:[phone] OFFICE/OUTPA TIENT VISIT, EST [facility], [address] [place] [address], [id number], [place] tel:[phone] Pediatrics Anxiety (chief complaint) Generalized Anxiety DisorderMajor depressive disorder, recurrent, mildBMI pediatric, greater than or equal to 95% for age Oct- 3-202 0 Ionas Jeanie. [address], [place], [id number]. tel:[phone] PREV VISIT, EST, AGE 12-17 [facility], [address] [place] [address], [id number], [place] tel:[phone] Pediatrics Well child (chief complaint) Encounter for [facility] (well child check) with abnormal findingsGeneral ized Anxiety DisorderMajor depressive disorder, recurrent, mildBMI pediatric, greater than or equal to 95% for age Ashwin-3 0-202 0 Ionas Jeanie. [address], [place], [id number]. tel:[phone] [facility], [address] [place] [address], [id number], [place] tel:[phone] [facility] [place] Generalized Anxiety DisorderPanic attackMajor depressive disorder, recurrent, mild Sep-2 4-202 0 Ron Agosto. [address] [place], [address], [place]. tel:[phone] [facility], [address] [place] [address], [id number], [place] tel:[phone] [facility] [place] Generalized Anxiety DisorderPanic attackMajor depressive disorder, recurrent, mild Sep- 7- 0 Ron Agosto. [address] [place], [address], [place]. tel:[phone] [facility], [address] [place] [address], [id number], [place] tel:[phone] [facility] [place] Generalized Anxiety DisorderPanic attackMajor depressive disorder, recurrent, mild Sep-0 7-202 0 Ron Agosto. [address] [place], [address], [place]. tel:[phone] [facility], [address] [place] [address], [id number], [place] tel:[phone] [facility] [place] Generalized Anxiety DisorderPanic attackMajor depressive disorder, recurrent, mild Ellis-3 0-202 0 Ron Agosto. [address] [place], [address], [place]. tel:[phone] [facility], [address] [place] [address], [id number], [place] tel:[phone] [facility] [place] Generalized Anxiety DisorderPanic attackMajor depressive disorder, recurrent, mild Aug-2 0 Ron Agosto. [address] [place], [address], [place]. tel:[phone] [facility], [address] [place] [address], [id number], [place] tel:[phone] [facility] [place] Generalized Anxiety DisorderPanic attack 0 Ron Agosto. [address] [place], [address], [place]. tel:[phone] OFFICE/OUTPA TIENT VISIT, EST [facility], [address] [place] [address], [id number], [place] tel:[phone] [facility] irregular bleeding (chief complaint)v aginal discharge/i tching (chief complaint) Body mass index (BMI) 35.0-35.9, adultAmenorrhea Vulvar itchingVaginal odorScreening for thyroid disorderScreeni ng for diabetes mellitus Apr- 0 Carl Harley. [address], [place], [id number], [place]. tel:[phone] PREV VISIT, EST, AGE 12-17 [facility], [address] [place] [address], [id number], [place] tel:[phone] Pediatrics Well child (chief complaint) Encntr for routine child health exam w/o abnormal findingsAllergi c rhinitis, unspecifiedBMI pediatric, 5th percentile to less than 85% for age 201 9 Ionas Jeanie. [address], [place], [id number]. tel:[phone] PREV VISIT, EST, AGE 12-17 [facility], [address] [place] [address], [id number], [place] tel:[phone] Pediatrics Well child (chief complaint) Encntr for routine child health exam w/o abnormal findingsBMI pediatric, greater than or equal to 95% for age Ellis-0 8 Ionas Jeanie. [address], [place], [id number]. tel:[phone] OFFICE/OUTPA TIENT VISIT, EST [facility], [address] [place] [address], [id number], [place] tel:[phone] Pediatrics sore throat (chief complaint)f ever (chief complaint) Acute pharyngitis, unspecifiedInfl uenza A 8 [facility] June. [address] [address], [place], [id number], [place]. tel:[phone] OFFICE/OUTPA TIENT VISIT, EST [facility], [address] [place] [address], [id number], [place] tel:[phone] Pediatrics abdominal pain (chief complaint) Generalized abdominal painDiarrhea in pediatric patient 7 Ionas Jeanie. [address], [place], [address]. tel:[phone] OFFICE/OUTPA TIENT VISIT, EST [facility], [address] [place] [address], [id number], [place] tel:[phone] Pediatrics sore throat (chief complaint) Pain in throatDietary counseling and surveillance 7 Jer Iglesias. [address], [place], [id number], [place]. tel:[phone] PREV VISIT, EST, AGE 12-17 [facility], [address] [place] [address], [id number], [place] tel:[phone] Pediatrics Well Child (chief complaint) Encntr for routine child health exam w/o abnormal findingsAbdomin al painDietary counseling and surveillance 4-201 7 Jer Shertt. [address], [place], [id number], [place]. tel:[phone] OFFICE/OUTPA TIENT VISIT, EST [facility], [address] [place] [address], [id number], [place] tel:[phone] Pediatrics fever (chief complaint) FeverAcute upper respiratory infection, unspecified 9201 6 Enrique Bright. [address], [place], [id number], [place]. tel:[phone] [facility], [address] [place] [address], [id number], [place] tel:[phone] Pediatrics Dietary counseling and surveillance 0 5-201 6 Jer Shertt. [address], [place], [id number], [place]. tel:[phone] No Charge Nurse Visit [facility], [address] [place] [address], [id number], [place] tel:[phone] Pediatrics Other Vaccines For Viral Diseses 0 5-201 5 Randle Harris. [address], [place], [id number], [place]. tel:[phone] No Charge Nurse Visit [facility], [address] [place] [address], [id number], [place] tel:[phone] Pediatrics UTI Ellis-0 9-201 5 Randle Harris. [address], [place], [id number], [place]. tel:[phone] OFFICE/OUTPA TIENT VISIT, EST [facility], [address] [place] [address], [id number], [place] tel:[phone] Pediatrics Follow Up of UTI (chief complaint) Dietary surveillance and counselingUTI 0 8-201 5 Jer Harris. [address], [place], [id number], [place]. tel:[phone] No Charge Nurse Visit [facility], [address] [place] [address], [id number], [place] tel:[phone] Pediatrics Painful Urination May-2 2-201 5 Enrique Bright. [address], [place], [id number], [place]. tel:[phone] No Charge Nurse Visit [facility], [address] [place] [address], [id number], [place] tel:[phone] Pediatrics Painful Urination Apr-0 8-201 5 Enrique Bright. [address], [place], [id number], [place]. tel:[phone] OFFICE/OUTPA TIENT VISIT, EST [facility], [address] [place] [address], [id number], [place] tel:[phone] Pediatrics uti (chief complaint) Painful Urination Apr-0 2-201 5 Enrique Bright. [address], [place], [id number], [place]. tel:[phone] No Charge Nurse Visit [facility], [address] [place] [address], [id number], [place] tel:[phone] Pediatrics repeat UA (chief complaint) Painful Urination Dec-3 1-201 4 Enrique Bright. [address], [place], [id number], [place]. tel:[phone] [facility], [address] [place] [address], [id number], [place] tel:[phone] Pediatrics UTI Dec-2 2-201 4 Enrique Bright. [address], [place], [id number], [place]. tel:[phone] OFFICE/OUTPA TIENT VISIT, EST [facility], [address] [place] [address], [id number], [place] tel:[phone] Pediatrics Urinary symptoms (peds) (chief complaint) Painful Urination Dec-1 8-201 4 Enrique Bright. [address], [place], [id number], [place]. tel:[phone] No Charge Nurse Visit [facility], [address] [place] [address], [id number], [place] tel:[phone] Pediatrics nv injection (chief complaint) No Information 4 Jer Iglesias. [address], [place], [id number], [place]. [phone] PREV VISIT, EST, AGE 5-11 [facility], [address] [place] [address], [id number], [place] tel:[phone] Pediatrics Well Child (chief complaint) Well ChildOther Vaccines For Viral DisesesDTP DTaP VacinneNeed for prophylactic vaccination and inoculation against other specified single bacterial diseaseWell Child Ellis- 4 Jer Iglesias. [address], [place], [id number], [place]. [phone] PREV VISIT, EST, AGE 5-11 [facility], [address] [place] [address], [id number], [place] tel:[phone] Pediatrics Well child - 10 Years (chief complaint) Well ChildAllergic rhinitis, cause unspecifiedWell Child Sep- 3 Jer Iglesias. [address], [place], [id number], [place]. [phone] OFFICE/OUTPA TIENT VISIT, EST [facility], [address] [place] [address], [id number], [place] tel:[phone] Pediatrics back pain (chief complaint) Low Back Pain Apr-0 2-201 3 Jer Iglesias. [address], [place], [id number], [place]. [phone] OFFICE/OUTPA TIENT VISIT, EST [facility], [address] [place] [address], [id number], [place] tel:[phone] Pediatrics sore throat (chief complaint) Pharyngitis Dec- 0-201 2 Enrique Bright. [address], [place], [id number], [place]. tel:[phone] OFFICE/OUTPA TIENT VISIT, EST [facility], [address] [place] [address], [id number], [place] tel:[phone] Pediatrics fever (chief complaint) Fever Apr- 2 Jer Shertt. [address], [place], [id number], [place]. tel:[phone] OFFICE/OUTPA TIENT VISIT, [facility], [address] [place] [address], [id number], [place] tel:[phone] Pediatrics short of breath (chief complaint) Influenza VaccineOther symptoms involving respiratory system and chest 1 Lobb Marco. [address], [place], [id number], [place]. tel:[phone] OFFICE/OUTPA TIENT VISIT, [facility], [address] [place] [address], [id number], [place] tel:[phone] Pediatrics sore throat (chief complaint) Strep ThroatFever 0 1 Rosaslindsey Freitasissa. [address], [place], [id number]. tel:[phone] PREV VISIT, EST, AGE 5-11 [facility], [address] [place] [address], [id number], [place] tel:[phone] Pediatrics HCY (chief complaint) PharyngitisWell Child May- 0 1 Lobb Marco. [address], [place], [id number], [place]. tel:[phone] OFFICE/OUTPA TIENT VISIT, EST [facility], [address] [place] [address], [id number], [place] tel:[phone] Pediatrics sore throat (chief complaint) Otitis Media UnspecifiedSore Throat - 1 Lobb Marco. [address], [place], [id number], [place]. tel:[phone] PREV VISIT, [facility], AGE 5-11 [facility], [address] [place] [address], [id number], [place] tel:[phone] Pediatrics well visit (chief complaint) Routine infant or child health check May-0 3-201 0 Lobb Marco. [address], [place], [id number], [place]. tel:[phone] [facility], [address] [place] [address], [id number], [place] tel:[phone] Pediatrics No Information Apr-2 9-201 0 Lobb Marco. [address], [place], [id number], [place]. tel:[phone] [facility], [address] [place] [address], [id number], [place] tel:[phone] Pediatrics vomiting (chief complaint)f ever (chief complaint)d iarrhea (chief complaint) No Information Apr- 2-201 0 Alison Fajardo. [address], [place], [id number]. tel:[phone] OFFICE/OUTPA TIENT VISIT, EST [facility], [address] [place] [address], [id number], [place] tel:[phone] Pediatrics No Information Sep-0 8-200 9 Rosas Tana. [address], [place], [id number]. tel:[phone] PREV VISIT, EST, AGE 5-11 [facility], [address] [place] [address], [id number], [place] tel:[phone] Pediatrics No Information Apr-2 4-200 9 Lobb Marco. [address], [place], [id number], [place]. tel:[phone] [facility], [address] [place] [address], [id number], [place] tel:[phone] Pediatrics No Information Apr-0 1-200 9 Ionas Jeanie. [address], [place], [id number]. tel:[phone] OFFICE/OUTPA TIENT VISIT, EST [facility], [address] [place] [address], [id number], [place] tel:[phone] Pediatrics No Information May- 2200 9 Lobb Marco. [address], [place], [id number], [place]. tel:[phone] OFFICE/OUTPA TIENT VISIT, [facility], [address] [place] [address], [id number], [place] tel:[phone] Pediatrics No Information May-0 2-200 9 Lobb Marco. [address] [place] [place], [id number], [place]. tel:[phone] Family History Family Member Type Diagnosis Age [...] Problem anxiety state Maternal uncle Problem (finding) Ridgely's disease Mother Problem (finding) Gestational diabetes Sister [...] Unspecified Payers Payer name Insurance type Covered constitution party ID Authoriza tion(s) [place] [employer] Blue Shield [place] BL [id number] Cigna CI [id number] Cigna CI [id number] Healthlink PPO CI [id number] Social History Type Description Quantity Date Captured Comments Alcohol Use Details Unknown Caffeine Use Details Unknown Tobacco Use Status No Information Smoking Status No Information Sex Female Sexual Orientation Straight or heterosexual Gender Identity Female Chief Complaint And Reason For Visit No Information Reason For Referral Reason For Referral No Information Plan Of Treatment Date Type Action Status Goal Hepatitis C scre ening. Due on due Goal BMI Plan. Due on due Goal SBIRT. Due on du e Goal Influenza vaccine. Due on due Goal Pap Image Guided , rfx HPV all pth. Due on due Goal PHQ9. Due on due Goal Eye Exam. Due on due Goal Tdap. Due on due Goal HPV (3rd) due Goal Dental exam. Due on due Goal Chlamydia/GC Amp lification. Due on due Goal HPV (1st) due Goal Fall Risk Plan. Due on due Goal Depression scree teresa. Due on due Goal HPV (2nd) due Goal Pre-Diabetes Scr eener. Due on due Goal Lipid panel. Due on 043 due Goal HPV. Due on due Goal Glucose. Due on due Goal Td vaccine. Due on due Goal Annual Physical Exam. Due on due Goal PPD (TST). Due on due Goal Annual Physical Exam. Due on due Goal Tdap. Due on due Goal HPV. Due on due Goal Glucose. Due on due Goal Td vaccine. Due on 24 due Goal PPD (TST). Due on 4 due Goal Hepatitis C scre ening. Due on due Goal HPV (1st) due Goal Dental exam. Due on 024 due Goal HPV (3rd) due Goal HPV (2nd) due Goal Influenza vaccine. Due on due Goal SBIRT. Due on du e Goal Chlamydia/GC Amp lification. Due on due Goal PHQ9. Due on due Goal Pap Image Guided , rfx HPV all pth. Due on due Goal Lipid panel. Due on due Goal Depression scree teresa. Due on due Goal Pre-Diabetes Scr eener. Due on due Goal Fall Risk Plan. Due on due Goal Chlamydia/GC Amp lification. Due on due Goal HPV. Due on due Goal Influenza vaccine. Due on due Goal Lipid panel. Due on due Goal Depression scree teresa. Due on due Goal Dental exam. Due on due Goal HPV (3rd) due Goal HPV (1st) due Goal PHQ9. Due on due Goal Tdap. Due on due Goal Td vaccine. Due on due Goal Glucose. Due on due Goal Pap Image Guided , rfx HPV all pth. Due on due Goal Annual Physical Exam. Due on due Goal HPV (2nd) due Goal Fall Risk Plan. Due on due Goal Hepatitis C scre ening. Due on due Goal PPD (TST). Due on due Goal SBIRT. Due on du e Goal Pre-Diabetes Scr eener. Due on due Goal Lipid panel. Due on 043 due Goal Depression scree teresa. Due on due Goal Pap Image Guided , rfx HPV all pth. Due on due Goal HPV. Due on due Goal Dental exam. Due on 024 due Goal PHQ9. Due on due Goal Pre-Diabetes Scr eener. Due on due Goal Influenza vaccine. Due on due Goal Td vaccine. Due on due Goal Glucose. Due on due Goal Fall Risk Plan. Due on due Goal SBIRT. Due on du e Goal PPD (TST). Due on due Goal HPV (1st) due Goal HPV (3rd) due Goal Annual Physical Exam. Due on due Goal Chlamydia/GC Amp lification. Due on due Goal Hepatitis C scre ening. Due on due Goal HPV (2nd) due Goal Tdap. Due on due Goal Lifestyle education regardin g diet [...] Referral Referred To: [facility] Ordered: Referrals: [facility]. Assume care Appointment date/timeframe: 06/17/2023 ordered Referral Referred To: Allegra Stokes RD, [facility] [place], [place], [id number] Ordered: Referrals: [facility] [employer] [facility]. [address]. Evaluate and treat ordered Referral Ordered: US Kidney/Bladder Bilateral ordered Future Order: Lab Order Influenz a A & B (03992), Appointment on: Ordered Future Order: Lab Order [...] *See Chronic Conditions Template establish care [facility] with Kasandra today. Student at [employer]. History of anxiety/depression/ADHD. depression This is an [...] will refer to [facility] as soon as possible. She returns to [...] confirming consent. Pt is in college in [place] and provider in office. Follow up on [...] did start daily physical activity at the [facility] vaginal discharge/itching Her sy mptoms [...] trouble breathing -had no issues while in [place] have allergies Well child doing well; no [...] having some belly pain with certain foods (Niuean, Georgian, certain cereals). No straining with stooling, hard [...] and bm.unsure about amoxicillin allergy. Travelling to [place] tomorrow. fever Follow Up of UTI Additional info rmation: Had been having burning with urination. Cath[place]in the need to go a lot. 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 Has psychiatrist and counselor at school. Needs referral to PCP DEONTE for mediation management. Did not do well on Sertraline. Has not been taking Fluoxetine. The Methyphenidate is working well. Will refer to [facility] for med management. 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 Continue counseling on [place] and recommend restarting Prozac. Will follow up [...] her. Related to PMDD (premenstrual dysphoric disorder) Giving [...] exam w/o abnormal findings Oral Health Discussed (- yea rs) Related to Encntr for routine [...] do not improve Related to Influenza A keep track of food i ntake -might be able to see exactly the triggers;try to avoid the foods that so far are triggering the abd pain/loose stoolsstart probiotics dailyalso an antiacid +antigasrtc in one monthrtc sooner if symptoms worsen or don't improvecall with any questions or concerns Related to Generalized abdominal pain noninfectioussuspect lactose or fructose malabsorptionconsider to check reducing substances in stool sample Related to Diarrhea in pediatric patient This looks viral. Co ntinue symptomatic treatment, [...] Related t o Dietary counseling and surveillance Soft diet for few da ys. Rapid strep faintly positive. Await culture results. since she is going to [place] , we will start keflex and if [...] or warm apple juice. Related to Fever Based on exam, proba radha viral URI. No signs of ear infection, or pneumonia.Continue symptomatic care. Enourage fluid intake. Keep head of bed elevated.If temp >100.4, decreased oral intake, decreased urine output, respiratory distress or any concerns please go to ER or Follow up earlier. Related to Acute upper respiratory infection, unspecified Push fluids and if s he has [...] Urination Age appropriate anti cipatory guidance discussed (-) Related to routine /child health checkup Age appropriate diet discussed () Related to routine /child health checkup Age appropriate safe ty discussed (-) Related to routine /child health checkup Oral Health Discussed (02-05 yea rs) Related to routine infant/child health checkup Encourage playing outside Age approriate antic ipatory guidance discussed Related to routine /child health checkup Age appropriate safety discussed Related to routine /child health checkup Assessments Type Assessment Date No Information Patient Care Teams Name Effective Dates (start - stop) Status Members No Information
--- OUTSIDE RECORDS SUMMARY | 2024-06-29 04:14 | XMS_ITS | Clinical Summary ---
Author Organization [facility] Address [address] [place] [address] Phone Care Team Providers Care Lead Consultant Name Role Phone WagnreFrieda domínguezana Primary Care Provider [phone] Reason for Visit and Chief Complaint OMM [...] - Last Documented On 07/19/2023 5:27PM ; [facility] - Follow-up visit in 4-6 weeks for reevaluation or as needed - Last Documented On 07/19/2023 5:27PM ; [facility] Assessments Includes: Assessments from this encounter Findings - Vertebrogenic low back pain [M54.51 - Vertebrogenic low back pain] - Last Documented On 07/19/2023 5:27PM ; [facility] - Cervicalgia [M54.2 - Cervicalgia] - Last Documented On 07/19/2023 5:27PM ; [facility] - Somatic dysfunction of the head region [M99.00 - Segmental and somatic dysfunction of head region] - Last Documented On 07/19/2023 5:27PM ; [facility] - Somatic dysfunction of rib cage [M99.08 - Segmental and somatic dysfunction of rib cage] - Last Documented On 07/19/2023 5:27PM ; [facility] - Somatic dysfunction of cervical region [M99.01 - Segmental and somatic dysfunction of cervical region] - Last Documented On 07/19/2023 5:27PM ; [facility] - Somatic dysfunction of thoracic region [M99.02 - Segmental and somatic dysfunction of thoracic region] - Last Documented On 07/19/2023 5:27PM ; [facility] - Somatic dysfunction of lumbar region [M99.03 - Segmental and somatic dysfunction of lumbar region] - Last Documented On 07/19/2023 5:27PM ; [facility] Medical Equipment - Implanted Devices Includes: Current Devices No Medical Equipment Recorded Medications Includes: Medications discussed during this encounter and other current Medications Current Medications (continue as prescribed) Methylphenidate HCl ER 18 MG Oral Tablet Extended Release 24 Hour 06/20/2023 Provider: Diagnosis: Last Documented On 4 3:42PM By Betty Mahan ; [facility] Mima-D Allergy & Congesti on 60-120 MG Oral Tablet Extended Release 12 Hour 06/20/2023 Provider: Diagnosis: Last Documented On 4 3:43PM By Betty Mahan ; [facility] FLUoxetine HCl 20 MG Oral Capsule 03/31/2021 Provide r: Diagnosis: Last Documented On 3 2:06PM By Barb Lee CCS ; [facility] Medications Administered Includes: Administered Medications from [...] Last Documented: On 07/19/2023 4:02PM ; [facility] Results Includes: Results discussed during this [...] 03/31/2021 Last Documented On 4 4:01PM ; [facility] 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/2021 Last Documented On 4 4:01PM ; [facility] Daily coffee consumption was one cups pe r day 03/31/2021 Last Documented On 4 4:01PM ; [facility] Never drank alcohol 03/31/2021 Last Documented On 4 4:01PM ; [facility] Non-smoker 03/31/2021 Last Documented On 4 4:01PM ; [facility] Not using drugs 03/31/2021 Last Documented On 4 4:01PM ; [facility] Single 03/31/2021 Last Documented On 4 4:01PM ; [facility] Smoking Status Unknown Procedures and Surgical History Includes: Procedures from this encounter Procedures Code Diagnosis Performing Provider Service Location Service Date OSTEOPATHIC MANIP 5-6 AREAS 99856 Segmental and somatic dysfunction of cervical region, Segmental and somatic dysfunction of rib cage, Segmental and somatic dysfunction of thoracic region, Segmental and somatic dysfunction of lumbar region Ananda Menon DO, OMM 07/19/2023 Last Documented On 4 7:02AM ; [facility] osteopathic manipulative treatment (OMT) involving five to six body regions [id number] Last Documented On 4 5:23PM ; [facility] general outcomes - OMT was well tolerate d Last Documented On 4 5:23PM ; [facility] general outcomes - Symptoms improved aft er OMT Last Documented On 4 5:23PM ; [facility] Muscle energy head region Last Documented On 4 5:23PM ; [facility] Myofascial release head region Last Documented On 4 5:23PM ; [facility] Soft tissue technique head region Last Documented On 4 5:23PM ; [facility] OMT response head region: somatic dysfun ction was improved Last Documented On 4 5:23PM ; [facility] Articular technique cervical region Last Documented On 4 5:23PM ; [facility] Facilitated positional release cervical region Last Documented On 4 5:23PM ; [facility] Indirect balanced ligamentous tension ce rvical region Last Documented On 4 5:23PM ; [facility] Muscle energy cervical region Last Documented On 4 5:23PM ; [facility] Myofascial release cervical region Last Documented On 4 5:23PM ; [facility] OMT response cervical region: somatic dy sfunction was improved Last Documented On 4 5:23PM ; [facility] Articular Technique lumbar region Last Documented On 4 5:24PM ; [facility] Muscle energy lumbar region Last Documented On 4 5:24PM ; [facility] OMT response lumbar region: somatic dysf unction was improved Last Documented On 4 5:24PM ; [facility] Articular technique thoracic region Last Documented On 4 5:24PM ; [facility] Muscle energy thoracic region Last Documented On 4 5:24PM ; [facility] Myofascial release thoracic region Last Documented On 4 5:24PM ; [facility] OMT response thoracic region: somatic dy sfunction was improved Last Documented On 4 5:24PM ; [facility] Still technique rib chest region Last Documented On 4 5:24PM ; [facility] OMT response rib/chest region: somatic d ysfunction was improved Last Documented On 4 5:24PM ; [facility] OMT was performed based on jeromy granger's physical examination - Regions treated include those listed in the assessment portion of today's Evaluation & Management note Last Documented On 4 5:23PM ; [facility] Surgical History Last Updated No prior surgery or no significant histo ry 03/31/2021 Last Documented On 4 4:01PM ; [facility] History of treatment of foot fracture - Boot (2016) 03/31/2021 Last Documented On 4 4:01PM ; [facility] Medical History Includes: Medical History addressed during this encounter Description Last Updated Past medical history reviewed - Previous encounter reviewed 03/31/2021 Last Documented On 4 4:01PM ; [facility] Dissociative Disorder ~ Environmental Al lergies 03/31/2021 Last Documented On 4 4:01PM ; [facility] Allergy symptoms occur seasonally 2021 Last Documented On 4 4:01PM ; [facility] An allergy to certain foods 03/31/2021 Last Documented On 4 4:01PM ; [facility] History of anxiety disorder NOS 03/31/19 Last Documented On 4 4:01PM ; [facility] History of depression 03/31/2021 Last Documented On 4 4:01PM ; [facility] Family History Includes: Family History addressed during this encounter Description Last Updated ADHD (dad) 03/31/2021 Last Documented On 4 4:01PM ; [facility] Family history of type 1 diabetes jeovanny redd (sister) 03/31/2021 Last Documented On 4 4:01PM ; [facility] Review of Systems Includes: Review of [...] Last Documented On 4 2:00PM ; [facility] Encounters Encounter Provider Location Date Check-In Time Check-Out Time Diagnosis OM Established patient Ananda Sinan [facility] 07/19/19 24 3:58PM 4:53PM Dorsopathy Low Back Pain Vertebrogenic,S omatic Dysfunction of Head,Somatic Dysfunction of Rib Cage,Somatic Dysfunction of Cervical Region,Somatic Dysfunction of Thoracic Region,Somatic Dysfunction of Lumbar Region,Cervical maxime Insurance Includes: Active Insurance Policies Plan Name Member ID Group # Subscriber Relationship Effect mica Dates 1 - [place] [employer] Payer [id number] Starla II, Girma A Child Clinical Notes Includes: Clinical Notes from this encounter * Progress note Date Encounter Last Documented by 07/19/2023 [facility] Established patient Last doc umented on 07/19/2023; 5:27 PM, Ananda Menon DO; [facility] Chief Complaint - Neck symptoms - [...] outpatient expanded h&p - low complexity decisions 54778 - The E&M code was based on Medical Decision Making associated with at least 2 of the following 3 elements 1) 2 minor or self-limiting problems or 1 stable chronic problem or 1 acute uncomplicated injury; 2) limited record/data reviewed or ordered; 3) Low management risk such as OMT.
--- OUTSIDE RECORDS SUMMARY | 2024-06-29 04:14 | XMS_ITS | Clinical Summary ---
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 Name Role Phone WagnerFrieda domínguezana Primary Care Provider [phone] Reason for Visit and Chief Complaint OM [...] Last Documented On 04/25/2023 12:48PM ; [facility] - Follow-up visit in 2-3 weeks for reevaluation or as needed - Last Documented On 04/25/2023 12:48PM ; [facility] Pending Tests Order Diagnosis Results Due Ordering P darrius RAD - X-Ray Postural Study B Vertebrogenic l ow back pain 04/18/23 Ananda Menon DO Last Documented On 3:10PM ; [facility] Assessments Includes: Assessments from this encounter Findings - Arthralgia of the right pelvis/hip/femur [M25.551 - Pain in right hip] - Last Documented On 04/25/2023 12:48PM ; [facility] - Vertebrogenic low back pain [M54.51 - Vertebrogenic low back pain] - Last Documented On 04/25/2023 12:48PM ; [facility] - Myofascial pain syndrome of neck [M79.18 - Myalgia, other site] - Last Documented On 04/25/2023 12:48PM ; [facility] - Somatic dysfunction of the head region [M99.00 - Segmental and somatic dysfunction of head region] - Last Documented On 04/25/2023 12:48PM ; [facility] - Somatic dysfunction of rib cage [M99.08 - Segmental and somatic dysfunction of rib cage] - Last Documented On 04/25/2023 12:48PM ; [facility] - Somatic dysfunction of cervical region [M99.01 - Segmental and somatic dysfunction of cervical region] - Last Documented On 04/25/2023 12:48PM ; [facility] - Somatic dysfunction of thoracic region [M99.02 - Segmental and somatic dysfunction of thoracic region] - Last Documented On 04/25/2023 12:48PM ; [facility] - Somatic dysfunction of lumbar region [M99.03 - Segmental and somatic dysfunction of lumbar region] - Last Documented On 04/25/2023 12:48PM ; [facility] - Somatic dysfunction of sacrum [M99.04 - Segmental and somatic dysfunction of sacral region] - Last Documented On 04/25/2023 12:48PM ; [facility] - Somatic dysfunction of pelvic region [M99.05 - Segmental and somatic dysfunction of pelvic region] - Last Documented On 04/25/2023 12:48PM ; [facility] Medical Equipment - Implanted Devices Includes: Current Devices No Medical Equipment Recorded Medications Includes: Medications discussed during this encounter and other current Medications Current Medications (continue as prescribed) Methylphenidate HCl ER 18 MG Oral Tablet Extended Release 24 Hour 06/20/2023 Provider: Diagnosis: Last Documented On 4 3:42PM By Betty Isidro [facility] Mima-D Allergy & Congesti on 60-120 MG Oral Tablet Extended Release 12 Hour 06/20/2023 Provider: Diagnosis: Last Documented On 4 3:43PM By Betty Isidro [facility] FLUoxetine HCl 20 MG Oral Capsule 03/31/2021 Provide r: Diagnosis: Last Documented On 3 2:06PM By Barb Lee [facility] ; [facility] Medications Administered Includes: Administered Medications from [...] Last Documented: On 04/04/2023 2:02PM ; [facility] Results Includes: Results discussed during this [...] Documented On 4 1:59PM ; [facility] 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/2021 Last Documented On 4 1:59PM ; [facility] Daily coffee consumption was one cups pe r day 03/31/2021 Last Documented On 4 1:59PM ; [facility] Never drank alcohol 03/31/2021 Last Documented On 4 1:59PM ; [facility] Non-smoker 03/31/2021 Last Documented On 4 1:59PM ; [facility] Not using drugs 03/31/2021 Last Documented On 4 1:59PM ; [facility] Single 03/31/2021 Last Documented On 4 1:59PM ; [facility] Smoking Status Unknown Procedures and Surgical History Includes: Procedures from this encounter Procedures Code Diagnosis Performing Provider Service L ocation Service Date osteopathic manipulative treatment (OMT) involving seven to eight body regions 08079 Last Documented On 4 2:50PM ; [facility] general outcomes - OMT was well tolerate d Last Documented On 4 2:50PM ; [facility] general outcomes - Symptoms improved aft er OMT Last Documented On 4 2:50PM ; [facility] Articular Technique head region Last Documented On 4 2:50PM ; [facility] Indirect balanced ligamentous tension he ad region Last Documented On 4 2:50PM ; [facility] Myofascial release head region Last Documented On 4 2:50PM ; [facility] OMT response head region: somatic dysfun ction was improved Last Documented On 4 2:50PM ; [facility] Articular technique cervical region Last Documented On 4 2:50PM ; [facility] Indirect balanced ligamentous tension ce rvical region Last Documented On 4 2:50PM ; [facility] Myofascial release cervical region Last Documented On 4 2:50PM ; [facility] Soft tissue technique cervical region Last Documented On 4 2:50PM ; [facility] OMT response cervical region: somatic dy sfunction was improved Last Documented On 4 2:50PM ; [facility] Articular Technique lumbar region Last Documented On 4 2:50PM ; [facility] Muscle energy lumbar region Last Documented On 4 2:50PM ; [facility] Myofascial release lumbar region Last Documented On 4 2:50PM ; [facility] Soft tissue technique lumbar region Last Documented On 4 2:50PM ; [facility] OMT response lumbar region: somatic dysf unction was improved Last Documented On 4 2:50PM ; [facility] Articular technique thoracic region Last Documented On 4 2:50PM ; [facility] Myofascial release thoracic region Last Documented On 4 2:50PM ; [facility] Soft tissue technique thoracic region Last Documented On 4 2:50PM ; [facility] OMT response thoracic region: somatic dy sfunction was improved Last Documented On 4 2:50PM ; [facility] OMT response pelvic region: somatic dysf unction was improved Last Documented On 4 2:50PM ; [facility] Articular Technique pelvic region Last Documented On 4 2:50PM ; [facility] Counterstrain pelvic region Last Documented On 4 2:50PM ; [facility] Muscle energy pelvic region Last Documented On 4 2:50PM ; [facility] Counterstrain sacral region Last Documented On 4 2:50PM ; [facility] Functional technique sacral region Last Documented On 4 2:50PM ; [facility] OMT response sacral region: somatic dysf unction was improved Last Documented On 4 2:50PM ; [facility] Myofascial release rib chest region Last Documented On 4 2:50PM ; [facility] Soft tissue technique rib chest region Last Documented On 4 2:50PM ; [facility] OMT response rib/chest region: somatic d ysfunction was improved Last Documented On 4 2:50PM ; [facility] OMT was performed based on jeromy granger's physical examination - Regions treated include those listed in the assessment portion of today's Evaluation & Management note Last Documented On 4 2:50PM ; [facility] Low velocity, moderate amplitude techniq ue sacral region Last Documented On 4 4:04PM ; [facility] Surgical History Last Updated No prior surgery or no significant histo ry 03/31/2021 Last Documented On 4 1:59PM ; [facility] History of treatment of foot fracture - Boot (2016) 03/31/2021 Last Documented On 4 1:59PM ; [facility] Medical History Includes: Medical History addressed during this encounter Description Last Updated Past medical history reviewed - Previous encounter reviewed 03/31/2021 Last Documented On 4 1:59PM ; [facility] Dissociative Disorder ~ Environmental Al lergies 03/31/2021 Last Documented On 4 1:59PM ; [facility] Allergy symptoms occur seasonally 2021 Last Documented On 4 1:59PM ; [facility] An allergy to certain foods 03/31/2021 Last Documented On 4 1:59PM ; [facility] History of anxiety disorder NOS 03/31/19 22 Last Documented On 4 1:59PM ; [facility] History of depression 03/31/2021 Last Documented On 4 1:59PM ; [facility] Family History Includes: Family History addressed during this encounter Description Last Updated ADHD (dad) 03/31/2021 Last Documented On 4 1:59PM ; [facility] Family history of type 1 diabetes mellit us (sister) 03/31/2021 Last Documented On 4 1:59PM ; [facility] Review of Systems Includes: Review of [...] Last Documented On 4 2:00PM ; [facility] Encounters Encounter Provider Location Date Check-In Time Check-Out Time Diagnosis [facility] Established patient Ananda Menon DO [facility] 04/04/19 24 1:56PM 3:03PM Somatic Dysfunction of [...] Subscriber Relationship Effect mica Dates 1 - [place] [employer] Payer [id number] Starla DMITRIY, Girma Franklin Child Clinical Notes Includes: Clinical Notes from this encounter * Progress note Date Encounter Last Documented by 04/04/2023 [facility] Established patient Last doc umented on 04/25/2023; 12:48 PM, [facility]; [facility] Chief Complaint - Back symptoms History of [...] Care Team - Jeanie Trevino Practice Management [facility] outpatient expanded h&p - low complexity decisions 12449 - The E&M code was based on Medical Decision Making associated with at least 2 of the following 3 elements 1) 2 minor or self-limiting problems or 1 stable chronic problem or 1 acute uncomplicated injury; 2) limited record/data reviewed or ordered; 3) Low management risk such as OMT.
[2024-06-29] MEDS: ONDANSETRON 2 MG/ML inj 4 MG IVP (04:16)
[2024-06-29] MEDS: FAMOTIDINE 10 MG/ML inj 20 MG IVP (04:16)
[2024-06-29] MEDS: 0.9 % SODIUM CHLORIDE 1000 ml 1,000 ML IV (04:16)
[2024-06-29] MEDS: diphenhydrAMINE 50 MG/ML inj IVP (04:16)
--- NOTE | 2024-06-29 04:16 | CRLHL7_ITS ---
For Patients: As a result of the Cures Act, medical imaging exams and procedure reports are released immediately into your electronic medical record. You may view this report before your referring provider. If you have questions, please contact your health care provider. INDICATION: Cough COMPARISON: None TECHNIQUE: PA and lateral views of the chest were acquired FINDINGS: TUBES AND LINES: None. HEART AND MEDIASTINUM: The heart size is normal. The mediastinal contour appears normal for patient age. LUNGS AND PLEURAL SPACES: The lungs appear normal.The pleural spaces are unremarkable. OSSEOUS STRUCTURES: Age-appropriate appearance. No acute focal finding. IMPRESSION: No evidence of active pulmonary disease. Dictated by Matias Paul MD @ 06/29/2024 5:31:09 AM (Electronically Signed)
[2024-06-29 04:21] LABS: Chloride* 104 mmol/L (96-114); Potassium* 3.8 mmol/L (3.6-5.1); Sodium* 137 mmol/L (135-149)
[2024-06-29 04:22] VITALS: BP 126/72; PULSE 98; RESP 16; O2SAT 98
[2024-06-29 04:24] LABS: Anion Gap 10 mEq/L (7-15); Blood Urea Nitrogen* 11 mg/dL (5-24); Calcium* 9.1 mg/dL (8.4-10.6); Carbon Dioxide* 23 mmol/L (20-32); Creatinine* 0.8 mg/dL (0.5-1.5); Est. Creatinine Clearance* 91.25; Estimated Glomerular Filt Rate 107 ml/min; Glucose* 149 mg/dL (60-115); Magnesium* 2.1 mg/dL (1.5-2.6)
[2024-06-29 04:28] LABS: D Dimer Quantitative* 0.23 ug/ml (0.00-0.50)
== END 2024-06-29 05:07 | disposition home or self-care (01) ==
PROVIDERS: Emergency Provider Family Medicine
DX: R55 Syncope and collapse (principal)
CPT/HCPCS: 36415; 71046; 80048; 83735; 85025; 85379; 93005; 96374; 96375; 99283; 99284; J1200; J1308; J2405; J7030

== ENCOUNTER 2024-06-30 13:47 | Outpatient (CLI) | payer BC, SELFPAY | END 2024-06-30 13:48 | disposition home or self-care (01) | LOC: NFLDUCREF 13:50 | PROVIDERS: Visit Provider Physician Assistant | DX: R42 Dizziness and giddiness (principal); R55 Syncope and collapse | CPT/HCPCS: 87086 ==